=== PATIENT | male | born 1985 | race African-American/Black ===

== ENCOUNTER 2016-05-26 18:51 | Inpatient (IN) | payer MEDICARE, OTHER ==
[2016-05-26] MEDS ORDERED: IPRATROPIUM-ALBUTEROL 3 ML NEB INHALATION STA (19:32)
[2016-05-26] MEDS ORDERED: SODIUM CHLORIDE 0.9% 1,000 ML IV STA (19:32)
--- NOTE | 2016-05-26 19:35 | ED ---
General Adult HPI - General Chief complaint: Shortness of Breath Stated complaint: trach problems-Diff breathing Time Seen by Provider: 05/26/16 19:10 Source: patient, RN notes reviewed Mode of arrival: wheelchair Limitations: no limitations - History of Present Illness Initial comments: Patient is a pleasant 31-year-old male presenting to emergency Department with difficulty in breathing. Symptoms have been present for the past couple of days. Patient feels his trach may be clogged. Patient also has some congestion in the upper as well as in the lungs. Patient feels he has had subjective fevers at home. Patient has been coughing. Patient does feel short of breath. No leg pain or leg swelling. - Related Data Home Medications Medication Instructions Recorded Confirmed Ergocalciferol [Vitamin D2 50,000 unit PO TH 03/19/15 05/26/16 (DRISDOL)] Topiramate [Topamax] 25 mg PO DAILY 03/19/15 05/26/16 amLODIPine [Norvasc] 5 mg PO DAILY 03/19/15 05/26/16 Montelukast [Singulair] 10 mg PO DAILY 04/15/15 05/26/16 Albuterol Nebulized [Ventolin 2.5 mg INHALATION RT-Q4H PRN 05/26/16 05/26/16 Nebulized] Albuterol Sulfate [Proair Hfa] 2 puff INHALATION RT-QID PRN 05/26/16 05/26/16 Budesonide [Pulmicort Flexhaler] 1 puff INHALATION RT-BID 05/26/16 05/26/16 Cetirizine HCl [Zyrtec] 10 mg PO DAILY 05/26/16 05/26/16 Fluticasone/Salmeterol [Advair Hfa 2 puff INHALATION RT-BID 05/26/16 05/26/16 115-21 Mcg Inhaler] L.acidoph,Paracasei, B.lactis 1 cap PO DAILY 05/26/16 05/26/16 [Probiotic] Multivitamins, Thera [Multivitamin] 1 tab PO DAILY 05/26/16 05/26/16 Allergies Allergy/AdvReac Type Severity Reaction Status Date / Time Penicillins Allergy Rash/Hives Verified 05/26/16 19:04 Review of Systems ROS Statement: Those systems with pertinent positive or pertinent negative responses have been documented in the HPI. ROS Other: All systems not noted in ROS Statement are negative. Constitutional: Reports: fever, chills Eyes: Denies: eye pain ENT: Denies: ear pain Respiratory: Reports: cough, dyspnea Cardiovascular: Denies: chest pain Endocrine: Denies: fatigue Gastrointestinal: Denies: abdominal pain Genitourinary: Denies: dysuria Musculoskeletal: Denies: back pain Skin: Denies: rash Neurological: Denies: weakness Past Medical History Past Medical History: Asthma, GERD/Reflux, Hearing Disorder / Deafness, Hypertension, Pneumonia Additional Past Medical History / Comment(s): Patient is deaf. He has had a cochlear implant using a bone anchored hearing aid and he has undergone previous mastoidectomy and tympanoplasty. 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 Patient has a permanent tracheostomy with a #6 Shiley History of Any Multi-Drug Resistant Organisms: None Reported Past Surgical History: Ear Surgery, Tonsillectomy Additional Past Surgical History / Comment(s): Cochlear implant, PT STATED HE HAD THROAT TISSUE BIOPSIED AT [facility] BUT DOES'NT KNOW THE RESULTS. 09/19/14: Tracheostomy tube placement. Past Anesthesia/Blood Transfusion Reactions: No Reported Reaction Additional Past Anesthesia/Blood Transfusion Reaction / Comment(s): PT STATED" WHILE UNDER AA HE BUT DID COME BACK" Past Psychological History: Anxiety, No Psychological Hx Reported Additional Psychological History / Comment(s): CURRENTLY LIVING WITH HIS MOM GETS VISITNG NURSES 2-3 TIMES A WEEK. He is independent. 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 Smoking Status: Never smoker Past Alcohol Use History: None Reported, Occasional Additional Past Alcohol Use History / Comment(s): Pt states he is not a smoker. He states he does occasionally drink on weekends but never more than `4 drinks a week. Past Drug Use History: None Reported - Past Family History Son(s) Family Medical History: Asthma Father Family Medical History: Hypertension Mother Family Medical History: Hypertension General Exam Limitations: no limitations General appearance: alert, in no apparent distress Head exam: Present: atraumatic Eye exam: Present: normal appearance, PERRL ENT exam: Present: normal oropharynx Neck exam: Present: normal inspection Respiratory exam: Present: wheezes, rhonchi Cardiovascular Exam: Present: tachycardia GI/Abdominal exam: Present: soft. Absent: tenderness Extremities exam: Present: normal inspection Neurological exam: Present: alert Psychiatric exam: Present: normal affect, normal mood Skin exam: Absent: rash Course Vital Signs 05/26/16 05/26/16 05/26/16 19:01 19:48 20:18 Temperature 98.0 F Pulse Rate 142 H 140 H 140 H Respiratory 24 Rate Blood Pressure 146/75 O2 Sat by Pulse 92 L Oximetry 05/26/16 20:51 Temperature Pulse Rate 122 H Respiratory 16 Rate Blood Pressure 155/81 O2 Sat by Pulse 98 Oximetry EKG Findings - EKG Comments: EKG Findings:: Sinus tachycardia 128. NH 148. QRS 80. QT 304. QTC 443. Superior axis. Poor R-wave progression. No acute ST change. Medical Decision Making - Medical Decision Making Patient reexamined and improved however still has some shortness of breath per patient still is coughing. Patient updated on results and plan. Case was discussed in detail with practitioner Chris, to admit for Dr. Puckett, covering for Dr. Hennessy. Patient does meet sepsis criteria. IV antibiotics started. Admission orders written. Consult placed for Dr. Tariq who patient has previously seen. - Lab Data Result diagrams: 05/26/16 19:42 05/26/16 19:42 Lab Results 05/26/16 05/26/16 05/26/16 Range/Units 19:42 19:42 19:42 WBC 13.6 H (3.8-10.6) k/uL RBC 5.04 (4.30-5.90) m/uL Hgb 13.6 (13.0-17.5) gm/dL Hct 43.8 (39.0-53.0) % MCV 86.9 (80.0-100.0) fL MCH 26.9 (25.0-35.0) pg MCHC 31.0 (31.0-37.0) g/dL RDW 15.5 (11.5-15.5) % Plt Count 262 (150-450) k/uL Neutrophils % 83 % Lymphocytes % 7 % Monocytes % 6 % Eosinophils % 1 % Basophils % 0 % Neutrophils # 11.3 H (1.3-7.7) k/uL Lymphocytes # 0.9 L (1.0-4.8) k/uL Monocytes # 0.8 (0-1.0) k/uL Eosinophils # 0.1 (0-0.7) k/uL Basophils # 0.1 (0-0.2) k/uL Sodium 142 (137-145) mmol/L Potassium 3.9 (3.5-5.1) mmol/L Chloride 102 (98-107) mmol/L Carbon Dioxide 23 (22-30) mmol/L Anion Gap 17 mmol/L BUN 14 (9-20) mg/dL Creatinine 0.82 (0.66-1.25) mg/dL Est GFR (MDRD) Af Amer >60 (>60 ml/min/1.73 sqM) Est GFR (MDRD) Non-Af >60 (>60 ml/min/1.73 sqM) Glucose 97 (74-99) mg/dL Calcium 9.8 (8.4-10.2) mg/dL Total Bilirubin 0.9 (0.2-1.3) mg/dL AST 17 (17-59) U/L ALT 38 (21-72) U/L Alkaline Phosphatase 112 (38-126) U/L Total Protein 8.8 H (6.3-8.2) g/dL Albumin 4.6 (3.5-5.0) g/dL Influenza Type A RNA Not Detected (Not Detectd) Influenza Type B (PCR) Not Detected (Not Detectd) - Radiology Data Radiology results: image reviewed (Chest x-ray shows right middle lobe atelectasis versus bronco pneumonia) Critical Care Time Critical Care Time: Yes Total Critical Care Time: 33 Disposition Clinical Impression: Bronchopneumonia, Sepsis Disposition: ADMITTED IP TO THIS HOSP Referrals: Lacey Valenzuela MD [Primary Care Provider] - 1-2 days
[2016-05-26 19:58] LABS: Basophils # (A) 0.1 k/uL (0-0.2); Basophils % (A) 0 %; CH 27.6; Eosinophils # (A) 0.1 k/uL (0-0.7); Eosinophils % (A) 1 %; HCT 43.8 % (39.0-53.0); HDW 2.55; HGB 13.6 gm/dL (13.0-17.5); Luc # (Auto) 0.47; Luc % (Auto) 4; Lymphocytes # (A) 0.9 k/uL (1.0-4.8); Lymphocytes % (A) 7 %; MCH 26.9 pg (25.0-35.0); MCV 86.9 fL (80.0-100.0); Mean Platelet Volume 8.5; Monocytes # (A) 0.8 k/uL (0-1.0); Monocytes % (A) 6 %; Neutrophils # (A) 11.3 k/uL (1.3-7.7); Neutrophils % (A) 83 %; RBC 5.04 m/uL (4.30-5.90); RDW 15.5 % (11.5-15.5); WBC 13.6 k/uL (3.8-10.6)
[2016-05-26 20:21] LABS: ALT 38 U/L (21-72); AST 17 U/L (17-59); Alkaline Phosphatase 112 U/L (38-126); Anion Gap 17 mmol/L; Blood Urea Nitrogen 14 mg/dL (9-20); Calcium 9.8 mg/dL (8.4-10.2); Carbon Dioxide 23 mmol/L (22-30); Chloride 102 mmol/L (98-107); Glucose 97 mg/dL (74-99); Non-African American GFR(MDRD) >60 (>60 ml/min/1.73 sqM); Potassium 3.9 mmol/L (3.5-5.1); Sodium 142 mmol/L (137-145); Total Bilirubin 0.9 mg/dL (0.2-1.3); Total Protein 8.8 g/dL (6.3-8.2)
--- NOTE | 2016-05-26 20:36 | XR ---
EXAMINATION TYPE: XR chest 2V DATE OF EXAM: 05/26/2016 8:26 PM COMPARISON: November 26, 2015 HISTORY: Dyspnea, cough TECHNIQUE: Frontal and lateral views of the chest are obtained. FINDINGS: Tracheostomy tube tip is overlying the trachea. There is redemonstration of obscuration of the right heart border. In fact, it is completely silhouetted on the present study. This is consiste nt with airlessness throughout the right middle lobe. The volume of right middle lobe airlessness has increased since the April 2015 study. There is no focal air space opacity, pleural effusion, or pneumothorax seen. The cardiac silhouette size is within normal limits. The osseous structures are intact. IMPRESSION: RIGHT MIDDLE LOBE ATELECTASIS, CONCURRENT BRONCHOPNEUMONIA CAN ONLY BE CLINICALLY EXCLUD ED.
[2016-05-26] MEDS ORDERED: PNEUMONIA PROTOCOL UTILIZED 1 EACH MISC PO PRN (20:54)
[2016-05-26] MEDS ORDERED: LEVOFLOXACIN 750MG-D5W PMX 750 MG in DEXTROSE/WATER 1 150ML.BAG IVPB STA (20:54)
[2016-05-26] MEDS ORDERED: IPRATROPIUM-ALBUTEROL 3 ML NEB INHALATION PRN (20:54)
[2016-05-26] MEDS ORDERED: AZTREONAM 2 GM in SODIUM CHLORIDE 0.9% 100 ML IVPB STA (20:56)
[2016-05-26] MEDS ORDERED: methylPREDNISolone SOD SUCCI 125 MG/2 ML VIAL IV STA (21:08)
[2016-05-26] MEDS: SODIUM CHLORIDE 0.9% 1,000 ML IV SCH (21:11)
[2016-05-26 23:34] VITALS: BMI 42.5
[2016-05-27] MEDS ORDERED: ALBUTEROL NEBULIZED 2.5 MG/3 ML INHALATION PRN (00:43)
[2016-05-27] MEDS: HYDROcodone/APAP 5-325MG 1 EACH TAB PO PRN ×4 (01:04→22:50)
[2016-05-27] MEDS: FLUTICASONE 50MCG/SPRAY NASAL 16GM NASAL SCH ×3 (01:09→20:12)
[2016-05-27] MEDS: diphenhydrAMINE 50 MG CAP PO SCH ×2 (01:09→20:13)
[2016-05-27] MEDS: methylPREDNISolone SOD SUCCI 125 MG/2 ML VIAL IV SCH ×4 (06:18→22:49)
[2016-05-27] MEDS: SODIUM CHLORIDE 0.9% 1,000 ML IV SCH ×3 (06:23→23:08)
[2016-05-27 06:26] LABS: Glucose,Whole Blood 157 mg/dL (75-99)
[2016-05-27] MEDS: INSULIN LISPRO (humaLOG) 300 UNIT/3 ML VIAL SQ SCH ×4 (07:02→22:48)
[2016-05-27] MEDS ORDERED: NON-FORMULARY DRUG (Budesonide [Pulmicort Flexhaler] 1 PUFF) INHALATION SCH (08:00)
[2016-05-27] MEDS ORDERED: SYMBICORT 80-4.5 MCG INHALER INHALATION SCH (08:00)
[2016-05-27] MEDS: AZTREONAM 2 GM in SODIUM CHLORIDE 0.9% 100 ML IVPB SCH ×3 (08:03→22:49)
[2016-05-27] MEDS: IPRATROPIUM-ALBUTEROL 3 ML NEB INHALATION SCH ×4 (08:40→20:42)
[2016-05-27] MEDS: guaiFENesin-Coden 100-10MG/5ML 10 ML CUP PO PRN ×2 (11:44→22:50)
[2016-05-27] MEDS: guaiFENesin 600 MG TABLET.ER PO SCH ×2 (11:44→20:12)
[2016-05-27 12:33] LABS: Glucose,Whole Blood 150 mg/dL (75-99)
[2016-05-27 13:45] LABS: Hemoglobin A1C 5.9 % (4.2-6.1)
--- NOTE | 2016-05-27 14:52 | P.CNPUL ---
History of Present Illness Consult date: 05/27/16 Requesting physician: Cindi Puckett Reason for consult: abnormal CXR/CT (Right lower lobe atelectasis) Chief complaint: Shortness of breath, cough, congestion History of present illness: This is a very pleasant 31-year-old gentleman who follows with Dr. Valenzuela as his primary care physician. He has a history of chronic bronchial asthma, gastroesophageal reflux disease, deafness status post mastoidectomy and tympanoplasty status post cochlear implant, hypertension. The patient also has a history of previous angioedema requiring emergent tracheostomy tube placement here back in September 2014. He subsequently was transferred to the [facility] and he was considered of having a disease called Rosia-Parker. He has remained with tracheostomy tube since then. He has been in the hospital multiple occasions secondary to pneumonias. Between here and [facility] we have seen the patient on multiple occasions. He presented here again on 05/26/2016 with complaints of increasing shortness of breath cough and congestion. He expectorates quite a bit of hot yellow sputum from his tracheostomy tube. He was recently at the [facility] and had undergone swallow evaluation by Dr. Olguin (ENT) which all came back normal. He was noted to have some lesions in his tracheal bronchial tubes and was transferred to [facility]. There he had been undergone another bronchoscopy by Dr. Earnest Lagunas. No interventions were performed. Tracheostomy was left in place. He was to follow-up there on the of this month. He is seen today in consultation. He is awake and alert in no acute distress. He states he is a 31 breathing easier today as compared to yesterday. He continues with thick yellow sputum that he is able to expectorate from his tracheostomy tube. Reveal some chronic changes of the right lower lobe. Some atelectasis. He denies any difficulty in swallowing. He eats full regular meals and his influenza screen is negative. Mild leukocytosis with a white count of 13.6. He is afebrile. He is maintaining good O2 saturations in the mid to upper 90s on 35% trach collar. Review of Systems 14 point review of system was conducted. All negative other than as mentioned in HPI. Past Medical History Past Medical History: Asthma, GERD/Reflux, Hearing Disorder / Deafness, Hypertension, Pneumonia Additional Past Medical History / Comment(s): Patient is deaf. He has had a cochlear implant using a bone anchored hearing aid and he has undergone previous mastoidectomy and tympanoplasty. 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 Patient has a permanent tracheostomy with a #6 Shiley History of Any Multi-Drug Resistant Organisms: None Reported Past Surgical History: Ear Surgery, Tonsillectomy Additional Past Surgical History / Comment(s): Cochlear implant, PT STATED HE HAD THROAT TISSUE BIOPSIED AT [facility] BUT DOES'NT KNOW THE RESULTS. 09/19/14: Tracheostomy tube placement. Past Anesthesia/Blood Transfusion Reactions: No Reported Reaction Additional Past Anesthesia/Blood Transfusion Reaction / Comment(s): PT STATED" WHILE UNDER AA HE BUT DID COME BACK" Past Psychological History: Anxiety Additional Psychological History / Comment(s): CURRENTLY LIVING WITH HIS MOM GETS VISITNG NURSES 2-3 TIMES A WEEK. He is independent. 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 Smoking Status: Former smoker Past Alcohol Use History: Occasional Additional Past Alcohol Use History / Comment(s): Pt states he is not a smoker. He states he does occasionally drink on weekends but never more than `4 drinks a week. Past Drug Use History: None Reported - Past Family History Son(s) Family Medical History: Asthma Father Family Medical History: Hypertension Mother Family Medical History: Hypertension Medications and Allergies Home Medications Medication Instructions Recorded Confirmed Type Ergocalciferol [Vitamin D2 50,000 unit PO TH 03/19/15 05/26/16 History (DRISDOL)] Topiramate [Topamax] 25 mg PO DAILY 03/19/15 05/26/16 History amLODIPine [Norvasc] 5 mg PO DAILY 03/19/15 05/26/16 History Montelukast [Singulair] 10 mg PO DAILY 04/15/15 05/26/16 History Albuterol Nebulized [Ventolin 2.5 mg INHALATION RT-Q4H PRN 05/26/16 05/26/16 History Nebulized] Albuterol Sulfate [Proair Hfa] 2 puff INHALATION RT-QID PRN 05/26/16 05/26/16 History Budesonide [Pulmicort Flexhaler] 1 puff INHALATION RT-BID 05/26/16 05/26/16 History Cetirizine HCl [Zyrtec] 10 mg PO DAILY 05/26/16 05/26/16 History Fluticasone Nasal [place] [Flonase 1 spray NASAL BID 05/26/16 05/26/16 History Nasal [place]] Fluticasone/Salmeterol [Advair Hfa 2 puff INHALATION RT-BID 05/26/16 05/26/16 History 115-21 Mcg Inhaler] L.acidoph,Paracasei, B.lactis 1 cap PO DAILY 05/26/16 05/26/16 History [Probiotic] Multivitamins, Thera [Multivitamin] 1 tab PO DAILY 05/26/16 05/26/16 History diphenhydrAMINE [Benadryl] 50 mg PO HS 05/26/16 05/26/16 History Allergies Allergy/AdvReac Type Severity Reaction Status Date / Time Penicillins Allergy Rash/Hives Verified 05/26/16 19:04 Physical Exam Vitals: Vital Signs Temp Pulse Pulse Resp BP BP Pulse Ox 05/27/16 13:40 92 05/27/16 13:16 92 05/27/16 11:41 86 16 125/72 98 05/27/16 08:57 80 05/27/16 08:40 82 05/27/16 07:56 97 F L 58 L 16 120/72 98 05/27/16 04:00 96.9 F L 83 18 122/83 96 05/27/16 00:00 97.7 F 103 H 18 133/70 97 05/26/16 23:04 98.7 F 115 H 22 140/82 93 L 05/26/16 22:21 108 H 16 141/78 97 05/26/16 21:17 118 H 20 148/79 97 Intake and Output 05/26/16 05/27/16 05/27/16 22:59 06:59 14:59 Intake Total 1000 360 Output Total 225 Balance 775 360 Intake: IV 1000 Aztreonam 2 gm In Sodium 100 Chloride 0.9% 100 ml @ 100 mls/hr IVPB ONCE STA Rx#:[id number] Sodium Chloride 0.9% 1, 900 000 ml @ 100 mls/hr IV . Q10H NIC Rx#:[id number] Oral 360 Output: Urine 225 Other: Voiding Method Urinal Weight 112.4 kg GENERAL EXAM: Alert, comfortable in no apparent distress. HEAD: Normocephalic. EYES: Normal reaction of pupils, equal size. NOSE: Clear with pink turbinates. THROAT: Tracheostomy tube is secured in place. No erythema or exudates. NECK: No masses, no JVD. CHEST: No chest wall deformity. LUNGS: Equal air entry with faint crackles in the right posterior base. CVS: S1 and S2 normal with no audible murmurs, regular rhythm. ABDOMEN: No hepatosplenomegaly, normal bowel sounds, no guarding or rigidity. SPINE: No scoliosis or deformity SKIN: No rashes CENTRAL NERVOUS SYSTEM: No focal deficits, tone is normal in all 4 extremities. Extremities: There is trace peripheral edema. No clubbing. Pulses are intact. Results - Laboratory Findings CBC and BMP: 05/26/16 19:42 05/26/16 19:42 Abnormal lab findings: Abnormal Labs 05/27/16 05/27/16 06:16 12:31 POC Glucose (mg/dL) 157 H 150 H - Diagnostic Findings Chest x-ray: image reviewed Assessment and Plan Plan: Impression: #1 Acute exacerbation of chronic moderate persistent asthma complicated by purulent tracheobronchitis. Pneumonia is not totally excluded. #2 Acute hypoxic respiratory failure secondary to above. 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 The patient does have been documented lesions in the trachea and bronchial tubes following recent bronchoscopy by Dr. Sanchez on [facility]. Tracheostomy tube remains in place for now. #5 Deafness, status post cochlear transplant with hearing aids. Thank: The patient was seen and evaluated by Dr. Mendoza. His chest x-ray and labs were reviewed. We'll treat the patient for his asthma exacerbation as well as purulent tracheobronchitis. Will obtain a sputum sample. We'll continue with his bronchodilators, performance and Pulmicort inhalations twice a day, Mucomyst him a IV Solu-Medrol. He is on antibiotics in the form of Levaquin and as turning him. We will increase his activity as tolerated. We'll continue to follow make further recommendations based on his clinical status.
--- NOTE | 2016-05-27 16:52 | HP ---
DATE OF ADMISSION: CHIEF COMPLAINT: Shortness of breath, cough and sputum. HISTORY OF PRESENT ILLNESS: This 31-year-old gentleman with a past history of asthma, history of GERD, history of hearing disorder, history of deafness, history of cochlear implant, history of Rosai-Parker syndrome, history of upper airway obstruction, had also chronic respiratory failure. The patient also had a tracheostomy because of upper airway obstruction. The patient had tracheal reconstruction at the [facility] and the tracheostomy was supposed to be removed last month according to the patient but the patient was sick and complaining of increasing shortness of breath and cough and mucopurulent sputum and the patient came to [facility] and admitted for further evaluation and treatment. Right middle lobe bronchopneumonia suspected. There is no history of any fever, rigors. No history of headache, loss of consciousness, or seizures. 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 Medications prior to admission include: 1. Benadryl 50 mg p.o. q.h.s. 2. Flonase one spray b.i.d. 3. Norvasc 5 mg p.o. 4. Toprol 25 mg p.o. daily. 5. Multivitamin 1 p.o. daily. 6. Singulair 10 mg p.o. daily. 7. Probiotic 1 capsule daily. 8. Advair 2 puffs b.i.d. 9. Drisdol 50,000 p.o. . 10. Zyrtec 10 mg p.o. daily. 11. Pulmicort 1 mg 1 b.i.d. 12. ProAir 2 puffs q.i.d. 13. Ventolin 2.5 q.4 p.r.n. ALLERGIES: PENICILLIN. FAMILY HISTORY: History of asthma in the family. SOCIAL HISTORY: Previous history of smoking, occasional alcohol intake. REVIEW OF SYSTEMS: ENT: Mentioned earlier. CARDIOVASCULAR: No angina. RESPIRATORY: As mentioned earlier. GI: No nausea. : No dysuria. NERVOUS SYSTEM: No numbness or weakness. ALLERGY/IMMUNOLOGY: No asthma or hayfever. MUSCULOSKELETAL: As mentioned earlier. HEMATOLOGY/ONCOLOGY: No history of anemia. ENDOCRINE: No history of diabetes or hypothyroidism. CONSTITUTIONAL: As mentioned earlier. DERMATOLOGY: Negative. RHEUMATOLOGY: Negative. PSYCHIATRY: As mentioned earlier. PHYSICAL EXAMINATION: pulse is 58, blood pressure 120/77, respirations 16, temperature 97 degrees, pulse ox 98% on room air. HEENT: Conjunctivae normal. Oral mucosa moist. NECK: Tracheostomy. No jugular venous distention. No carotid bruit. No lymph node enlargement. CARDIOVASCULAR: S1 and S2. No S3, no S4. RESPIRATORY: Breath sounds diminished at the bases. Bilateral scattered rhonchi and crackles. ABDOMEN: Soft, nontender. No mass palpable. LEGS: No edema, no swelling. NERVOUS SYSTEM: Higher function as mentioned. Moves all four limbs. No focal motor deficits. LYMPHATIC: No lymphadenopathy in the neck, axillae or groin. SKIN: No ulcer, rash or bleeding. LABS: WBC 13.6, 8. ASSESSMENT: 1. Acute asthma acute exacerbation with acute purulent tracheobronchitis and bronchopneumonia on the right with SARS present on admission. 2. Increased WBC. 3. Tachycardia present on admission. 4. Increased random blood sugar. 5. Asthma. 6. History of gastroesophageal reflux disease. 7. History of hearing deficit and deafness. 8. Hypertension. 9. History of pneumonia. 10. History of cochlear implant. 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 12. History of tracheostomy with a number 6 Shiley. 13. History of anxiety. 14. Remote history of nicotine dependence. 15. FULL CODE. 16. Obesity with body mass index of 42.5. RECOMMENDATIONS AND DISCUSSION: In this 31-year-old gentleman who presented with multiple complex medical issues, we will monitor the patient closely. Continue the current medications and symptomatic treatment. Will optimize the bronchodilator treatment and empiric antibiotics. We will follow the cultures. Dr. Mendoza and Dr. Tariq will be consulted. Prognosis guarded because of multiple complex medical issues. Further recommendations to follow. Copy of dictation forwarded to Dr. Valenzuela, who is the primary physician. TONEY
--- NOTE | 2016-05-27 17:24 | XR ---
EXAMINATION TYPE: XR chest 2V DATE OF EXAM: 05/27/2016 5:13 PM COMPARISON: 05/26/2016 HISTORY: Cough and congestion TECHNIQUE: Frontal and lateral views of the chest are obtained. FINDINGS: There is no heart failure nor confluent pneumonic infiltrate. Costophrenic angles are karlee r. There is tracheostomy tube noted. Mediastinum is normal. There are no hilar masses. There is mild linear density in the right middle lobe. IMPRESSION: Mild right middle lobe atelectasis without change compared to yesterday. No heart failur e. No evidence of bronchopneumonia.
[2016-05-27 17:40] LABS: Glucose,Whole Blood 123 mg/dL (75-99)
[2016-05-27] MEDS: LORATADINE 10 MG TAB PO SCH (17:40)
[2016-05-27] MEDS ORDERED: FORMOTEROL FUMARATE 20 MCG/2 ML NEBU INHALATION SCH (20:00)
[2016-05-27] MEDS ORDERED: BUDESONIDE 1 MG/2 ML NEBU INHALATION SCH (20:00)
[2016-05-27] MEDS: LEVOFLOXACIN 750MG-D5W PMX 750 MG in DEXTROSE/WATER 1 150ML.BAG IVPB SCH (20:12)
[2016-05-27 20:36] LABS: Glucose,Whole Blood 214 mg/dL (75-99)
[2016-05-27] MEDS: BUDESONIDE 0.5 MG/2 ML NEBU INHALATION SCH (20:42)
[2016-05-27] MEDS: FORMOTEROL FUMARATE 20 MCG/2 ML NEBU INHALATION SCH (20:42)
[2016-05-28 05:50] LABS: Glucose,Whole Blood 143 mg/dL (75-99)
[2016-05-28] MEDS: INSULIN LISPRO (humaLOG) 300 UNIT/3 ML VIAL SQ SCH ×4 (06:19→21:50)
[2016-05-28] MEDS: methylPREDNISolone SOD SUCCI 125 MG/2 ML VIAL IV SCH ×4 (06:19→22:31)
[2016-05-28] MEDS: PANTOPRAZOLE 40 MG TABLET PO SCH (06:20)
[2016-05-28] MEDS: HYDROcodone/APAP 5-325MG 1 EACH TAB PO PRN ×3 (06:32→17:42)
[2016-05-28 06:46] LABS: Basophils % (A) 0 %; CH 26.7; CHCM 30.2; Eosinophils # (A) 0.1 k/uL (0-0.7); Eosinophils % (A) 1 %; HCT 38.7 % (39.0-53.0); HDW 2.62; HGB 11.6 gm/dL (13.0-17.5); Hypochromasia Moderate; Luc # (Auto) 0.17; Luc % (Auto) 1; Lymphocytes # (A) 0.7 k/uL (1.0-4.8); Lymphocytes % (A) 4 %; MCH 26.6 pg (25.0-35.0); MCHC 29.9 g/dL (31.0-37.0); MCV 88.8 fL (80.0-100.0); Mean Platelet Volume 8.2; Monocytes # (A) 0.5 k/uL (0-1.0); Monocytes % (A) 3 %; Neutrophils # (A) 13.4 k/uL (1.3-7.7); Neutrophils % (A) 91 %; RBC 4.35 m/uL (4.30-5.90); WBC 14.7 k/uL (3.8-10.6); WBC (Perox) 15.19
[2016-05-28 07:01] LABS: Anion Gap 13 mmol/L; Blood Urea Nitrogen 14 mg/dL (9-20); Calcium 9.4 mg/dL (8.4-10.2); Carbon Dioxide 22 mmol/L (22-30); Chloride 107 mmol/L (98-107); Glucose 132 mg/dL (74-99); Non-African American GFR(MDRD) >60 (>60 ml/min/1.73 sqM); Potassium 4.7 mmol/L (3.5-5.1); Sodium 142 mmol/L (137-145)
[2016-05-28] MEDS: BUDESONIDE 0.5 MG/2 ML NEBU INHALATION SCH ×2 (07:59→20:01)
[2016-05-28] MEDS: IPRATROPIUM-ALBUTEROL 3 ML NEB INHALATION SCH ×4 (07:59→20:01)
[2016-05-28] MEDS: FORMOTEROL FUMARATE 20 MCG/2 ML NEBU INHALATION SCH ×2 (07:59→20:01)
[2016-05-28] MEDS: AZTREONAM 2 GM in SODIUM CHLORIDE 0.9% 100 ML IVPB SCH ×3 (09:51→22:30)
[2016-05-28] MEDS: LACTOBACILLUS ACIDOPH & BULGAR 1 EACH PACKET PO SCH (09:59)
[2016-05-28] MEDS: guaiFENesin 600 MG TABLET.ER PO SCH ×2 (09:59→20:29)
[2016-05-28] MEDS: amLODIPine 5 MG TAB PO SCH (09:59)
[2016-05-28] MEDS: FLUTICASONE 50MCG/SPRAY NASAL 16GM NASAL SCH ×2 (09:59→20:29)
[2016-05-28] MEDS: MONTELUKAST 10 MG TAB PO SCH (10:00)
[2016-05-28] MEDS: LORATADINE 10 MG TAB PO SCH (10:00)
[2016-05-28] MEDS: TOPIRAMATE 25 MG TAB PO SCH (10:00)
[2016-05-28] MEDS: guaiFENesin-Coden 100-10MG/5ML 10 ML CUP PO PRN ×2 (10:12→20:29)
[2016-05-28] MEDS: MULTIVITAMINS, THERA 1 EACH TAB PO SCH (11:25)
[2016-05-28 11:53] LABS: Glucose,Whole Blood 150 mg/dL (75-99)
--- NOTE | 2016-05-28 13:26 | P.PN ---
Subjective This is a very pleasant 31-year-old gentleman who follows with Dr. Valenzuela as his primary care physician. He has a history of chronic bronchial asthma, gastroesophageal reflux disease, deafness status post mastoidectomy and tympanoplasty status post cochlear implant, hypertension. The patient also has a history of previous angioedema requiring emergent tracheostomy tube placement here back in September 2014. 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 He has remained with tracheostomy tube since then. He has been in the hospital multiple occasions secondary to pneumonias. Between here and [facility] we have seen the patient on multiple occasions. He presented here again on 05/26/2016 with complaints of increasing shortness of breath cough and congestion. He expectorates quite a bit of hot yellow sputum from his tracheostomy tube. He was recently at the [facility] and had undergone swallow evaluation by Dr. Olguin (ENT) which all came back normal. He was noted to have some lesions in his tracheal bronchial tubes and was transferred to [facility]. There he had been undergone another bronchoscopy by Dr. Earnest Lagunas. No interventions were performed. Tracheostomy was left in place. He was to follow-up there on the of this month. He is seen today in consultation. He is awake and alert in no acute distress. He states he is a 31 breathing easier today as compared to yesterday. He continues with thick yellow sputum that he is able to expectorate from his tracheostomy tube. Reveal some chronic changes of the right lower lobe. Some atelectasis. He denies any difficulty in swallowing. He eats full regular meals and his influenza screen is negative. Mild leukocytosis with a white count of 13.6. He is afebrile. He is maintaining good O2 saturations in the mid to upper 90s on 35% trach collar. The patient is seen again today 05/28/2016 in follow-up on the selective care unit. He is awake and alert in no acute distress. He states he is breathing easier today as compared to yesterday. He continues with a productive cough of pale yellow phlegm. Sputum culture is pending. He is maintaining good O2 saturations in the high 90s on 35% trach collar. He is afebrile. White count 14.7. He has been maintained on Levaquin and aztreonam. Objective - Vital Signs Vital signs: Vital Signs Temp 98 F 05/28/16 08:00 Pulse 84 05/28/16 12:02 Resp 20 05/28/16 08:00 BP 133/76 05/28/16 08:00 Pulse Ox 98 05/28/16 08:00 Intake & Output 05/27/16 05/28/16 05/28/16 18:59 06:59 18:59 Intake Total 1980 900 118 Output Total 1300 Balance 1979 -400 118 Weight 112.4 kg Intake: IV 900 700 Aztreonam 2 gm In Sodium 100 Chloride 0.9% 100 ml @ 100 mls/hr IVPB ONCE STA Rx#:[id number] Sodium Chloride 0.9% 1, 800 700 000 ml @ 100 mls/hr IV . Q10H NIC Rx#:[id number] Intake, IV Titration 200 Amount Aztreonam 2 gm In Sodium 100 Chloride 0.9% 100 ml @ 100 mls/hr IVPB Q8HR NIC Rx#:[id number] Levofloxacin 750Mg-D5w 100 Pmx 750 mg In Dextrose/ Water 1 150ml.bag @ 100 mls/hr IVPB Q24H NIC Rx#: [id number] Oral 1080 118 Output: Urine 1300 Other: Voiding Method Urinal Urinal # Voids 2 - Exam GENERAL EXAM: Alert, comfortable in no apparent distress. HEAD: Normocephalic. EYES: Normal reaction of pupils, equal size. NOSE: Clear with pink turbinates. THROAT: Tracheostomy tube is secured in place. No erythema or exudates. NECK: No masses, no JVD. CHEST: No chest wall deformity. LUNGS: Equal air entry with faint crackles in the right posterior base. CVS: S1 and S2 normal with no audible murmurs, regular rhythm. ABDOMEN: No hepatosplenomegaly, normal bowel sounds, no guarding or rigidity. SPINE: No scoliosis or deformity SKIN: No rashes CENTRAL NERVOUS SYSTEM: No focal deficits, tone is normal in all 4 extremities. Extremities: There is trace peripheral edema. No clubbing. Pulses are intact - Labs CBC & Chem 7: 05/28/16 05:58 05/28/16 05:58 Labs: Abnormal Lab Results - Last 24 Hours (Table) 05/27/16 05/27/16 05/28/16 Range/Units 17:38 20:35 05:48 WBC (3.8-10.6) k/uL Hgb (13.0-17.5) gm/dL Hct (39.0-53.0) % MCHC (31.0-37.0) g/dL Neutrophils # (1.3-7.7) k/uL Lymphocytes # (1.0-4.8) k/uL Glucose (74-99) mg/dL POC Glucose (mg/dL) 123 H 214 H 143 H (75-99) mg/dL 05/28/16 05/28/16 05/28/16 Range/Units 05:58 05:58 11:43 WBC 14.7 H (3.8-10.6) k/uL Hgb 11.6 L (13.0-17.5) gm/dL Hct 38.7 L (39.0-53.0) % MCHC 29.9 L (31.0-37.0) g/dL Neutrophils # 13.4 H (1.3-7.7) k/uL Lymphocytes # 0.7 L (1.0-4.8) k/uL Glucose 132 H (74-99) mg/dL POC Glucose (mg/dL) 150 H (75-99) mg/dL Microbiology - Last 24 Hours (Table) 05/26/16 21:41 Blood Culture - Preliminary Blood No Growth after 24 hours Assessment and Plan Plan: Impression: #1 Acute exacerbation of chronic moderate persistent asthma complicated by purulent tracheobronchitis. Pneumonia is not totally excluded. #2 Acute hypoxic respiratory failure secondary to above. 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 The patient does have been documented lesions in the trachea and bronchial tubes following recent bronchoscopy by Dr. Sanchez on [facility]. Tracheostomy tube remains in place for now. #5 Deafness, status post cochlear transplant with hearing aids. Thank: The patient was seen and evaluated by Dr. Mendoza. We'll continue with his bronchodilators, performance and Pulmicort inhalations twice a day, Mucomyst him a IV Solu-Medrol. He is on antibiotics in the form of Levaquin and aztreonam. We will increase his activity as tolerated. We'll continue to follow make further recommendations based on his clinical status. Hopefully, the patient will be able to be discharged prior to Monday so he could keep his appointment with Dr. Lagunas at [facility] in regards to the tracheal/bronchial lesions.
[2016-05-28 16:28] LABS: Glucose,Whole Blood 125 mg/dL (75-99)
[2016-05-28] MEDS: SODIUM CHLORIDE 0.9% 1,000 ML IV SCH (16:39)
[2016-05-28] MEDS: diphenhydrAMINE 50 MG CAP PO SCH (20:29)
[2016-05-28] MEDS: LEVOFLOXACIN 750MG-D5W PMX 750 MG in DEXTROSE/WATER 1 150ML.BAG IVPB SCH (20:29)
[2016-05-28 20:59] LABS: Glucose,Whole Blood 170 mg/dL (75-99)
--- NOTE | 2016-05-28 21:35 | PN ---
This 31-year-old gentleman with a past medical history of multiple medical problems was admitted with significant bronchopneumonia. The patient had features of SARS present on admission. The patient had cough, sputum at this time. The blood cultures are negative. Pulmonary following the patient closely. The patient is on bronchodilators also. The patient also has history of Rosai Parker syndrome and evaluated at [facility] for possible surgery on this coming Monday. PAST MEDICAL HISTORY: Reviewed. REVIEW OF SYSTEMS: CARDIOVASCULAR: No angina or palpitations. RESPIRATORY: As mentioned earlier. GASTROINTESTINAL: No nausea or vomiting. GENITOURINARY: No dysuria. CENTRAL NERVOUS SYSTEM: No numbness, weakness. Current medications are reviewed and include: 1. [place] 5 mg q.6h p.r.n. 2. Ventolin q.i.d. p.r.n. 3. DuoNeb q.i.d. and p.r.n. 4. Norvasc 5 mg p.o. daily. 6. Pulmicort 0.5 b.i.d. 7. Benadryl 50 mg. 8. Vitamin D2, 50,000 . 9. Flonase. 10. Perforomist 20 mg b.i.d. 11. Mucinex 1200 mg p.o. b.i.d. 12. Humalog scale. 13. Lactinex 1 tablet p.o. daily. 14. Levaquin 750 q.24 hours. 15. Solu-Medrol 60 IV q.6. 16. Singulair 10 mg p.o. daily. 17. Multivitamins one daily. 18. Protonix 40 mg daily. 19. Restoril 15 mg q.h.s. PHYSICAL EXAMINATION: The patient is alert and oriented times three. Pulse 89, blood pressure 136/72. Respiratory rate 18, temperature normal. Pulse ox 95% on trach collar. HEENT: Conjunctivae normal. Oral mucosa moist. NECK: No jugular venous distention. No carotid bruit. No lymph node enlargement. Tracheostomy. CARDIOVASCULAR: S1. S2 muffled. No S3, no S4. RESPIRATORY: Breath sounds diminished at the bases. Bilateral scattered rhonchi, expiratory wheezing and crackles. ABDOMEN: Soft, nontender, no mass palpable. LEGS: NO edema. No swelling. CENTRAL NERVOUS SYSTEM: Higher functions as mentioned earlier. Moves all four limbs. No focal deficits. LYMPHATICS: No lymph nodes palpable in the neck, axillae or groin. SKIN: No ulcer, rash or bleeding. LABS: WBC 14.2, hemoglobin 11.6, glucose 150. ASSESSMENT: Called. HEENT: Conjunctivae normal. Oral mucosa moist. NECK: No jugular venous distention. No carotid bruit. No exertion, no nervous system: No focal deficits. And prescription. The bases acute as the bases. A few scattered rhonchi and expiratory wheezing and crackles. ABDOMEN: Soft. No mass palpable. No swelling. Nervous system: Higher function as mentioned. Moves all 4 limbs Motrin his, axillae or groin. SKIN: No ulcer, rash or bleeding. LABS: WBC 14.7 0.6. Glucose 150. ASSESSMENT: 1. Acute asthma, acute exacerbation, with acute purulent tracheobronchitis and bronchopneumonia bilaterally, more on the right with severe acute respiratory syndrome present on admission. 2. Increased WBC. 3. Tachycardia present on admission. 4. Increased random blood sugar. 5. Asthma. 6. History of gastroesophageal reflux disease. 7. History of hearing deficits and deafness. 8. Hypertension. 9. History of pneumonia. 10. History of cochlear implant. 11. History of Rosai Parker syndrome. 12. History of tracheostomy with number 6 Shiley. 13. History of anxiety. 14. Remote history of nicotine dependence. 15. Obesity with body mass index of 42.5. 16. FULL CODE. RECOMMENDATIONS AND DISCUSSION: This 31-year-old gentleman with multiple complex medical issues, we will monitor the patient closely. Continue the current medications. Continue symptomatic treatment. I will recommend to continue broad-spectrum IV antibiotics. The patient was started Aztreonam at this time. Continue the bronchodilators, continue steroids and continue the rest of the medication. Obtain cultures. Closely follow with Dr. Mendoza. Guarded prognosis. Further recommendations to follow. [facility]
[2016-05-28] MEDS: TEMAZEPAM 15 MG CAP PO PRN (22:30)
[2016-05-29] MEDS: SODIUM CHLORIDE 0.9% 1,000 ML IV SCH ×2 (04:03→15:36)
[2016-05-29 06:23] LABS: Basophils % (A) 0 %; CH 26.6; CHCM 29.9; Eosinophils % (A) 0 %; HCT 39.8 % (39.0-53.0); HDW 2.62; HGB 11.9 gm/dL (13.0-17.5); Hypochromasia Marked; Luc % (Auto) 1; Lymphocytes # (A) 0.6 k/uL (1.0-4.8); Lymphocytes % (A) 5 %; MCH 26.7 pg (25.0-35.0); MCHC 29.9 g/dL (31.0-37.0); MCV 89.2 fL (80.0-100.0); Mean Platelet Volume 8.2; Monocytes # (A) 0.3 k/uL (0-1.0); Monocytes % (A) 2 %; Neutrophils # (A) 10.6 k/uL (1.3-7.7); Neutrophils % (A) 92 %; RBC 4.47 m/uL (4.30-5.90); RDW 15.1 % (11.5-15.5); WBC 11.5 k/uL (3.8-10.6); WBC (Perox) 11.49
[2016-05-29 06:32] LABS: Anion Gap 11 mmol/L; Blood Urea Nitrogen 14 mg/dL (9-20); Calcium 9.1 mg/dL (8.4-10.2); Carbon Dioxide 25 mmol/L (22-30); Chloride 105 mmol/L (98-107); Glucose 197 mg/dL (74-99); Non-African American GFR(MDRD) >60 (>60 ml/min/1.73 sqM); Potassium 4.7 mmol/L (3.5-5.1); Sodium 141 mmol/L (137-145)
[2016-05-29] MEDS: methylPREDNISolone SOD SUCCI 125 MG/2 ML VIAL IV SCH ×4 (06:42→23:35)
[2016-05-29] MEDS: PANTOPRAZOLE 40 MG TABLET PO SCH (06:42)
[2016-05-29] MEDS: INSULIN LISPRO (humaLOG) 300 UNIT/3 ML VIAL SQ SCH ×4 (06:45→22:15)
[2016-05-29 06:47] LABS: Glucose,Whole Blood 180 mg/dL (75-99)
[2016-05-29] MEDS: IPRATROPIUM-ALBUTEROL 3 ML NEB INHALATION SCH ×4 (07:45→20:20)
[2016-05-29] MEDS: BUDESONIDE 0.5 MG/2 ML NEBU INHALATION SCH (07:46)
[2016-05-29] MEDS: FORMOTEROL FUMARATE 20 MCG/2 ML NEBU INHALATION SCH ×2 (07:46→20:20)
[2016-05-29] MEDS: LACTOBACILLUS ACIDOPH & BULGAR 1 EACH PACKET PO SCH (08:39)
[2016-05-29] MEDS: LORATADINE 10 MG TAB PO SCH (08:39)
[2016-05-29] MEDS: MONTELUKAST 10 MG TAB PO SCH (08:39)
[2016-05-29] MEDS: guaiFENesin 600 MG TABLET.ER PO SCH ×2 (08:39→22:15)
[2016-05-29] MEDS: TOPIRAMATE 25 MG TAB PO SCH (08:40)
[2016-05-29] MEDS: amLODIPine 5 MG TAB PO SCH (08:40)
[2016-05-29] MEDS: AZTREONAM 2 GM in SODIUM CHLORIDE 0.9% 100 ML IVPB SCH ×3 (08:43→23:35)
[2016-05-29] MEDS: HYDROcodone/APAP 5-325MG 1 EACH TAB PO PRN ×3 (08:45→22:14)
[2016-05-29] MEDS: guaiFENesin-Coden 100-10MG/5ML 10 ML CUP PO PRN (08:45)
--- NOTE | 2016-05-29 11:59 | P.PN ---
Subjective Progress note dated 05/29/2016 This is a 31-year-old white male with a history of chronic bronchial asthma previous tracheostomy and hearing loss. He also suffers from gastroesophageal reflux disease and hypertension. The patient is to see one of the interventional bronchoscopy as it [facility] in the near future for possible removal of lesions within the trachea. He was recently also seen a [facility]. The patient is doing better. Still coughing up some yellow phlegm. Specimens were sent to laboratory yesterday. He is breathing easier. Feeling much better. Less short of breath. Less bronchospasm. Objective - Vital Signs Vital signs: Vital Signs Temp 97.8 F 05/29/16 04:00 Pulse 94 05/29/16 11:24 Resp 18 05/29/16 04:00 BP 135/71 05/29/16 04:00 Pulse Ox 97 05/29/16 04:00 Intake & Output 05/28/16 05/29/16 05/29/16 18:59 06:59 18:59 Intake Total 1618 1700 Output Total 1999 190 Balance -382 -200 Weight 115.4 kg Intake: IV 600 400 Sodium Chloride 0.9% 1, 600 400 000 ml @ 100 mls/hr IV . Q10H NIC Rx#:[id number] Intake, IV Titration 200 200 Amount Aztreonam 2 gm In Sodium 200 100 Chloride 0.9% 100 ml @ 100 mls/hr IVPB Q8HR NIC Rx#:[id number] Levofloxacin 750Mg-D5w 100 Pmx 750 mg In Dextrose/ Water 1 150ml.bag @ 100 mls/hr IVPB Q24H NIC Rx#: [id number] Oral 818 1100 Output: Urine 1999 1900 Other: Voiding Method Urinal Urinal # Voids 2 1 - Exam No acute distress, oriented 3. HEENT examination is grossly unremarkable. He's got a hearing aid noted. Mixed membranes are moist. Neck supple. Full range of motion. He's had a midline tracheostomy. Reveals regular rhythm rate. S1-S2 normal. No S3-S4 or murmur. Lungs reveal few scattered rhonchi. There are a few expiratory wheezes noted. No crackles. Breath sounds are equal. Abdomen soft bowel sounds are heard. Extremities are intact. - Labs CBC & Chem 7: 05/29/16 05:58 05/29/16 05:58 Labs: Abnormal Lab Results - Last 24 Hours (Table) 05/28/16 05/28/16 05/29/16 Range/Units 16:25 20:57 05:58 WBC 11.5 H (3.8-10.6) k/uL Hgb 11.9 L (13.0-17.5) gm/dL MCHC 29.9 L (31.0-37.0) g/dL Neutrophils # 10.6 H (1.3-7.7) k/uL Lymphocytes # 0.6 L (1.0-4.8) k/uL Glucose (74-99) mg/dL POC Glucose (mg/dL) 125 H 170 H (75-99) mg/dL 05/29/16 05/29/16 Range/Units 05:58 06:45 WBC (3.8-10.6) k/uL Hgb (13.0-17.5) gm/dL MCHC (31.0-37.0) g/dL Neutrophils # (1.3-7.7) k/uL Lymphocytes # (1.0-4.8) k/uL Glucose 197 H (74-99) mg/dL POC Glucose (mg/dL) 180 H (75-99) mg/dL Microbiology - Last 24 Hours (Table) 05/28/16 13:00 Gram Stain - Preliminary Sputum 05/26/16 21:41 Blood Culture - Preliminary Blood No Growth after 48 hours Assessment and Plan (1) Bronchopneumonia Status: Acute (2) Airway problem Status: Acute (3) Asthma with exacerbation Status: Acute (4) Healthcare-associated pneumonia Status: Acute (5) Hypoxia Status: Acute (6) Pneumonia Status: Acute (7) Sepsis Status: Acute (8) Stridor Status: Acute (9) Tracheostomy dependent Status: Acute Plan: Plan dated 05/29/2016 Microbiology x-rays labs medications are all reviewed. Everything seems to be appropriate. As of yesterday, we're still waiting for for sputum sample be sent to laboratory for analysis. We'll hoping to get him out of the hospital and over to [facility] before his appointment with the interventional bronchoscopy is here. We'll continue to follow. Medications are reviewed. Labs are reviewed. The patient is showing improvement. Time with Patient: Less than 30
[2016-05-29] MEDS: FLUTICASONE 50MCG/SPRAY NASAL 16GM NASAL SCH (12:14)
[2016-05-29] MEDS: MULTIVITAMINS, THERA 1 EACH TAB PO SCH (12:31)
[2016-05-29 12:34] LABS: Glucose,Whole Blood 169 mg/dL (75-99)
[2016-05-29 17:36] LABS: Glucose,Whole Blood 120 mg/dL (75-99)
[2016-05-29] MEDS: BUDESONIDE 1 MG/2 ML NEBU INHALATION SCH (20:20)
[2016-05-29 21:29] LABS: Glucose,Whole Blood 155 mg/dL (75-99)
[2016-05-29] MEDS: diphenhydrAMINE 50 MG CAP PO SCH (22:14)
[2016-05-29] MEDS: TEMAZEPAM 15 MG CAP PO PRN (22:14)
[2016-05-29] MEDS: LEVOFLOXACIN 750 MG TAB PO SCH (22:15)
[2016-05-30] MEDS: FLUTICASONE 50MCG/SPRAY NASAL 16GM NASAL SCH ×3 (04:19→20:56)
[2016-05-30 06:36] LABS: Glucose,Whole Blood 158 mg/dL (75-99)
[2016-05-30] MEDS: HYDROcodone/APAP 5-325MG 1 EACH TAB PO PRN ×3 (06:39→20:57)
[2016-05-30] MEDS: methylPREDNISolone SOD SUCCI 125 MG/2 ML VIAL IV SCH ×4 (06:40→23:44)
[2016-05-30] MEDS: INSULIN LISPRO (humaLOG) 300 UNIT/3 ML VIAL SQ SCH ×4 (06:40→22:16)
[2016-05-30] MEDS: PANTOPRAZOLE 40 MG TABLET PO SCH (06:40)
[2016-05-30 06:52] LABS: Basophils % (A) 0 %; CH 26.4; CHCM 29.3; Eosinophils % (A) 0 %; HCT 41.2 % (39.0-53.0); HDW 2.57; HGB 12.1 gm/dL (13.0-17.5); Hypochromasia Marked; Luc # (Auto) 0.23; Luc % (Auto) 2; Lymphocytes # (A) 0.8 k/uL (1.0-4.8); Lymphocytes % (A) 7 %; MCH 26.5 pg (25.0-35.0); MCHC 29.3 g/dL (31.0-37.0); MCV 90.5 fL (80.0-100.0); Mean Platelet Volume 7.9; Monocytes # (A) 0.5 k/uL (0-1.0); Monocytes % (A) 4 %; Neutrophils # (A) 9.2 k/uL (1.3-7.7); Neutrophils % (A) 86 %; RBC 4.56 m/uL (4.30-5.90); WBC 10.7 k/uL (3.8-10.6); WBC (Perox) 11.35
[2016-05-30 06:56] LABS: Anion Gap 12 mmol/L; Blood Urea Nitrogen 16 mg/dL (9-20); Calcium 9.3 mg/dL (8.4-10.2); Carbon Dioxide 24 mmol/L (22-30); Chloride 105 mmol/L (98-107); Glucose 183 mg/dL (74-99); Non-African American GFR(MDRD) >60 (>60 ml/min/1.73 sqM); Potassium 4.7 mmol/L (3.5-5.1); Sodium 141 mmol/L (137-145)
[2016-05-30] MEDS: LACTOBACILLUS ACIDOPH & BULGAR 1 EACH PACKET PO SCH (08:07)
[2016-05-30] MEDS: guaiFENesin 600 MG TABLET.ER PO SCH ×2 (08:07→20:57)
[2016-05-30] MEDS: TOPIRAMATE 25 MG TAB PO SCH (08:08)
[2016-05-30] MEDS: MONTELUKAST 10 MG TAB PO SCH (08:08)
[2016-05-30] MEDS: LORATADINE 10 MG TAB PO SCH (08:08)
[2016-05-30] MEDS: amLODIPine 5 MG TAB PO SCH (08:08)
[2016-05-30] MEDS: AZTREONAM 2 GM in SODIUM CHLORIDE 0.9% 100 ML IVPB SCH ×3 (08:09→23:44)
[2016-05-30] MEDS: BUDESONIDE 1 MG/2 ML NEBU INHALATION SCH ×2 (09:18→21:01)
[2016-05-30] MEDS: IPRATROPIUM-ALBUTEROL 3 ML NEB INHALATION SCH ×4 (09:18→21:01)
[2016-05-30] MEDS: FORMOTEROL FUMARATE 20 MCG/2 ML NEBU INHALATION SCH ×2 (09:18→21:01)
[2016-05-30] MEDS: guaiFENesin-Coden 100-10MG/5ML 10 ML CUP PO PRN (10:04)
--- NOTE | 2016-05-30 10:04 | PN ---
DATE OF SERVICE: 05/29/2016 This is a 31-year-old gentleman who was admitted with acute asthma, acute exacerbation, also had possible bilateral bronchopneumonia also. The sputum cultures are pending at this time and patient on IV antibiotics. Dr. Mendoza is following the patient closely. PAST MEDICAL HISTORY: Reviewed. REVIEW OF SYSTEMS: CARDIOVASCULAR SYSTEM: No angina, no palpitations. RESPIRATORY: As mentioned earlier. GI: As mentioned earlier. : No dysuria. NERVOUS SYSTEM: No numbness or weakness. Current medications are reviewed and include: 1. [place] 5 mg q.6 p.r.n. 2. DuoNeb q.i.d. and p.r.n. 3. Norvasc 5 mg daily. 4. Aztreonam 2 gm q.8. 5. Pulmicort 1 mg b.i.d. 6. Benadryl 50 mg q.h.s. 7. Vitamin D2 fifty thousand units . 8. Perforomist. 9. Humalog scale. 10. Lactinex. 11. Levaquin 750 p.o. q.h.s. 12. Solu-Medrol 60 IV q.6. 13. Singular. 14. Multivitamin. 15. Protonix. 16. Restoril. 17. Topamax. PHYSICAL EXAMINATION: Alert and oriented x3. Pulse is 67, blood pressure 120/72, respirations 19, temperature is normal, pulse ox at 97% on 80% trach collar. HEENT: Conjunctiva normal, oral mucosa moist. NECK: Tracheostomy. CARDIOVASCULAR: S1, S2, muffled, no S3, no S4. RESPIRATORY: Breath sounds diminished at the bases, bilateral scattered rhonchi and expiratory wheezing and crackles. Abdomen is soft, nontender. EXTREMITIES: Legs no edema, no swelling. NERVOUS SYSTEM: No focal deficits. LABS: WBC is 11.5, hemoglobin is 11.9. Accu-Cheks are noted. ASSESSMENT: 1. Acute asthma acute exacerbation, with acute purulent tracheobronchitis and bronchopneumonia bilaterally, more on the right side with systemic inflammatory response syndrome present on admission with acute hypoxic respiratory failure. 2. Increased WBC. 3. Tachycardia present on admission. 4. Increased random blood sugar. 5. Asthma. 6. History of gastroesophageal reflux disease. 7. History of hearing deficits and deafness. 8. Hypertension. 9. History of pneumonia. 10. History of cochlear implant. 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 12. History of tracheostomy with #6 Shiley. 13. History of anxiety. 14. Remote history nicotine dependence. 15. Obesity with a body mass index of 42.5. 16. FULL CODE. RECOMMENDATION: Recommend to continue with the current medication and continue with the symptomatic current treatment in this 31-year-old who presented with multiple complex medical issues. Continue with bronchodilators, antibiotics, cultures are pending at this time. Otherwise, I would also recommend to contact the [facility] Surgical Team who is apparently a candidate for surgery on Monday. Patient's sputum is still extremely purulent and patient is on broad-spectrum IV antibiotics. Cultures are pending at this time. We will continue to monitor. Once again, the prognosis guarded. Continue with his home medications. Dr. Mendoza's input appreciated. Further recommendations to follow.
[2016-05-30] MEDS: SODIUM CHLORIDE 0.9% 1,000 ML IV SCH ×2 (10:05→22:15)
--- NOTE | 2016-05-30 11:47 | XR ---
EXAMINATION TYPE: XR chest 2V DATE OF EXAM: 05/30/2016 9:10 AM COMPARISON: Prior chest x-ray May HISTORY: Pneumonia and cough TECHNIQUE: Frontal and lateral views of the chest are obtained. FINDINGS: Tracheostomy tube is overlying the tracheal air column. Improvement in basilar airspace di sease is noted, no pneumothorax, or pleural effusion evident. Cardiomediastinal silhouette, pulmonary vascularity and bhargav are stable. IMPRESSION: Improved aeration. Prominent lung volumes suggests underlying COPD.
[2016-05-30 11:58] LABS: Glucose,Whole Blood 131 mg/dL (75-99)
[2016-05-30] MEDS: MULTIVITAMINS, THERA 1 EACH TAB PO SCH (12:20)
--- NOTE | 2016-05-30 17:05 | P.PN ---
Subjective Any 9-year-old -[place] male patient, known history of chronic bronchial asthma, known history of impaired hearing with bone-anchored hearing aid, previous mastoidectomy, previous tympanoplasty, and a complicated upper airway disease related to Rosai Parker syndrome, who currently has a permanent trach in place and he is being further investigated had [facility] for possible decannulation. Minor centimeters that the patient has still some airway lesions that needs to be addressed prior to him being decannulated. He count is at a hospital and he is poor and it for secretions and a component of asthma exacerbation. Pneumonia suspected and based on that the patient was placed on a combination of Levaquin and aztreonam. Sputum Gram stain and cultures still pending for now and there has been no microbial growth. Meanwhile the patient is on a combination of bronchodilators and systemic steroids. Objective - Vital Signs Vital signs: Vital Signs Temp 97.4 F L 05/30/16 16:00 Pulse 99 05/30/16 16:00 Resp 16 05/30/16 16:00 BP 133/78 05/30/16 16:00 Pulse Ox 98 05/30/16 16:00 Intake & Output 05/29/16 05/30/16 05/30/16 18:59 06:59 18:59 Intake Total 1200 1300 220 Output Total 2900 1650 1050 Balance -1700 -350 -830 Weight 115.5 kg Intake: IV 500 Sodium Chloride 0.9% 1, 500 000 ml @ 100 mls/hr IV . Q10H NIC Rx#:[id number] Intake, IV Titration 200 1300 Amount Aztreonam 2 gm In Sodium 200 100 Chloride 0.9% 100 ml @ 100 mls/hr IVPB Q8HR NIC Rx#:[id number] Sodium Chloride 0.9% 1, 1200 000 ml @ 100 mls/hr IV . Q10H NIC Rx#:[id number] Oral 500 220 Output: Urine 2900 1650 1050 Other: Voiding Method Urinal Urinal Urinal # Voids 1 1 # Bowel Movements 1 - Exam Head exam was generally normal. There was no scleral icterus or corneal arcus. Mucous membranes were moist. Neck is supple and the patient has a Shiley tracheostomy tube in place. Is a little neck masses. Lungs sounds are diminished bilaterally and there is diffuse expiratory wheezes throughout the lung anderson.Cardiac exam revealed the PMI to be normally situated and sized. The rhythm was regular and no extrasystoles were noted during several minutes of auscultation. The first and second heart sounds were normal and physiologic splitting of the second heart sound was noted. There were no murmurs, rubs, clicks, or gallops.Abdominal exam revealed normal bowel sounds. The abdomen was soft, non-tender, and without masses, organomegaly, or appreciable enlargement of the abdominal aorta.Examination of the extremities revealed easily palpable radial, femoral and pedal pulses. There was no cyanosis, clubbing or edema. - Labs CBC & Chem 7: 05/30/16 06:24 05/30/16 06:24 Labs: Abnormal Lab Results - Last 24 Hours (Table) 05/29/16 05/29/16 05/30/16 Range/Units 17:21 20:56 06:24 WBC 10.7 H (3.8-10.6) k/uL Hgb 12.1 L (13.0-17.5) gm/dL MCHC 29.3 L (31.0-37.0) g/dL Neutrophils # 9.2 H (1.3-7.7) k/uL Lymphocytes # 0.8 L (1.0-4.8) k/uL Creatinine (0.66-1.25) mg/dL Glucose (74-99) mg/dL POC Glucose (mg/dL) 120 H 155 H (75-99) mg/dL 05/30/16 05/30/16 05/30/16 Range/Units 06:24 06:35 11:51 WBC (3.8-10.6) k/uL Hgb (13.0-17.5) gm/dL MCHC (31.0-37.0) g/dL Neutrophils # (1.3-7.7) k/uL Lymphocytes # (1.0-4.8) k/uL Creatinine 0.60 L (0.66-1.25) mg/dL Glucose 183 H (74-99) mg/dL POC Glucose (mg/dL) 158 H 131 H (75-99) mg/dL Microbiology - Last 24 Hours (Table) 05/28/16 13:00 Gram Stain - Final Sputum Sputum Culture - Final Corynebacterium striatum 05/26/16 21:41 Blood Culture - Preliminary Blood No Growth after 72 hours Assessment and Plan Plan: Assessment 1 acute asthma exacerbation 2 acute pneumonia suspected, currently on a combination of Levaquin and aztreonam. Microbial diagnoses not been established. The patient has bibasilar airspace disease typical of an underlying pneumonia. 3 Rosai Parker syndrome, and the patient has endobronchial lesions that are being treated by the interventional pulmonology program at [facility]. Currently has a tracheostomy tube in place for airway protection 4 impaired hearing status post bone-anchored hearing aid 5 mastoid ectomy 6 tympanoplasty 7 previous upper airway compromise secondary to suspected Rosai-Parker syndrome and the patient has been evaluated and treated at [facility] and [facility]. Plan Adequate pulmonate toileting. Frequent suctioning. Continue the bronchodilators. Continue same antibiotic coverage. I elected discussion with the patient and the case packer. He obviously needs to go back to [facility] to be further evaluated for bronchoscopic intervention and possible cannulation of the later stage. The patient needs to go back to [facility]. However, he has issues with transportation. I will be able to arrange for transportation for him for Monday to be taken for further evaluation. Meanwhile we'll keep him in the hospital for another 24 hours for IV antibiotic and IV steroid treatment. His chest x-ray from today is showing improvement in the bibasilar airspace disease that was noted earlier.
[2016-05-30 17:15] LABS: Glucose,Whole Blood 181 mg/dL (75-99)
[2016-05-30] MEDS: LEVOFLOXACIN 750 MG TAB PO SCH (20:57)
[2016-05-30 21:10] LABS: Glucose,Whole Blood 219 mg/dL (75-99)
[2016-05-30] MEDS: TEMAZEPAM 15 MG CAP PO PRN (22:15)
[2016-05-30] MEDS: diphenhydrAMINE 50 MG CAP PO SCH (22:15)
[2016-05-31 06:18] LABS: Glucose,Whole Blood 188 mg/dL (75-99)
[2016-05-31] MEDS: methylPREDNISolone SOD SUCCI 125 MG/2 ML VIAL IV SCH ×2 (06:25→11:33)
[2016-05-31] MEDS: PANTOPRAZOLE 40 MG TABLET PO SCH (06:25)
[2016-05-31] MEDS: INSULIN LISPRO (humaLOG) 300 UNIT/3 ML VIAL SQ SCH ×2 (06:25→11:37)
[2016-05-31 06:38] LABS: Basophils % (A) 0 %; CH 26.6; CHCM 29.9; Eosinophils % (A) 0 %; HCT 39.8 % (39.0-53.0); HGB 11.9 gm/dL (13.0-17.5); Hypochromasia Marked; Luc # (Auto) 0.24; Luc % (Auto) 2; Lymphocytes # (A) 0.8 k/uL (1.0-4.8); Lymphocytes % (A) 6 %; MCH 26.8 pg (25.0-35.0); MCV 89.2 fL (80.0-100.0); Mean Platelet Volume 7.7; Monocytes # (A) 0.6 k/uL (0-1.0); Monocytes % (A) 4 %; Neutrophils # (A) 11.1 k/uL (1.3-7.7); Neutrophils % (A) 87 %; RBC 4.46 m/uL (4.30-5.90); RDW 15.2 % (11.5-15.5); WBC 12.7 k/uL (3.8-10.6); WBC (Perox) 12.86
[2016-05-31 06:53] LABS: Anion Gap 12 mmol/L; Blood Urea Nitrogen 15 mg/dL (9-20); Calcium 9.1 mg/dL (8.4-10.2); Carbon Dioxide 25 mmol/L (22-30); Chloride 103 mmol/L (98-107); Glucose 201 mg/dL (74-99); Non-African American GFR(MDRD) >60 (>60 ml/min/1.73 sqM); Potassium 4.6 mmol/L (3.5-5.1); Sodium 140 mmol/L (137-145)
[2016-05-31 07:33] VITALS: RESP 20; TEMP 97.8
[2016-05-31] MEDS: AZTREONAM 2 GM in SODIUM CHLORIDE 0.9% 100 ML IVPB SCH (08:14)
[2016-05-31] MEDS: guaiFENesin 600 MG TABLET.ER PO SCH (08:51)
[2016-05-31] MEDS: LORATADINE 10 MG TAB PO SCH (08:51)
[2016-05-31] MEDS: LACTOBACILLUS ACIDOPH & BULGAR 1 EACH PACKET PO SCH (08:51)
[2016-05-31] MEDS: FLUTICASONE 50MCG/SPRAY NASAL 16GM NASAL SCH (08:51)
[2016-05-31] MEDS: amLODIPine 5 MG TAB PO SCH (08:51)
[2016-05-31] MEDS: MONTELUKAST 10 MG TAB PO SCH (08:52)
[2016-05-31] MEDS: TOPIRAMATE 25 MG TAB PO SCH (08:52)
[2016-05-31] MEDS: BUDESONIDE 1 MG/2 ML NEBU INHALATION SCH (09:07)
[2016-05-31] MEDS: FORMOTEROL FUMARATE 20 MCG/2 ML NEBU INHALATION SCH (09:07)
[2016-05-31] MEDS: IPRATROPIUM-ALBUTEROL 3 ML NEB INHALATION SCH ×2 (09:07→11:54)
[2016-05-31] MEDS: SODIUM CHLORIDE 0.9% 1,000 ML IV SCH ×2 (09:24→10:00)
--- NOTE | 2016-05-31 09:33 | PN ---
DATE OF SERVICE: 05/30/2016 This 31-year-old gentleman was admitted with bilateral bronchopneumonia and asthma acute exacerbation. He has improved significantly. No chest pain or palpitations. No fever. On exam, alert, oriented x3. Pulse 99, blood pressure 130/72, respirations 16, temperature normal, pulse ox 98% on 34% trach collar. HEENT: Conjunctivae normal. NECK: No JVD. CARDIOVASCULAR: S1 and S2 muffled. LUNGS: Breath sounds are diminished at the bases. Bilateral scattered rhonchi and crackles. ABDOMEN: Soft, nontender. EXTREMITIES: Legs, no edema. [employer]: No focal deficits. LABS: WBC 10.6. Accu-Cheks noted. Microbiology, sputum cultures growing bacterium. ASSESSMENT: 1. Acute asthma, acute exacerbation, with acute purulent tracheobronchitis and bronchopneumonia with corynbacterium, bilateral, right more than left, with on admission with acute hypoxic respiratory failure. 2. Increased WBC. 3. Tachycardia present on admission. 4. Increased random blood sugar. 5. Asthma. 6. GERD. 7. Hypertension. 8. History of pneumonia. 9. History of trochlear implant. 10. History of Rosai Parker syndrome. 11. History of tracheostomy with #6 Shiley. 12. History of anxiety. 13. Remote history of nicotine dependence. 14. Obesity, body mass index 42.5. 15. FULL CODE. RECOMMENDATIONS: Recommend to continue current medications, continue with symptomatic treatment, continue with broad spectrum IV antibiotics. Closely follow with pulmonary. The patient had surgery procedure with a stay at [facility]. We will get in touch with the office through the case folder. Otherwise, prognosis guarded because of multiple complex medical issues. Further recommendations to follow. [facility]
[2016-05-31] MEDS: HYDROcodone/APAP 5-325MG 1 EACH TAB PO PRN (11:34)
[2016-05-31] MEDS: MULTIVITAMINS, THERA 1 EACH TAB PO SCH (11:34)
[2016-05-31] MEDS: guaiFENesin-Coden 100-10MG/5ML 10 ML CUP PO PRN (11:36)
[2016-05-31 11:55] VITALS: BP 129/72
[2016-05-31 11:57] VITALS: PULSE 84
[2016-05-31 12:00] LABS: Glucose,Whole Blood 144 mg/dL (75-99)
--- NOTE | 2016-05-31 17:10 | P.PN ---
Subjective This is a very pleasant 31-year-old gentleman who follows with Dr. Valenzuela as his primary care physician. He has a history of chronic bronchial asthma, gastroesophageal reflux disease, deafness status post mastoidectomy and tympanoplasty status post cochlear implant, hypertension. The patient also has a history of previous angioedema requiring emergent tracheostomy tube placement here back in September 2014. 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 He has remained with tracheostomy tube since then. He has been in the hospital multiple occasions secondary to pneumonias. Between here and [facility] we have seen the patient on multiple occasions. He presented here again on 05/26/2016 with complaints of increasing shortness of breath cough and congestion. He expectorates quite a bit of hot yellow sputum from his tracheostomy tube. He was recently at the [facility] and had undergone swallow evaluation by Dr. Olguin (ENT) which all came back normal. He was noted to have some lesions in his tracheal bronchial tubes and was transferred to [facility]. There he had been undergone another bronchoscopy by Dr. Earnest Lagunas. No interventions were performed. Tracheostomy was left in place. He was to follow-up there on the of this month. He is seen today in consultation. He is awake and alert in no acute distress. He states he is a 31 breathing easier today as compared to yesterday. He continues with thick yellow sputum that he is able to expectorate from his tracheostomy tube. Reveal some chronic changes of the right lower lobe. Some atelectasis. He denies any difficulty in swallowing. He eats full regular meals and his influenza screen is negative. Mild leukocytosis with a white count of 13.6. He is afebrile. He is maintaining good O2 saturations in the mid to upper 90s on 35% trach collar. The patient is seen again today 05/31/2016. He is improved today as compared to yesterday. He continues with a loose productive cough of yellow sputum which was positive for corynebacterium striatum. He denies any worsening shortness of breath at this time. He is maintaining good O2 saturations and is on 35% trach collar. He has been afebrile. Objective - Vital Signs Vital signs: Vital Signs Temp 97.8 F 05/31/16 11:25 Pulse 84 05/31/16 12:07 Resp 20 05/31/16 11:25 BP 129/72 05/31/16 11:25 Pulse Ox 99 05/31/16 11:25 Intake & Output 05/30/16 05/31/16 05/31/16 18:59 06:59 18:59 Intake Total 460 1800 120 Output Total 7188 882 6628 Balance -590 900 -1155 Weight 115.2 kg Intake: IV 1200 Sodium Chloride 0.9% 1, 1200 000 ml @ 100 mls/hr IV . Q10H NIC Rx#:[id number] Oral 460 600 120 Output: Urine 5317 296 4032 Other: Voiding Method Toilet Toilet Toilet Urinal Urinal Urinal # Voids 1 1 # Bowel Movements 1 0 - Exam GENERAL EXAM: Alert, comfortable in no apparent distress. HEAD: Normocephalic. EYES: Normal reaction of pupils, equal size. NOSE: Clear with pink turbinates. THROAT: Tracheostomy tube is secured in place. No erythema or exudates. NECK: No masses, no JVD. CHEST: No chest wall deformity. LUNGS: Equal air entry with faint crackles in the right posterior base. CVS: S1 and S2 normal with no audible murmurs, regular rhythm. ABDOMEN: No hepatosplenomegaly, normal bowel sounds, no guarding or rigidity. SPINE: No scoliosis or deformity SKIN: No rashes CENTRAL NERVOUS SYSTEM: No focal deficits, tone is normal in all 4 extremities. Extremities: There is trace peripheral edema. No clubbing. Pulses are intact - Labs CBC & Chem 7: 05/31/16 05:42 05/31/16 05:42 Labs: Abnormal Lab Results - Last 24 Hours (Table) 05/30/16 05/30/16 05/31/16 Range/Units 16:45 21:09 05:42 WBC 12.7 H (3.8-10.6) k/uL Hgb 11.9 L (13.0-17.5) gm/dL MCHC 30.0 L (31.0-37.0) g/dL Neutrophils # 11.1 H (1.3-7.7) k/uL Lymphocytes # 0.8 L (1.0-4.8) k/uL Glucose (74-99) mg/dL POC Glucose (mg/dL) 181 H 219 H (75-99) mg/dL 05/31/16 05/31/16 05/31/16 Range/Units 05:42 06:15 11:35 WBC (3.8-10.6) k/uL Hgb (13.0-17.5) gm/dL MCHC (31.0-37.0) g/dL Neutrophils # (1.3-7.7) k/uL Lymphocytes # (1.0-4.8) k/uL Glucose 201 H (74-99) mg/dL POC Glucose (mg/dL) 188 H 144 H (75-99) mg/dL Microbiology - Last 24 Hours (Table) 05/26/16 21:41 Blood Culture - Preliminary Blood No Growth after 96 hours 05/28/16 13:00 Gram Stain - Final Sputum Sputum Culture - Final Corynebacterium striatum Assessment and Plan Plan: Impression: #1 Acute exacerbation of chronic moderate persistent asthma complicated by purulent tracheobronchitis. Pneumonia is not totally excluded. #2 Acute hypoxic respiratory failure secondary to above. 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 The patient does have been documented lesions in the trachea and bronchial tubes following recent bronchoscopy by Dr. Sanchez on fat [facility]. Tracheostomy tube remains in place for now. #5 Deafness, status post cochlear transplant with hearing aids. Thank: The patient was seen and evaluated by Dr. Barnard. The patient is cleared for discharge home today. He will complete his course of Levaquin and continue with his current pulmonary medications. We've made arrangements for his travel to [facility] tomorrow morning to undergo his planned procedure with Dr. Lagunas. According to the patient there will be some laser removal of lesions in his trachea. The patient will take his records from this admission to [facility] with him so Dr. Lagunas aware of his recent admission. He will follow up in our office at a later date and is encouraged to call sooner if any recurrence of symptoms or other questions or concerns.
--- NOTE | 2016-06-01 10:32 | DS ---
DATE OF ADMISSION: 05/26/2016 DATE OF DISCHARGE: 05/31/2016 FINAL DIAGNOSES: 1. Acute asthma, acute exacerbation, with acute purulent tracheobronchitis with bronchopneumonia with corynebacterium bilaterally, right more than the left with acute hypoxic respiratory failure present on admission. 2. Increased WBC. 3. Tachycardia, present on admission. 4. Increased random blood sugar. 5. Asthma. 6. Gastroesophageal reflux disease. 7. Hypertension. 8. History of pneumonia. 9. History of trochlear implant. 10. History of Rosai-Parker syndrome. 11. History tracheostomy with #6 Shiley. 12. History of anxiety. 13. Remote history of nicotine dependence. 14. Obesity, body mass index 42.5. 15. FULL CODE. DISCHARGE DISPOSITION: The patient will be discharged in stable condition with guarded prognosis. Total time taken 35 minutes. HISTORY OF PRESENT ILLNESS: This 31-year-old gentleman with a past medical history of multiple medical problems as mentioned earlier being followed by Dr. Valenzuela and as well as [facility] and admitted with acute asthma exacerbation as well as features of bronchopneumonia. The patient had thick greenish sputum. Patient treated with antibiotics. With antibiotics, patient improved significantly. Dr. Barnard saw the patient. On exam, vitals are stable. NECK: Tracheostomy. CARDIOVASCULAR: S1 and S2 muffled. RESPIRATORY: Bilateral scattered rhonchi and crackles. ABDOMEN: Soft. NERVOUS SYSTEM: No focal deficits. The patient apparently had an appointment at [facility] on Monday for possible surgery as well. The patient will be discharged in stable condition with guarded prognosis. Diet is cardiac. Activity limited until followup. Follow up with Dr. Valenzuela in 2 to 3 days. Follow up with [facility] and Dr. Barnard as recommended. Medications will be as follows: 1. Albuterol updrafts q.i.d. and p.r.n. 2. ProAir p.r.n. 3. Pulmicort 1 b.i.d. 4. Zyrtec 10 mg p.o. daily. 5. Vitamin D2, 50,000 p.o. . 6. Fluticasone nasal spray 1 spray daily. 7. Fluticasone Salmeterol 2 puffs b.i.d. 8. Atrovent updrafts q.i.d. 9. Lactobacillus 1 p.o. daily. 10. Levaquin 750 mg p.o. q.h.s. for 5 days. 11. Singulair 10 mg p.o. daily. 12. Multivitamin 1 p.o. daily. 13. Topamax 25 mg p.o. daily. 14. Norvasc 5 mg p.o. daily. 15. Benadryl 50 mg q.h.s. 16. Mucinex 1200 mg p.o. b.i.d. Once again, the patient will be discharged in stable condition with guarded prognosis. Total time taken 35 minutes. MTDD
[2016-06-02] MEDS ORDERED: ERGOCALCIFEROL 50,000 UNIT CAP PO SCH (09:00)
== END 2016-05-31 16:34 | disposition home or self-care (01) | DRG 871 ==
LOC: EC 18:51 → 6SEL 20:54
PROVIDERS: ADMIT Internal Medicine; ATTEND Internal Medicine
DX: A41.9 Sepsis, unspecified organism (principal); J96.21 Acute and chronic respiratory failure with hypoxia; J15.8 Pneumonia due to other specified bacteria; Z93.0 Tracheostomy status; J45.41 Moderate persistent asthma with (acute) exacerbation; K21.9 Gastro-esophageal reflux disease without esophagitis; J98.11 Atelectasis; I10 Essential (primary) hypertension; H91.90 Unspecified hearing loss, unspecified ear; J40 Bronchitis, not specified as acute or chronic; Y95 Nosocomial condition; Z79.899 Other long term (current) drug therapy; Z82.49 Family history of ischemic heart disease and other diseases of the circulatory system; Z87.01 Personal history of pneumonia (recurrent); Z87.891 Personal history of nicotine dependence; Z79.4 Long term (current) use of insulin
CPT/HCPCS: 36415; 71020; 80048; 80053; 83036; 83605; 85025; 87040; 87070; 87205; 87502; 93005; 94640; 96361; 96365; 96366; 96375; 99291

== ENCOUNTER 2016-06-24 17:02 | Emergency (ER) | payer MEDICARE, OTHER ==
[2016-06-24 17:14] VITALS: TEMP 102.1
[2016-06-24] MEDS ORDERED: SODIUM CHLORIDE 0.9% 1,000 ML IV STA ×2 (17:20)
[2016-06-24] MEDS ORDERED: SODIUM CHLORIDE 0.9% 500 ML IV STA (17:20)
[2016-06-24] MEDS ORDERED: IPRATROPIUM-ALBUTEROL 3 ML NEB INHALATION STA (17:20)
[2016-06-24] MEDS ORDERED: IBUPROFEN 800 MG TAB PO STA (17:21)
[2016-06-24] MEDS ORDERED: ACETAMINOPHEN IV (For NPO) 1,000 MG in EMPTY BAG 1 BAG IVPB STA (17:21)
[2016-06-24] MEDS ORDERED: AZITHROMYCIN 500 MG in SODIUM CHLORIDE 0.9% 250 ML IVPB STA (17:54)
[2016-06-24] MEDS ORDERED: LORazepam 2 MG/ML SYRINGE IV STA (17:55)
[2016-06-24] MEDS ORDERED: MORPHINE SULFATE 4 MG/ML SYRINGE IVP STA (17:55)
--- NOTE | 2016-06-24 18:01 | ED ---
General Adult HPI - General Chief complaint: Shortness of Breath Stated complaint: difficulty breathing Time Seen by Provider: 06/24/16 17:20 Source: patient, RN notes reviewed, old records reviewed Mode of arrival: wheelchair Limitations: no limitations - History of Present Illness Initial comments: This is a 31-year-old male the ER for evaluation via patient does today for evaluation of severe shortness of breath, severe cough congestion shortness of breath. Patient has known encounter K medical history involving bronchial malacia tracheomalacia with stenting. Frequent mucous plugging, patient also noted fever chest pain and sweating. Significant shortness of breath. Patient is tracheostomy dependent. - Related Data Home Medications Medication Instructions Recorded Confirmed Ergocalciferol [Vitamin D2 50,000 unit PO TH 03/19/15 06/24/16 (DRISDOL)] Topiramate [Topamax] 25 mg PO DAILY 03/19/15 06/24/16 amLODIPine [Norvasc] 5 mg PO DAILY 03/19/15 06/24/16 Montelukast [Singulair] 10 mg PO DAILY 04/15/15 06/24/16 Albuterol Nebulized [Ventolin 2.5 mg INHALATION RT-Q4H PRN 05/26/16 06/24/16 Nebulized] Albuterol Sulfate [Proair Hfa] 2 puff INHALATION RT-QID PRN 05/26/16 06/24/16 Budesonide [Pulmicort Flexhaler] 1 puff INHALATION RT-BID 05/26/16 06/24/16 Cetirizine HCl [Zyrtec] 10 mg PO DAILY 05/26/16 06/24/16 Fluticasone Nasal [place] [Flonase 1 spray NASAL BID 05/26/16 06/24/16 Nasal [place]] Fluticasone/Salmeterol [Advair Hfa 2 puff INHALATION RT-BID 05/26/16 06/24/16 115-21 Mcg Inhaler] L.acidoph,Paracasei, B.lactis 1 cap PO DAILY 05/26/16 06/24/16 [Probiotic] Multivitamins, Thera [Multivitamin 1 tab PO DAILY 05/26/16 06/24/16 (formulary)] diphenhydrAMINE [Benadryl] 50 mg PO HS 05/26/16 06/24/16 Previous Rx's Medication Instructions Recorded Ipratropium Nebulized [Atrovent 0.5 mg INHALATION Q6HR #120 neb 05/31/16 Nebulized] Levofloxacin [Levaquin] 750 mg PO HS #5 tab 05/31/16 guaiFENesin [Mucinex] 1,200 mg PO Q12HR #60 tablet.er 05/31/16 Allergies Allergy/AdvReac Type Severity Reaction Status Date / Time Penicillins Allergy Rash/Hives Verified 06/24/16 17:55 Review of Systems ROS Statement: Those systems with pertinent positive or pertinent negative responses have been documented in the HPI. ROS Other: All systems not noted in ROS Statement are negative. Past Medical History Past Medical History: Asthma, GERD/Reflux, Hearing Disorder / Deafness, Hypertension, Pneumonia Additional Past Medical History / Comment(s): Patient is deaf. He has had a cochlear implant using a bone anchored hearing aid and he has undergone previous mastoidectomy and tympanoplasty. 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 Patient has a permanent tracheostomy with a #6 Shiley History of Any Multi-Drug Resistant Organisms: None Reported Past Surgical History: Ear Surgery, Tonsillectomy Additional Past Surgical History / Comment(s): Cochlear implant, PT STATED HE HAD THROAT TISSUE BIOPSIED AT [facility] BUT DOES'NT KNOW THE RESULTS. 09/19/14: Tracheostomy tube placement. Past Anesthesia/Blood Transfusion Reactions: No Reported Reaction Additional Past Anesthesia/Blood Transfusion Reaction / Comment(s): PT STATED" WHILE UNDER AA HE BUT DID COME BACK" Past Psychological History: Anxiety Additional Psychological History / Comment(s): CURRENTLY LIVING WITH HIS MOM GETS VISITNG NURSES 2-3 TIMES A WEEK. He is independent. 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 Smoking Status: Former smoker Past Alcohol Use History: Occasional Additional Past Alcohol Use History / Comment(s): Pt states he is not a smoker. He states he does occasionally drink on weekends but never more than `4 drinks a week. Past Drug Use History: None Reported - Past Family History Son(s) Family Medical History: Asthma Father Family Medical History: Hypertension Mother Family Medical History: Hypertension General Exam Limitations: no limitations General appearance: alert, anxious, in distress Head exam: Present: atraumatic, normocephalic, normal inspection Eye exam: Present: normal appearance, PERRL, EOMI. Absent: scleral icterus, conjunctival injection, periorbital swelling ENT exam: Present: normal exam, mucous membranes moist Neck exam: Present: normal inspection. Absent: tenderness, meningismus, lymphadenopathy Respiratory exam: Present: respiratory distress, wheezes, accessory muscle use, decreased breath sounds, prolonged expiratory. Absent: rales, rhonchi, stridor Cardiovascular Exam: Present: normal rhythm, tachycardia, normal heart sounds. Absent: systolic murmur, diastolic murmur, rubs, gallop, clicks GI/Abdominal exam: Present: soft, normal bowel sounds. Absent: distended, tenderness, guarding, rebound, rigid Extremities exam: Present: normal inspection, full ROM, normal capillary refill. Absent: tenderness, pedal edema, joint swelling, calf tenderness Back exam: Present: normal inspection Neurological exam: Present: alert, oriented X3, CN II-XII intact Psychiatric exam: Present: normal affect, normal mood Skin exam: Present: warm, dry, intact, normal color. Absent: rash Course Vital Signs 06/24/16 06/24/16 06/24/16 17:12 17:41 18:10 Temperature 102.1 F H Pulse Rate 144 H 143 H 140 H Respiratory 28 H Rate Blood Pressure 127/64 O2 Sat by Pulse 89 L Oximetry 06/24/16 18:20 Temperature Pulse Rate 137 H Respiratory 18 Rate Blood Pressure 141/67 O2 Sat by Pulse 96 Oximetry - Reevaluation(s) Reevaluation #1: 06/24/16 18:00 Patient not doing too much better with symptomatic therapy including breathing treatments, deep suctioning mucus, and fever control Reevaluation #2: 06/24/16 18:00 Spoke with patient's interventional metal weather stripper, like patient transferred for inpatient at [facility] Medical Decision Making - Medical Decision Making 30 mailed ER for evaluation of severe asthma bronchitis bronchiole exacerbation. Patient is complicated a long history, secondary to likely mucous plugging with history of stents in his bronchioles patient will be transferred [facility] underneath his interventional metal weather stripper. Patient is still respirator distress with fever and pneumonia complicating situation. - Lab Data Result diagrams: 06/24/16 17:25 06/24/16 17:25 Lab Results 06/24/16 06/24/1606/24/17 Range/Units 17:25 17:25 17:25 WBC 11.2 H (3.8-10.6) k/uL RBC 4.67 (4.30-5.90) m/uL Hgb 12.6 L (13.0-17.5) gm/dL Hct 39.5 (39.0-53.0) % MCV 84.6 (80.0-100.0) fL MCH 27.0 (25.0-35.0) pg MCHC 31.9 (31.0-37.0) g/dL RDW 14.7 (11.5-15.5) % Plt Count 454 H (150-450) k/uL Neutrophils % 81 % Lymphocytes % 7 % Monocytes % 7 % Eosinophils % 1 % Basophils % 0 % Neutrophils # 9.1 H (1.3-7.7) k/uL Lymphocytes # 0.8 L (1.0-4.8) k/uL Monocytes # 0.8 (0-1.0) k/uL Eosinophils # 0.1 (0-0.7) k/uL Basophils # 0.0 (0-0.2) k/uL Hypochromasia Slight Sodium 139 (137-145) mmol/L Potassium 5.3 H (3.5-5.1) mmol/L Chloride 100 (98-107) mmol/L Carbon Dioxide 20 L (22-30) mmol/L Anion Gap 19 mmol/L BUN 9 (9-20) mg/dL Creatinine 0.73 (0.66-1.25) mg/dL Est GFR (MDRD) Af Amer >60 (>60 ml/min/1.73 sqM) Est GFR (MDRD) Non-Af >60 (>60 ml/min/1.73 sqM) Glucose 81 (74-99) mg/dL Calcium 9.8 (8.4-10.2) mg/dL Magnesium 1.7 (1.6-2.3) mg/dL Total Bilirubin 1.3 (0.2-1.3) mg/dL AST 37 (17-59) U/L ALT 34 (21-72) U/L Alkaline Phosphatase 111 (38-126) U/L Total Protein 8.8 H (6.3-8.2) g/dL Albumin 4.4 (3.5-5.0) g/dL Influenza Type A RNA Not Detected (Not Detectd) Influenza Type B (PCR) Not Detected (Not Detectd) - Radiology Data Radiology results: report reviewed (Chest x-ray does show positive pneumonia), image reviewed Critical Care Time Critical Care Time: Yes Total Critical Care Time: 31 Disposition Clinical Impression: Tracheostomy dependent, Bronchopneumonia, Airway problem, Asthma with exacerbation, Mucus plugging of bronchi Disposition: OTHER INSTITUTION NOT DEFINED Condition: Serious Referrals: Lacey Valenzuela MD [Primary Care Provider] - 1-2 days - Out of Hospital Transfer - Req. Specs Out of Hospital Transfer - Requested Specifics: Other Emergency Center ([facility])
[2016-06-24 18:08] LABS: Basophils % (A) 0 %; CH 26.2; CHCM 31.1; Eosinophils # (A) 0.1 k/uL (0-0.7); Eosinophils % (A) 1 %; HCT 39.5 % (39.0-53.0); HGB 12.6 gm/dL (13.0-17.5); Hypochromasia Slight; Luc # (Auto) 0.44; Luc % (Auto) 4; Lymphocytes # (A) 0.8 k/uL (1.0-4.8); Lymphocytes % (A) 7 %; MCHC 31.9 g/dL (31.0-37.0); MCV 84.6 fL (80.0-100.0); Mean Platelet Volume 8.3; Monocytes # (A) 0.8 k/uL (0-1.0); Monocytes % (A) 7 %; Neutrophils # (A) 9.1 k/uL (1.3-7.7); Neutrophils % (A) 81 %; RBC 4.67 m/uL (4.30-5.90); RDW 14.7 % (11.5-15.5); WBC 11.2 k/uL (3.8-10.6); WBC (Perox) 11.98
[2016-06-24 18:10] LABS: ALT 34 U/L (21-72); AST 37 U/L (17-59); Alkaline Phosphatase 111 U/L (38-126); Anion Gap 19 mmol/L; Blood Urea Nitrogen 9 mg/dL (9-20); Calcium 9.8 mg/dL (8.4-10.2); Carbon Dioxide 20 mmol/L (22-30); Chloride 100 mmol/L (98-107); Glucose 81 mg/dL (74-99); Magnesium 1.7 mg/dL (1.6-2.3); Non-African American GFR(MDRD) >60 (>60 ml/min/1.73 sqM); Sodium 139 mmol/L (137-145); Total Bilirubin 1.3 mg/dL (0.2-1.3); Total Protein 8.8 g/dL (6.3-8.2)
[2016-06-24 18:11] LABS: Potassium 5.3 mmol/L (3.5-5.1)
[2016-06-24 18:17] LABS: Creatine Kinase 304 U/L (55-170)
--- NOTE | 2016-06-24 18:21 | XR ---
EXAMINATION TYPE: XR chest 1V portable DATE OF EXAM: 06/24/2016 6:04 PM COMPARISON: NONE HISTORY: Difficulty breathing TECHNIQUE: Single frontal view of the chest is obtained. FINDINGS: There is some pneumonic consolidation in the right lower lobe and probably also right midd le lobe. There is no heart failure. Tracheostomy tube appears in good position. There are chest leads . There is no definite pleural effusion. IMPRESSION: Compared to last exam there is new right lower lobe and right middle lobe consolidation consistent with pneumonia. No heart failure.
[2016-06-24 18:24] VITALS: BP 141/67; PULSE 137; RESP 18
[2016-06-24 18:31] LABS: Creatine Kinase MB 0.7 ng/mL (0.0-2.4); Troponin I <0.012 ng/mL (0.000-0.034)
== END 2016-06-24 19:36 | disposition other institution (70) ==
LOC: EC 17:02
DX: T17.590A Other foreign object in bronchus causing asphyxiation, initial encounter (principal); J18.0 Bronchopneumonia, unspecified organism; J45.901 Unspecified asthma with (acute) exacerbation; X58.XXXA Exposure to other specified factors, initial encounter; Z93.0 Tracheostomy status; Z87.891 Personal history of nicotine dependence; Z79.51 Long term (current) use of inhaled steroids; Z79.899 Other long term (current) drug therapy; Z88.0 Allergy status to penicillin; I10 Essential (primary) hypertension; H91.93 Unspecified hearing loss, bilateral; Z96.21 Cochlear implant status; F41.9 Anxiety disorder, unspecified
CPT/HCPCS: 99291 ×2; 96365 ×2; 96367 ×2; 96375 ×3; 36415; 94640; 93005; 80053; 82550; 82553; 83735; 84484; 85025; 87040; 87070; 87205; 87077; 87186; 87502; 71010; J2060; J2270; J0456; J0131

== ENCOUNTER 2016-10-29 02:44 | Emergency (ER) | payer MEDICARE, OTHER ==
[2016-10-29 02:59] VITALS: TEMP 98.4
[2016-10-29] MEDS ORDERED: KETOROLAC 60 MG/2 ML VIAL IM STA (03:00)
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
--- NOTE | 2016-10-29 03:51 | CT ---
EXAM: CT Orbits Without Intravenous Contrast CLINICAL HISTORY: Pain TECHNIQUE: Axial computed tomography images of the orbits without intravenous contrast. CTDI is 32.10 mGy and DLP is 493.70 mGy-cm. This CT exam was performed using one or more of the following dose reduction techniques: automated exposure control, adjustment of the mA and/or kV according to patient size, and/or use of iterative reconstruction technique. COMPARISON: No relevant prior studies available. FINDINGS: Orbits: The globes and orbits are intact. Sinuses: Near complete opacification of the paranasal sinuses which may represent sinusitis. There is reactive hyperostosis within the left maxillary antrum suggesting chronicity. Bones/joints: No facial bone fracture identified. Soft tissues: Unremarkable. Other findings: Presumed bilateral antrostomies. IMPRESSION: Near complete opacification of the paranasal sinuses which may represent sinusitis. There is reactive hyperostosis within the left maxillary antrum suggesting chronicity. Presumed bilateral antrostomies.
[2016-10-29 04:19] VITALS: BP 113/58; PULSE 111; RESP 16
== END 2016-10-29 04:18 | disposition home or self-care (01) ==
LOC: EC 02:44
DX: R51 Headache (principal); I10 Essential (primary) hypertension; J45.909 Unspecified asthma, uncomplicated; H91.90 Unspecified hearing loss, unspecified ear; Z86.14 Personal history of Methicillin resistant Staphylococcus aureus infection; Z87.891 Personal history of nicotine dependence; Z93.0 Tracheostomy status; Z79.51 Long term (current) use of inhaled steroids; Z79.899 Other long term (current) drug therapy; Z88.0 Allergy status to penicillin; Y04.0XXA Assault by unarmed brawl or fight, initial encounter
CPT/HCPCS: 70480; 99284; 96372; J1885

== ENCOUNTER 2018-03-27 17:28 | Inpatient (IN) | payer MEDICARE, OTHER ==
[2018-03-27] MEDS ORDERED: LEVOFLOXACIN 750MG-D5W PMX 750 MG in DEXTROSE/WATER 1 150ML.BAG IVPB STA (17:53)
[2018-03-27] MEDS ORDERED: methylPREDNISolone SOD SUCCI 125 MG/2 ML VIAL IV STA (17:53)
[2018-03-27] MEDS ORDERED: SODIUM CHLORIDE 0.9% 500 ML 500 ML IV STA (17:53)
[2018-03-27] MEDS ORDERED: ALBUTEROL NEBULIZED 2.5 MG/3 ML INHALATION STA (17:53)
[2018-03-27] MEDS ORDERED: IPRATROPIUM-ALBUTEROL 3 ML NEB INHALATION STA (17:55)
--- NOTE | 2018-03-27 17:58 | ED ---
General Adult HPI - General Chief complaint: Shortness of Breath Stated complaint: Diff Breathing Time Seen by Provider: 03/27/18 17:50 Source: patient, RN notes reviewed, old records reviewed Mode of arrival: ambulatory Limitations: physical limitation - History of Present Illness Initial comments: 33-year-old male history of asthma, tracheostomy, and deafness presenting with severe respiratory distress. Patient states symptoms have progressed over the past 3 days. History is limited secondary to both patient's physical limitations and his respiratory distress. He reports some central chest pain. He also reports fever and chills. His cough is productive of white yellow sputum, which is copious. His suction machine is so of thick sputum. Denies lower extremity pain or swelling. - Related Data Home Medications Medication Instructions Recorded Confirmed amLODIPine [Norvasc] 5 mg PO DAILY 03/19/15 03/27/18 Montelukast [Singulair] 10 mg PO DAILY 04/15/15 03/27/18 Albuterol Nebulized [Ventolin 2.5 mg INHALATION RT-Q4H PRN 05/26/16 03/27/18 Nebulized] Albuterol Sulfate [Proair Hfa] 2 puff INHALATION RT-QID PRN 05/26/16 03/27/18 Fluticasone Nasal [place] [Flonase 1 spray NASAL BID 05/26/16 03/27/18 Nasal [place]] Fluticasone/Salmeterol [Advair Hfa 2 puff INHALATION RT-BID 05/26/16 03/27/18 115-21 Mcg Inhaler] diphenhydrAMINE [Benadryl] 50 mg PO HS 05/26/16 03/27/18 Cyanocobalamin (Vitamin B-12) 1,000 mcg PO DAILY 02/07/18 03/27/18 [Vitamin B-12] Loratadine [Claritin] 10 mg PO DAILY 02/07/18 03/27/18 Budesonide/Formoterol Fumarate 2 puff INHALATION RT-BID 03/27/18 03/27/18 [Symbicort 80-4.5 Mcg Inhaler] Previous Rx's Medication Instructions Recorded guaiFENesin [Mucinex] 1,200 mg PO Q12HR #60 tablet.er 05/31/16 Allergies Allergy/AdvReac Type Severity Reaction Status Date / Time mold Allergy Unknown Verified 03/27/18 19:24 Penicillins Allergy Rash/Hives Verified 03/27/18 19:24 weed pollen Allergy Unknown Verified 03/27/18 19:24 Review of Systems ROS Statement: Those systems with pertinent positive or pertinent negative responses have been documented in the HPI. ROS Other: All systems not noted in ROS Statement are negative. Past Medical History Past Medical History: Asthma, GERD/Reflux, Hearing Disorder / Deafness, Hypertension, Pneumonia, Sleep Apnea/CPAP/BIPAP Additional Past Medical History / Comment(s): Patient is deaf. He has had a cochlear implant using a bone anchored hearing aid and he has undergone previous mastoidectomy and tympanoplasty. 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 Patient has a permanent tracheostomy with a #6 Shiley, uses back brace for back pain History of Any Multi-Drug Resistant Organisms: MRSA Date of last positivie culture/infection: 06/24/16 MDRO Source:: SPUTUM Past Surgical History: Ear Surgery, Tonsillectomy Additional Past Surgical History / Comment(s): Cochlear implant, PT STATED HE HAD THROAT TISSUE BIOPSIED AT [facility] BUT DOES'NT KNOW THE RESULTS. 09/19/14: Tracheostomy tube placement, sinus surgery Past Anesthesia/Blood Transfusion Reactions: Previous Problems w/ Anesthesia Additional Past Anesthesia/Blood Transfusion Reaction / Comment(s): PT STATED" WHILE UNDER AA HE BUT DID COME BACK" Past Psychological History: Anxiety Smoking Status: Former smoker - Past Family History Son(s) Family Medical History: Asthma Father Family Medical History: Hypertension Mother Family Medical History: Hypertension General Exam Limitations: no limitations General appearance: alert, in distress Head exam: Present: atraumatic, normocephalic Eye exam: Present: normal appearance, PERRL Neck exam: Present: other (Tracheostomy) Respiratory exam: Present: respiratory distress, wheezes, rhonchi, accessory muscle use, decreased breath sounds, prolonged expiratory Cardiovascular Exam: Present: normal rhythm, tachycardia GI/Abdominal exam: Present: soft. Absent: distended, tenderness, guarding Extremities exam: Present: normal inspection, normal capillary refill. Absent: pedal edema, calf tenderness Neurological exam: Present: alert, oriented X3, CN II-XII intact. Absent: motor sensory deficit Skin exam: Present: warm, dry, intact. Absent: cyanosis, diaphoretic Course Vital Signs 03/27/18 03/27/18 03/27/18 17:30 18:13 18:33 Temperature Pulse Rate 146 H 125 H 128 H Respiratory 26 H 20 20 Rate Blood Pressure 141/88 O2 Sat by Pulse 76 L Oximetry 03/27/18 03/27/18 18:59 19:09 Temperature 100.3 F H Pulse Rate 124 H Respiratory 24 Rate Blood Pressure 128/90 O2 Sat by Pulse 95 Oximetry EKG Findings - EKG Comments: EKG Findings:: EKG: Sinus tach rate. [place] deviation, pulmonary disease pattern , right ventricular hypertrophy, rate of 129, WA interval 136, QRS duration 76, QTC 468, no ST segment changes. Medical Decision Making - Medical Decision Making 33-year-old male with history of asthma and tracheostomy presents with severe respiratory distress. Patient has had copious amounts of purulent sputum. He has fever, tachycardia, hypoxia. Initial oxygenation 76% at triage. Chest x- ray taken consistent with left upper lobe pneumonia. Patient has leukocytosis 12.7, hemoglobin 12.7, she has normal CMP, troponin and BNP are negative. Patient is started on antibiotics to cover healthcare associated pneumonia. Case is discussed with Dr. Mendoza who was familiar with the patient. He'll be continued on antibiotics as well as treatment for asthma exacerbation. Admitted to this hospital, monitored bed. - Lab Data Result diagrams: 03/27/18 18:14 03/27/18 18:14 Lab Results 03/27/18 03/27/18 03/27/18 Range/Units 18:14 18:14 18:14 WBC 12.7 H (3.8-10.6) k/uL RBC 4.79 (4.30-5.90) m/uL Hgb 12.7 L (13.0-17.5) gm/dL Hct 41.1 (39.0-53.0) % MCV 85.9 (80.0-100.0) fL MCH 26.6 (25.0-35.0) pg MCHC 30.9 L (31.0-37.0) g/dL RDW 17.3 H (11.5-15.5) % Plt Count 439 (150-450) k/uL Neutrophils % 84 % Lymphocytes % 7 % Monocytes % 5 % Eosinophils % 1 % Basophils % 0 % Neutrophils # 10.6 H (1.3-7.7) k/uL Lymphocytes # 0.9 L (1.0-4.8) k/uL Monocytes # 0.6 (0-1.0) k/uL Eosinophils # 0.1 (0-0.7) k/uL Basophils # 0.0 (0-0.2) k/uL Hypochromasia Slight Anisocytosis Slight PT (9.0-12.0) sec INR (<1.2) APTT (22.0-30.0) sec Sodium 139 (137-145) mmol/L Potassium 4.2 (3.5-5.1) mmol/L Chloride 104 (98-107) mmol/L Carbon Dioxide 20 L (22-30) mmol/L Anion Gap 15 mmol/L BUN 10 (9-20) mg/dL Creatinine 0.60 L (0.66-1.25) mg/dL Est GFR (CKD-EPI)AfAm >90 (>60 ml/min/1.73 sqM) Est GFR (CKD-EPI)NonAf >90 (>60 ml/min/1.73 sqM) Glucose 104 H (74-99) mg/dL Plasma Lactic Acid Jimmy (0.7-2.0) mmol/L Calcium 9.5 (8.4-10.2) mg/dL Magnesium 1.8 (1.6-2.3) mg/dL Total Bilirubin 0.5 (0.2-1.3) mg/dL AST 23 (17-59) U/L ALT 38 (21-72) U/L Alkaline Phosphatase 116 (38-126) U/L Total Creatine Kinase 165 (55-170) U/L CK-MB (CK-2) 0.9 (0.0-2.4) ng/mL CK-MB (CK-2) Rel Index 0.5 Troponin I <0.012 (0.000-0.034) ng/mL NT-Pro-B Natriuret Pep pg/mL Total Protein 8.6 H (6.3-8.2) g/dL Albumin 4.2 (3.5-5.0) g/dL 03/27/18 03/27/18 03/27/18 Range/Units 18:14 18:14 18:14 WBC (3.8-10.6) k/uL RBC (4.30-5.90) m/uL Hgb (13.0-17.5) gm/dL Hct (39.0-53.0) % MCV (80.0-100.0) fL MCH (25.0-35.0) pg MCHC (31.0-37.0) g/dL RDW (11.5-15.5) % Plt Count (150-450) k/uL Neutrophils % % Lymphocytes % % Monocytes % % Eosinophils % % Basophils % % Neutrophils # (1.3-7.7) k/uL Lymphocytes # (1.0-4.8) k/uL Monocytes # (0-1.0) k/uL Eosinophils # (0-0.7) k/uL Basophils # (0-0.2) k/uL Hypochromasia Anisocytosis PT 10.2 (9.0-12.0) sec INR 0.9 (<1.2) APTT 28.4 (22.0-30.0) sec Sodium (137-145) mmol/L Potassium (3.5-5.1) mmol/L Chloride (98-107) mmol/L Carbon Dioxide (22-30) mmol/L Anion Gap mmol/L BUN (9-20) mg/dL Creatinine (0.66-1.25) mg/dL Est GFR (CKD-EPI)AfAm (>60 ml/min/1.73 sqM) Est GFR (CKD-EPI)NonAf (>60 ml/min/1.73 sqM) Glucose (74-99) mg/dL Plasma Lactic Acid Jimmy 1.9 (0.7-2.0) mmol/L Calcium (8.4-10.2) mg/dL Magnesium (1.6-2.3) mg/dL Total Bilirubin (0.2-1.3) mg/dL AST (17-59) U/L ALT (21-72) U/L Alkaline Phosphatase (38-126) U/L Total Creatine Kinase (55-170) U/L CK-MB (CK-2) (0.0-2.4) ng/mL CK-MB (CK-2) Rel Index Troponin I (0.000-0.034) ng/mL NT-Pro-B Natriuret Pep 64 pg/mL Total Protein (6.3-8.2) g/dL Albumin (3.5-5.0) g/dL Critical Care Time Critical Care Time: Yes Total Critical Care Time: 35 Disposition Clinical Impression: Healthcare-associated pneumonia, Hypoxia, Asthma with exacerbation Disposition: ADMITTED IP TO THIS HOSP Condition: Serious Is patient prescribed a controlled substance at d/c from ED?: No Referrals: Lacey Valenzuela MD [Primary Care Provider] - 1-2 days Time of Disposition: 19:38
[2018-03-27] MEDS ORDERED: VANCOMYCIN IV PER PHARMACY 1 EACH MISC MISCELLANE PRN (18:10)
[2018-03-27 18:28] LABS: Anisocytosis Slight; Basophils % (A) 0 %; Eosinophils # (A) 0.1 k/uL (0-0.7); Eosinophils % (A) 1 %; HCT 41.1 % (39.0-53.0); HGB 12.7 gm/dL (13.0-17.5); Hypochromasia Slight; Lymphocytes # (A) 0.9 k/uL (1.0-4.8); Lymphocytes % (A) 7 %; MCH 26.6 pg (25.0-35.0); MCHC 30.9 g/dL (31.0-37.0); MCV 85.9 fL (80.0-100.0); Mean Platelet Volume 7.3; Monocytes # (A) 0.6 k/uL (0-1.0); Monocytes % (A) 5 %; Neutrophils # (A) 10.6 k/uL (1.3-7.7); Neutrophils % (A) 84 %; Platelet Count 439 k/uL (150-450); RBC 4.79 m/uL (4.30-5.90); RDW 17.3 % (11.5-15.5); WBC 12.7 k/uL (3.8-10.6)
[2018-03-27 18:35] LABS: INR 0.9 (<1.2); Partial Thromboplastin Time 28.4 sec (22.0-30.0); Prothrombin Time 10.2 sec (9.0-12.0)
[2018-03-27 18:39] LABS: Creatine Kinase 165 U/L (55-170)
[2018-03-27 18:42] LABS: ALT 38 U/L (21-72); AST 23 U/L (17-59); Albumin 4.2 g/dL (3.5-5.0); Alkaline Phosphatase 116 U/L (38-126); Anion Gap 15 mmol/L; Blood Urea Nitrogen 10 mg/dL (9-20); Calcium 9.5 mg/dL (8.4-10.2); Carbon Dioxide 20 mmol/L (22-30); Chloride 104 mmol/L (98-107); Glucose 104 mg/dL (74-99); Magnesium 1.8 mg/dL (1.6-2.3); Potassium 4.2 mmol/L (3.5-5.1); Sodium 139 mmol/L (137-145); Total Bilirubin 0.5 mg/dL (0.2-1.3); Total Protein 8.6 g/dL (6.3-8.2)
[2018-03-27 18:52] LABS: Creatine Kinase MB 0.9 ng/mL (0.0-2.4); Troponin I <0.012 ng/mL (0.000-0.034)
[2018-03-27] MEDS ORDERED: VANCOMYCIN 2,000 MG in SODIUM CHLORIDE 0.9% 500 ML 500 ML IVPB ONE (19:00)
[2018-03-27] MEDS ORDERED: SODIUM CHLORIDE 0.9% 500 ML 500 ML IV ONE (19:03)
--- NOTE | 2018-03-27 19:03 | XR ---
EXAMINATION: XR chest 1V portable DATE AND TIME: 03/27/2018 6:03 PM CLINICAL INDICATION: PHH; braden TECHNIQUE: AP upright portable COMPARISON: Radiographs 01/04/2018 FINDINGS: Tracheostomy tube tip superimposed over the mid trachea. EKG leads noted. Right chest tube is evident. Pleural spaces are negative. The left lung shows a rounded 9 cm diameter region of consolidative opacity throughout the left upper lobe with lucency centrally, which could represent cavitation. Follow-up radiography or contrast CT recommended to further characterize. The right heart border is silhouetted, with evident atelectasis throughout the right middle lobe. Thi s right middle lobe atelectasis was seen on the prior radiographs. Underlying right middle lobe proce ss not excluded. Remainder of the right lung appears clear. The cardiac silhouette is not enlarged. The remainder of the mediastinal silhouette is unremarkable. The skeletal structures and soft tissues are negative for acute findings. IMPRESSION: New left upper lobe process, with the appearance suggesting pneumonia. Follow-up imaging to resolutio n is recommended.
[2018-03-27] MEDS ORDERED: KETOROLAC 30 MG/ML 1 ML VIAL IVP STA (19:11)
[2018-03-27] MEDS ORDERED: Acetaminophen-Codeine 300-30mg TAB PO STA (19:11)
[2018-03-27] MEDS ORDERED: SODIUM CHLORIDE 0.9% 1,000 ML IV SCH (19:15)
[2018-03-27] MEDS ORDERED: IPRATROPIUM-ALBUTEROL 3 ML NEB INHALATION PRN (19:38)
[2018-03-27] MEDS ORDERED: ALBUTEROL NEBULIZED 2.5 MG/3 ML INHALATION PRN (19:40)
[2018-03-27] MEDS ORDERED: MORPHINE SULFATE 4 MG/ML SYRINGE IVP STA (20:36)
[2018-03-27] MEDS: IPRATROPIUM-ALBUTEROL 3 ML NEB INHALATION SCH (21:03)
[2018-03-27] MEDS: HYDROcodone/APAP 5-325MG 1 EACH TAB PO PRN (23:33)
[2018-03-27] MEDS: HEPARIN SODIUM,PORCINE 5,000 UNIT/ML 1 ML VIAL SQ SCH (23:36)
--- NOTE | 2018-03-27 23:53 | HP ---
HISTORY AND PHYSICAL CHIEF COMPLAINTS: Shortness of breath, cough and sputum. HISTORY OF PRESENT ILLNESS: This 33-year-old gentleman with a past medical history of multiple medical problems, including asthma, history of GERD, history of pneumonia, sleep apnea, history of cochlear implant, deafness, history of Rosai-Parker syndrome, also had upper airway obstruction. Patient underwent permanent tracheostomy with a #6 Shiley. The patient is complaining of shortness of breath, cough and sputum. Patient has been taking Z-Miki for the last 5 days. Because of lack of improvement, the patient came to [facility] and was admitted for further evaluation and treatment. Some sputum was noted. WBC was elevated. A chest x-ray which was reviewed personally by me showed no evidence of left upper lobe pneumonia. The patient is admitted for evaluation and treatment. There is no history of any fever, rigor or chills. No history of headache, seizures. Patient is able to give a history by closing the tracheostomy tube. PAST MEDICAL HISTORY: 1. History of asthma. 2. GERD. 3. History of hypertension. 4. Pneumonia. 5. Sleep apnea. 6. Rosai-Parker syndrome. PAST SURGICAL HISTORY: 1. Ear surgery. 2. Tonsillectomy. 3. Cochlear implant. HOME MEDICATIONS: 1. Benadryl 50 mg at bedtime. 2. ProAir HFA 1-2 puffs q.i.d. p.r.n. 3. Ventolin 2.5 q.4 p.r.n. 4. Mucinex 1200 mg b.i.d. 5. Norvasc 5 mg p.o. daily. 6. Singulair 10 mg p.o. daily. 7. Claritin 10 mg p.o. daily. 8. Advair 2 puffs b.i.d. 9. Flonase 1 spray b.i.d. 10.Vitamin B12 1000 mcg p.o. daily. 11.Symbicort 80/4.5 two puffs b.i.d. ALLERGIES: 1. MOLD. 2. PENICILLIN. 3. WEED POLLEN. FAMILY HISTORY: History of asthma in the family. SOCIAL HISTORY: Previous history of smoking. Occasional alcohol intake. REVIEW OF SYSTEMS: ENT: As mentioned earlier. CARDIOVASCULAR SYSTEM: No angina, palpitations. RESPIRATORY SYSTEM: As mentioned earlier. GI: No nausea, vomiting. : No dysuria or retention. NERVOUS SYSTEM: No numbness. Generalized weakness. ALLERGY/IMMUNOLOGY: No asthma, hayfever. MUSCULOSKELETAL: As mentioned earlier. HEMATOLOGY/ONCOLOGY: No history of anemia. ENDOCRINE: No history of diabetes, hypothyroidism. CONSTITUTIONAL: As mentioned earlier. DERMATOLOGY: Negative. RHEUMATOLOGY: Negative. PSYCHIATRY: As mentioned earlier. PHYSICAL EXAMINATION: Patient alert and oriented x3. Pulse 109, blood pressure 138/94, respiration 18, temperature 98 degrees, T-max 100.3, pulse ox 98% on 15 L trach collar. HEENT: Conjunctivae normal. Oral mucosa moist. NECK: Tracheostomy present. CARDIOVASCULAR SYSTEM: S1, S2 muffled. RESPIRATORY SYSTEM: Breath sounds diminished at the bases. Bilateral scattered rhonchi and crackles. Expiratory wheezing also present. ABDOMEN: Soft, non-tender, obese. No mass palpable. LEGS: No edema. No swelling. NERVOUS SYSTEM: Higher functions as mentioned earlier. Moves all 4 limbs. No focal motor or sensory deficit. LYMPHATICS: No lymph node palpable in neck, axillae or groin. SKIN: No ulcer, rash, bleeding. LABS: WBC 12.7, hemoglobin 12.7, platelets 439. Sodium is 139, potassium 4.2. CO2 is 20. Creatinine 0.6 and glucose 104. ASSESSMENT: 1. Acute bronchial asthma, acute exacerbation, with acute left lower pneumonia, possibly gram-negative, with failure of outpatient treatment with acute hypoxic respiratory failure. 2. Chronic hypoxic respiratory failure. 3. Status post permanent tracheostomy. 4. History of Rosai-Parker syndrome. 5. Increased white count. 6. History of gastroesophageal reflux disease. 7. History of hard of hearing, deafness. 8. Hypertension. 9. History of pneumonia. 10.History of sleep apnea. 11.History of mastoidectomy and tympanoplasty. 12.History of methicillin-resistant Staphylococcus aeruginosa. 13.History of anxiety. 14.History of nicotine dependence. RECOMMENDATIONS AND DISCUSSION: In this 33-year-old gentleman who presented with multiple complex medical issues, at this time I recommend to continue the current medications, continue symptomatic treatment. Otherwise at this time I would recommend intensive bronchodilator treatment. I would also recommend IV steroids. Recommend monitoring blood sugars closely. Obtain cultures and patient was started on Levaquin and vancomycin. I would recommend consulting Dr. Mendoza. Ensure oxygenation. See orders for details. I would also recommend checking influenza swab. Prognosis is guarded because of the multiple complex medical issues. Further recommendations to follow. A copy of this dictation is being forwarded to Dr. Valenzuela, was is the primary physician. MMODL / IJN: [id number] /
[2018-03-28] MEDS: methylPREDNISolone SOD SUCCI 125 MG/2 ML VIAL IV SCH ×4 (00:22→16:20)
[2018-03-28] MEDS: MELATONIN 3 MG TABLET PO PRN (00:31)
[2018-03-28] MEDS: VANCOMYCIN 2,000 MG in SODIUM CHLORIDE 0.9% 500 ML 500 ML IVPB SCH ×3 (01:39→16:20)
[2018-03-28 04:29] LABS: Hemoglobin A1C 6.3 % (4.0-6.0)
[2018-03-28] MEDS: MORPHINE SULFATE 4 MG/ML SYRINGE IVP PRN ×5 (05:01→20:28)
[2018-03-28 05:49] LABS: Glucose,Whole Blood 223 mg/dL (75-99)
[2018-03-28] MEDS: INSULIN ASPART 100 UNIT/ML 1 ML 10 ML VIAL SQ SCH ×4 (06:31→21:49)
[2018-03-28] MEDS: PANTOPRAZOLE 40 MG TABLET PO SCH (06:32)
[2018-03-28 06:37] LABS: Anisocytosis Slight; Basophils % (A) 0 %; Eosinophils # (A) 0.1 k/uL (0-0.7); Eosinophils % (A) 2 %; HCT 37.5 % (39.0-53.0); HGB 11.8 gm/dL (13.0-17.5); Hypochromasia Slight; Lymphocytes # (A) 0.6 k/uL (1.0-4.8); Lymphocytes % (A) 7 %; MCH 27.3 pg (25.0-35.0); MCHC 31.5 g/dL (31.0-37.0); MCV 86.5 fL (80.0-100.0); Mean Platelet Volume 8.4; Monocytes # (A) 0.1 k/uL (0-1.0); Monocytes % (A) 2 %; Neutrophils # (A) 7.5 k/uL (1.3-7.7); Neutrophils % (A) 89 %; Platelet Count 350 k/uL (150-450); RBC 4.33 m/uL (4.30-5.90); RDW 17.1 % (11.5-15.5); WBC 8.4 k/uL (3.8-10.6)
[2018-03-28 06:57] LABS: Amorphous Sediment,Urine Occasional /hpf; Appearance,Urine Cloudy (Clear); Bilirubin,Urine Negative (Negative); Blood,Urine Negative (Negative); Color,Urine Yellow; Glucose,Urine (UA) 2+ (Negative); Leukocyte Esterase,Urine Negative (Negative); Mucus,Urine Many /hpf; Nitrite,Urine Negative (Negative); Protein,Urine 2+ (Negative); Specific Gravity,Urine 1.025 (1.001-1.035); Urobilinogen,Urine <2.0 mg/dL (<2.0); WBC,Urine 2 /hpf (0-5)
[2018-03-28 07:04] LABS: Ketones,Urine 2+ (Negative)
[2018-03-28 07:06] LABS: Anion Gap 9 mmol/L; Blood Urea Nitrogen 17 mg/dL (9-20); Calcium 9.2 mg/dL (8.4-10.2); Carbon Dioxide 24 mmol/L (22-30); Chloride 105 mmol/L (98-107); Glucose 216 mg/dL (74-99); Potassium 5.3 mmol/L (3.5-5.1); Sodium 138 mmol/L (137-145)
[2018-03-28] MEDS: FORMOTEROL FUMARATE 20 MCG/2 ML NEBU INHALATION SCH ×2 (07:36→21:11)
[2018-03-28] MEDS: IPRATROPIUM-ALBUTEROL 3 ML NEB INHALATION SCH ×4 (07:36→21:11)
[2018-03-28] MEDS: BUDESONIDE 1 MG/2 ML NEBU INHALATION SCH ×2 (07:36→21:11)
[2018-03-28] MEDS: MULTIVITAMINS, THERA 1 EACH TAB PO SCH (08:32)
[2018-03-28] MEDS: CYANOCOBALAMIN 500 MCG TAB PO SCH (08:32)
[2018-03-28] MEDS: LORATADINE 10 MG TAB PO SCH (08:32)
[2018-03-28] MEDS: MONTELUKAST 10 MG TAB PO SCH (08:32)
[2018-03-28] MEDS: guaiFENesin 600 MG TABLET.ER PO SCH ×2 (08:32→20:29)
[2018-03-28] MEDS: HEPARIN SODIUM,PORCINE 5,000 UNIT/ML 1 ML VIAL SQ SCH ×2 (08:33→20:28)
[2018-03-28] MEDS: amLODIPine 5 MG TAB PO SCH (08:33)
[2018-03-28] MEDS: FLUTICASONE 50MCG/SPRAY NASAL 16GM NASAL SCH ×2 (08:33→20:29)
[2018-03-28] MEDS: HYDROcodone/APAP 5-325MG 1 EACH TAB PO PRN ×2 (11:25→22:51)
[2018-03-28 11:26] LABS: Glucose,Whole Blood 189 mg/dL (75-99)
--- NOTE | 2018-03-28 11:30 | P.CNPUL ---
History of Present Illness Consult date: 03/28/18 Requesting physician: Adalberto Sauceda Reason for consult: dyspnea, cough, chest pain, pneumonia, abnormal CXR/CT Chief complaint: Dyspnea, left chest pain, fever, chills History of present illness: This is 33-year-old -[place] male with past medical history of mild intermittent bronchial asthma, chronic tracheostomy, past episodes of pneumonia , cochlear implant for deafness, history of Rosai-Parker syndrome, presented to the emergency department on 03/27/2018 for evaluation of 3 day history of left-sided chest wall discomfort, increasing shortness of breath, fever, chills , cough, with phlegm production. Patient did take a Z-Miki for his symptoms for last 5 days, he follows with Dr. Valenzuela. He also follows with Dr. Szymanski in the pulmonary office for his history of asthma, tracheobronchomalacia, and recurrent pneumonia involving the right middle lobe. He had also seen clinical lab specialist from [facility] and previously had endotracheal stents put in with subsequent removal related to inflammation. Also follows with the [facility] clinical lab specialist for his chronic lung issues. Dr. Carrillo from the ENT service sees the patient for periodic trach change. Previous attempt was made to decannulate the patient but patient developed tracheal collapse, hence he was not ready for removal. Chest x-ray was completed, and showed new left upper lobe consolidative opacity throughout the left upper lobe with central lucency which could represent cavitation. The right middle lobe atelectasis was present and was seen on prior radiographs. However underlying right middle lobe process could not be totally excluded. Lab work showed WBC of 12.7, hemoglobin of 12.7, sodium was 139, potassium is 4.2, chloride is 104, CO2 is 20, BUN was 10, creatinine was 0.60, LFTs were within normal limits, proBNP was 64, troponin was negative 1, plasma lactic acid was 1.9. Urinalysis showed 2+ protein, 2+ glucose and 2+ ketones, but negative for infection, influenza was not detected. Patient was febrile on presentation with a temp of 100.3F, afebrile this morning, feels warm, and sweaty to touch. He has a #6 Shiley tracheostomy tube. Room air pulse ox is 96 %. Lung sounds are quite noisy, scattered rhonchi, coarse throughout the lung anderson. He was started on empiric antibiotics, Levaquin and vancomycin. Nebulized bronchodilators, IV steroids, is admitted for further management. Review of Systems All systems: negative Constitutional: Denies chills, Denies fever Eyes: denies blurred vision, denies pain Ears, nose, mouth and throat: Denies headache, Denies sore throat Cardiovascular: Reports dyspnea on exertion, Reports shortness of breath, Denies chest pain Respiratory: Reports congestion, Reports cough with sputum, Reports dyspnea, Reports respiratory infections, Denies cough Gastrointestinal: Denies abdominal pain, Denies diarrhea, Denies nausea, Denies vomiting Musculoskeletal: Denies myalgias Integumentary: Denies pruritus, Denies rash Neurological: Denies numbness, Denies weakness Psychiatric: Denies anxiety, Denies depression Endocrine: Denies fatigue, Denies weight change Past Medical History Past Medical History: Asthma, GERD/Reflux, Hearing Disorder / Deafness, Hypertension, Pneumonia, Sleep Apnea/CPAP/BIPAP Additional Past Medical History / Comment(s): Patient is deaf. He has had a cochlear implant using a bone anchored hearing aid and he has undergone previous mastoidectomy and tympanoplasty. 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 Patient has a permanent tracheostomy with a #6 Shiley, uses back brace for back pain History of Any Multi-Drug Resistant Organisms: MRSA Date of last positivie culture/infection: 06/24/16 MDRO Source:: SPUTUM Past Surgical History: Ear Surgery, Tonsillectomy Additional Past Surgical History / Comment(s): Cochlear implant, PT STATED HE HAD THROAT TISSUE BIOPSIED AT [facility] BUT DOES'NT KNOW THE RESULTS. 09/19/14: Tracheostomy tube placement, sinus surgery Past Anesthesia/Blood Transfusion Reactions: Previous Problems w/ Anesthesia Additional Past Anesthesia/Blood Transfusion Reaction / Comment(s): PT STATED" WHILE UNDER AA HE BUT DID COME BACK" Past Psychological History: Anxiety Additional Psychological History / Comment(s): He is independent. 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 Smoking Status: Former smoker Past Alcohol Use History: Occasional Additional Past Alcohol Use History / Comment(s): smoker for since age 17 3-4 cig/d quit 12/26, He states he does occasionally drink on weekends but never more than `4 drinks a week. Past Drug Use History: None Reported - Past Family History Son(s) Family Medical History: Asthma Father Family Medical History: Hypertension Mother Family Medical History: Hypertension Medications and Allergies Home Medications Medication Instructions Recorded Confirmed Type amLODIPine [Norvasc] 5 mg PO DAILY 03/19/15 03/27/18 History Montelukast [Singulair] 10 mg PO DAILY 04/15/15 03/27/18 History Albuterol Nebulized [Ventolin 2.5 mg INHALATION RT-Q4H PRN 05/26/16 03/27/18 History Nebulized] Albuterol Sulfate [Proair Hfa] 2 puff INHALATION RT-QID PRN 05/26/16 03/27/18 History Fluticasone Nasal Rankin [Flonase 1 spray NASAL BID 05/26/16 03/27/18 History Nasal Rankin] Fluticasone/Salmeterol [Advair Hfa 2 puff INHALATION RT-BID 05/26/16 03/27/18 History 115-21 Mcg Inhaler] diphenhydrAMINE [Benadryl] 50 mg PO HS 05/26/16 03/27/18 History guaiFENesin [Mucinex] 1,200 mg PO Q12HR #60 tablet.er 05/31/16 03/27/18 Rx Cyanocobalamin (Vitamin B-12) 1,000 mcg PO DAILY 02/07/18 03/27/18 History [Vitamin B-12] Loratadine [Claritin] 10 mg PO DAILY 02/07/18 03/27/18 History Budesonide/Formoterol Fumarate 2 puff INHALATION RT-BID 03/27/18 03/27/18 History [Symbicort 80-4.5 Mcg Inhaler] Allergies Allergy/AdvReac Type Severity Reaction Status Date / Time mold Allergy Unknown Verified 03/27/18 19:24 Penicillins Allergy Rash/Hives Verified 03/27/18 19:24 weed pollen Allergy Unknown Verified 03/27/18 19:24 Physical Exam Vitals: Vital Signs Temp Pulse Pulse Resp BP BP Pulse Ox 03/28/18 08:06 92 03/28/18 08:00 98 F 93 18 145/80 93 L 03/28/18 07:55 88 03/28/18 07:36 88 03/28/18 04:00 97.6 F 77 18 131/72 100 03/28/18 00:00 97.7 F 107 H 18 141/79 93 L 03/27/18 23:00 96 23 137/91 03/27/18 22:00 100 23 148/101 97 03/27/18 21:26 101 H 03/27/18 21:18 120 H 18 03/27/18 21:06 118 H 18 03/27/18 21:00 105 H 24 138/94 96 03/27/18 20:13 97.7 F 107 H 18 141/79 93 L 03/27/18 20:07 98.9 F 109 H 18 138/94 98 03/27/18 20:00 111 H 18 128/90 96 03/27/18 19:09 100.3 F H 03/27/18 18:59 124 H 24 128/90 95 03/27/18 18:33 128 H 20 03/27/18 18:13 125 H 20 03/27/18 18:00 126 H 19 131/88 03/27/18 17:42 81 L 03/27/18 17:30 146 H 26 H 141/88 76 L Intake and Output 03/27/18 03/28/18 03/28/18 22:59 06:59 14:59 Intake Total 600 240 Output Total 400 Balance 200 240 Intake: Intake, IV Titration 600 Amount Sodium Chloride 0.9% 1, 600 000 ml @ 75 mls/hr IV . [id number] [facility], 1928–1983 Rx#:[id number] Oral 240 Output: Urine 400 Other: Voiding Method Urinal Weight 106.8 kg 106.8 kg GENERAL EXAM: Alert, pleasant, 33-year-old -[place]oc[place] male, comfortable in no apparent distress. HEAD: Normocephalic/atraumatic. EYES: Normal reaction of pupils, equal size. Conjunctiva pink, sclera white. NOSE: Clear with pink turbinates. THROAT: No erythema or exudates. NECK: No masses, no JVD, no thyroid enlargement, no adenopathy. Chronic tracheostomy is in place, #6 Shiley CHEST: No chest wall deformity. Symmetrical expansion. LUNGS: Equal air entry with coarse rhonchi scattered throughout the lung anderson CVS: Regular rate and rhythm, normal S1 and S2, no gallops, no murmurs, no rubs ABDOMEN: Soft, nontender. No hepatosplenomegaly, normal bowel sounds, no guarding or rigidity. EXTREMITIES: No clubbing, no edema, no cyanosis, 2+ pulses and upper and lower extremities. MUSCULOSKELETAL: Muscle strength and tone normal. SPINE: No scoliosis or deformity SKIN: No rashes CENTRAL NERVOUS SYSTEM: Alert and oriented -3. No focal deficits, tone is normal in all 4 extremities. PSYCHIATRIC: Alert and oriented -3. Appropriate affect. Intact judgment and insight. Results - Laboratory Findings CBC and BMP: 03/28/18 06:23 03/28/18 06:23 PT/INR, D-dimer PT 10.2 sec (9.0-12.0) 03/27/18 18:14 INR 0.9 (<1.2) 03/27/18 18:14 Abnormal lab findings: Abnormal Labs 03/27/18 03/27/18 03/27/18 18:14 18:14 18:14 WBC 12.7 H Hgb 12.7 L Hct MCHC 30.9 L RDW 17.3 H Neutrophils # 10.6 H Lymphocytes # 0.9 L Potassium Carbon Dioxide 20 L Creatinine 0.60 L Glucose 104 H POC Glucose (mg/dL) Hemoglobin A1c 6.3 H Total Protein 8.6 H Urine Protein Urine Glucose (UA) Urine Ketones Amorphous Sediment Urine Mucus 03/28/18 03/28/18 03/28/18 05:47 06:23 06:23 WBC Hgb 11.8 L Hct 37.5 L MCHC RDW 17.1 H Neutrophils # Lymphocytes # 0.6 L Potassium 5.3 H Carbon Dioxide Creatinine 0.65 L Glucose 216 H POC Glucose (mg/dL) 223 H Hemoglobin A1c Total Protein Urine Protein Urine Glucose (UA) Urine Ketones Amorphous Sediment Urine Mucus 03/28/18 06:37 WBC Hgb Hct MCHC RDW Neutrophils # Lymphocytes # Potassium Carbon Dioxide Creatinine Glucose POC Glucose (mg/dL) Hemoglobin A1c Total Protein Urine Protein 2+ H Urine Glucose (UA) 2+ H Urine Ketones 2+ H Amorphous Sediment Occasional H Urine Mucus Many H - Diagnostic Findings Chest x-ray: report reviewed, image reviewed Additional studies: EKG reviewed Assessment and Plan Plan: Assessment: #1. Acute left upper lobe pneumonia, could not exclude pneumonia in the right middle lobe. Patient has history of recurrent pneumonia involving the right middle lobe, chest x-ray consolidated process involving the left upper lobe, chronic atelectasis in the right middle lobe, however acute process moving the right middle lobe could not be totally excluded. Patient has history of MRSA pneumonia in the past, this could be MRSA related pneumonia, until ruled out #2. Recent tracheostomy change in February [address] Carrillo, with a reasonable partially obstructed tracheostomy tube, currently has a #6 fenestrated Shiley #3. History of mild intermittent bronchial asthma #4. Tracheobronchomalacia, had previous placement of endotracheal stents with subsequent removal #5. Recurrent pneumonia involving the right middle lobe #6. History of Rosia Parker syndrome #7. History of upper airway obstruction, that is post tracheostomy tube placement for airway protection. Patient has documented lesions in the trachea and bronchial tubes, underwent bronchoscopy by Dr. Lagunas at the [facility] #8. Deafness, status post cochlear implant #9. GERD #10. Hypertension #11. Prior history of smoking Plan: We will continue current antibiotic coverage, obtain sputum for culture, influenza was not detected, he remains congested, but feeling slightly better compared to yesterday, still sweaty, but no fever spikes through the night. Continue nebulized bronchodilators, and IV steroids, his chest x-ray was reviewed with Dr. Mendoza, and there is pneumonia involving the left upper lobe, and could not exclude pneumonia in the right middle lobe. We'll continue to closely follow, I performed a history & physical examination of the patient and discussed their management with my nurse practitioner, Trudy Jansen. I reviewed the nurse practitioner's note and agree with the documented findings and plan of care. Lung sounds are positive for diffuse rhonchi. The findings and the impression was discussed with the patient. I attest to the documentation by the nurse practitioner. Time with Patient: Greater than 30
--- NOTE | 2018-03-28 12:34 | CT ---
EXAMINATION TYPE: CT soft tissue neck wo con DATE OF EXAM: 03/28/2018 HISTORY: Throat tenderness COMPARISON: 09/22/2014 CT DLP: 417.2 mGycm. Automated Exposure Control for Dose Reduction was Utilized. TECHNIQUE: CT scan of the neck is performed without contrast, axial images are obtained, coronal and sagittal reformatted images are reviewed. FINDINGS: Airway: Midline tracheostomy is seen. Airway appears partially collapsed distally, possibly related t o degree of inspiration versus tracheomalacia near the eric. Abnormal peribronchial cuffing is seen of the right and left mainstem bronchus in the central mediastinum such as on series 204 image 8. Me diastinal adenopathy is noted in the precarinal space measuring 1.5 cm in short axis with other promi nent lymph nodes throughout. Prominent supraclavicular lymph nodes are also seen, left greater than r ight such as on image 47 measuring approximately 7 mm in short axis nonenlarged anterior and posterio r cervical chain lymph nodes are noted. Again there is tonsillar hypertrophy narrowing the oropharynx as seen on the prior. Supraglottic airw ay remains diminutive. Valleculae and piriform sinuses appear nearly filled, possibly related to secr etions. True and false focal cords are grossly unremarkable given the limitation of lack of intraveno us contrast Parotid/submandibular glands: Possible bilateral parotid and gland lesions versus intraparotid lymph nodes. These appear similar to the prior of 09/22/2014 therefore likely benign.. Carotid/Vascular Structures: Poorly evaluated without contrast. Osseous Structures: There is straightening of the usual cervical lordosis that may be on the basis of muscular sprain, spasm or patient positioning. There is complete opacification of the right maxillar y sinus and left maxillary sinus with osseous expansion and mucoperiosteal thickening on the left ind icating acute on chronic component. Within the ethmoid sinuses there is either cortical dehiscence of the lamina papyracea or extremely thinned cortex with bowing towards the left medial rectus impressi ng upon the left medial rectus. Near-complete opacification of the sphenoid and frontal sinuses are s een. Right cochlea implant is identified with postsurgical changes of the bilateral mastoid air cells . IMPRESSION: 1. Multifocal left upper lobe pneumonia, partially visualized. 2. 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 Mucocele should also be considered as there is cortical expansion particularly of the left lamina papyracea with mass effect upon the left medial re ctus muscle and the appearance of cortical dehiscence. 3. Chronic tonsillar hypertrophy with subsequent oropharyngeal airway narrowing and additional suprag lottic airway narrowing as seen on the prior exam of 2014. 4. Mediastinal adenopathy and central airway peribronchial thickening may be reactive given the patie nt's left upper lobe multifocal pneumonia. Tracheomalacia is also suspected.
[2018-03-28 16:25] LABS: Glucose,Whole Blood 193 mg/dL (75-99)
[2018-03-28] MEDS ORDERED: LEVOFLOXACIN 750MG-D5W PMX 750 MG in DEXTROSE/WATER 1 150ML.BAG IVPB SCH (18:00)
--- NOTE | 2018-03-28 18:57 | PN ---
PROGRESS NOTE DATE OF SERVICE: 03/28/2018 This 33-year-old gentleman admitted with acute acute exacerbation, also was suspected to have left lower lobe pneumonia. The patient also is complaining of pain and discomfort around the tracheostomy site. Dr. Mendoza is following the patient closely. The patient is on broad-spectrum IV antibiotics. Past medical history reviewed. REVIEW OF SYSTEMS: ENT: As mentioned earlier. CARDIOVASCULAR SYSTEM: No angina, palpitations. RESPIRATORY SYSTEM: As mentioned earlier. GI: No nausea, vomiting. : No dysuria or retention. NERVOUS SYSTEM: No numbness, weakness. CURRENT MEDICATIONS: Reviewed. They include: 1. Benadryl 50 mg at bedtime. 2. ProAir 2 puffs q.i.d. p.r.n. 3. Ventolin 2.5 q.4 p.r.n. 4. Mucinex 1200 mg b.i.d. 5. Norvasc 5 mg daily. 6. Singulair 10 mg daily. 7. Claritin 10 mg daily. 8. Advair 2 puffs b.i.d. 9. Flonase 1 spray b.i.d. 10.Vitamin B12 1000 mcg daily. 11.Symbicort 2 puffs b.i.d. PHYSICAL EXAMINATION: Patient is alert, oriented x3. Pulse 61, blood pressure 130/80, respiration 18, temperature 97.7, pulse ox 93% on room air. HEENT: Conjunctivae normal. NECK: No jugular venous distention. CARDIOVASCULAR SYSTEM: S1, S2 muffled. RESPIRATORY SYSTEM: Breath sounds diminished at the bases. Bilateral scattered rhonchi and crackles. Expiratory wheezing. ABDOMEN: Soft, non-tender. LEGS: No edema. No swelling. NERVOUS SYSTEM: No focal deficit. LABS: WBC 8.4, hemoglobin 11.8, sodium 130, potassium 5.3. ASSESSMENT: 1. Acute bronchial asthma, acute exacerbation, with acute left upper lobe pneumonia, possibly gram-negative, with failure of outpatient treatment with chronic hypoxic respiratory failure. 2. Neck pain. 3. Chronic hypoxic respiratory failure. 4. Status post permanent tracheostomy. 5. History of Rosai-Parker syndrome. 6. Increased white count. 7. History of gastroesophageal reflux disease. 8. Hard of hearing, deafness. 9. Hypertension. 10.History of pneumonia. 11.History of sleep apnea. 12.History of mastoidectomy, tympanoplasty. 13.History of methicillin-resistant Staphylococcus aeruginosa. 14.History of anxiety. 15.History of nicotine dependence. RECOMMENDATIONS AND DISCUSSION: I recommend to continue current medication, continue with the monitoring, symptomatic treatment. Otherwise at this time continue with the antibiotics. Closely follow with Dr. Mendoza. ENT evaluation. Pansinusitis noted on the CT scan with chronic tonsillar hypertrophy and mediastinal lymphadenopathy and airway thickening. Overall prognosis guarded. See orders for details. Further recommendations to follow. MMODL / IJN: [id number] / MTDD
[2018-03-28] MEDS: diphenhydrAMINE 25 MG CAP PO SCH (20:29)
[2018-03-28 21:07] LABS: Glucose,Whole Blood 186 mg/dL (75-99)
[2018-03-29] MEDS: methylPREDNISolone SOD SUCCI 125 MG/2 ML VIAL IV SCH ×2 (00:12→06:43)
[2018-03-29] MEDS: MORPHINE SULFATE 4 MG/ML SYRINGE IVP PRN ×4 (00:16→23:11)
[2018-03-29] MEDS: MELATONIN 3 MG TABLET PO PRN ×2 (00:16→23:11)
[2018-03-29] MEDS ORDERED: VANCOMYCIN TROUGH DUE 1 EACH MISC MISCELLANE ONE (01:00)
[2018-03-29] MEDS: VANCOMYCIN 2,000 MG in SODIUM CHLORIDE 0.9% 500 ML 500 ML IVPB SCH ×3 (01:57→17:52)
[2018-03-29 06:02] LABS: Glucose,Whole Blood 267 mg/dL (75-99)
[2018-03-29] MEDS: HYDROcodone/APAP 5-325MG 1 EACH TAB PO PRN ×2 (06:16→20:01)
[2018-03-29] MEDS: PANTOPRAZOLE 40 MG TABLET PO SCH (06:43)
[2018-03-29] MEDS: INSULIN ASPART 100 UNIT/ML 1 ML 10 ML VIAL SQ SCH ×4 (06:44→21:20)
[2018-03-29 07:02] LABS: Anisocytosis Slight; Basophils % (A) 0 %; Eosinophils # (A) 0.1 k/uL (0-0.7); Eosinophils % (A) 1 %; HCT 36.4 % (39.0-53.0); HGB 11.1 gm/dL (13.0-17.5); Hypochromasia Moderate; Lymphocytes # (A) 0.6 k/uL (1.0-4.8); Lymphocytes % (A) 4 %; MCH 26.7 pg (25.0-35.0); MCHC 30.4 g/dL (31.0-37.0); MCV 87.7 fL (80.0-100.0); Mean Platelet Volume 9.2; Monocytes # (A) 0.5 k/uL (0-1.0); Monocytes % (A) 3 %; Neutrophils # (A) 15.7 k/uL (1.3-7.7); Neutrophils % (A) 92 %; Platelet Count 433 k/uL (150-450); RBC 4.15 m/uL (4.30-5.90); RDW 17.2 % (11.5-15.5); WBC 17.1 k/uL (3.8-10.6)
[2018-03-29 07:26] LABS: Anion Gap 10 mmol/L; Blood Urea Nitrogen 15 mg/dL (9-20); Calcium 9.5 mg/dL (8.4-10.2); Carbon Dioxide 25 mmol/L (22-30); Chloride 105 mmol/L (98-107); Glucose 248 mg/dL (74-99); Potassium 5.2 mmol/L (3.5-5.1); Sodium 140 mmol/L (137-145)
[2018-03-29] MEDS: HEPARIN SODIUM,PORCINE 5,000 UNIT/ML 1 ML VIAL SQ SCH ×2 (08:21→20:02)
[2018-03-29] MEDS: LORATADINE 10 MG TAB PO SCH (08:21)
[2018-03-29] MEDS: CYANOCOBALAMIN 500 MCG TAB PO SCH (08:22)
[2018-03-29] MEDS: guaiFENesin 600 MG TABLET.ER PO SCH ×2 (08:22→20:01)
[2018-03-29] MEDS: FLUTICASONE 50MCG/SPRAY NASAL 16GM NASAL SCH ×2 (08:23→20:02)
[2018-03-29] MEDS: MONTELUKAST 10 MG TAB PO SCH (08:29)
[2018-03-29] MEDS: IPRATROPIUM-ALBUTEROL 3 ML NEB INHALATION SCH ×4 (09:36→20:08)
[2018-03-29] MEDS: FORMOTEROL FUMARATE 20 MCG/2 ML NEBU INHALATION SCH ×2 (09:36→20:08)
[2018-03-29] MEDS: BUDESONIDE 1 MG/2 ML NEBU INHALATION SCH ×2 (09:36→20:08)
--- NOTE | 2018-03-29 10:03 | P.PN ---
Subjective 36-year-old gentleman with history of tracheostomy and history of Langerhans' cell histiocytosis came in and was admitted for pneumonia bilateral patient is high risk for MRSA because of which patient is on vancomycin patient's sputum is a lotion color because of which my suspicion is low for a Pseudomonas patient is presently on levofloxacin and vancomycin both of which will be continued patient is on high-dose of steroids has minimal wheezing on exam patient is presently on 6 L of oxygen. His shortness of breath improved significantly Constitutional: Denied any fatigue denied any fever. Cardio vascular: denied any chest pain, palpitations Gastrointestinal denied any nausea vomiting Pulmonary: As mentioned in HPI Neurologic denied any new focal deficits All inpatient medications were reviewed and appropriate changes in these medications as dictated in the interval history and assessment and plan. Objective - Vital Signs Vital signs: Vital Signs Temp 97.8 F 03/29/18 08:00 Pulse 84 03/29/18 09:51 Resp 20 03/29/18 08:00 BP 136/77 03/29/18 08:00 Pulse Ox 99 03/29/18 08:00 Intake & Output 03/28/18 03/29/18 03/29/18 18:59 06:59 18:59 Intake Total 360 240 Output Total 300 400 200 Balance 60 -400 40 Weight 106 kg Intake: Oral 360 240 Output: Urine 300 400 200 Other: Voiding Method Urinal Urinal # Voids 1 - Exam PHYSICAL EXAMINATION: GENERAL: The patient is alert and oriented x3, not in any acute distress. Well developed, well nourished. HEENT: Pupils are round and equally reacting to light. EOMI. No scleral icterus. No conjunctival pallor. Normocephalic, atraumatic. No pharyngeal erythema. No thyromegaly. CARDIOVASCULAR: S1 and S2 present. No murmurs, rubs, or gallops. PULMONARY: No expiratory wheezing tracheostomy in place's having some clear to yellowish discharge from the ABDOMEN: Soft, nontender, nondistended, normoactive bowel sounds. No palpable organomegaly. MUSCULOSKELETAL: No joint swelling or deformity. EXTREMITIES: No cyanosis, clubbing, or pedal edema. NEUROLOGICAL: Gross neurological examination did not reveal any focal deficits. SKIN: No rashes. - Labs CBC & Chem 7: 03/29/18 05:53 03/29/18 05:53 Labs: Abnormal Lab Results - Last 24 Hours (Table) 12/19/18 12/19/18 12/19/18 Range/Units 11:17 16:11 21:05 WBC (3.8-10.6) k/uL RBC (4.30-5.90) m/uL Hgb (13.0-17.5) gm/dL Hct (39.0-53.0) % MCHC (31.0-37.0) g/dL RDW (11.5-15.5) % Neutrophils # (1.3-7.7) k/uL Lymphocytes # (1.0-4.8) k/uL Potassium (3.5-5.1) mmol/L Glucose (74-99) mg/dL POC Glucose (mg/dL) 189 H 193 H 186 H (75-99) mg/dL 03/29/18 03/29/18 03/29/18 Range/Units 05:53 05:53 06:01 WBC 17.1 H (3.8-10.6) k/uL RBC 4.15 L (4.30-5.90) m/uL Hgb 11.1 L (13.0-17.5) gm/dL Hct 36.4 L (39.0-53.0) % MCHC 30.4 L (31.0-37.0) g/dL RDW 17.2 H (11.5-15.5) % Neutrophils # 15.7 H (1.3-7.7) k/uL Lymphocytes # 0.6 L (1.0-4.8) k/uL Potassium 5.2 H (3.5-5.1) mmol/L Glucose 248 H (74-99) mg/dL POC Glucose (mg/dL) 267 H (75-99) mg/dL Microbiology - Last 24 Hours (Table) 03/27/18 18:14 Blood Culture - Preliminary Blood No Growth after 24 hours 03/28/18 06:37 Urine Culture - Preliminary Urine,Voided Assessment and Plan Plan: -Left upper lobe and possible right middle lobe pneumonia patient is being treated for healthcare associated pneumonia. Patient is on vancomycin and levofloxacin, sputum cultures are so far negative and pending Recent tracheostomy since February 2018 -Mild intermittent bronchial asthma with minimal exacerbation -Tracheal bronchomalacia -History of Langerhans' cell histiocytosis -Gastroesophageal reflux disease -Hypertension -Elevated blood sugars will obtain hemoglobin A1c secondary to systemic steroids will treat with sliding scale insulin For above-mentioned chronic medical problems patient will be resumed and continued on appropriate medications
[2018-03-29 11:09] LABS: Glucose,Whole Blood 128 mg/dL (75-99)
--- NOTE | 2018-03-29 12:07 | XR ---
EXAMINATION TYPE: XR chest 2V DATE OF EXAM: 03/29/2018 COMPARISON: 03/27/2018 TECHNIQUE: PA and lateral views submitted. HISTORY: Follow-up pneumonia FINDINGS: There is interval improvement in the left upper lobe area of infiltrate. Persistent left lower lobe a nd right lower lobe subsegmental atelectasis or infiltrate. There is prominence of the upper mediasti num. Ectasia of the aorta noted. No pneumothorax. Tracheostomy tube seen. Heart size stable. IMPRESSION: 1. Near complete resolution of left upper lobe pneumonia. 2. Stable bilateral lower lobe infiltrate and tiny effusions. 3. Upper mediastinum is somewhat prominent. May be positional. Recommend follow-up x-ray.
[2018-03-29] MEDS: MULTIVITAMINS, THERA 1 EACH TAB PO SCH (12:17)
[2018-03-29] MEDS: amLODIPine 5 MG TAB PO SCH (12:17)
--- NOTE | 2018-03-29 12:57 | P.PN ---
Subjective Progress Note Date: 03/29/18 Principal diagnosis: Acute left upper lobe pneumonia, possibly pneumonia in the right middle lobe, possibly MRSA related This is 33-year-old -[place] male with past medical history of mild intermittent bronchial asthma, chronic tracheostomy, past episodes of pneumonia , cochlear implant for deafness, history of Rosai-Parker syndrome, presented to the emergency department on 03/27/2018 for evaluation of 3 day history of left-sided chest wall discomfort, increasing shortness of breath, fever, chills , cough, with phlegm production. Patient did take a Z-Miki for his symptoms for last 5 days, he follows with Dr. Valenzuela. He also follows with Dr. Szymanski in the pulmonary office for his history of asthma, tracheobronchomalacia, and recurrent pneumonia involving the right middle lobe. He had also seen electronic commerce specialist from [facility] and previously had endotracheal stents put in with subsequent removal related to inflammation. Also follows with the [facility] electronic commerce specialist for his chronic lung issues. Dr. Carrillo from the ENT service sees the patient for periodic trach change. Previous attempt was made to decannulate the patient but patient developed tracheal collapse, hence he was not ready for removal. Chest x-ray was completed, and showed new left upper lobe consolidative opacity throughout the left upper lobe with central lucency which could represent cavitation. The right middle lobe atelectasis was present and was seen on prior radiographs. However underlying right middle lobe process could not be totally excluded. Lab work showed WBC of 12.7, hemoglobin of 12.7, sodium was 139, potassium is 4.2, chloride is 104, CO2 is 20, BUN was 10, creatinine was 0.60, LFTs were within normal limits, proBNP was 64, troponin was negative 1, plasma lactic acid was 1.9. Urinalysis showed 2+ protein, 2+ glucose and 2+ ketones, but negative for infection, influenza was not detected. Patient was febrile on presentation with a temp of 100.3F, afebrile this morning, feels warm, and sweaty to touch. He has a #6 Shiley tracheostomy tube. Room air pulse ox is 96 %. Lung sounds are quite noisy, scattered rhonchi, coarse throughout the lung anderson. He was started on empiric antibiotics, Levaquin and vancomycin. Nebulized bronchodilators, IV steroids, is admitted for further management. On 03/29/2018 patient seen in follow-up selective care unit, still sounds quite congested, has a loose cough, currently on 28% trach collar, his pulse ox is 96% , afebrile. Today's labs revealed a white blood cell count, 17.1, hemoglobin is 11.1, sodium is 140, potassium is 5.2, depressed electrolytes were within normal limits, vancomycin 16.7, blood and urine cultures pending, sputum cultures pending. Patient is on a combination of Levaquin and vancomycin. Objective - Vital Signs Vital signs: Vital Signs Temp 97.8 F 03/29/18 11:53 Pulse 64 03/29/18 11:53 Resp 16 03/29/18 11:53 BP 136/76 03/29/18 11:53 Pulse Ox 96 03/29/18 11:53 Intake & Output 03/28/18 03/29/18 03/29/18 18:59 06:59 18:59 Intake Total 360 240 Output Total 300 400 200 Balance 60 -400 40 Weight 106 kg Intake: Oral 360 240 Output: Urine 300 400 200 Other: Voiding Method Urinal Urinal Urinal # Voids 1 - Exam GENERAL EXAM: Alert, pleasant, 33-year-old -[place] male, comfortable in no apparent distress. HEAD: Normocephalic/atraumatic. EYES: Normal reaction of pupils, equal size. Conjunctiva pink, sclera white. NOSE: Clear with pink turbinates. THROAT: No erythema or exudates. NECK: No masses, no JVD, no thyroid enlargement, no adenopathy. Chronic tracheostomy is in place, #6 Shiley CHEST: No chest wall deformity. Symmetrical expansion. LUNGS: Equal air entry with coarse rhonchi scattered throughout the lung anderson CVS: Regular rate and rhythm, normal S1 and S2, no gallops, no murmurs, no rubs ABDOMEN: Soft, nontender. No hepatosplenomegaly, normal bowel sounds, no guarding or rigidity. EXTREMITIES: No clubbing, no edema, no cyanosis, 2+ pulses and upper and lower extremities. MUSCULOSKELETAL: Muscle strength and tone normal. SPINE: No scoliosis or deformity SKIN: No rashes CENTRAL NERVOUS SYSTEM: Alert and oriented -3. No focal deficits, tone is normal in all 4 extremities. PSYCHIATRIC: Alert and oriented -3. Appropriate affect. Intact judgment and insight. - Labs CBC & Chem 7: 03/29/18 05:53 03/29/18 05:53 Labs: Abnormal Lab Results - Last 24 Hours (Table) 03/28/18 03/28/18 03/29/18 Range/Units 16:11 21:05 05:53 WBC 17.1 H (3.8-10.6) k/uL RBC 4.15 L (4.30-5.90) m/uL Hgb 11.1 L (13.0-17.5) gm/dL Hct 36.4 L (39.0-53.0) % MCHC 30.4 L (31.0-37.0) g/dL RDW 17.2 H (11.5-15.5) % Neutrophils # 15.7 H (1.3-7.7) k/uL Lymphocytes # 0.6 L (1.0-4.8) k/uL Potassium (3.5-5.1) mmol/L Glucose (74-99) mg/dL POC Glucose (mg/dL) 193 H 186 H (75-99) mg/dL 03/29/18 03/29/18 03/29/18 Range/Units 05:53 06:01 11:07 WBC (3.8-10.6) k/uL RBC (4.30-5.90) m/uL Hgb (13.0-17.5) gm/dL Hct (39.0-53.0) % MCHC (31.0-37.0) g/dL RDW (11.5-15.5) % Neutrophils # (1.3-7.7) k/uL Lymphocytes # (1.0-4.8) k/uL Potassium 5.2 H (3.5-5.1) mmol/L Glucose 248 H (74-99) mg/dL POC Glucose (mg/dL) 267 H 128 H (75-99) mg/dL Microbiology - Last 24 Hours (Table) 03/29/18 00:50 Sputum Culture - Preliminary Sputum 03/27/18 18:14 Blood Culture - Preliminary Blood No Growth after 24 hours 03/28/18 06:37 Urine Culture - Preliminary Urine,Voided Assessment and Plan Plan: Assessment: #1. Acute left upper lobe pneumonia, could not exclude pneumonia in the right middle lobe. Patient has history of recurrent pneumonia involving the right middle lobe, chest x-ray consolidated process involving the left upper lobe, chronic atelectasis in the right middle lobe, however acute process moving the right middle lobe could not be totally excluded. Patient has history of MRSA pneumonia in the past, this could be MRSA related pneumonia, until ruled out #2. Recent tracheostomy change in February [address] Carrillo, with a reasonable partially obstructed tracheostomy tube, currently has a #6 fenestrated Shiley #3. History of mild intermittent bronchial asthma #4. Tracheobronchomalacia, had previous placement of endotracheal stents with subsequent removal #5. Recurrent pneumonia involving the right middle lobe #6. History of Rosia Parker syndrome #7. History of upper airway obstruction, that is post tracheostomy tube placement for airway protection. Patient has documented lesions in the trachea and bronchial tubes, underwent bronchoscopy by Dr. Lagunas at the [facility] #8. Deafness, status post cochlear implant #9. GERD #10. Hypertension #11. Prior history of smoking Plan: Continue current antibiotic coverage, will await the results of the final cultures, patient is afebrile, still remains congested, will continue with IV steroids, at 40 mg every 12 hours, continue with nebulized bronchodilators. We will obtain a repeat chest x-ray today. I performed a history & physical examination of the patient and discussed their management with my nurse practitioner, Trudy Jansen. I reviewed the nurse practitioner's note and agree with the documented findings and plan of care. Lung sounds are positive for diffuse rhonchi. The findings and the impression was discussed with the patient. I attest to the documentation by the nurse practitioner. Time with Patient: Less than 30
[2018-03-29] MEDS ORDERED: methylPREDNISolone SOD SUCCI 40 MG/ML 1 ML VIAL IV SCH (16:00)
[2018-03-29 16:17] LABS: Glucose,Whole Blood 200 mg/dL (75-99)
[2018-03-29] MEDS ORDERED: LEVOFLOXACIN 750 MG TAB PO SCH (18:00)
[2018-03-29] MEDS: methylPREDNISolone SOD SUCCI 40 MG/ML 1 ML VIAL IV SCH (20:02)
[2018-03-29 20:35] LABS: Glucose,Whole Blood 124 mg/dL (75-99)
[2018-03-29] MEDS: diphenhydrAMINE 25 MG CAP PO SCH (23:11)
[2018-03-30] MEDS: VANCOMYCIN 2,000 MG in SODIUM CHLORIDE 0.9% 500 ML 500 ML IVPB SCH ×3 (02:14→17:41)
[2018-03-30 05:40] LABS: Glucose,Whole Blood 220 mg/dL (75-99)
[2018-03-30] MEDS: HYDROcodone/APAP 5-325MG 1 EACH TAB PO PRN ×4 (06:04→23:17)
[2018-03-30] MEDS: INSULIN ASPART 100 UNIT/ML 1 ML 10 ML VIAL SQ SCH ×4 (06:04→20:26)
[2018-03-30] MEDS: PANTOPRAZOLE 40 MG TABLET PO SCH (06:04)
[2018-03-30 06:20] LABS: Anisocytosis Slight; Basophils % (A) 0 %; Eosinophils # (A) 0.2 k/uL (0-0.7); Eosinophils % (A) 2 %; HCT 35.5 % (39.0-53.0); HGB 10.8 gm/dL (13.0-17.5); Hypochromasia Moderate; Lymphocytes # (A) 0.7 k/uL (1.0-4.8); Lymphocytes % (A) 5 %; MCH 26.5 pg (25.0-35.0); MCHC 30.4 g/dL (31.0-37.0); MCV 87.3 fL (80.0-100.0); Mean Platelet Volume 8.5; Monocytes # (A) 0.4 k/uL (0-1.0); Monocytes % (A) 3 %; Neutrophils # (A) 12.4 k/uL (1.3-7.7); Neutrophils % (A) 90 %; Platelet Count 436 k/uL (150-450); RBC 4.07 m/uL (4.30-5.90); RDW 17.5 % (11.5-15.5); WBC 13.9 k/uL (3.8-10.6)
[2018-03-30 06:42] LABS: Anion Gap 9 mmol/L; Blood Urea Nitrogen 17 mg/dL (9-20); Carbon Dioxide 26 mmol/L (22-30); Chloride 103 mmol/L (98-107); Glucose 225 mg/dL (74-99); Potassium 4.8 mmol/L (3.5-5.1); Sodium 138 mmol/L (137-145)
[2018-03-30 07:24] LABS: Mycoplasma IgM Antibody 0.49 INDEX (<=0.90)
[2018-03-30] MEDS: IPRATROPIUM-ALBUTEROL 3 ML NEB INHALATION SCH ×4 (08:07→20:28)
[2018-03-30] MEDS: BUDESONIDE 1 MG/2 ML NEBU INHALATION SCH ×2 (08:07→20:28)
[2018-03-30] MEDS: FORMOTEROL FUMARATE 20 MCG/2 ML NEBU INHALATION SCH ×2 (08:07→20:28)
[2018-03-30] MEDS: LORATADINE 10 MG TAB PO SCH (08:39)
[2018-03-30] MEDS: HEPARIN SODIUM,PORCINE 5,000 UNIT/ML 1 ML VIAL SQ SCH ×2 (08:39→20:16)
[2018-03-30] MEDS: guaiFENesin 600 MG TABLET.ER PO SCH ×2 (08:39→23:17)
[2018-03-30] MEDS: FLUTICASONE 50MCG/SPRAY NASAL 16GM NASAL SCH ×2 (08:39→23:17)
[2018-03-30] MEDS: MONTELUKAST 10 MG TAB PO SCH (08:39)
[2018-03-30] MEDS: methylPREDNISolone SOD SUCCI 40 MG/ML 1 ML VIAL IV SCH ×2 (08:39→20:17)
[2018-03-30] MEDS: CYANOCOBALAMIN 500 MCG TAB PO SCH (08:39)
[2018-03-30] MEDS: amLODIPine 5 MG TAB PO SCH (08:39)
[2018-03-30] MEDS: MORPHINE SULFATE 4 MG/ML SYRINGE IVP PRN ×3 (08:57→20:17)
--- NOTE | 2018-03-30 09:49 | P.PN ---
Subjective 36-year-old gentleman with history of tracheostomy and history of Langerhans' cell histiocytosis came in and was admitted for pneumonia bilateral patient is high risk for MRSA because of which patient is on vancomycin patient's sputum is a lotion color because of which my suspicion is low for a Pseudomonas patient is presently on levofloxacin and vancomycin both of which will be continued patient is on high-dose of steroids has minimal wheezing on exam patient is presently on 6 L of oxygen. His shortness of breath improved significantly 03/30/2018 Patient is complaining of some pleuritic pain on the left side when he coughs beyond that no other significant overnight events. Constitutional: Denied any fatigue denied any fever. Cardio vascular: denied any chest pain, palpitations Gastrointestinal denied any nausea vomiting Pulmonary: As mentioned in HPI Neurologic denied any new focal deficits All inpatient medications were reviewed and appropriate changes in these medications as dictated in the interval history and assessment and plan. Objective - Vital Signs Vital signs: Vital Signs Temp 97.9 F 03/30/18 08:00 Pulse 72 03/30/18 08:39 Resp 16 03/30/18 08:00 BP 144/87 03/30/18 08:00 Pulse Ox 97 03/30/18 08:00 Intake & Output 03/29/18 03/30/18 03/30/18 18:59 06:59 18:59 Intake Total 1184 877 240 Output Total 801 1350 Balance 383 -473 240 Weight 111.7 kg Intake: IV 500 Vancomycin 2,000 mg In 500 Sodium Chloride 0.9% 500 ml 500 ml @ 167 mls/hr IVPB Q8H [facility] Rx#: [id number] Oral 684 877 240 Output: Urine 800 1350 Stool 1 Other: Voiding Method Urinal Urinal # Voids 1 - Exam PHYSICAL EXAMINATION: GENERAL: The patient is alert and oriented x3, not in any acute distress. Well developed, well nourished. HEENT: Pupils are round and equally reacting to light. EOMI. No scleral icterus. No conjunctival pallor. Normocephalic, atraumatic. No pharyngeal erythema. No thyromegaly. CARDIOVASCULAR: S1 and S2 present. No murmurs, rubs, or gallops. PULMONARY: No expiratory wheezing tracheostomy in place's having some clear to yellowish discharge from the ABDOMEN: Soft, nontender, nondistended, normoactive bowel sounds. No palpable organomegaly. MUSCULOSKELETAL: No joint swelling or deformity. EXTREMITIES: No cyanosis, clubbing, or pedal edema. NEUROLOGICAL: Gross neurological examination did not reveal any focal deficits. SKIN: No rashes. - Labs CBC & Chem 7: 03/30/18 05:35 03/30/18 05:35 Labs: Abnormal Lab Results - Last 24 Hours (Table) 03/27/18 03/29/18 03/29/18 Range/Units 18:41 11:07 16:16 WBC (3.8-10.6) k/uL RBC (4.30-5.90) m/uL Hgb (13.0-17.5) gm/dL Hct (39.0-53.0) % MCHC (31.0-37.0) g/dL RDW (11.5-15.5) % Neutrophils # (1.3-7.7) k/uL Lymphocytes # (1.0-4.8) k/uL Glucose (74-99) mg/dL POC Glucose (mg/dL) 128 H 200 H (75-99) mg/dL Mycoplasma pneumon IgG 2.76 H (<=0.90) INDEX 03/29/18 03/30/18 03/30/18 Range/Units 20:33 05:35 05:35 WBC 13.9 H (3.8-10.6) k/uL RBC 4.07 L (4.30-5.90) m/uL Hgb 10.8 L (13.0-17.5) gm/dL Hct 35.5 L (39.0-53.0) % MCHC 30.4 L (31.0-37.0) g/dL RDW 17.5 H (11.5-15.5) % Neutrophils # 12.4 H (1.3-7.7) k/uL Lymphocytes # 0.7 L (1.0-4.8) k/uL Glucose 225 H (74-99) mg/dL POC Glucose (mg/dL) 124 H (75-99) mg/dL Mycoplasma pneumon IgG (<=0.90) INDEX 03/30/18 Range/Units 05:38 WBC (3.8-10.6) k/uL RBC (4.30-5.90) m/uL Hgb (13.0-17.5) gm/dL Hct (39.0-53.0) % MCHC (31.0-37.0) g/dL RDW (11.5-15.5) % Neutrophils # (1.3-7.7) k/uL Lymphocytes # (1.0-4.8) k/uL Glucose (74-99) mg/dL POC Glucose (mg/dL) 220 H (75-99) mg/dL Mycoplasma pneumon IgG (<=0.90) INDEX Microbiology - Last 24 Hours (Table) 03/29/18 00:50 Gram Stain - Preliminary Sputum Sputum Culture - Preliminary 03/27/18 18:14 Blood Culture - Preliminary Blood No Growth after 48 hours 03/28/18 06:37 Urine Culture - Final Urine,Voided Assessment and Plan Plan: -Left upper lobe and possible right middle lobe pneumonia patient is being treated for healthcare associated pneumonia. Patient is on vancomycin and levofloxacin, sputum cultures are so far negative and pending Recent tracheostomy since February 2018 -Mild intermittent bronchial asthma with minimal exacerbation -Tracheal bronchomalacia -History of Langerhans' cell histiocytosis -Gastroesophageal reflux disease -Hypertension -Elevated blood sugars, hemoglobin A1c 6.3, prediabetic not diabetic and elevated blood sugars secondary to systemic steroids will treat with sliding scale insulin For above-mentioned chronic medical problems patient will be resumed and continued on appropriate medications
[2018-03-30] MEDS: MULTIVITAMINS, THERA 1 EACH TAB PO SCH (11:25)
[2018-03-30 11:57] LABS: Glucose,Whole Blood 149 mg/dL (75-99)
--- NOTE | 2018-03-30 14:59 | P.PN ---
Subjective Progress Note Date: 03/30/18 Principal diagnosis: Acute left upper lobe pneumonia, possibly pneumonia in the right middle lobe, possibly MRSA related This is 33-year-old -[place] male with past medical history of mild intermittent bronchial asthma, chronic tracheostomy, past episodes of pneumonia , cochlear implant for deafness, history of Rosai-Parker syndrome, presented to the emergency department on 03/27/2018 for evaluation of 3 day history of left-sided chest wall discomfort, increasing shortness of breath, fever, chills , cough, with phlegm production. Patient did take a Z-Miki for his symptoms for last 5 days, he follows with Dr. Valenzuela. He also follows with Dr. Szymanski in the pulmonary office for his history of asthma, tracheobronchomalacia, and recurrent pneumonia involving the right middle lobe. He had also seen email campaign specialist from [facility] and previously had endotracheal stents put in with subsequent removal related to inflammation. Also follows with the [facility] email campaign specialist for his chronic lung issues. Dr. Carrillo from the ENT service sees the patient for periodic trach change. Previous attempt was made to decannulate the patient but patient developed tracheal collapse, hence he was not ready for removal. Chest x-ray was completed, and showed new left upper lobe consolidative opacity throughout the left upper lobe with central lucency which could represent cavitation. The right middle lobe atelectasis was present and was seen on prior radiographs. However underlying right middle lobe process could not be totally excluded. Lab work showed WBC of 12.7, hemoglobin of 12.7, sodium was 139, potassium is 4.2, chloride is 104, CO2 is 20, BUN was 10, creatinine was 0.60, LFTs were within normal limits, proBNP was 64, troponin was negative 1, plasma lactic acid was 1.9. Urinalysis showed 2+ protein, 2+ glucose and 2+ ketones, but negative for infection, influenza was not detected. Patient was febrile on presentation with a temp of 100.3F, afebrile this morning, feels warm, and sweaty to touch. He has a #6 Shiley tracheostomy tube. Room air pulse ox is 96 %. Lung sounds are quite noisy, scattered rhonchi, coarse throughout the lung anderson. He was started on empiric antibiotics, Levaquin and vancomycin. Nebulized bronchodilators, IV steroids, is admitted for further management. On 03/29/2018 patient seen in follow-up selective care unit, still sounds quite congested, has a loose cough, currently on 28% trach collar, his pulse ox is 96% , afebrile. Today's labs revealed a white blood cell count, 17.1, hemoglobin is 11.1, sodium is 140, potassium is 5.2, depressed electrolytes were within normal limits, vancomycin 16.7, blood and urine cultures pending, sputum cultures pending. Patient is on a combination of Levaquin and vancomycin. On 03/30/2018 patient seen in follow-up on selective care unit, no new chest x- ray today, yesterday's chest x-ray showed near complete resolution of the left upper lobe pneumonia, stable bilateral lower lobe infiltrates and tiny infusions , patient is afebrile, lung sounds are much less congestive bronchospastic on today's exam, pulse ox is 97% on 28% trach collar, patient's sputum culture is positive for presumptive staph aureus, patient is on combination of Levaquin and vancomycin, nebulized bronchodilators and IV steroids, he is improving. Objective - Vital Signs Vital signs: Vital Signs Temp 97.9 F 03/30/18 11:16 Pulse 84 03/30/18 11:37 Resp 16 03/30/18 11:16 BP 153/95 03/30/18 11:16 Pulse Ox 97 03/30/18 11:16 Intake & Output 03/29/18 03/30/18 03/30/18 18:59 06:59 18:59 Intake Total 1184 877 240 Output Total 801 1350 1201 Balance 227 -497 -083 Weight 111.7 kg Intake: IV 500 Vancomycin 2,000 mg In 500 Sodium Chloride 0.9% 500 ml 500 ml @ 167 mls/hr IVPB Q8H [facility] Rx#: [id number] Oral 684 877 240 Output: Urine 800 1350 1200 Stool 1 1 Other: Voiding Method Urinal Urinal Urinal # Voids 1 - Exam GENERAL EXAM: Alert, pleasant, 33-year-old -[place] male, comfortable in no apparent distress. HEAD: Normocephalic/atraumatic. EYES: Normal reaction of pupils, equal size. Conjunctiva pink, sclera white. NOSE: Clear with pink turbinates. THROAT: No erythema or exudates. NECK: No masses, no JVD, no thyroid enlargement, no adenopathy. Chronic tracheostomy is in place, #6 Shiley CHEST: No chest wall deformity. Symmetrical expansion. LUNGS: Equal air entry with coarse rhonchi scattered throughout the lung anderson , scattered wheezes CVS: Regular rate and rhythm, normal S1 and S2, no gallops, no murmurs, no rubs ABDOMEN: Soft, nontender. No hepatosplenomegaly, normal bowel sounds, no guarding or rigidity. EXTREMITIES: No clubbing, no edema, no cyanosis, 2+ pulses and upper and lower extremities. MUSCULOSKELETAL: Muscle strength and tone normal. SPINE: No scoliosis or deformity SKIN: No rashes CENTRAL NERVOUS SYSTEM: Alert and oriented -3. No focal deficits, tone is normal in all 4 extremities. PSYCHIATRIC: Alert and oriented -3. Appropriate affect. Intact judgment and insight. - Labs CBC & Chem 7: 03/30/18 05:35 03/30/18 05:35 Labs: Abnormal Lab Results - Last 24 Hours (Table) 03/27/18 03/29/18 03/29/18 Range/Units 18:41 16:16 20:33 WBC (3.8-10.6) k/uL RBC (4.30-5.90) m/uL Hgb (13.0-17.5) gm/dL Hct (39.0-53.0) % MCHC (31.0-37.0) g/dL RDW (11.5-15.5) % Neutrophils # (1.3-7.7) k/uL Lymphocytes # (1.0-4.8) k/uL Glucose (74-99) mg/dL POC Glucose (mg/dL) 200 H 124 H (75-99) mg/dL Mycoplasma pneumon IgG 2.76 H (<=0.90) INDEX 03/30/18 03/30/18 03/30/18 Range/Units 05:35 05:35 05:38 WBC 13.9 H (3.8-10.6) k/uL RBC 4.07 L (4.30-5.90) m/uL Hgb 10.8 L (13.0-17.5) gm/dL Hct 35.5 L (39.0-53.0) % MCHC 30.4 L (31.0-37.0) g/dL RDW 17.5 H (11.5-15.5) % Neutrophils # 12.4 H (1.3-7.7) k/uL Lymphocytes # 0.7 L (1.0-4.8) k/uL Glucose 225 H (74-99) mg/dL POC Glucose (mg/dL) 220 H (75-99) mg/dL Mycoplasma pneumon IgG (<=0.90) INDEX 03/30/18 Range/Units 11:56 WBC (3.8-10.6) k/uL RBC (4.30-5.90) m/uL Hgb (13.0-17.5) gm/dL Hct (39.0-53.0) % MCHC (31.0-37.0) g/dL RDW (11.5-15.5) % Neutrophils # (1.3-7.7) k/uL Lymphocytes # (1.0-4.8) k/uL Glucose (74-99) mg/dL POC Glucose (mg/dL) 149 H (75-99) mg/dL Mycoplasma pneumon IgG (<=0.90) INDEX Microbiology - Last 24 Hours (Table) 03/29/18 00:50 Gram Stain - Preliminary Sputum Sputum Culture - Preliminary Presumptive Staph aureus 03/27/18 18:14 Blood Culture - Preliminary Blood No Growth after 48 hours 03/28/18 06:37 Urine Culture - Final Urine,Voided Assessment and Plan Plan: Assessment: #1. Acute left upper lobe pneumonia, could not exclude pneumonia in the right middle lobe. Patient has history of recurrent pneumonia involving the right middle lobe, chest x-ray consolidated process involving the left upper lobe, chronic atelectasis in the right middle lobe, however acute process moving the right middle lobe could not be totally excluded. Patient has history of MRSA pneumonia in the past, this could be MRSA related pneumonia, until ruled out #2. Recent tracheostomy change in February [address] Carrillo, with a reasonable partially obstructed tracheostomy tube, currently has a #6 fenestrated Shiley #3. History of mild intermittent bronchial asthma #4. Tracheobronchomalacia, had previous placement of endotracheal stents with subsequent removal #5. Recurrent pneumonia involving the right middle lobe #6. History of Rosia Parker syndrome #7. History of upper airway obstruction, that is post tracheostomy tube placement for airway protection. Patient has documented lesions in the trachea and bronchial tubes, underwent bronchoscopy by Dr. Lagunas at the [facility] #8. Deafness, status post cochlear implant #9. GERD #10. Hypertension #11. Prior history of smoking Plan: Estrace chest x-ray was reviewed by Dr. Mendoza, and it showed near complete resolution of the left upper lobe pneumonia, stable bilateral lower lobe infiltrates, and tired pleural effusions, sputum cultures are positive for presumptive staph, patient's Levaquin can be discontinued, continue with the vancomycin infusion, consult was put in for PICC line insertion by interventional radiology. Patient will need vancomycin infusions after discharge. We'll continue with current dose IV steroids, nebulized bronchodilators, clinically patient is improving, continue to follow. I performed a history & physical examination of the patient and discussed their management with my nurse practitioner, rTudy Jansen. I reviewed the nurse practitioner's note and agree with the documented findings and plan of care. Lung sounds are positive for diffuse rhonchi. The findings and the impression was discussed with the patient. I attest to the documentation by the nurse practitioner. Time with Patient: Less than 30
--- NOTE | 2018-03-30 15:50 | IR ---
PICC LINE PLACEMENT: HISTORY: Infection requiring long-term antibiotic therapy PROCEDURE: Ultrasound and fluoroscopic guidance of PICC line placement. COMPLICATIONS: None ANESTHESIA: 1. 1% Lidocaine locally. FINDINGS/TECHNIQUE: The procedure was explained to the patient. The risks, complications, benefits and alternatives were discussed and any questions were answered. Informed consent was obtained. The patient was placed supine on the fluoroscopic table and prepped and draped in the usual sterile fash ion. Utilizing a 21 gauge needle and sonographic and fluoroscopic guidance, access in the left basi lic vein was achieved and there is placement of a 0.018 guidewire. The vein is patent. A 4-F sheath was placed over the guidewire. The guidewire and dilator were removed and a 4-F. PICC line was plac ed through the sheath with the tip at the level of the SVC. The sheath was removed, the catheter was flushed and sutured into position. The patient was stable throughout the procedure and remained sta ble upon discharge from the Department of Radiology. The vein puncture was patent under ultrasound. A brumfield scale image was obtained to document patency of the vein punctured. All elements of the maximal barrier technique were utilized. FLUOROSCOPY TIME: 1.1 minutes and one image submitted IMPRESSION: Successful PICC line placement under ultrasound and fluoroscopic guidance.
[2018-03-30 16:03] LABS: Glucose,Whole Blood 150 mg/dL (75-99)
[2018-03-30 20:04] LABS: Glucose,Whole Blood 242 mg/dL (75-99)
[2018-03-30] MEDS ORDERED: DILTIAZEM DRIP BOLUS FROM BAG 1 MG SOLN IV ONE (22:11)
[2018-03-30] MEDS: DILTIAZEM 50 MG in SODIUM CHLORIDE 0.9% 40 ML IV SCH (22:29)
[2018-03-30] MEDS: diphenhydrAMINE 25 MG CAP PO SCH (23:17)
[2018-03-31] MEDS: VANCOMYCIN 2,000 MG in SODIUM CHLORIDE 0.9% 500 ML 500 ML IVPB SCH ×3 (01:13→17:56)
[2018-03-31] MEDS: MORPHINE SULFATE 4 MG/ML SYRINGE IVP PRN ×5 (01:58→23:17)
[2018-03-31] MEDS: DILTIAZEM 50 MG in SODIUM CHLORIDE 0.9% 40 ML IV SCH ×3 (06:12→17:51)
[2018-03-31 06:25] LABS: Glucose,Whole Blood 198 mg/dL (75-99)
[2018-03-31 06:49] LABS: Anisocytosis Slight; Basophils % (A) 0 %; Eosinophils # (A) 0.1 k/uL (0-0.7); Eosinophils % (A) 1 %; HCT 37.5 % (39.0-53.0); HGB 11.2 gm/dL (13.0-17.5); Hypochromasia Moderate; Lymphocytes # (A) 0.9 k/uL (1.0-4.8); Lymphocytes % (A) 8 %; MCH 26.1 pg (25.0-35.0); MCHC 29.8 g/dL (31.0-37.0); MCV 87.5 fL (80.0-100.0); Mean Platelet Volume 8.5; Monocytes # (A) 0.5 k/uL (0-1.0); Monocytes % (A) 4 %; Neutrophils % (A) 85 %; Platelet Count 480 k/uL (150-450); RBC 4.29 m/uL (4.30-5.90); RDW 17.3 % (11.5-15.5); WBC 11.7 k/uL (3.8-10.6)
[2018-03-31 07:01] LABS: Anion Gap 8 mmol/L; Blood Urea Nitrogen 19 mg/dL (9-20); Calcium 8.8 mg/dL (8.4-10.2); Carbon Dioxide 29 mmol/L (22-30); Chloride 100 mmol/L (98-107); Glucose 189 mg/dL (74-99); Sodium 137 mmol/L (137-145)
[2018-03-31] MEDS: guaiFENesin 600 MG TABLET.ER PO SCH ×2 (08:43→20:43)
[2018-03-31] MEDS: MONTELUKAST 10 MG TAB PO SCH (08:44)
[2018-03-31] MEDS: amLODIPine 5 MG TAB PO SCH (08:44)
[2018-03-31] MEDS: PANTOPRAZOLE 40 MG TABLET PO SCH (08:44)
[2018-03-31] MEDS: INSULIN ASPART 100 UNIT/ML 1 ML 10 ML VIAL SQ SCH ×4 (08:44→23:17)
[2018-03-31] MEDS: methylPREDNISolone SOD SUCCI 40 MG/ML 1 ML VIAL IV SCH ×2 (08:44→20:42)
[2018-03-31] MEDS: LORATADINE 10 MG TAB PO SCH (08:44)
[2018-03-31] MEDS: MULTIVITAMINS, THERA 1 EACH TAB PO SCH (08:44)
[2018-03-31] MEDS: CYANOCOBALAMIN 500 MCG TAB PO SCH (08:44)
[2018-03-31] MEDS: HEPARIN SODIUM,PORCINE 5,000 UNIT/ML 1 ML VIAL SQ SCH ×2 (08:45→20:43)
[2018-03-31] MEDS: IPRATROPIUM-ALBUTEROL 3 ML NEB INHALATION SCH ×4 (09:07→20:59)
[2018-03-31] MEDS: FORMOTEROL FUMARATE 20 MCG/2 ML NEBU INHALATION SCH ×2 (09:07→21:06)
[2018-03-31] MEDS: BUDESONIDE 1 MG/2 ML NEBU INHALATION SCH ×2 (09:08→20:59)
[2018-03-31] MEDS: FLUTICASONE 50MCG/SPRAY NASAL 16GM NASAL SCH ×2 (09:33→23:17)
[2018-03-31] MEDS: HYDROcodone/APAP 5-325MG 1 EACH TAB PO PRN ×2 (10:44→15:32)
--- NOTE | 2018-03-31 10:56 | P.PN ---
Subjective 36-year-old gentleman with history of tracheostomy and history of Langerhans' cell histiocytosis came in and was admitted for pneumonia bilateral patient is high risk for MRSA because of which patient is on vancomycin patient's sputum is a lotion color because of which my suspicion is low for a Pseudomonas patient is presently on levofloxacin and vancomycin both of which will be continued patient is on high-dose of steroids has minimal wheezing on exam patient is presently on 6 L of oxygen. His shortness of breath improved significantly 03/30/2018 Patient is complaining of some pleuritic pain on the left side when he coughs beyond that no other significant overnight events. 03/31/2018 Patient last night went into atrial fibrillation with rapid ventricular rate spontaneously converted to sinus rhythm and 2 hours and was given IV Cardizem presently off Cardizem not on any anti-correlation at this time echocardiac exam is being obtained cardiology was consulted Constitutional: Denied any fatigue denied any fever. Cardio vascular: denied any chest pain, palpitations Gastrointestinal denied any nausea vomiting Pulmonary: As mentioned in HPI Neurologic denied any new focal deficits All inpatient medications were reviewed and appropriate changes in these medications as dictated in the interval history and assessment and plan. Objective - Vital Signs Vital signs: Vital Signs Temp 97.8 F 03/31/18 08:00 Pulse 87 03/31/18 09:33 Resp 18 03/31/18 08:00 BP 141/93 03/31/18 08:00 Pulse Ox 93 L 03/31/18 08:00 Intake & Output 03/30/18 03/31/18 03/31/18 18:59 06:59 18:59 Intake Total 240 1235.5 Output Total 1201 2302 Balance -961 -1066.5 Weight 110.7 kg Intake: IV 500 Vancomycin 2,000 mg In 500 Sodium Chloride 0.9% 500 ml 500 ml @ 167 mls/hr IVPB Q8H [facility] Rx#: [id number] Intake, IV Titration 33.5 Amount Diltiazem 50 mg In Sodium 33.5 Chloride 0.9% 40 ml @ 7. 5 MG/HR 7.5 mls/hr IV . Q6H40M [facility] Rx#:[id number] Oral 240 702 Output: Urine 1200 2300 Stool 1 2 Other: Voiding Method Urinal Urinal Urinal # Voids 5 - Exam PHYSICAL EXAMINATION: GENERAL: The patient is alert and oriented x3, not in any acute distress. Well developed, well nourished. HEENT: Pupils are round and equally reacting to light. EOMI. No scleral icterus. No conjunctival pallor. Normocephalic, atraumatic. No pharyngeal erythema. No thyromegaly. CARDIOVASCULAR: S1 and S2 present. No murmurs, rubs, or gallops. PULMONARY: No expiratory wheezing tracheostomy in place's having some clear to yellowish discharge from the ABDOMEN: Soft, nontender, nondistended, normoactive bowel sounds. No palpable organomegaly. MUSCULOSKELETAL: No joint swelling or deformity. EXTREMITIES: No cyanosis, clubbing, or pedal edema. NEUROLOGICAL: Gross neurological examination did not reveal any focal deficits. SKIN: No rashes. - Labs CBC & Chem 7: 03/31/18 05:50 03/31/18 05:50 Labs: Abnormal Lab Results - Last 24 Hours (Table) 03/30/18 03/30/18 03/30/18 Range/Units 11:56 16:02 20:02 WBC (3.8-10.6) k/uL RBC (4.30-5.90) m/uL Hgb (13.0-17.5) gm/dL Hct (39.0-53.0) % MCHC (31.0-37.0) g/dL RDW (11.5-15.5) % Plt Count (150-450) k/uL Neutrophils # (1.3-7.7) k/uL Lymphocytes # (1.0-4.8) k/uL Creatinine (0.66-1.25) mg/dL Glucose (74-99) mg/dL POC Glucose (mg/dL) 149 H 150 H 242 H (75-99) mg/dL 03/31/18 03/31/18 03/31/18 Range/Units 05:50 05:50 06:24 WBC 11.7 H (3.8-10.6) k/uL RBC 4.29 L (4.30-5.90) m/uL Hgb 11.2 L (13.0-17.5) gm/dL Hct 37.5 L (39.0-53.0) % MCHC 29.8 L (31.0-37.0) g/dL RDW 17.3 H (11.5-15.5) % Plt Count 480 H (150-450) k/uL Neutrophils # 10.0 H (1.3-7.7) k/uL Lymphocytes # 0.9 L (1.0-4.8) k/uL Creatinine 0.58 L (0.66-1.25) mg/dL Glucose 189 H (74-99) mg/dL POC Glucose (mg/dL) 198 H (75-99) mg/dL Microbiology - Last 24 Hours (Table) 03/29/18 00:50 Gram Stain - Preliminary Sputum Sputum Culture - Preliminary Presumptive Staph aureus Pseudomonas spec 03/27/18 18:14 Blood Culture - Preliminary Blood No Growth after 72 hours Assessment and Plan Plan: -Left upper lobe and possible right middle lobe pneumonia patient is being treated for healthcare associated pneumonia. Patient is on vancomycin and levofloxacin, sputum cultures are showing staph aureus and Pseudomonas. Continue with present antibiotics. -New-onset atrial fibrillation presently sinus rhythm rate controlled, echocardiogram will be obtained. Recent tracheostomy since February 2018 -Mild intermittent bronchial asthma with minimal exacerbation -Tracheal bronchomalacia -History of Langerhans' cell histiocytosis -Gastroesophageal reflux disease -Hypertension -Elevated blood sugars, hemoglobin A1c 6.3, prediabetic not diabetic and elevated blood sugars secondary to systemic steroids will treat with sliding scale insulin For above-mentioned chronic medical problems patient will be resumed and continued on appropriate medications
[2018-03-31 11:53] LABS: Glucose,Whole Blood 151 mg/dL (75-99)
--- NOTE | 2018-03-31 15:07 | P.PN ---
Subjective Progress Note Date: 03/31/18 Principal diagnosis: Acute left upper lobe pneumonia, possible pneumonia the right middle lobe. MRSA related. This is 33-year-old -[place] male with past medical history of mild intermittent bronchial asthma, chronic tracheostomy, past episodes of pneumonia , cochlear implant for deafness, history of Rosai-Parker syndrome, presented to the emergency department on 03/27/2018 for evaluation of 3 day history of left-sided chest wall discomfort, increasing shortness of breath, fever, chills , cough, with phlegm production. Patient did take a Z-Miki for his symptoms for last 5 days, he follows with Dr. Valenzuela. He also follows with Dr. Szymanski in the pulmonary office for his history of asthma, tracheobronchomalacia, and recurrent pneumonia involving the right middle lobe. He had also seen court specialist from [facility] and previously had endotracheal stents put in with subsequent removal related to inflammation. Also follows with the [facility] court specialist for his chronic lung issues. Dr. Carrillo from the ENT service sees the patient for periodic trach change. Previous attempt was made to decannulate the patient but patient developed tracheal collapse, hence he was not ready for removal. Chest x-ray was completed, and showed new left upper lobe consolidative opacity throughout the left upper lobe with central lucency which could represent cavitation. The right middle lobe atelectasis was present and was seen on prior radiographs. However underlying right middle lobe process could not be totally excluded. Lab work showed WBC of 12.7, hemoglobin of 12.7, sodium was 139, potassium is 4.2, chloride is 104, CO2 is 20, BUN was 10, creatinine was 0.60, LFTs were within normal limits, proBNP was 64, troponin was negative 1, plasma lactic acid was 1.9. Urinalysis showed 2+ protein, 2+ glucose and 2+ ketones, but negative for infection, influenza was not detected. Patient was febrile on presentation with a temp of 100.3F, afebrile this morning, feels warm, and sweaty to touch. He has a #6 Shiley tracheostomy tube. Room air pulse ox is 96 %. Lung sounds are quite noisy, scattered rhonchi, coarse throughout the lung anderson. He was started on empiric antibiotics, Levaquin and vancomycin. Nebulized bronchodilators, IV steroids, is admitted for further management. On 03/29/2018 patient seen in follow-up selective care unit, still sounds quite congested, has a loose cough, currently on 28% trach collar, his pulse ox is 96% , afebrile. Today's labs revealed a white blood cell count, 17.1, hemoglobin is 11.1, sodium is 140, potassium is 5.2, depressed electrolytes were within normal limits, vancomycin 16.7, blood and urine cultures pending, sputum cultures pending. Patient is on a combination of Levaquin and vancomycin. On 03/30/2018 patient seen in follow-up on selective care unit, no new chest x- ray today, yesterday's chest x-ray showed near complete resolution of the left upper lobe pneumonia, stable bilateral lower lobe infiltrates and tiny infusions , patient is afebrile, lung sounds are much less congestive bronchospastic on today's exam, pulse ox is 97% on 28% trach collar, patient's sputum culture is positive for presumptive staph aureus, patient is on combination of Levaquin and vancomycin, nebulized bronchodilators and IV steroids, he is improving. Patient seen again today 03/31/2018 in follow-up on the selective care unit. He remains stable from the pulmonary standpoint. He is maintaining good O2 saturations in the upper 90s on 28% trach collar. His sputum was positive for presumptive staph aureus and Pseudomonas species. ID is on the case. He is currently on vancomycin. A PICC line has been placed. Objective - Vital Signs Vital signs: Vital Signs Temp 97.0 F L 03/31/18 12:00 Pulse 88 03/31/18 12:40 Resp 20 03/31/18 12:00 BP 125/74 03/31/18 12:00 Pulse Ox 94 L 03/31/18 12:00 Intake & Output 03/30/18 03/31/18 03/31/18 18:59 06:59 18:59 Intake Total 240 1235.5 500 Output Total 1201 2302 Balance -961 -1066.5 500 Weight 110.7 kg Intake: IV 500 500 Vancomycin 2,000 mg In 500 500 Sodium Chloride 0.9% 500 ml 500 ml @ 167 mls/hr IVPB Q8H [facility] Rx#: [id number] Intake, IV Titration 33.5 Amount Diltiazem 50 mg In Sodium 33.5 Chloride 0.9% 40 ml @ 7. 5 MG/HR 7.5 mls/hr IV . Q6H40M [facility] Rx#:[id number] Oral 240 702 Output: Urine 1200 2300 Stool 1 2 Other: Voiding Method Urinal Urinal Urinal # Voids 5 - Exam - Exam GENERAL EXAM: Alert, pleasant, 33-year-old male, comfortable in no apparent distress. HEAD: Normocephalic/atraumatic. EYES: Normal reaction of pupils, equal size. Conjunctiva pink, sclera white. NOSE: Clear with pink turbinates. THROAT: No erythema or exudates. NECK: No masses, no JVD, no thyroid enlargement, no adenopathy. Chronic tracheostomy is in place, #6 Shiley CHEST: No chest wall deformity. Symmetrical expansion. LUNGS: Equal air entry with coarse rhonchi scattered throughout the lung anderson , scattered wheezes CVS: Regular rate and rhythm, normal S1 and S2, no gallops, no murmurs, no rubs ABDOMEN: Soft, nontender. No hepatosplenomegaly, normal bowel sounds, no guarding or rigidity. EXTREMITIES: No clubbing, no edema, no cyanosis, 2+ pulses and upper and lower extremities. MUSCULOSKELETAL: Muscle strength and tone normal. SPINE: No scoliosis or deformity SKIN: No rashes CENTRAL NERVOUS SYSTEM: Alert and oriented -3. No focal deficits, tone is normal in all 4 extremities. PSYCHIATRIC: Alert and oriented -3. Appropriate affect. Intact judgment and insight. - Labs CBC & Chem 7: 03/31/18 05:50 03/31/18 05:50 Labs: Abnormal Lab Results - Last 24 Hours (Table) 03/30/18 03/30/18 03/31/18 Range/Units 16:02 20:02 05:50 WBC 11.7 H (3.8-10.6) k/uL RBC 4.29 L (4.30-5.90) m/uL Hgb 11.2 L (13.0-17.5) gm/dL Hct 37.5 L (39.0-53.0) % MCHC 29.8 L (31.0-37.0) g/dL RDW 17.3 H (11.5-15.5) % Plt Count 480 H (150-450) k/uL Neutrophils # 10.0 H (1.3-7.7) k/uL Lymphocytes # 0.9 L (1.0-4.8) k/uL Creatinine (0.66-1.25) mg/dL Glucose (74-99) mg/dL POC Glucose (mg/dL) 150 H 242 H (75-99) mg/dL 03/31/18 03/31/18 03/31/18 Range/Units 05:50 06:24 11:37 WBC (3.8-10.6) k/uL RBC (4.30-5.90) m/uL Hgb (13.0-17.5) gm/dL Hct (39.0-53.0) % MCHC (31.0-37.0) g/dL RDW (11.5-15.5) % Plt Count (150-450) k/uL Neutrophils # (1.3-7.7) k/uL Lymphocytes # (1.0-4.8) k/uL Creatinine 0.58 L (0.66-1.25) mg/dL Glucose 189 H (74-99) mg/dL POC Glucose (mg/dL) 198 H 151 H (75-99) mg/dL Microbiology - Last 24 Hours (Table) 03/29/18 00:50 Gram Stain - Preliminary Sputum Sputum Culture - Preliminary Presumptive Staph aureus Pseudomonas spec 03/27/18 18:14 Blood Culture - Preliminary Blood No Growth after 72 hours Assessment and Plan Assessment: Assessment: #1. Acute left upper lobe pneumonia, could not exclude pneumonia in the right middle lobe. Patient has history of recurrent pneumonia involving the right middle lobe, chest x-ray consolidated process involving the left upper lobe, chronic atelectasis in the right middle lobe, however acute process moving the right middle lobe could not be totally excluded. Patient has history of MRSA pneumonia in the past, this could be MRSA related pneumonia, until ruled out #2. Recent tracheostomy change in February [address] Carrillo, with a reasonable partially obstructed tracheostomy tube, currently has a #6 fenestrated Shiley #3. History of mild intermittent bronchial asthma #4. Tracheobronchomalacia, had previous placement of endotracheal stents with subsequent removal #5. Recurrent pneumonia involving the right middle lobe #6. History of Rosia Parker syndrome #7. History of upper airway obstruction, that is post tracheostomy tube placement for airway protection. Patient has documented lesions in the trachea and bronchial tubes, underwent bronchoscopy by Dr. Lagunas at the [facility] #8. Deafness, status post cochlear implant #9. GERD #10. Hypertension #11. Prior history of smoking Plan: The patient was seen and evaluated by Dr. Mendoza. He is stable from the pulmonary standpoint. ID is on the case regarding antibiotics. We'll see the patient on as-needed basis. I, the cosigning physician, performed a history & physical examination of the patient. Lungs sounds with bilateral scattered rhonchi. Maintaining good O2 saturations in the 90s on 18% trach collar. I discussed the assessment and plan of care with my nurse practitioner, Melissa Ward. I attest to the above note as dictated by her.
--- NOTE | 2018-03-31 16:49 | ECHOF ---
Referral Reason:A.fib new onset MEASUREMENTS -------- HEIGHT: 162.6 cm WEIGHT: 110.7 kg BP: IVSd: 1.3 cm (0.6 - 1.1) LVIDd: 4.7 cm (3.9 - 5.3) LVPWd: 1.3 cm (0.6 - 1.1) IVSs: 1.5 cm LVIDs: 3.2 cm LVPWs: 1.7 cm Ao Diam: 3.5 cm (2.0 - 3.7) AV Cusp: 1.5 cm (1.5 - 2.6) LA Diam: 4.2 cm (2.7 - 3.8) MV EXCURSION: 15.618 mm (> 18.000) MV EF SLOPE: 108 mm/s (70 - 150) EPSS: 0.3 cm MV E Wilmer: 0.71 m/s MV DecT: 163 ms MV A Wilmer: 0.65 m/s MV E/A Ratio: 1.10 RAP: 5.00 mmHg RVSP: 13.19 mmHg FINDINGS -------- Sinus rhythm. This was a technically adequate study. The left ventricular size is normal. There is mild concentric left ventricular hypertrophy. Overa ll left ventricular systolic function is normal with, an EF between 55 - 60 %. The right ventricle is normal in size. The left atrial size is normal. The right atrial size is normal. The aortic valve is trileaflet, and appears structurally normal. No aortic stenosis or regurgitation. Mild mitral annular calcification present. No mitral regurgitation. Mild tricuspid regurgitation present. There is no evidence of pulmonary hypertension. The right v entricular systolic pressure, as measured by Doppler, is 13.19mmHg. There is no pulmonic regurgitation present. The aortic root size is normal. There is no pericardial effusion. CONCLUSIONS -------- 1. The left ventricular size is normal. 2. There is mild concentric left ventricular hypertrophy. 3. Overall left ventricular systolic function is normal with, an EF between 55 - 60 %. 4. The right ventricle is normal in size. 5. The left atrial size is normal. 6. The right atrial size is normal. 7. The aortic valve is trileaflet, and appears structurally normal. No aortic stenosis or regurgitati on. 8. Mild mitral annular calcification present. 9. No mitral regurgitation. 10. Mild tricuspid regurgitation present. 11. There is no evidence of pulmonary hypertension. 12. The right ventricular systolic pressure, as measured by Doppler, is 13.19mmHg. 13. There is no pulmonic regurgitation present. 14. The aortic root size is normal. 15. There is no pericardial effusion. SALT WASHER: Kathleen Lira RDCS
--- NOTE | 2018-03-31 17:47 | P.CRDCN ---
History of Present Illness Consult date: 03/31/18 History of present illness: This is a 33-year-old gentleman with history of asthma, chronic tracheostomy the past episode of multiple pneumonias who was admitted to the hospital with left-sided chest pain and evidence of pneumonia. He was being treated with antibiotics. Apparently last night, while patient is suctioning himself. He developed a bout of atrial fibrillation with fast ventricular response. This lasted about a couple of hours and finally patient converted back to sinus rhythm. He was started on IV Cardizem drip which was subsequently discontinued. No history of previous atrial fibrillation. Rest of an ischemic heart disease. Rest of the information developed pain from previous consultants notes. His echo showed good LV function. I'm going to start him on by mouth metoprolol 25 mg twice a day. We'll continue to monitor him. Patient also may be started on baby aspirin. Further recommendations depend upon clinical course Review of Systems As per the chart Past Medical History Past Medical History: Asthma, GERD/Reflux, Hearing Disorder / Deafness, Hypertension, Pneumonia, Sleep Apnea/CPAP/BIPAP Additional Past Medical History / Comment(s): Patient is deaf. He has had a cochlear implant using a bone anchored hearing aid and he has undergone previous mastoidectomy and tympanoplasty. 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 Patient has a permanent tracheostomy with a #6 Shiley, uses back brace for back pain History of Any Multi-Drug Resistant Organisms: MRSA Date of last positivie culture/infection: 06/24/16 MDRO Source:: SPUTUM Past Surgical History: Ear Surgery, Tonsillectomy Additional Past Surgical History / Comment(s): Cochlear implant, PT STATED HE HAD THROAT TISSUE BIOPSIED AT [facility] BUT DOES'NT KNOW THE RESULTS. 09/19/14: Tracheostomy tube placement, sinus surgery Past Anesthesia/Blood Transfusion Reactions: Previous Problems w/ Anesthesia Additional Past Anesthesia/Blood Transfusion Reaction / Comment(s): PT STATED" WHILE UNDER AA HE BUT DID COME BACK" Past Psychological History: Anxiety Additional Psychological History / Comment(s): He is independent. 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 Smoking Status: Former smoker Past Alcohol Use History: Occasional Additional Past Alcohol Use History / Comment(s): smoker for since age 17 3-4 cig/d quit 12/26, He states he does occasionally drink on weekends but never more than `4 drinks a week. Past Drug Use History: None Reported - Past Family History Son(s) Family Medical History: Asthma Father Family Medical History: Hypertension Mother Family Medical History: Hypertension Medications and Allergies Home Medications Medication Instructions Recorded Confirmed Type amLODIPine [Norvasc] 5 mg PO DAILY 03/19/15 03/27/18 History Montelukast [Singulair] 10 mg PO DAILY 04/15/15 03/27/18 History Albuterol Nebulized [Ventolin 2.5 mg INHALATION RT-Q4H PRN 05/26/16 03/27/18 History Nebulized] Albuterol Sulfate [Proair Hfa] 2 puff INHALATION RT-QID PRN 05/26/16 03/27/18 History Fluticasone Nasal [place] [Flonase 1 spray NASAL BID 05/26/16 03/27/18 History Nasal [place]] Fluticasone/Salmeterol [Advair Hfa 2 puff INHALATION RT-BID 05/26/16 03/27/18 History 115-21 Mcg Inhaler] diphenhydrAMINE [Benadryl] 50 mg PO HS 05/26/16 03/27/18 History guaiFENesin [Mucinex] 1,200 mg PO Q12HR #60 tablet.er 05/31/16 03/27/18 Rx Cyanocobalamin (Vitamin B-12) 1,000 mcg PO DAILY 02/07/18 03/27/18 History [Vitamin B-12] Loratadine [Claritin] 10 mg PO DAILY 02/07/18 03/27/18 History Budesonide/Formoterol Fumarate 2 puff INHALATION RT-BID 03/27/18 03/27/18 History [Symbicort 80-4.5 Mcg Inhaler] Allergies Allergy/AdvReac Type Severity Reaction Status Date / Time mold Allergy Unknown Verified 03/27/18 19:24 Penicillins Allergy Rash/Hives Verified 03/27/18 19:24 weed pollen Allergy Unknown Verified 03/27/18 19:24 Physical Exam Vitals: Vital Signs Temp Pulse Pulse Resp BP BP Pulse Ox 03/31/18 17:41 88 03/31/18 17:30 88 03/31/18 16:41 95 03/31/18 16:00 97.8 F 81 20 140/88 95 03/31/18 12:40 88 03/31/18 12:30 89 03/31/18 12:00 97.0 F L 75 20 125/74 94 L 03/31/18 09:33 87 03/31/18 09:20 89 03/31/18 09:07 86 03/31/18 08:00 97.8 F 71 18 141/93 93 L 03/31/18 04:10 97.8 F 77 20 109/68 99 03/31/18 03:47 101 H 20 03/31/18 00:05 97.2 F L 133 H 20 131/93 100 03/30/18 20:50 84 03/30/18 20:40 84 03/30/18 20:28 84 20 03/30/18 20:10 97.0 F L 92 19 128/73 98 Intake and Output 03/31/18 03/31/18 03/31/18 06:59 14:59 22:59 Intake Total 1013.5 500 Output Total 601 Balance 412.5 500 Intake: IV 500 500 Vancomycin 2,000 mg In 500 500 Sodium Chloride 0.9% 500 ml 500 ml @ 167 mls/hr IVPB Q8H [facility] Rx#: [id number] Intake, IV Titration 33.5 Amount Diltiazem 50 mg In Sodium 33.5 Chloride 0.9% 40 ml @ 7. 5 MG/HR 7.5 mls/hr IV . Q6H40M [facility] Rx#:[id number] Oral 480 Output: Urine 600 Stool 1 Other: Voiding Method Urinal Urinal # Voids 5 Weight 110.7 kg GENERAL EXAM: Patient is alert and oriented and doesn't appear to be in any acute distress. Patient has a tracheostomy HEENT: Normocephalic. Normal reaction of pupils, equal size, normal range of extraocular motion. No erythema or exudates in the throat. NECK: No masses, no nuchal rigidity. CHEST: No chest wall deformity. LUNGS: Expiratory rhonchi and mild wheezing HEART: S1 and S2 normal SKIN: No rashes CENTRAL NERVOUS SYSTEM: No focal deficits. EXTREMITIES: No cyanosis, clubbing or edema. Results 03/31/18 05:50 03/31/18 05:50 CBC 03/31/18 Range/Units 05:50 WBC 11.7 H (3.8-10.6) k/uL RBC 4.29 L (4.30-5.90) m/uL Hgb 11.2 L (13.0-17.5) gm/dL Hct 37.5 L (39.0-53.0) % Plt Count 480 H (150-450) k/uL Comprehensive Metabolic Panel 03/31/18 Range/Units 05:50 Sodium 137 (137-145) mmol/L Potassium 5.0 (3.5-5.1) mmol/L Chloride 100 (98-107) mmol/L Carbon Dioxide 29 (22-30) mmol/L BUN 19 (9-20) mg/dL Creatinine 0.58 L (0.66-1.25) mg/dL Glucose 189 H (74-99) mg/dL Calcium 8.8 (8.4-10.2) mg/dL Current Medications Generic Name Dose Route Start Last Admin Trade Name Freq PRN Reason Stop Dose Admin Hydrocodone Bitart/Acetaminophen 1 each 03/27/18 21:45 03/31/18 15:32 [place] 5-325 PO 1 each Q6HR PRN Administration Pain Albuterol/Ipratropium 3 ml 03/27/18 19:38 03/27/18 21:05 Duoneb 0.5 Mg-3 Mg/3 Ml Soln INHALATION 3 ml RT-Q4H PRN Administration Shortness Of Breath Or Wheezing Albuterol/Ipratropium 3 ml 03/27/18 20:00 03/31/18 17:30 Duoneb 0.5 Mg-3 Mg/3 Ml Soln INHALATION 3 ml RT-QID NIC Administration Alprazolam 0.25 mg 03/27/18 21:45 Xanax PO TID PRN Anxiety Budesonide 1 mg 03/28/18 08:00 03/31/18 09:08 Pulmicort INHALATION 1 mg RT-BID NIC Administration Cyanocobalamin 1,000 mcg 03/28/18 09:00 03/31/18 08:44 Vitamin B-12 PO 1,000 mcg DAILY NIC Administration Diphenhydramine HCl 50 mg 03/28/18 21:00 03/30/18 23:17 Benadryl PO 50 mg HS NIC Administration Fluticasone Propionate 1 spray 03/28/18 09:00 03/31/18 09:33 Flonase Nasal [place] NASAL Not Given BID NIC Formoterol Fumarate 20 mcg 03/28/18 08:00 03/31/18 09:07 Perforomist INHALATION 20 mcg RT-BID NIC Administration Guaifenesin 1,200 mg 03/28/18 09:00 03/31/18 08:43 Mucinex PO 1,200 mg Q12HR NIC Administration Heparin Sodium (Porcine) 5,000 unit 03/27/18 21:45 03/31/18 08:45 Heparin SQ 5,000 unit Q12HR NIC Administration Vancomycin HCl 2,000 mg/ 500 mls @ 167 mls/hr 03/28/18 02:00 03/31/18 10:38 Sodium Chloride IVPB 167 mls/hr Q8H NIC Administration Diltiazem HCl 50 mg/ Sodium 50 mls @ 7.5 mls/hr 03/30/18 22:15 03/31/18 12:32 Chloride IV Not Given .Q6H40M NIC 7.5 MG/HR Insulin Aspart 0 unit 03/28/18 07:30 03/31/18 12:31 Novolog SQ 2 unit ACHS NIC Administration Protocol Loratadine 10 mg 03/28/18 09:00 03/31/18 08:44 Claritin PO 10 mg DAILY NIC Administration Melatonin 3 mg 03/27/18 21:45 03/29/18 23:11 Melatonin PO 3 mg HS PRN Administration Insomnia Methylprednisolone Sodium Succinate 40 mg 03/29/18 21:00 03/31/18 08:44 Solu-Medrol IV 40 mg Q12HR NIC Administration Miscellaneous Information 0 each 04/01/18 09:00 Vancomycin Trough Due MISCELLANE 04/01/18 09:01 DIRECTED ONE Montelukast Sodium 10 mg 03/28/18 09:00 03/31/18 08:44 Singulair PO 10 mg DAILY NIC Administration Morphine Sulfate 4 mg 03/27/18 21:24 03/31/18 12:46 Morphine Sulfate (Inj) IVP 4 mg Q4HR PRN Administration Pain Multivitamins 1 each 03/28/18 12:00 03/31/18 08:44 Theragran PO 1 each DAILY@1200 NIC Administration Pantoprazole Sodium 40 mg 03/28/18 07:30 03/31/18 08:44 Protonix PO 40 mg [id number] NIC Administration Intake and Output 03/31/18 03/31/18 03/31/18 06:59 14:59 22:59 Intake Total 1013.5 500 Output Total 601 Balance 412.5 500 Intake: IV 500 500 Vancomycin 2,000 mg In 500 500 Sodium Chloride 0.9% 500 ml 500 ml @ 167 mls/hr IVPB Q8H [facility] Rx#: [id number] Intake, IV Titration 33.5 Amount Diltiazem 50 mg In Sodium 33.5 Chloride 0.9% 40 ml @ 7. 5 MG/HR 7.5 mls/hr IV . Q6H40M [facility] Rx#:[id number] Oral 480 Output: Urine 600 Stool 1 Other: Voiding Method Urinal Urinal # Voids 5 Weight 110.7 kg 03/31/18 05:50 03/31/18 05:50 EKG Interpretations (text) Sinus rhythm Assessment and Plan (1) Paroxysmal atrial fibrillation Current Visit: Yes Status: Acute Code(s): I48.0 - PAROXYSMAL ATRIAL FIBRILLATION SNOMED Code(s): 602895430 (2) Asthma with exacerbation Current Visit: Yes Status: Acute Code(s): J45.901 - UNSPECIFIED ASTHMA WITH (ACUTE) EXACERBATION SNOMED Code(s): 967351145 (3) Healthcare-associated pneumonia Current Visit: Yes Status: Acute Code(s): J18.9 - PNEUMONIA, UNSPECIFIED ORGANISM SNOMED Code(s): 870155675 (4) Hypoxia Current Visit: Yes Status: Acute Code(s): R09.02 - HYPOXEMIA SNOMED Code(s ): 003243940 Plan: I'll start him on small dose of metoprolol and aspirin. Continue to monitor him. His echo showed normal LV function
[2018-03-31 17:48] LABS: Glucose,Whole Blood 209 mg/dL (75-99)
[2018-03-31] MEDS: METOPROLOL TARTRATE 25 MG TAB PO SCH (20:43)
[2018-03-31 20:52] LABS: Glucose,Whole Blood 166 mg/dL (75-99)
[2018-03-31] MEDS: diphenhydrAMINE 25 MG CAP PO SCH (23:17)
[2018-04-01] MEDS: VANCOMYCIN 2,000 MG in SODIUM CHLORIDE 0.9% 500 ML 500 ML IVPB SCH ×2 (02:25→10:00)
[2018-04-01] MEDS: DILTIAZEM 50 MG in SODIUM CHLORIDE 0.9% 40 ML IV SCH ×2 (04:20→06:18)
[2018-04-01 06:12] LABS: Glucose,Whole Blood 200 mg/dL (75-99)
[2018-04-01] MEDS: PANTOPRAZOLE 40 MG TABLET PO SCH (06:33)
[2018-04-01] MEDS: INSULIN ASPART 100 UNIT/ML 1 ML 10 ML VIAL SQ SCH ×4 (06:33→21:43)
[2018-04-01] MEDS: FLUTICASONE 50MCG/SPRAY NASAL 16GM NASAL SCH ×2 (06:33→23:12)
[2018-04-01] MEDS: MORPHINE SULFATE 4 MG/ML SYRINGE IVP PRN ×3 (06:37→21:23)
[2018-04-01] MEDS: BUDESONIDE 1 MG/2 ML NEBU INHALATION SCH ×2 (08:48→20:14)
[2018-04-01] MEDS: FORMOTEROL FUMARATE 20 MCG/2 ML NEBU INHALATION SCH ×2 (08:48→20:14)
[2018-04-01] MEDS: IPRATROPIUM-ALBUTEROL 3 ML NEB INHALATION SCH ×4 (08:48→20:14)
[2018-04-01 08:57] LABS: Anisocytosis Slight; Basophils % (A) 0 %; Eosinophils # (A) 0.2 k/uL (0-0.7); Eosinophils % (A) 1 %; HCT 38.8 % (39.0-53.0); HGB 11.9 gm/dL (13.0-17.5); Hypochromasia Slight; Lymphocytes # (A) 1.2 k/uL (1.0-4.8); Lymphocytes % (A) 8 %; MCH 26.7 pg (25.0-35.0); MCHC 30.8 g/dL (31.0-37.0); MCV 86.7 fL (80.0-100.0); Mean Platelet Volume 8.2; Monocytes # (A) 0.6 k/uL (0-1.0); Monocytes % (A) 4 %; Neutrophils # (A) 11.9 k/uL (1.3-7.7); Neutrophils % (A) 84 %; Platelet Count 424 k/uL (150-450); RBC 4.48 m/uL (4.30-5.90); RDW 17.2 % (11.5-15.5); WBC 14.1 k/uL (3.8-10.6)
[2018-04-01] MEDS: HEPARIN SODIUM,PORCINE 5,000 UNIT/ML 1 ML VIAL SQ SCH ×2 (08:58→21:10)
[2018-04-01] MEDS: HYDROcodone/APAP 5-325MG 1 EACH TAB PO PRN ×2 (08:58→16:50)
[2018-04-01] MEDS: guaiFENesin 600 MG TABLET.ER PO SCH ×2 (08:58→21:09)
[2018-04-01] MEDS: methylPREDNISolone SOD SUCCI 40 MG/ML 1 ML VIAL IV SCH ×2 (08:58→21:10)
[2018-04-01] MEDS: METOPROLOL TARTRATE 25 MG TAB PO SCH ×2 (08:59→21:09)
[2018-04-01] MEDS: MULTIVITAMINS, THERA 1 EACH TAB PO SCH (08:59)
[2018-04-01] MEDS: CYANOCOBALAMIN 500 MCG TAB PO SCH (08:59)
[2018-04-01] MEDS: MONTELUKAST 10 MG TAB PO SCH (08:59)
[2018-04-01] MEDS: LORATADINE 10 MG TAB PO SCH (08:59)
[2018-04-01] MEDS ORDERED: VANCOMYCIN TROUGH DUE 1 EACH MISC MISCELLANE ONE (09:00)
[2018-04-01 09:07] LABS: Anion Gap 9 mmol/L; Blood Urea Nitrogen 18 mg/dL (9-20); Calcium 8.9 mg/dL (8.4-10.2); Carbon Dioxide 28 mmol/L (22-30); Chloride 102 mmol/L (98-107); Glucose 170 mg/dL (74-99); Potassium 4.6 mmol/L (3.5-5.1); Sodium 139 mmol/L (137-145)
[2018-04-01 12:14] LABS: Glucose,Whole Blood 128 mg/dL (75-99)
--- NOTE | 2018-04-01 12:37 | P.PN ---
Subjective 36-year-old gentleman with history of tracheostomy and history of Langerhans' cell histiocytosis came in and was admitted for pneumonia bilateral patient is high risk for MRSA because of which patient is on vancomycin patient's sputum is a lotion color because of which my suspicion is low for a Pseudomonas patient is presently on levofloxacin and vancomycin both of which will be continued patient is on high-dose of steroids has minimal wheezing on exam patient is presently on 6 L of oxygen. His shortness of breath improved significantly 03/30/2018 Patient is complaining of some pleuritic pain on the left side when he coughs beyond that no other significant overnight events. 03/31/2018 Patient last night went into atrial fibrillation with rapid ventricular rate spontaneously converted to sinus rhythm and 2 hours and was given IV Cardizem presently off Cardizem not on any anti-correlation at this time echocardiac exam is being obtained cardiology was consulted 04/01/2018 Patient's oxygen was discontinued patient is clinically doing well and sputum cultures are positive for MRSA which is sensitive to Bactrim and Pseudomonas sensitive to Cipro patient was assisted to pseudomonal dosing of Cipro levofloxacin was discontinued will get the infectious disease opinion regarding discharge antibiotics patient probably can be discharged tomorrow on oral steroids. Patient was evaluated by cardiology in the recommending aspirin and metoprolol for atrial fibrillation Constitutional: Denied any fatigue denied any fever. Cardio vascular: denied any chest pain, palpitations Gastrointestinal denied any nausea vomiting Pulmonary: As mentioned in HPI Neurologic denied any new focal deficits All inpatient medications were reviewed and appropriate changes in these medications as dictated in the interval history and assessment and plan. Objective - Vital Signs Vital signs: Vital Signs Temp 98.0 F 04/01/18 07:58 Pulse 78 04/01/18 12:12 Resp 18 04/01/18 07:58 BP 139/89 04/01/18 07:58 Pulse Ox 98 04/01/18 08:53 Intake & Output 03/31/18 04/01/18 04/01/18 18:59 06:59 18:59 Intake Total 500 1220 240 Output Total 1277 Balance 500 -57 240 Weight 110.6 kg Intake: IV 500 500 Vancomycin 2,000 mg In 500 500 Sodium Chloride 0.9% 500 ml 500 ml @ 167 mls/hr IVPB Q8H [facility] Rx#: [id number] Oral 720 240 Output: Urine 1275 Stool 2 Other: Voiding Method Urinal Urinal - Exam PHYSICAL EXAMINATION: GENERAL: The patient is alert and oriented x3, not in any acute distress. Well developed, well nourished. HEENT: Pupils are round and equally reacting to light. EOMI. No scleral icterus. No conjunctival pallor. Normocephalic, atraumatic. No pharyngeal erythema. No thyromegaly. CARDIOVASCULAR: S1 and S2 present. No murmurs, rubs, or gallops. PULMONARY: No expiratory wheezing tracheostomy in place's having some clear to yellowish discharge from the ABDOMEN: Soft, nontender, nondistended, normoactive bowel sounds. No palpable organomegaly. MUSCULOSKELETAL: No joint swelling or deformity. EXTREMITIES: No cyanosis, clubbing, or pedal edema. NEUROLOGICAL: Gross neurological examination did not reveal any focal deficits. SKIN: No rashes. - Labs CBC & Chem 7: 04/01/18 08:28 04/01/18 08:28 Labs: Abnormal Lab Results - Last 24 Hours (Table) 03/31/18 03/31/18 04/01/18 Range/Units 17:29 20:49 06:10 WBC (3.8-10.6) k/uL Hgb (13.0-17.5) gm/dL Hct (39.0-53.0) % MCHC (31.0-37.0) g/dL RDW (11.5-15.5) % Neutrophils # (1.3-7.7) k/uL Glucose (74-99) mg/dL POC Glucose (mg/dL) 209 H 166 H 200 H (75-99) mg/dL 04/01/18 04/01/18 04/01/18 Range/Units 08:28 08:28 12:05 WBC 14.1 H (3.8-10.6) k/uL Hgb 11.9 L (13.0-17.5) gm/dL Hct 38.8 L (39.0-53.0) % MCHC 30.8 L (31.0-37.0) g/dL RDW 17.2 H (11.5-15.5) % Neutrophils # 11.9 H (1.3-7.7) k/uL Glucose 170 H (74-99) mg/dL POC Glucose (mg/dL) 128 H (75-99) mg/dL Microbiology - Last 24 Hours (Table) 03/29/18 00:50 Gram Stain - Final Sputum Sputum Culture - Final Methicillin resist S. aureus Pseudomonas aeruginosa 03/27/18 18:14 Blood Culture - Preliminary Blood No Growth after 96 hours Assessment and Plan Plan: -Left upper lobe and possible right middle lobe pneumonia patient is being treated for healthcare associated pneumonia. Patient is on vancomycin and ciprofloxacin, sputum cultures are showing staph aureus which is methicillin- resistant and Pseudomonas. Continue with present antibiotics. -New-onset atrial fibrillation presently sinus rhythm rate controlled, echocardiogram did not show any significant abnormality, patient will be started on aspirin and beta doris appreciate cardiology recommendations Recent tracheostomy since February 2018 -Mild intermittent bronchial asthma with minimal exacerbation -Tracheal bronchomalacia -History of Langerhans' cell histiocytosis -Gastroesophageal reflux disease -Hypertension -Elevated blood sugars, hemoglobin A1c 6.3, prediabetic not diabetic and elevated blood sugars secondary to systemic steroids will treat with sliding scale insulin For above-mentioned chronic medical problems patient will be resumed and continued on appropriate medications
[2018-04-01] MEDS: CIPROFLOXACIN HCL 250 MG TAB PO SCH ×2 (13:34→21:09)
[2018-04-01 16:53] LABS: Glucose,Whole Blood 163 mg/dL (75-99)
[2018-04-01 21:42] LABS: Glucose,Whole Blood 116 mg/dL (75-99)
[2018-04-01] MEDS: diphenhydrAMINE 25 MG CAP PO SCH (23:11)
[2018-04-02] MEDS: ALPRAZolam 0.25 MG TAB PO PRN ×2 (02:14→23:08)
[2018-04-02] MEDS: INSULIN ASPART 100 UNIT/ML 1 ML 10 ML VIAL SQ SCH ×4 (06:14→23:11)
--- NOTE | 2018-04-02 06:28 | CONS ---
CONSULTATION DATE OF SERVICE: 04/01/2018. REASON FOR CONSULTATION: Pneumonia and antibiotic recommendation. HISTORY OF PRESENT ILLNESS: The patient is a 33 -year-old male with a past medical history significant for bronchial asthma, history of pneumonia, chronic tracheostomy and history of syndrome presenting to the ER at [facility] on 03/24/2018 with chief complaints of left-sided chest pain and increasing shortness of breath. The patient did have increased shortness of breath with minimal exertion. He did have a cough which is [id number] in intensity and has been coughing up some yellow sputum. No hemoptysis. The pain mostly left-sided chest more of a dull aching intensity of 5 to 6/10, no radiation and worse with taking a deep breath or coughing. The patient has been treated in the outpatient setting with oral without any improvement. The patient subsequently presented to the ER where the patient has been evaluated by the ER physician. The patient did have a chest x-ray which did show evidence of a left upper lobe consolidation suggestive of pneumonia. The patient did have a fever of 100.3 on admission and his white count was 12.7 elevated at 14.1 today. The patient did have sputum cultures obtained which were finalized with MRSA and Pseudomonas. The patient has been treated with vancomycin. The patient already got a PICC line on the . We were asked to see the patient today for further recommendation regarding outpatient IV antibiotic therapy. REVIEW OF SYSTEMS: Culture positive for weakness along with the fever. Eyes no complaint. ENT no complaint. Respiratory as per HPI. Cardiovascular no complaint. Genitourinary no complaint. Gastrointestinal: No complaint. Musculoskeletal no complaint. Integumentary: No complaint. Psychological no complaint. Endocrine no complaint. Neurological no complaint. PAST MEDICAL HISTORY: Bronchial asthma, pneumonia, chronic tracheostomy, hypertension, deafness. PAST SURGICAL HISTORY: Cochlear implant, tonsillectomy and tracheostomy. SOCIAL HISTORY: Remote history of smoking. No drinking or drug use. FAMILY HISTORY: Father history of asthma. Father history of hypertension. ALLERGIES: MOLD AND PENICILLIN. MEDICATIONS: The patient is on vancomycin, Protonix, Lopressor, Solu-Medrol, loratadine and Mucinex, Benadryl, ciprofloxacin 750 q.12 hours, Xanax, DuoNeb and [place]. PHYSICAL EXAMINATION: Blood pressure is 137/87 with a pulse of 76, temperature of 98. He is 96% on room air. General description is a middle aged male up in the bed in no distress. No tachypnea or accessory muscles of respiration use. HEENT: Shows no pallor or scleral icterus. Oral mucosa is dry. No pharyngeal erythema or thrush. Neck lymphadenopathy. Lungs unlabored breathing, decreased breath sounds at the bases. No wheeze or crackles. Heart S1, S2 regular rate and rhythm. ABDOMEN: Soft. No tenderness. No guarding. No rigidity. EXTREMITIES: No edema of the feet. Skin examination: No rash or mass palpable. Neurological: Patient is awake, alert, oriented times three. Mood and affect normal. LABS: Hemoglobin 11.9, white count 14.1, BUN of 18, creatinine 0.67. Vancomycin trough has been high at 26.4. Sputum with MRSA. DIAGNOSTIC IMPRESSION AND PLAN: Patient with left upper lobe pneumonia in this patient who did have a history of chronic trach with evidence of tracheobronchomalacia. A previous episode of pneumonia, admitted to the hospital with fever, elevated white count with new left upper lobe pneumonia, likely the source of his pneumonia and infection. The patient already got a PICC line on the and we were consulted today for further recommendation regarding outpatient antibiotic therapy. PLAN: 1. Vancomycin pharmacy to dose, however, dose needs to be cut back to keep the trough around 15. 2. . 3. We will try to arrange for the outpatient IV antibiotics for at least 2 weeks. Once antibiotic arranged and should be able to go home from Infectious Disease standpoint as the patient already has a PICC line. 4. Continue supportive care. MMODL / IJN: [id number] /
[2018-04-02] MEDS: PANTOPRAZOLE 40 MG TABLET PO SCH (06:58)
[2018-04-02 07:23] LABS: Anisocytosis Slight; Basophils % (A) 0 %; Eosinophils # (A) 0.1 k/uL (0-0.7); Eosinophils % (A) 1 %; HCT 39.9 % (39.0-53.0); Hypochromasia Moderate; Lymphocytes # (A) 0.9 k/uL (1.0-4.8); Lymphocytes % (A) 6 %; MCH 26.3 pg (25.0-35.0); MCHC 30.1 g/dL (31.0-37.0); MCV 87.2 fL (80.0-100.0); Mean Platelet Volume 8.7; Monocytes # (A) 0.5 k/uL (0-1.0); Monocytes % (A) 3 %; Neutrophils # (A) 12.5 k/uL (1.3-7.7); Neutrophils % (A) 87 %; Platelet Count 428 k/uL (150-450); RBC 4.58 m/uL (4.30-5.90); RDW 17.1 % (11.5-15.5); WBC 14.5 k/uL (3.8-10.6)
[2018-04-02 07:36] LABS: Anion Gap 8 mmol/L; Blood Urea Nitrogen 22 mg/dL (9-20); Calcium 9.3 mg/dL (8.4-10.2); Carbon Dioxide 28 mmol/L (22-30); Chloride 102 mmol/L (98-107); Glucose 190 mg/dL (74-99); Potassium 5.3 mmol/L (3.5-5.1); Sodium 138 mmol/L (137-145)
[2018-04-02] MEDS: MONTELUKAST 10 MG TAB PO SCH (09:21)
[2018-04-02] MEDS: LORATADINE 10 MG TAB PO SCH (09:21)
[2018-04-02] MEDS: guaiFENesin 600 MG TABLET.ER PO SCH ×2 (09:21→20:23)
[2018-04-02] MEDS: CIPROFLOXACIN HCL 250 MG TAB PO SCH ×2 (09:21→20:23)
[2018-04-02] MEDS: CYANOCOBALAMIN 500 MCG TAB PO SCH (09:21)
[2018-04-02] MEDS: METOPROLOL TARTRATE 25 MG TAB PO SCH ×2 (09:21→20:23)
[2018-04-02] MEDS: methylPREDNISolone SOD SUCCI 40 MG/ML 1 ML VIAL IV SCH ×2 (09:22→20:23)
[2018-04-02] MEDS: MULTIVITAMINS, THERA 1 EACH TAB PO SCH (09:22)
[2018-04-02] MEDS: HEPARIN SODIUM,PORCINE 5,000 UNIT/ML 1 ML VIAL SQ SCH ×2 (09:22→20:23)
[2018-04-02] MEDS: MORPHINE SULFATE 4 MG/ML SYRINGE IVP PRN ×3 (09:22→20:24)
[2018-04-02] MEDS: VANCOMYCIN 2,000 MG in SODIUM CHLORIDE 0.9% 500 ML 500 ML IVPB SCH ×2 (09:23→20:23)
[2018-04-02] MEDS: IPRATROPIUM-ALBUTEROL 3 ML NEB INHALATION SCH ×4 (10:33→19:35)
[2018-04-02] MEDS: FORMOTEROL FUMARATE 20 MCG/2 ML NEBU INHALATION SCH ×2 (10:33→19:35)
[2018-04-02] MEDS: BUDESONIDE 1 MG/2 ML NEBU INHALATION SCH ×2 (10:34→19:35)
--- NOTE | 2018-04-02 11:31 | P.PN ---
Subjective 36-year-old gentleman with history of tracheostomy and history of Langerhans' cell histiocytosis came in and was admitted for pneumonia bilateral patient is high risk for MRSA because of which patient is on vancomycin patient's sputum is a lotion color because of which my suspicion is low for a Pseudomonas patient is presently on levofloxacin and vancomycin both of which will be continued patient is on high-dose of steroids has minimal wheezing on exam patient is presently on 6 L of oxygen. His shortness of breath improved significantly 03/30/2018 Patient is complaining of some pleuritic pain on the left side when he coughs beyond that no other significant overnight events. 03/31/2018 Patient last night went into atrial fibrillation with rapid ventricular rate spontaneously converted to sinus rhythm and 2 hours and was given IV Cardizem presently off Cardizem not on any anti-correlation at this time echocardiac exam is being obtained cardiology was consulted 04/01/2018 Patient's oxygen was discontinued patient is clinically doing well and sputum cultures are positive for MRSA which is sensitive to Bactrim and Pseudomonas sensitive to Cipro patient was assisted to pseudomonal dosing of Cipro levofloxacin was discontinued will get the infectious disease opinion regarding discharge antibiotics patient probably can be discharged tomorrow on oral steroids. Patient was evaluated by cardiology in the recommending aspirin and metoprolol for atrial fibrillation 04/02/2018 Patient is doing well but unfortunately patient will require authorization for IV vancomycin from insurance company which is not available today because of which patient may end up staying until Monday. She will also go home on ciprofloxacin for Pseudomonas. Discussed with infectious disease Constitutional: Denied any fatigue denied any fever. Cardio vascular: denied any chest pain, palpitations Gastrointestinal denied any nausea vomiting Pulmonary: As mentioned in HPI Neurologic denied any new focal deficits All inpatient medications were reviewed and appropriate changes in these medications as dictated in the interval history and assessment and plan. Objective - Vital Signs Vital signs: Vital Signs Temp 97.7 F 04/02/18 09:32 Pulse 74 04/02/18 10:54 Resp 18 04/02/18 09:32 BP 141/80 04/02/18 09:32 Pulse Ox 99 04/02/18 09:32 Intake & Output 04/01/18 04/02/18 04/02/18 18:59 06:59 18:59 Intake Total 1220 222 Output Total 975 1553 1 Balance 245 -1553 221 Weight 110.6 kg Intake: Intake, IV Titration 500 Amount Vancomycin 2,000 mg In 500 Sodium Chloride 0.9% 500 ml 500 ml @ 167 mls/hr IVPB Q12HR [facility] Rx#: [id number] Oral 720 222 Output: Urine 975 1550 Stool 3 1 Other: Voiding Method Urinal Urinal Urinal # Voids 2 - Exam PHYSICAL EXAMINATION: GENERAL: The patient is alert and oriented x3, not in any acute distress. Well developed, well nourished. HEENT: Pupils are round and equally reacting to light. EOMI. No scleral icterus. No conjunctival pallor. Normocephalic, atraumatic. No pharyngeal erythema. No thyromegaly. CARDIOVASCULAR: S1 and S2 present. No murmurs, rubs, or gallops. PULMONARY: No expiratory wheezing tracheostomy in place's having some clear to yellowish discharge from the ABDOMEN: Soft, nontender, nondistended, normoactive bowel sounds. No palpable organomegaly. MUSCULOSKELETAL: No joint swelling or deformity. EXTREMITIES: No cyanosis, clubbing, or pedal edema. NEUROLOGICAL: Gross neurological examination did not reveal any focal deficits. SKIN: No rashes. - Labs CBC & Chem 7: 04/02/18 06:15 04/02/18 06:15 Labs: Abnormal Lab Results - Last 24 Hours (Table) 04/01/18 04/01/18 04/01/18 Range/Units 12:05 16:48 21:40 WBC (3.8-10.6) k/uL Hgb (13.0-17.5) gm/dL MCHC (31.0-37.0) g/dL RDW (11.5-15.5) % Neutrophils # (1.3-7.7) k/uL Lymphocytes # (1.0-4.8) k/uL Potassium (3.5-5.1) mmol/L BUN (9-20) mg/dL Glucose (74-99) mg/dL POC Glucose (mg/dL) 128 H 163 H 116 H (75-99) mg/dL 04/02/18 04/02/18 Range/Units 06:15 06:15 WBC 14.5 H (3.8-10.6) k/uL Hgb 12.0 L (13.0-17.5) gm/dL MCHC 30.1 L (31.0-37.0) g/dL RDW 17.1 H (11.5-15.5) % Neutrophils # 12.5 H (1.3-7.7) k/uL Lymphocytes # 0.9 L (1.0-4.8) k/uL Potassium 5.3 H (3.5-5.1) mmol/L BUN 22 H (9-20) mg/dL Glucose 190 H (74-99) mg/dL POC Glucose (mg/dL) (75-99) mg/dL Microbiology - Last 24 Hours (Table) 03/27/18 18:14 Blood Culture - Preliminary Blood No Growth after 120 hours 03/29/18 00:50 Gram Stain - Final Sputum Sputum Culture - Final Methicillin resist S. aureus Pseudomonas aeruginosa Assessment and Plan Plan: -Left upper lobe and possible right middle lobe pneumonia patient is being treated for healthcare associated pneumonia. Patient is on vancomycin and ciprofloxacin, sputum cultures are showing staph aureus which is methicillin- resistant and Pseudomonas. Continue with present antibiotics. -New-onset atrial fibrillation presently sinus rhythm rate controlled, echocardiogram did not show any significant abnormality, patient will be started on aspirin and beta doris appreciate cardiology recommendations Recent tracheostomy since February 2018 -Mild intermittent bronchial asthma with minimal exacerbation -Tracheal bronchomalacia -History of Langerhans' cell histiocytosis -Gastroesophageal reflux disease -Hypertension -Elevated blood sugars, hemoglobin A1c 6.3, prediabetic not diabetic and elevated blood sugars secondary to systemic steroids will treat with sliding scale insulin For above-mentioned chronic medical problems patient will be resumed and continued on appropriate medications
[2018-04-02 11:45] LABS: Glucose,Whole Blood 192 mg/dL (75-99)
[2018-04-02] MEDS: FLUTICASONE 50MCG/SPRAY NASAL 16GM NASAL SCH ×2 (13:09→20:26)
[2018-04-02 16:37] LABS: Glucose,Whole Blood 186 mg/dL (75-99)
--- NOTE | 2018-04-02 17:44 | PN ---
PROGRESS NOTE DATE OF SERVICE: 04/02/2018 REASON FOR FOLLOWUP: Pseudomonas pneumonia. INTERVAL HISTORY: The patient is afebrile. He seemed to be breathing comfortably. Left-sided chest pain has slightly decreased intensity. The patient denies any nausea, vomiting, abdominal pain, no diarrhea. PHYSICAL EXAMINATION: Blood pressure 141/80 with a pulse of 80, temperature 97.7 he is 99% on room air. GENERAL DESCRIPTION: A middle-aged male lying in bed in no distress. RESPIRATORY SYSTEM: Unlabored breathing. Decreased breath sounds. No wheeze. HEART: S1, S2. Regular rate and rhythm no tenderness. Extremities: No edema of the feet. LABS: Hemoglobin is 12, white count 14.5, BUN of 22, creatinine 0.68. DIAGNOSTIC IMPRESSION AND PLAN: Patient with left upper lobe pneumonia. Sputum is positive for MRSA and Pseudomonas aeruginosa. For MRSA the patient needs vancomycin, pharmacy to dose, target of 15. Current dosage will be could back to keep the trough around 15. Oral Cipro. Once antibiotic arranged he is cleared to go home from ID standpoint. Prescriptions were written for him. Questions and concerns were answered. MMODL / IJN: [id number] /
[2018-04-02 20:57] LABS: Glucose,Whole Blood 164 mg/dL (75-99)
[2018-04-02] MEDS: diphenhydrAMINE 25 MG CAP PO SCH (23:08)
[2018-04-03] MEDS: MORPHINE SULFATE 4 MG/ML SYRINGE IVP PRN ×5 (00:49→20:19)
[2018-04-03 05:47] LABS: Glucose,Whole Blood 212 mg/dL (75-99)
[2018-04-03] MEDS: PANTOPRAZOLE 40 MG TABLET PO SCH (06:51)
[2018-04-03] MEDS: INSULIN ASPART 100 UNIT/ML 1 ML 10 ML VIAL SQ SCH ×4 (06:53→20:27)
[2018-04-03 08:12] VITALS: RESP 18
[2018-04-03] MEDS: FORMOTEROL FUMARATE 20 MCG/2 ML NEBU INHALATION SCH ×2 (08:13→21:44)
[2018-04-03] MEDS: IPRATROPIUM-ALBUTEROL 3 ML NEB INHALATION SCH ×4 (08:13→21:45)
[2018-04-03] MEDS: BUDESONIDE 1 MG/2 ML NEBU INHALATION SCH ×2 (08:13→21:45)
[2018-04-03] MEDS: CYANOCOBALAMIN 500 MCG TAB PO SCH (08:33)
[2018-04-03] MEDS: METOPROLOL TARTRATE 25 MG TAB PO SCH ×2 (08:33→20:17)
[2018-04-03] MEDS: LORATADINE 10 MG TAB PO SCH (08:33)
[2018-04-03] MEDS: MONTELUKAST 10 MG TAB PO SCH (08:33)
[2018-04-03] MEDS: MULTIVITAMINS, THERA 1 EACH TAB PO SCH (08:34)
[2018-04-03] MEDS: CIPROFLOXACIN HCL 250 MG TAB PO SCH ×2 (08:34→20:16)
[2018-04-03] MEDS: HEPARIN SODIUM,PORCINE 5,000 UNIT/ML 1 ML VIAL SQ SCH ×2 (08:34→20:19)
[2018-04-03] MEDS: methylPREDNISolone SOD SUCCI 40 MG/ML 1 ML VIAL IV SCH ×2 (08:34→20:18)
[2018-04-03] MEDS: FLUTICASONE 50MCG/SPRAY NASAL 16GM NASAL SCH ×2 (08:34→20:27)
[2018-04-03] MEDS: guaiFENesin 600 MG TABLET.ER PO SCH ×2 (08:34→20:17)
[2018-04-03] MEDS: HYDROcodone/APAP 5-325MG 1 EACH TAB PO PRN ×2 (08:36→22:13)
[2018-04-03] MEDS: VANCOMYCIN 2,000 MG in SODIUM CHLORIDE 0.9% 500 ML 500 ML IVPB SCH ×2 (08:38→20:16)
[2018-04-03 09:48] VITALS: BMI 42.2
--- NOTE | 2018-04-03 11:10 | P.PN ---
Subjective 36-year-old gentleman with history of tracheostomy and history of Langerhans' cell histiocytosis came in and was admitted for pneumonia bilateral patient is high risk for MRSA because of which patient is on vancomycin patient's sputum is a lotion color because of which my suspicion is low for a Pseudomonas patient is presently on levofloxacin and vancomycin both of which will be continued patient is on high-dose of steroids has minimal wheezing on exam patient is presently on 6 L of oxygen. His shortness of breath improved significantly 03/30/2018 Patient is complaining of some pleuritic pain on the left side when he coughs beyond that no other significant overnight events. 03/31/2018 Patient last night went into atrial fibrillation with rapid ventricular rate spontaneously converted to sinus rhythm and 2 hours and was given IV Cardizem presently off Cardizem not on any anti-correlation at this time echocardiac exam is being obtained cardiology was consulted 04/01/2018 Patient's oxygen was discontinued patient is clinically doing well and sputum cultures are positive for MRSA which is sensitive to Bactrim and Pseudomonas sensitive to Cipro patient was assisted to pseudomonal dosing of Cipro levofloxacin was discontinued will get the infectious disease opinion regarding discharge antibiotics patient probably can be discharged tomorrow on oral steroids. Patient was evaluated by cardiology in the recommending aspirin and metoprolol for atrial fibrillation 04/02/2018 Patient is doing well but unfortunately patient will require authorization for IV vancomycin from insurance company which is not available today because of which patient may end up staying until Monday. She will also go home on ciprofloxacin for Pseudomonas. Discussed with infectious disease 04/03/2018 No overnight events patient is complaining of some pain when he coughs which has been there Constitutional: Denied any fatigue denied any fever. Cardio vascular: denied any chest pain, palpitations Gastrointestinal denied any nausea vomiting Pulmonary: As mentioned in HPI Neurologic denied any new focal deficits All inpatient medications were reviewed and appropriate changes in these medications as dictated in the interval history and assessment and plan. Objective - Vital Signs Vital signs: Vital Signs Temp 98.2 F 04/03/18 08:00 Pulse 76 04/03/18 08:20 Resp 18 04/03/18 08:00 BP 123/74 04/03/18 08:00 Pulse Ox 94 L 04/03/18 08:00 Intake & Output 12/24/18 12/25/18 12/25/18 18:59 06:59 18:59 Intake Total 888 480 Output Total 1203 2201 Balance -315 -2201 480 Weight 111.6 kg 111.6 kg Intake: Oral 888 480 Output: Urine 1200 2200 Stool 3 1 Other: Voiding Method Urinal Urinal # Voids 5 - Exam PHYSICAL EXAMINATION: GENERAL: The patient is alert and oriented x3, not in any acute distress. Well developed, well nourished. HEENT: Pupils are round and equally reacting to light. EOMI. No scleral icterus. No conjunctival pallor. Normocephalic, atraumatic. No pharyngeal erythema. No thyromegaly. CARDIOVASCULAR: S1 and S2 present. No murmurs, rubs, or gallops. PULMONARY: No expiratory wheezing tracheostomy in place's having some clear to yellowish discharge from the ABDOMEN: Soft, nontender, nondistended, normoactive bowel sounds. No palpable organomegaly. MUSCULOSKELETAL: No joint swelling or deformity. EXTREMITIES: No cyanosis, clubbing, or pedal edema. NEUROLOGICAL: Gross neurological examination did not reveal any focal deficits. SKIN: No rashes. - Labs CBC & Chem 7: 04/02/18 06:15 04/02/18 06:15 Labs: Abnormal Lab Results - Last 24 Hours (Table) 04/02/18 04/02/18 04/02/18 Range/Units 11:43 16:34 20:56 POC Glucose (mg/dL) 192 H 186 H 164 H (75-99) mg/dL 04/03/18 Range/Units 05:45 POC Glucose (mg/dL) 212 H (75-99) mg/dL Microbiology - Last 24 Hours (Table) 03/27/18 18:14 Blood Culture - Final Blood No Growth after 144 hours 03/29/18 00:50 Gram Stain - Final Sputum Sputum Culture - Final Methicillin resist S. aureus Pseudomonas aeruginosa Assessment and Plan Plan: -Left upper lobe and possible right middle lobe pneumonia patient is being treated for healthcare associated pneumonia. Patient is on vancomycin and ciprofloxacin, sputum cultures are showing staph aureus which is methicillin- resistant and Pseudomonas. Continue with present antibiotics. -New-onset atrial fibrillation presently sinus rhythm rate controlled, echocardiogram did not show any significant abnormality, patient will be started on aspirin and beta doris appreciate cardiology recommendations Recent tracheostomy since February 2018 -Mild intermittent bronchial asthma with minimal exacerbation -Tracheal bronchomalacia -History of Langerhans' cell histiocytosis -Gastroesophageal reflux disease -Hypertension -Elevated blood sugars, hemoglobin A1c 6.3, prediabetic not diabetic and elevated blood sugars secondary to systemic steroids will treat with sliding scale insulin For above-mentioned chronic medical problems patient will be resumed and continued on appropriate medications
[2018-04-03 11:50] LABS: Glucose,Whole Blood 158 mg/dL (75-99)
[2018-04-03 16:47] LABS: Glucose,Whole Blood 119 mg/dL (75-99)
[2018-04-03 20:08] LABS: Glucose,Whole Blood 150 mg/dL (75-99)
[2018-04-03] MEDS: diphenhydrAMINE 25 MG CAP PO SCH (20:18)
[2018-04-04] MEDS: MORPHINE SULFATE 4 MG/ML SYRINGE IVP PRN ×3 (00:17→08:44)
[2018-04-04] MEDS: ALPRAZolam 0.25 MG TAB PO PRN (01:43)
[2018-04-04 05:42] LABS: Glucose,Whole Blood 176 mg/dL (75-99)
[2018-04-04] MEDS: PANTOPRAZOLE 40 MG TABLET PO SCH (06:35)
[2018-04-04] MEDS: INSULIN ASPART 100 UNIT/ML 1 ML 10 ML VIAL SQ SCH ×2 (06:35→12:48)
--- NOTE | 2018-04-04 07:21 | PN ---
PROGRESS NOTE DATE OF SERVICE: 04/03/2018 REASON FOR FOLLOWUP: MRSA and Pseudomonas pneumonia. INTERVAL HISTORY: The patient is currently afebrile. His breathing has improved. Cough has decreased in intensity, now. Left sided chest pain slightly decreased in intensity. No nausea or vomiting. No abdominal pain. No diarrhea. Currently awaiting for the outpatient IV antibiotic arrangement before discharge. PHYSICAL EXAMINATION: On examination, blood pressure 142/86, pulse of 74, temperature 97. He is 94% on room air. General description is a middle aged male up in the room in no distress. RESPIRATORY SYSTEM: Unlabored breathing with decreased breath sounds at the bases, no wheeze. HEART: S1, S2. Regular rate and rhythm. ABDOMEN: Soft, no tenderness. LABS: Hemoglobin 12, white count 14.5. BUN of 22, creatinine 0.68. DIAGNOSTIC IMPRESSION AND PLAN: Patient with methicillin-resistant Staphylococcus aureus and Pseudomonas left sided pneumonia currently covered with vancomycin and Cipro. Plan for either oral Zyvox or IV vancomycin regimen for another 10 days along with the oral Cipro. Once antibiotic arranged he should be able to go home from ID standpoint. Continue with supportive care. MMODL / IJN: [id number] /
[2018-04-04] MEDS: IPRATROPIUM-ALBUTEROL 3 ML NEB INHALATION SCH ×2 (07:57→12:00)
[2018-04-04] MEDS: BUDESONIDE 1 MG/2 ML NEBU INHALATION SCH (07:57)
[2018-04-04] MEDS: FORMOTEROL FUMARATE 20 MCG/2 ML NEBU INHALATION SCH (07:57)
[2018-04-04] MEDS ORDERED: VANCOMYCIN TROUGH DUE 1 EACH MISC MISCELLANE ONE (08:00)
[2018-04-04] MEDS: METOPROLOL TARTRATE 25 MG TAB PO SCH (08:28)
[2018-04-04] MEDS: MONTELUKAST 10 MG TAB PO SCH (08:28)
[2018-04-04] MEDS: guaiFENesin 600 MG TABLET.ER PO SCH (08:28)
[2018-04-04] MEDS: LORATADINE 10 MG TAB PO SCH (08:28)
[2018-04-04] MEDS: FLUTICASONE 50MCG/SPRAY NASAL 16GM NASAL SCH (08:28)
[2018-04-04] MEDS: CYANOCOBALAMIN 500 MCG TAB PO SCH (08:28)
[2018-04-04] MEDS: CIPROFLOXACIN HCL 250 MG TAB PO SCH (08:28)
[2018-04-04] MEDS: methylPREDNISolone SOD SUCCI 40 MG/ML 1 ML VIAL IV SCH (08:29)
[2018-04-04] MEDS: VANCOMYCIN 2,000 MG in SODIUM CHLORIDE 0.9% 500 ML 500 ML IVPB SCH (08:29)
[2018-04-04] MEDS: HEPARIN SODIUM,PORCINE 5,000 UNIT/ML 1 ML VIAL SQ SCH (08:29)
[2018-04-04 08:31] LABS: Anisocytosis Slight; HCT 39.5 % (39.0-53.0); HGB 11.9 gm/dL (13.0-17.5); Hypochromasia Moderate; MCH 26.3 pg (25.0-35.0); MCHC 30.3 g/dL (31.0-37.0); Mean Platelet Volume 7.4; Platelet Count 389 k/uL (150-450); RBC 4.54 m/uL (4.30-5.90); RDW 17.7 % (11.5-15.5); WBC 15.5 k/uL (3.8-10.6)
[2018-04-04 08:51] LABS: Anion Gap 9 mmol/L; Blood Urea Nitrogen 20 mg/dL (9-20); Calcium 9.4 mg/dL (8.4-10.2); Carbon Dioxide 29 mmol/L (22-30); Chloride 100 mmol/L (98-107); Glucose 141 mg/dL (74-99); Potassium 4.7 mmol/L (3.5-5.1); Sodium 138 mmol/L (137-145)
[2018-04-04] MEDS: HYDROcodone/APAP 5-325MG 1 EACH TAB PO PRN (10:29)
--- NOTE | 2018-04-04 12:24 | P.DS ---
Providers Date of admission: 03/27/18 19:38 Attending physician: Adalberto Sauceda Consults: 03/27/18 19:38 Consult Physician Routine Consulting Provider: Earnest Mendoza Consult Reason/Comments: Asthma, PNA Do you want consulting provider notified?: Already Contacted 03/28/18 11:37 Consult Physician Routine Consulting Provider: Ron Carrillo Consult Reason/Comments: Throat tenderness Do you want consulting provider notified?: Yes 03/30/18 21:32 Consult Physician Routine Consulting Provider: Ania Syed Consult Reason/Comments: new onset afib Do you want consulting provider notified?: Already Contacted 03/31/18 13:55 Consult Physician Routine Consulting Provider: Barry Means Consult Reason/Comments: MRSA IV antibiotic rec Do you want consulting provider notified?: Yes Consult Physician Routine Consulting Provider: Baryr Means Consult Reason/Comments: need for IV antibiotics Do you want consulting provider notified?: Yes 04/01/18 11:30 Consult Physician Routine Consulting Provider: Prateek Rosa Consult Reason/Comments: MRSA in sputum, abx rec Do you want consulting provider notified?: Yes Primary care physician: Nicolas Rahman [facility] Course: 36-year-old gentleman with history of tracheostomy and history of Langerhans' cell histiocytosis came in and was admitted for pneumonia bilateral patient is high risk for MRSA because of which patient is on vancomycin patient's sputum is a lotion color because of which my suspicion is low for a Pseudomonas patient is presently on levofloxacin and vancomycin both of which will be continued patient is on high-dose of steroids has minimal wheezing on exam patient is presently on 6 L of oxygen. His shortness of breath improved significantly 03/30/2018 Patient is complaining of some pleuritic pain on the left side when he coughs beyond that no other significant overnight events. 03/31/2018 Patient last night went into atrial fibrillation with rapid ventricular rate spontaneously converted to sinus rhythm and 2 hours and was given IV Cardizem presently off Cardizem not on any anti-correlation at this time echocardiac exam is being obtained cardiology was consulted 04/01/2018 Patient's oxygen was discontinued patient is clinically doing well and sputum cultures are positive for MRSA which is sensitive to Bactrim and Pseudomonas sensitive to Cipro patient was assisted to pseudomonal dosing of Cipro levofloxacin was discontinued will get the infectious disease opinion regarding discharge antibiotics patient probably can be discharged tomorrow on oral steroids. Patient was evaluated by cardiology in the recommending aspirin and metoprolol for atrial fibrillation 04/02/2018 Patient is doing well but unfortunately patient will require authorization for IV vancomycin from insurance company which is not available today because of which patient may end up staying until Monday. She will also go home on ciprofloxacin for Pseudomonas. Discussed with infectious disease 04/03/2018 No overnight events patient is complaining of some pain when he coughs which has been there 04/04/2018 Patient will be discharged today is requiring vancomycin 3 times a day patient will continue with ciprofloxacin. PHYSICAL EXAMINATION: GENERAL: The patient is alert and oriented x3, not in any acute distress. Well developed, well nourished. HEENT: Pupils are round and equally reacting to light. EOMI. No scleral icterus. No conjunctival pallor. Normocephalic, atraumatic. No pharyngeal erythema. No thyromegaly. CARDIOVASCULAR: S1 and S2 present. No murmurs, rubs, or gallops. PULMONARY: No expiratory wheezing tracheostomy in place's having some clear to yellowish discharge from the ABDOMEN: Soft, nontender, nondistended, normoactive bowel sounds. No palpable organomegaly. MUSCULOSKELETAL: No joint swelling or deformity. EXTREMITIES: No cyanosis, clubbing, or pedal edema. NEUROLOGICAL: Gross neurological examination did not reveal any focal deficits. SKIN: No rashes. Assessment and Plan Plan: -Left upper lobe and possible right middle lobe pneumonia was treated for healthcare associated pneumonia. Patient is on vancomycin and ciprofloxacin, sputum cultures are showing staph aureus which is methicillin-resistant and Pseudomonas. -New-onset atrial fibrillation presently sinus rhythm rate controlled, echocardiogram did not show any significant abnormality, patient will be started on aspirin and beta doris Recent tracheostomy since February 2018 -Mild intermittent bronchial asthma with minimal exacerbation -Tracheal bronchomalacia -History of Langerhans' cell histiocytosis -Gastroesophageal reflux disease -Hypertension -Elevated blood sugars, hemoglobin A1c 6.3, prediabetic not diabetic and elevated blood sugars secondary to systemic steroids Patient Condition at Discharge: Serious Plan - Discharge Summary Discharge Rx Participant: No New Discharge Prescriptions: New Vancomycin 1,250 mg IVPB Q12HR #28 bag Ciprofloxacin HCl [Cipro] 750 mg PO BID #28 tablet HYDROcodone/APAP 5-325MG [[place] 5-325] 1 each PO Q4HR PRN #18 tab PRN Reason: Pain Metoprolol Tartrate [Lopressor] 25 mg PO BID #60 tab Ranitidine HCl [Zantac] 150 mg PO BID #30 tab predniSONE 10 mg PO DAILY #30 tab Continue Montelukast [Singulair] 10 mg PO DAILY Albuterol Sulfate [Proair Hfa] 2 puff INHALATION RT-QID PRN PRN Reason: Shortness Of Breath Albuterol Nebulized [Ventolin Nebulized] 2.5 mg INHALATION RT-Q4H PRN PRN Reason: Shortness Of Breath Fluticasone Nasal [place] [Flonase Nasal [place]] 1 spray NASAL BID diphenhydrAMINE [Benadryl] 50 mg PO HS guaiFENesin [Mucinex] 1,200 mg PO Q12HR #60 tablet.er Loratadine [Claritin] 10 mg PO DAILY Cyanocobalamin (Vitamin B-12) [Vitamin B-12] 1,000 mcg PO DAILY Budesonide/Formoterol Fumarate [Symbicort 80-4.5 Mcg Inhaler] 2 puff INHALATION RT-BID Discontinued amLODIPine [Norvasc] 5 mg PO DAILY Fluticasone/Salmeterol [Advair Hfa 115-21 Mcg Inhaler] 2 puff INHALATION RT- BID Discharge Medication List Montelukast [Singulair] 10 mg PO DAILY 04/15/15 [History] Albuterol Nebulized [Ventolin Nebulized] 2.5 mg INHALATION RT-Q4H PRN 05/26/16 [ History] Albuterol Sulfate [Proair Hfa] 2 puff INHALATION RT-QID PRN 05/26/16 [History] Fluticasone Nasal [place] [Flonase Nasal [place]] 1 spray NASAL BID 05/26/16 [ History] diphenhydrAMINE [Benadryl] 50 mg PO HS 05/26/16 [History] guaiFENesin [Mucinex] 1,200 mg PO Q12HR #60 tablet.er 05/31/16 [Rx] Cyanocobalamin (Vitamin B-12) [Vitamin B-12] 1,000 mcg PO DAILY 02/07/18 [ History] Loratadine [Claritin] 10 mg PO DAILY 02/07/18 [History] Budesonide/Formoterol Fumarate [Symbicort 80-4.5 Mcg Inhaler] 2 puff INHALATION RT-BID 03/27/18 [History] Ciprofloxacin HCl [Cipro] 750 mg PO BID #28 tablet 04/02/18 [Rx] Vancomycin 1,250 mg IVPB Q12HR #28 bag 04/02/18 [Rx] HYDROcodone/APAP 5-325MG [[place] 5-325] 1 each PO Q4HR PRN #18 tab 04/04/18 [Rx] Metoprolol Tartrate [Lopressor] 25 mg PO BID #60 tab 04/04/18 [Rx] Ranitidine HCl [Zantac] 150 mg PO BID #30 tab 04/04/18 [Rx] predniSONE 10 mg PO DAILY #30 tab 04/04/18 [Rx] Follow up Appointment(s)/Referral(s): Lacey Valenzuela MD [Primary Care Provider] - 1-2 days [facility] [NON-STAFF] - Earnest Mendoza DO [Doctor of Osteopathic Medicine] - 2 Weeks [facility], [NON-STAFF] - [facility], [REFERRING] - Prateek Rosa MD [STAFF PHYSICIAN] - 3 Days () Patient Instructions/Handouts: MRSA (Methicillin-Resistant Staphylococcus Aureus) (DC), Pneumonia (DC), Chronic Lung Disease and Infection Prevention (DC)
[2018-04-04 12:30] LABS: Glucose,Whole Blood 248 mg/dL (75-99)
[2018-04-04] MEDS: MULTIVITAMINS, THERA 1 EACH TAB PO SCH (12:48)
[2018-04-04 13:01] VITALS: BP 118/76; PULSE 86; TEMP 97.6
--- NOTE | 2018-04-04 14:49 | PN ---
PROGRESS NOTE DATE OF SERVICE: 04/04/2018 REASON FOR FOLLOW UP: Nosocomial pneumonia. INTERVAL HISTORY: The patient is currently afebrile. He is breathing more comfortably. Left-sided chest pain has improved. Patient denies having any nausea, vomiting. No abdominal pain and no diarrhea. PHYSICAL EXAMINATION: Blood pressure 118/76, pulse of 86, temperature 97.6, he is 98% on room air. General description is a middle-aged male up in the room in no distress respiratory system unlabored breathing with decreased breath sounds in the bases no wheeze. Heart S1, S2. Regular rate. ABDOMEN: Soft. LABS: BUN of 20, creatinine 0.7, hemoglobin 11 0.1, white count 15.5. DIAGNOSTIC IMPRESSION AND PLAN: Patient with methicillin-resistant Staphylococcus aureus and Pseudomonas aeruginosa pneumonia, left-sided. Patient did get the PICC line. Waiting for the IV antibiotic treatment for discharge. Continue supportive care. MMODL / IJN: [id number] /
[2018-04-04] MEDS ORDERED: VANCOMYCIN 1,750 MG in SODIUM CHLORIDE 0.9% 500 ML 500 ML IVPB SCH (16:00)
== END 2018-04-04 14:36 | disposition home health service (06) | DRG 177 ==
LOC: EC 17:28 → 3SCARD 19:38
PROVIDERS: ADMIT Hospitalist; ATTEND Hospitalist
PROC: 02HV33Z Insertion of Infusion Device into Superior Vena Cava, Percutaneous Approach (ICD-10-PCS; principal; 2018-03-30 15:04)
DX: J15.212 Pneumonia due to Methicillin resistant Staphylococcus aureus (principal); J96.21 Acute and chronic respiratory failure with hypoxia; J45.21 Mild intermittent asthma with (acute) exacerbation; G47.30 Sleep apnea, unspecified; H91.90 Unspecified hearing loss, unspecified ear; I10 Essential (primary) hypertension; I25.9 Chronic ischemic heart disease, unspecified; I48.0 Paroxysmal atrial fibrillation; J39.8 Other specified diseases of upper respiratory tract; K21.9 Gastro-esophageal reflux disease without esophagitis; R73.03 Prediabetes; Y95 Nosocomial condition; Z79.51 Long term (current) use of inhaled steroids; Z79.899 Other long term (current) drug therapy; Z82.49 Family history of ischemic heart disease and other diseases of the circulatory system; Z82.5 Family history of asthma and other chronic lower respiratory diseases; Z86.14 Personal history of Methicillin resistant Staphylococcus aureus infection; Z87.01 Personal history of pneumonia (recurrent); Z87.891 Personal history of nicotine dependence; Z93.0 Tracheostomy status; Z88.0 Allergy status to penicillin; Z91.048 Other nonmedicinal substance allergy status; Z96.21 Cochlear implant status
CPT/HCPCS: 36415; 36569; 70490; 71045; 71046; 76937; 77001; 80048; 80053; 80202; 81001; 82550; 82553; 83036; 83605; 83735; 83880; 84484; 85025; 85027; 85610; 85730; 86738; 87040; 87070; 87077; 87086; 87186; 87205; 87449; 87502; 93005; 93306; 94640; 94760; 96361; 96365; 96366; 96367; 96375; 99291

== ENCOUNTER 2018-04-11 13:19 | Observation (INO) | payer MEDICARE, OTHER ==
--- NOTE | 2018-04-11 15:08 | ED ---
General Adult HPI <Earnest Roach - Last Filed: 04/11/18 17:24> - General Source: patient, RN notes reviewed Mode of arrival: ambulatory Limitations: no limitations <Ursula Gonzales - Last Filed: 04/11/18 17:37> - General Chief complaint: Recheck/Abnormal Lab/Rx Stated complaint: Picc line not working, needs to take medicine - History of Present Illness Initial comments: Patient is a 33-year-old male who presents the emergency department with complaints of left arm PICC not functioning properly for 2 days and pain at the PICC site for 3 or 4 days. He reports the PICC dressing was last changed April 05, 2018. Denies redness or swelling of this area. He also reports having been discharged from the hospital recently due to pneumonia. He reports receiving vancomycin through the PICC. He states that he is taking an oral antibiotic for his pneumonia, but does not know the name. Patient denies any recent fever, chills, shortness of breath, chest pain, back pain, abdominal pain , nausea or vomiting, numbness or tingling, headaches or visual changes, or any other complaints. (Ursula Gonzales) - Related Data Home Medications Medication Instructions Recorded Confirmed Montelukast [Singulair] 10 mg PO DAILY 04/15/15 03/27/18 Albuterol Nebulized [Ventolin 2.5 mg INHALATION RT-Q4H PRN 05/26/16 03/27/18 Nebulized] Albuterol Sulfate [Proair Hfa] 2 puff INHALATION RT-QID PRN 05/26/16 03/27/18 Fluticasone Nasal [place] [Flonase 1 spray NASAL BID 05/26/16 03/27/18 Nasal [place]] diphenhydrAMINE [Benadryl] 50 mg PO HS 05/26/16 03/27/18 Cyanocobalamin (Vitamin B-12) 1,000 mcg PO DAILY 02/07/18 03/27/18 [Vitamin B-12] Loratadine [Claritin] 10 mg PO DAILY 02/07/18 03/27/18 Budesonide/Formoterol Fumarate 2 puff INHALATION RT-BID 03/27/18 03/27/18 [Symbicort 80-4.5 Mcg Inhaler] Previous Rx's Medication Instructions Recorded guaiFENesin [Mucinex] 1,200 mg PO Q12HR #60 tablet.er 05/31/16 Ciprofloxacin HCl [Cipro] 750 mg PO BID #28 tablet 04/02/18 Vancomycin 1,250 mg IVPB Q12HR #28 bag 04/02/18 HYDROcodone/APAP 5-325MG [[place] 1 each PO Q4HR PRN #18 tab 04/04/18 5-325] Metoprolol Tartrate [Lopressor] 25 mg PO BID #60 tab 04/04/18 Ranitidine HCl [Zantac] 150 mg PO BID #30 tab 04/04/18 predniSONE 10 mg PO DAILY #30 tab 04/04/18 Allergies Allergy/AdvReac Type Severity Reaction Status Date / Time mold Allergy Unknown Verified 03/27/18 19:24 Penicillins Allergy Rash/Hives Verified 03/27/18 19:24 weed pollen Allergy Unknown Verified 03/27/18 19:24 Review of Systems ROS Other: All systems not noted in ROS Statement are negative. <Earnest Roach - Last Filed: 04/11/18 17:24> ROS Other: All systems not noted in ROS Statement are negative. <Ursula Gonzales - Last Filed: 04/11/18 17:37> ROS Statement: Those systems with pertinent positive or pertinent negative responses have been documented in the HPI. Past Medical History Past Medical History: Asthma, GERD/Reflux, Hearing Disorder / Deafness, Hypertension, Pneumonia, Sleep Apnea/CPAP/BIPAP Additional Past Medical History / Comment(s): Patient is deaf. He has had a cochlear implant using a bone anchored hearing aid and he has undergone previous mastoidectomy and tympanoplasty. 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 Patient has a permanent tracheostomy with a #6 Shiley, uses back brace for back pain History of Any Multi-Drug Resistant Organisms: MRSA Date of last positivie culture/infection: 03/29/18 MDRO Source:: SPUTUM Past Surgical History: Ear Surgery, Tonsillectomy Additional Past Surgical History / Comment(s): Cochlear implant, PT STATED HE HAD THROAT TISSUE BIOPSIED AT [facility] BUT DOES'NT KNOW THE RESULTS. 09/19/14: Tracheostomy tube placement, sinus surgery Past Anesthesia/Blood Transfusion Reactions: Previous Problems w/ Anesthesia Additional Past Anesthesia/Blood Transfusion Reaction / Comment(s): PT STATED" WHILE UNDER AA HE BUT DID COME BACK" Past Psychological History: Anxiety Smoking Status: Former smoker Past Alcohol Use History: Occasional Past Drug Use History: None Reported - Past Family History Son(s) Family Medical History: Asthma Father Family Medical History: Hypertension Mother Family Medical History: Hypertension <Ursula Gonzales - Last Filed: 04/11/18 17:37> General Exam Limitations: no limitations General appearance: alert, in no apparent distress Head exam: Present: atraumatic, normocephalic Eye exam: Present: normal appearance Neck exam: Present: other (Tracheostomy present.) Respiratory exam: Present: other (Coarse lung sounds bilaterally.) Cardiovascular Exam: Present: regular rate, normal rhythm Neurological exam: Present: alert, oriented X3, normal gait Psychiatric exam: Present: normal affect, normal mood Skin exam: Present: other (Left arm with PICC placed. No visible redness or swelling over the area.) <Ursula Gonzales - Last Filed: 04/11/18 17:37> Course <Earnest Roach - Last Filed: 04/11/18 17:24> <Ursula Gonzales - Last Filed: 04/11/18 17:37> Vital Signs 04/11/18 04/11/18 13:54 15:41 Temperature 98 F Pulse Rate 87 Respiratory 18 Rate Blood Pressure 148/92 148/84 O2 Sat by Pulse 97 Oximetry - Reevaluation(s) Reevaluation #1: 04/11/18 17:24 PA supervision: I proceeded [id number] evaluation the patient and did discuss the findings with him the patient is on her buttocks at home but does not have a functioning pump his PICC line was not working for 2 days he has no deliveries medication to himself at this point. He will be readmitted for continuation of IV antibiotics I did discuss the case with Dr. Aguirre (Earnest Roach) Medical Decision Making <Earnest Roach - Last Filed: 04/11/18 17:24> <Ursula Gonzales Last Filed: 04/11/18 17:37> - Medical Decision Making CXR abnormalities do not require further treatment at this time. Ordered Cathflo for occluded PICC; however, the nurse reported that she was able to flush the the PICC without the Cathflo. Case discussed in detail with attending physician Dr. Roach. (Ursula Gonzales) Disposition <Earnest Roach - Last Filed: 04/11/18 17:24> Is patient prescribed a controlled substance at d/c from ED?: No <Ursula Gonzales - Last Filed: 04/11/18 17:37> Clinical Impression: Unable to self-administer medication Disposition: ADMITTED IP TO THIS HOSP Referrals: Lacey Valenzuela MD [Primary Care Provider] - 1-2 days
--- NOTE | 2018-04-11 15:26 | XR ---
EXAMINATION TYPE: XR chest 2V DATE OF EXAM: 04/11/2018 COMPARISON: 03/29/2018 TECHNIQUE: PA and lateral views submitted. HISTORY: Pain FINDINGS: Bilateral lower lobe atelectasis or infiltrate. There is no interstitial edema or pneumothorax. Trach eostomy tube stable in position. The heart size is mildly prominent but stable. Ectasia of the aorta. Biapical pleural thickening. Residual density or infiltrate in the left upper lobe is stable. IMPRESSION: 1. Bilateral subsegmental atelectasis or infiltrate stable. 2. Left-sided PICC line appears in good position with the tip overlying the SVC.
[2018-04-11] MEDS ORDERED: ALTEPLASE 2 MG VIAL (CATHFLO) IV STA (15:42)
[2018-04-11] MEDS ORDERED: NALOXONE 0.4 MG/ML 1 ML VIAL IV PRN (17:37)
[2018-04-11] MEDS ORDERED: VANCOMYCIN IV PER PHARMACY 1 EACH MISC MISCELLANE PRN (17:44)
[2018-04-11] MEDS ORDERED: VANCOMYCIN 2,000 MG in SODIUM CHLORIDE 0.9% 500 ML 500 ML IVPB STA (17:47)
[2018-04-11 20:16] LABS: Anion Gap 10 mmol/L; Blood Urea Nitrogen 17 mg/dL (9-20); Calcium 9.6 mg/dL (8.4-10.2); Carbon Dioxide 27 mmol/L (22-30); Chloride 103 mmol/L (98-107); Glucose 118 mg/dL (74-99); Potassium 4.3 mmol/L (3.5-5.1); Sodium 140 mmol/L (137-145)
[2018-04-11] MEDS ORDERED: VANCOMYCIN 2,000 MG in SODIUM CHLORIDE 0.9% 500 ML 500 ML IVPB ONE (21:00)
[2018-04-11] MEDS ORDERED: HYDROcodone/APAP 5-325MG 1 EACH TAB PO PRN (22:00)
[2018-04-11] MEDS ORDERED: IPRATROPIUM-ALBUTEROL 3 ML NEB INHALATION PRN (22:10)
[2018-04-11] MEDS ORDERED: ALPRAZolam 0.25 MG TAB PO PRN (22:10)
[2018-04-11] MEDS ORDERED: METOCLOPRAMIDE 5 MG/ML 2 ML VIAL IVP PRN (22:10)
[2018-04-11] MEDS ORDERED: MONTELUKAST 10 MG TAB PO SCH (22:15)
--- NOTE | 2018-04-11 23:00 | HP ---
dos: 04/11/18 HISTORY AND PHYSICAL CHIEF COMPLAINT: PICC line not working. HISTORY OF PRESENT ILLNESS: This 33-year-old gentleman with a past medical history of multiple medical problems, including bronchial asthma, history of GERD, hypertension, history of pneumonia , CPAP, history of gross a Parker syndrome, history of Rosai-Parker syndrome, history of MRSA, recently had respiratory failure and tracheostomy placed. The patient was recently admitted with pneumonia which was multifocal and caused by MRSA and Pseudomonas aeruginosa. The patient had a PICC line placed and vancomycin was initiated; however, the PICC line was not working today, according to him, and the patient came to [facility] for evaluation and treatment. Patient is taking oral antibiotic. There is no history of any fever, rigor or chills. No history of headache, loss of consciousness, seizures at this time. PAST MEDICAL HISTORY: 1. History of asthma. 2. GERD. 3. History of hearing difficulty/deafness. 4. History of hypertension. 5. Pneumonia. 6. History of sleep apnea. HOME MEDICATIONS: 1. Vancomycin 1500 mg IV q.8. 2. Prednisone taper. 3. Mucinex 1200 mg p.o. b.i.d. 4. Benadryl 50 mg at bedtime. 5. Zantac 150 mg b.i.d. 6. Singulair 10 mg p.o. daily. 7. Lopressor 25 mg p.o. b.i.d. 8. Claritin 10 mg p.o. daily. 9. [place] 5 mg q.4 p.r.n. 10.Flonase 1 spray b.i.d. 11.Vitamin B12 1000 mcg p.o. daily. 12.Cipro 750 p.o. b.i.d. 13.Symbicort 80/4.5 two puffs b.i.d. 14.ProAir HFA 2 puffs q.i.d. p.r.n. 15.Ventolin 2.5 q.4 p.r.n. ALLERGIES: 1. MOLD. 2. PENICILLIN. 3. WEED POLLEN. FAMILY HISTORY: History of asthma in the family. SOCIAL HISTORY: Previous history of smoking. Occasional alcohol intake. REVIEW OF SYSTEMS: ENT: As mentioned earlier. CARDIOVASCULAR SYSTEM: No angina, palpitations. RESPIRATORY SYSTEM: As mentioned earlier. GI: No nausea, vomiting. : No dysuria or retention. NERVOUS SYSTEM: No numbness, weakness. ALLERGY/IMMUNOLOGY: As mentioned earlier. MUSCULOSKELETAL: As mentioned earlier. HEMATOLOGY/ONCOLOGY: No history of anemia. ENDOCRINE: No history of diabetes, hypothyroidism. CONSTITUTIONAL: As mentioned earlier. DERMATOLOGY: Negative. RHEUMATOLOGY: Negative. PSYCHIATRY: As mentioned earlier. PHYSICAL EXAMINATION: Patient alert and oriented x3. Pulse is 86, blood pressure 155/81, respiration 18, temperature 99.3, pulse ox 96% on room air. HEENT: Conjunctivae normal. Oral mucosa moist. NECK: No jugular venous distention. Tracheostomy present. CARDIOVASCULAR SYSTEM: S1, S2 muffled. No S3. No S4. RESPIRATORY SYSTEM: Breath sounds diminished at the bases. Scattered rhonchi and crackles. Expiratory wheezing also present. ABDOMEN: Soft, obese, non-tender. No mass palpable. LEGS: No edema. No swelling. NERVOUS SYSTEM: Higher functions as mentioned earlier. Moves all 4 limbs. No focal motor or sensory deficit. LYMPHATICS: No lymph node palpable in neck, axillae or groin. SKIN: No ulcer, rash, bleeding. LABS: CBC not available. Sodium 140, potassium 4.3. Vancomycin less than 5. ASSESSMENT: 1. Malfunction in PICC line. 2. History of recent pneumonia with pseudomonas as well as methicillin-resistant Staphylococcus aeruginosa. 3. Bronchial asthma with acute exacerbation with left upper lobe and right middle lobe pneumonia recently. 4. New-onset atrial fibrillation recently. 5. History of chronic hypoxic respiratory failure. 6. History of permanent tracheostomy. 7. Rosai-Parker syndrome. 8. History of gastroesophageal reflux disease. 9. Hard of hearing/deafness. 10.Hypertension. 11.History of pneumonia. 12.History of sleep apnea. 13.History of mastoidectomy, tympanoplasty. 14.History of methicillin-resistant Staphylococcus aeruginosa. 15.Anxiety. 16.History of nicotine dependence. RECOMMENDATIONS AND DISCUSSION: In this 33-year-old gentleman who presented with multiple complex medical issues , we will monitor the patient closely, continue the current management. I would recommend intensive bronchodilator treatment. I would also recommend interventional radiology. Alteplase was given. Otherwise, we will consult Dr. Tariq and Dr. Rosa, also. Prognosis is guarded because of multiple complex medical issues. Further recommendations to follow. Prognosis guarded. MMODL / IJN: [id number] / MTDD
[2018-04-11] MEDS ORDERED: diphenhydrAMINE 25 MG CAP PO STA (23:02)
[2018-04-11] MEDS: METOPROLOL TARTRATE 25 MG TAB PO SCH (23:18)
[2018-04-11] MEDS: guaiFENesin 600 MG TABLET.ER PO SCH (23:18)
[2018-04-11] MEDS: CIPROFLOXACIN HCL 250 MG TAB PO SCH (23:19)
[2018-04-11] MEDS: FAMOTIDINE 20 MG TAB PO SCH (23:20)
[2018-04-12 07:29] LABS: Glucose,Whole Blood 131 mg/dL (75-99)
[2018-04-12] MEDS ORDERED: PANTOPRAZOLE 40 MG TABLET PO SCH (07:30)
[2018-04-12 07:43] VITALS: BP 117/72; RESP 20; TEMP 98
[2018-04-12] MEDS: IPRATROPIUM-ALBUTEROL 3 ML NEB INHALATION SCH ×2 (07:55→11:18)
[2018-04-12] MEDS ORDERED: FORMOTEROL FUMARATE 20 MCG/2 ML NEBU INHALATION SCH (08:00)
[2018-04-12] MEDS ORDERED: BUDESONIDE 1 MG/2 ML NEBU INHALATION SCH (08:00)
[2018-04-12] MEDS ORDERED: VANCOMYCIN 1,500 MG in SODIUM CHLORIDE 0.9% 250 ML IVPB SCH (08:00)
[2018-04-12] MEDS: CIPROFLOXACIN HCL 250 MG TAB PO SCH (08:03)
[2018-04-12] MEDS: FAMOTIDINE 20 MG TAB PO SCH (08:04)
[2018-04-12] MEDS: METOPROLOL TARTRATE 25 MG TAB PO SCH (08:04)
[2018-04-12] MEDS: guaiFENesin 600 MG TABLET.ER PO SCH (08:04)
[2018-04-12] MEDS ORDERED: CYANOCOBALAMIN 500 MCG TAB PO SCH (09:00)
[2018-04-12] MEDS ORDERED: CIPROFLOXACIN HCL 250 MG TAB PO SCH (09:00)
[2018-04-12] MEDS ORDERED: FAMOTIDINE 20 MG TAB PO SCH (09:00)
[2018-04-12] MEDS ORDERED: predniSONE 10 MG TAB PO SCH (09:00)
[2018-04-12] MEDS ORDERED: FLUTICASONE 50MCG/SPRAY NASAL 16GM EA NOSTRIL SCH (09:00)
[2018-04-12] MEDS ORDERED: LORATADINE 10 MG TAB PO SCH (09:00)
[2018-04-12] MEDS ORDERED: MONTELUKAST 10 MG TAB PO SCH (09:00)
[2018-04-12] MEDS ORDERED: guaiFENesin 600 MG TABLET.ER PO SCH (09:00)
[2018-04-12] MEDS ORDERED: HYDROGEN PEROXIDE BOTTLE TOPICAL ONE (11:00)
[2018-04-12 11:30] VITALS: PULSE 74
--- NOTE | 2018-04-12 11:33 | IR ---
PICC LINE PLACEMENT: HISTORY: Infection requiring long-term antibiotic therapy PROCEDURE: fluoroscopic guidance of PICC line exchange. COMPLICATIONS: None ANESTHESIA: 1. 1% Lidocaine locally. FINDINGS/TECHNIQUE: The procedure was explained to the patient. The risks, complications, benefits and alternatives were discussed and any questions were answered. Informed consent was obtained. The patient was placed supine on the fluoroscopic table and prepped and draped in the usual sterile fash ion. The pre-existing PICC line within the left basilic vein was cut and an removed over a 0.018 guid ewire. A 4-F sheath was placed over the guidewire. The guidewire and dilator were removed and a 4- F. PICC line was placed through the sheath with the tip at the level of the SVC. The sheath was bee maxwell, the catheter was flushed and sutured into position. The patient was stable throughout the proce dure and remained stable upon discharge from the Department of Radiology. All elements of the maximal barrier and sterile technique were utilized. FLUOROSCOPY TIME: 0.5 minutes and one image submitted IMPRESSION: Successful PICC line placement under fluoroscopic guidance.
--- NOTE | 2018-04-12 15:31 | P.CNPUL ---
History of Present Illness Consult date: 04/12/18 Requesting physician: Chip E Sheet Reason for consult: other Chief complaint: Occlusion of the PICC line History of present illness: This is a 33-year-old -[place] male with past medical history of mild intermittent bronchial asthma, chronic tracheostomy, previous episodes of pneumonia, hearing impairment, status post cochlear implant, Langerhans' cell histiocytosis, who was recently hospitalized or acute left upper lobe and right middle lobe pneumonia, cultures were positive for methicillin-resistant staph aureus and pseudomonas aeruginosa. Was treated with IV antibiotics, and was discharged home on 04/04/2018 and vancomycin infusions 3 times daily and ciprofloxacin. Patient left upper arm PICC line put in, and reportedly over last couple of days he was not able to do his vancomycin infusion related to port occlusion. Patient came in to the emergency department for evaluation of his PICC line, and Cathflo infusion was attempted, was unsuccessful. Chest x- ray showed bilateral subsegmental atelectasis at bilateral lower lobes, residual density or infiltrate in the left upper lobe. Lab work showed a sodium of 140, potassium is 4.3, chloride is 103, BUN and 17 creatinine 0.67, random vancomycin level was less than 5. Vital signs have been stable, patient has been afebrile, his pulse ox is 99% FiO2 of 28%. Patient intermittently deep suctions himself through the tracheostomy, and has been getting large amount of whitish colored phlegm. Lung sounds are coarse, a few wheezes. Patient is going for a new PICC line insertion today. Review of Systems All systems: negative Constitutional: Denies chills, Denies fever Eyes: denies blurred vision, denies pain Ears, nose, mouth and throat: Denies headache, Denies sore throat Cardiovascular: Denies chest pain, Denies shortness of breath Respiratory: Reports excessive sputum, Reports home oxygen, Reports respiratory infections, Reports sleep apnea, Reports wheezing, Denies cough Gastrointestinal: Denies abdominal pain, Denies diarrhea, Denies nausea, Denies vomiting Musculoskeletal: Denies myalgias Integumentary: Denies pruritus, Denies rash Neurological: Denies numbness, Denies weakness Psychiatric: Denies anxiety, Denies depression Endocrine: Denies fatigue, Denies weight change Past Medical History Past Medical History: Asthma, GERD/Reflux, Hearing Disorder / Deafness, Hypertension, Pneumonia, Sleep Apnea/CPAP/BIPAP Additional Past Medical History / Comment(s): Patient is deaf. He has had a cochlear implant using a bone anchored hearing aid and he has undergone previous mastoidectomy and tympanoplasty. 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 Patient has a permanent tracheostomy with a #6 Shiley, uses back brace for back pain History of Any Multi-Drug Resistant Organisms: MRSA Date of last positivie culture/infection: 03/29/18 MDRO Source:: SPUTUM Past Surgical History: Ear Surgery, Tonsillectomy Additional Past Surgical History / Comment(s): Cochlear implant, PT STATED HE HAD THROAT TISSUE BIOPSIED AT [facility] BUT DOES'NT KNOW THE RESULTS. 09/19/14: Tracheostomy tube placement, sinus surgery Past Anesthesia/Blood Transfusion Reactions: Previous Problems w/ Anesthesia Additional Past Anesthesia/Blood Transfusion Reaction / Comment(s): PT STATED" WHILE UNDER AA HE BUT DID COME BACK" Past Psychological History: Anxiety Additional Psychological History / Comment(s): He is independent. 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 Smoking Status: Former smoker Past Alcohol Use History: Occasional Additional Past Alcohol Use History / Comment(s): smoker for since age 17 3-4 cig/d quit 12/26, He states he does occasionally drink on weekends but never more than `4 drinks a week. Past Drug Use History: None Reported - Past Family History Son(s) Family Medical History: Asthma Father Family Medical History: Hypertension Mother Family Medical History: Hypertension Medications and Allergies Home Medications Medication Instructions Recorded Confirmed Type Montelukast [Singulair] 10 mg PO DAILY 04/15/15 04/11/18 History Albuterol Nebulized [Ventolin 2.5 mg INHALATION RT-Q4H PRN 05/26/16 04/11/18 History Nebulized] Albuterol Sulfate [Proair Hfa] 2 puff INHALATION RT-QID PRN 05/26/16 04/11/18 History Fluticasone Nasal [place] [Flonase 1 spray EA NOSTRIL BID 05/26/16 04/11/18 History Nasal [place]] diphenhydrAMINE [Benadryl] 50 mg PO HS 05/26/16 04/11/18 History guaiFENesin [Mucinex] 1,200 mg PO Q12HR #60 tablet.er 05/31/16 04/11/18 Rx Cyanocobalamin (Vitamin B-12) 1,000 mcg PO DAILY 02/07/18 04/11/18 History [Vitamin B-12] Loratadine [Claritin] 10 mg PO DAILY 02/07/18 04/11/18 History Budesonide/Formoterol Fumarate 2 puff INHALATION RT-BID 03/27/18 04/11/18 History [Symbicort 80-4.5 Mcg Inhaler] Ciprofloxacin HCl [Cipro] 750 mg PO BID #28 tablet 04/02/18 04/11/18 Rx Metoprolol Tartrate [Lopressor] 25 mg PO BID #60 tab 04/04/18 04/11/18 Rx Ranitidine HCl [Zantac] 150 mg PO BID #30 tab 04/04/18 04/11/18 Rx HYDROcodone/APAP 5-325MG [[place] 1 tab PO Q4HR PRN 04/11/18 04/11/18 History 5-325] Vancomycin 1,500 mg IVPB Q8H 04/11/18 04/11/18 History predniSONE See Taper PO DAILY 04/11/18 04/11/18 History Allergies Allergy/AdvReac Type Severity Reaction Status Date / Time mold Allergy Unknown Verified 04/11/18 17:33 Penicillins Allergy Rash/Hives Verified 04/11/18 17:33 weed pollen Allergy Unknown Verified 04/11/18 17:33 Physical Exam Vitals: Vital Signs Temp Pulse Pulse Pulse Resp BP BP 04/12/18 11:29 74 04/12/18 11:18 76 04/12/18 08:18 74 04/12/18 08:10 76 04/12/18 08:09 76 04/12/18 08:00 20 04/12/18 07:55 72 04/12/18 07:00 98.0 F 78 20 04/11/18 23:43 76 18 04/11/18 23:28 75 18 04/11/18 21:00 97.8 F 87 18 155/76 04/11/18 20:50 99.3 F 86 18 155/81 04/11/18 15:41 148/84 BP Pulse Ox 04/12/18 11:29 04/12/18 11:18 04/12/18 08:18 04/12/18 08:10 04/12/18 08:09 04/12/18 08:00 04/12/18 07:55 04/12/18 07:00 117/72 99 04/11/18 23:43 04/11/18 23:28 04/11/18 21:00 98 04/11/18 20:50 96 04/11/18 15:41 Intake and Output 04/12/18 04/12/18 04/12/18 06:59 14:59 22:59 Intake Total 500 Balance 500 Intake: Oral 500 Other: # Voids 1 Weight 107.5 kg GENERAL EXAM: Alert, pleasant, 33-year-old -[place] male, comfortable in no apparent distress. HEAD: Normocephalic/atraumatic. EYES: Normal reaction of pupils, equal size. Conjunctiva pink, sclera white. NOSE: Clear with pink turbinates. THROAT: No erythema or exudates. NECK: No masses, no JVD, no thyroid enlargement, no adenopathy. Chronic tracheostomy is in place, #6 Shiley CHEST: No chest wall deformity. Symmetrical expansion. LUNGS: Equal air entry with coarse rhonchi scattered throughout the lung anderson CVS: Regular rate and rhythm, normal S1 and S2, no gallops, no murmurs, no rubs ABDOMEN: Soft, nontender. No hepatosplenomegaly, normal bowel sounds, no guarding or rigidity. EXTREMITIES: No clubbing, no edema, no cyanosis, 2+ pulses and upper and lower extremities. MUSCULOSKELETAL: Muscle strength and tone normal. SPINE: No scoliosis or deformity SKIN: No rashes CENTRAL NERVOUS SYSTEM: Alert and oriented -3. No focal deficits, tone is normal in all 4 extremities. PSYCHIATRIC: Alert and oriented -3. Appropriate affect. Intact judgment and insight. Results - Laboratory Findings CBC and BMP: 04/11/18 19:36 Abnormal lab findings: Abnormal Labs 04/11/18 04/12/18 19:36 07:05 Glucose 118 H POC Glucose (mg/dL) 131 H - Diagnostic Findings Chest x-ray: report reviewed, image reviewed Assessment and Plan Plan: Assessment: #1. Occlusion of the peripherally inserted central catheter line, patient was unable to infuse his vancomycin #2. Recent left upper lobe and right middle lobe MRSA and pseudomonas aeruginosa pneumonia, discharged home on ciprofloxacin and vancomycin infusions #3. Recent tracheostomy change in February [address] Carrillo, for partially obstructed tracheostomy tube, currently has a #6 fenestrated Shiley #3. History of mild intermittent bronchial asthma #4. Tracheobronchomalacia, had previous placement of endotracheal stents with subsequent removal #5. Recurrent pneumonia involving the right middle lobe #6. History of Rosia Parker syndrome #7. History of upper airway obstruction, that is post tracheostomy tube placement for airway protection. Patient has documented lesions in the trachea and bronchial tubes, underwent bronchoscopy by Dr. Lagunas at the [facility] #8. Deafness, status post cochlear implant #9. GERD #10. Hypertension #11. Prior history of smoking Plan: Patient is clinically stable, no worsening dyspnea, no fever or chills, vital signs are stable. He self suctions via his tracheostomy as needed. Clinically he is at his baseline. Chest x-ray improving residual left upper lobe infiltrate, other acute pulmonary findings. After the PICC line change patient is stable for discharge home to continue his vancomycin infusions as previously prescribed. I performed a history & physical examination of the patient and discussed their management with my nurse practitioner, Trudy Jansen. I reviewed the nurse practitioner's note and agree with the documented findings and plan of care. Lung sounds are positive for coarse breath sounds. The findings and the impression was discussed with the patient. I attest to the documentation by the nurse practitioner. Time with Patient: Greater than 30
--- NOTE | 2018-04-12 16:30 | CONS ---
CONSULTATION DATE OF SERVICE: 04/12/2018 REASON FOR CONSULTATION: MRSA and pseudomonas pneumonia and nonfunctioning PICC. HISTORY OF PRESENT ILLNESS: The patient is a 33-year-old -[place] male who was recently admitted to hospital with pneumonia and sepsis. The patient's sputum did grow MRSA and Pseudomonas aeruginosa. The patient got a PICC line and was advised a 2-week course of IV vancomycin, Pharmacy to dose, and switched to oral Cipro. The patient presented to the [facility] ER yesterday afternoon with the chief complaint of his PICC line not functioning for 2 days, and the patient was not able to get his antibiotics for 2 days. The patient was complaining of some pain at the PICC site as well; more dull aching, 2 to 3 out of 10, and no radiation. The patient denies any high-grade fever, rigors or chills. The patient continues to have a cough, though overall breathing has improved, and his left lower chest pain has been decreased in intensity. Cough is mild to moderate in intensity and not with significant purulent sputum. The patient was evaluated by the ER physician on admission. The patient has been afebrile. Highest temperature has been 99.3. The patient did not have any CBC. His creatinine was 0.67 and vancomycin trough random was less than 5. This morning the patient did get another PICC line and the x-ray done yesterday showed some bibasilar infiltrate. REVIEW OF SYSTEMS: Positive points have been mentioned in HPI and other systems have been negative. PAST MEDICAL HISTORY: 1. Bronchial asthma. 2. Pneumonia, on a trach. 3. Hypertension. 4. Deafness. PAST SURGICAL HISTORY: 1. Cochlear implant. 2. Tonsillectomy. 3. Tracheostomy. 4. PICC line placement. SOCIAL HISTORY: Remote history of smoking. No drinking or drug use. FAMILY HISTORY: Father with history of asthma and hypertension. ALLERGIES: MOLD and PENICILLIN. CURRENT MEDICATIONS: 1. Ciprofloxacin 250 twice a day. 2. Pulmicort. 3. Xanax. 4. DuoNeb. 5. [place]. 6. Benadryl. 7. Reglan. 8. Vancomycin, Pharmacy to dose. Currently getting 1500 mg q.8 hours. PHYSICAL EXAMINATION: Blood pressure is 117/72 with a pulse of 70, temperature 98. He is 99% on trach collar. General description is a middle-aged male up in the room in no distress. HEENT EXAMINATION: No pallor or scleral icterus. Oral mucosa membrane is dry. NECK: Trachea is central. No thyromegaly. LUNGS: Unlabored breathing with decreased breath sounds at the base. No wheeze or crackle. HEART: S1, S2. Regular rate and rhythm. ABDOMEN: Soft. No tenderness. EXTREMITIES: No edema of the feet. LABS: BUN of 17, creatinine 0.67. Chest x-ray shows bibasilar infiltrate, but no worsening. DIAGNOSTIC IMPRESSION AND PLAN: Patient admitted to hospital with a non-functioning PICC line, through which the patient was receiving IV vancomycin for his recent methicillin-resistant Staphylococcus aeruginosa and pseudomonas pneumonia. The patient did get a PICC line, currently with no signs of any failure of vancomycin or any worsening pneumonia or sepsis. PLAN: 1. Patient to continue vancomycin, Pharmacy to dose, to finish his initial regimen that was prescribed on his last admission. 2. Patient also to continue oral Cipro 750 mg twice a day for his underlying pseudomonas pneumonia. 3. Patient will be monitored closely in the outpatient setting. All his questions and concerns were answered. MMODL / IJN: [id number] /
[2018-04-12] MEDS ORDERED: diphenhydrAMINE 25 MG CAP PO SCH (21:00)
[2018-04-13] MEDS ORDERED: VANCOMYCIN TROUGH DUE 1 EACH MISC MISCELLANE ONE (07:00)
--- NOTE | 2018-04-13 07:47 | DS ---
DISCHARGE SUMMARY DATE OF SERVICE: 04/12/2018 FINAL DIAGNOSES: 1. Malfunction PICC line, status replacement. 2. History of recent pneumonia with Pseudomonas as well as methicillin-resistant Staphylococcus aureus. 3. History of bronchial asthma, acute exacerbation. 4. Left upper lobe, right middle lobe pneumonia recently. 5. New onset atrial ablation recent. 6. History of chronic hypoxic respiratory failure. 7. History of permanent tracheostomy. 8. Rosai-Parker syndrome. 9. History of gastroesophageal reflux disease. 10.History of hearing differences and deafness. 11.Hypertension. 12.History of pneumonia. 13.History of sleep apnea. 14.History of mastoidectomy and tympanoplasty. 15.History of methicillin-resistant Staphylococcus aureus. 16.History of anxiety. 17.History of nicotine dependence. DISCHARGE DISPOSITION: The patient will be discharged in a stable condition with guarded prognosis. HISTORY OF PRESENT ILLNESS: This 33-year-old gentleman with a past medical history of multiple medical problems being followed by Dr. Valenzuela in the outpatient setting was admitted with nonfunctioning, malfunctioning PICC line which has not being opened by tPA. Because of the occlusion and a PICC line was replaced and the patient improved significantly. On exam, vital signs are stable. CARDIOVASCULAR: S1, S2. ABDOMEN: Soft. RESPIRATION: A few scattered rhonchi, no crackles. ABDOMEN: Soft. Patient is seen by Dr. Rosa and Dr. Tariq during the outpatient setting. DISCHARGE DIET: Diet is cardiac. FOLLOWUP: Follow up with Dr. Valenzuela in 2-3 days and follow up with Infectious Disease and Pulmonary as recommended. MEDICATIONS ARE: 1. Albuterol q.4 p.r.n. 2. ProAir p.r.n. 3. Symbicort 80/4.5 two puffs b.i.d. 4. Vitamin B12 one thousand mcg p.o. daily.. 5. Benadryl 50 mg q.h.s. 6. Flonase 1 spray b.i.d. 7. Hydrocodone 5 mg q.4 p.r.n. 8. Claritin 10 mg daily. 9. Singulair 10 mg p.o. daily. 10.Prednisone 10 mg p.o. daily. 11.Vancomycin 59 mg p.o. q.8 hours as before. 12.Cipro 750 p.o. b.i.d. as before. 13.Mucinex 1200 mg p.o. b.i.d. 14.Lopressor 25 mg p.o. b.i.d. 15.Zantac 150 mg p.o. b.i.d. Once again the patient will be discharged in a stable condition with guarded prognosis. MMODL / IJN: [id number] /
== END 2018-04-12 13:14 | disposition home health service (06) ==
LOC: EC 13:19 → 4MS4W 17:23
PROVIDERS: ADMIT Internal Medicine; ATTEND Internal Medicine
DX: T82.594A Other mechanical complication of infusion catheter, initial encounter (principal); J15.212 Pneumonia due to Methicillin resistant Staphylococcus aureus; J15.1 Pneumonia due to Pseudomonas; B96.5 Pseudomonas (aeruginosa) (mallei) (pseudomallei) as the cause of diseases classified elsewhere; B95.62 Methicillin resistant Staphylococcus aureus infection as the cause of diseases classified elsewhere; I10 Essential (primary) hypertension; K21.9 Gastro-esophageal reflux disease without esophagitis; G47.30 Sleep apnea, unspecified; J45.21 Mild intermittent asthma with (acute) exacerbation; J96.11 Chronic respiratory failure with hypoxia; J98.11 Atelectasis; C96.6 Unifocal Langerhans-cell histiocytosis; I48.91 Unspecified atrial fibrillation; F41.9 Anxiety disorder, unspecified; E66.9 Obesity, unspecified; H91.90 Unspecified hearing loss, unspecified ear; Z93.0 Tracheostomy status; Z79.2 Long term (current) use of antibiotics; Z99.81 Dependence on supplemental oxygen; Z22.322 Carrier or suspected carrier of Methicillin resistant Staphylococcus aureus; Z79.899 Other long term (current) drug therapy; Z87.891 Personal history of nicotine dependence; Z88.0 Allergy status to penicillin; Z91.048 Other nonmedicinal substance allergy status; Z68.41 Body mass index [BMI] 40.0-44.9, adult; Z98.890 Other specified postprocedural states; Z79.51 Long term (current) use of inhaled steroids; Z99.89 Dependence on other enabling machines and devices; Z96.21 Cochlear implant status
CPT/HCPCS: 96365; 96366; 99285; 94640 ×3; 36584; 80048; 80202; 71046; G0378 ×2; C1751; C1769; J3370; J7512

== ENCOUNTER → 2018-04-17 | Outpatient (CLI) | payer MEDICARE, OTHER ==
--- NOTE | 2018-04-17 16:17 | XR ---
EXAMINATION TYPE: XR chest 2V DATE OF EXAM: 04/17/2018 COMPARISON: Prior chest x-ray 04/11/2017 HISTORY: Bacterial pneumonia TECHNIQUE: Frontal and lateral views of the chest are obtained. FINDINGS: Tracheostomy tube is stable and overlying appropriate position. Subsegmental atelectatic ch anges or scarring at the lung bases is stable. There is no pleural effusion or pneumothorax seen. Th e cardiac silhouette size is within normal limits. The osseous structures are intact. IMPRESSION: Similar findings, there is likely subsegmental basilar atelectasis or scarring. Correlat e to exclude pneumonia.
== END | disposition home or self-care (01) ==
LOC: RADXRMAIN 15:25
PROVIDERS: ATTEND Internal Medicine Infectious Disease
DX: J15.9 Unspecified bacterial pneumonia (principal)
CPT/HCPCS: 71046

== ENCOUNTER 2018-05-23 14:29 | Inpatient (IN) | payer MEDICARE, OTHER ==
[2018-05-23] MEDS ORDERED: IPRATROPIUM-ALBUTEROL 3 ML NEB INHALATION STA (15:01)
--- NOTE | 2018-05-23 15:04 | ED ---
General Adult HPI - General Chief complaint: Shortness of Breath Stated complaint: OLEG Time Seen by Provider: 05/23/18 14:45 Source: patient, RN notes reviewed Mode of arrival: wheelchair Limitations: physical limitation (Heart of hearing, patient is able to hear most using lipreading and speaking loudly.) - History of Present Illness Initial comments: Patient is a pleasant 33-year-old male presenting to the emergency Department with difficulty breathing. Patient has been coughing up thick clear to yellow sputum. Symptoms have progressed with the past week. Patient was in the hospital a month ago with pneumonia and feels symptoms are similar. Patient has discomfort with cough. Patient has had some sweats and questions if he could've had a fever. Patient states he's had some episodes of vomiting as well. Patient does have tracheostomy - Related Data Home Medications Medication Instructions Recorded Confirmed Montelukast [Singulair] 10 mg PO DAILY 04/15/15 04/11/18 Albuterol Nebulized [Ventolin 2.5 mg INHALATION RT-Q4H PRN 05/26/16 04/11/18 Nebulized] Albuterol Sulfate [Proair Hfa] 2 puff INHALATION RT-QID PRN 05/26/16 04/11/18 Fluticasone Nasal [place] [Flonase 1 spray EA NOSTRIL BID 05/26/16 04/11/18 Nasal [place]] diphenhydrAMINE [Benadryl] 50 mg PO HS 05/26/16 04/11/18 Cyanocobalamin (Vitamin B-12) 1,000 mcg PO DAILY 02/07/18 04/11/18 [Vitamin B-12] Loratadine [Claritin] 10 mg PO DAILY 02/07/18 04/11/18 Budesonide/Formoterol Fumarate 2 puff INHALATION RT-BID 03/27/18 04/11/18 [Symbicort 80-4.5 Mcg Inhaler] HYDROcodone/APAP 5-325MG [[place] 1 tab PO Q4HR PRN 04/11/18 04/11/18 5-325] Vancomycin 1,500 mg IVPB Q8H 04/11/18 04/11/18 predniSONE See Taper PO DAILY 04/11/18 04/11/18 Previous Rx's Medication Instructions Recorded guaiFENesin [Mucinex] 1,200 mg PO Q12HR #60 tablet.er 02/21/17 Ciprofloxacin HCl [Cipro] 750 mg PO BID #28 tablet 04/02/18 Metoprolol Tartrate [Lopressor] 25 mg PO BID #60 tab 04/04/18 Ranitidine HCl [Zantac] 150 mg PO BID #30 tab 04/04/18 Allergies Allergy/AdvReac Type Severity Reaction Status Date / Time mold Allergy Unknown Verified 05/23/18 14:34 Penicillins Allergy Rash/Hives Verified 05/23/18 14:34 weed pollen Allergy Unknown Verified 05/23/18 14:34 Review of Systems ROS Statement: Those systems with pertinent positive or pertinent negative responses have been documented in the HPI. ROS Other: All systems not noted in ROS Statement are negative. Constitutional: Reports: as per HPI Eyes: Denies: eye pain ENT: Denies: ear pain Respiratory: Reports: as per HPI, cough, dyspnea Cardiovascular: Denies: chest pain Endocrine: Denies: fatigue Gastrointestinal: Denies: abdominal pain Genitourinary: Denies: dysuria Musculoskeletal: Denies: back pain Skin: Denies: rash Neurological: Denies: weakness Past Medical History Past Medical History: Asthma, GERD/Reflux, Hearing Disorder / Deafness, Hypertension, Pneumonia, Sleep Apnea/CPAP/BIPAP Additional Past Medical History / Comment(s): Patient is deaf. He has had a cochlear implant using a bone anchored hearing aid and he has undergone previous mastoidectomy and tympanoplasty. 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 Patient has a permanent tracheostomy with a #6 Shiley, uses back brace for back pain History of Any Multi-Drug Resistant Organisms: MRSA Date of last positivie culture/infection: 03/29/18 MDRO Source:: SPUTUM Past Surgical History: Ear Surgery, Tonsillectomy Additional Past Surgical History / Comment(s): Cochlear implant, PT STATED HE HAD THROAT TISSUE BIOPSIED AT OF BUT DOES'NT KNOW THE RESULTS. 09/19/14: Tracheostomy tube placement, sinus surgery Past Anesthesia/Blood Transfusion Reactions: Previous Problems w/ Anesthesia Additional Past Anesthesia/Blood Transfusion Reaction / Comment(s): PT STATED" WHILE UNDER AA HE BUT DID COME BACK" Past Psychological History: Anxiety Smoking Status: Former smoker Past Alcohol Use History: Occasional Past Drug Use History: None Reported - Past Family History Son(s) Family Medical History: Asthma Father Family Medical History: Hypertension Mother Family Medical History: Hypertension General Exam Limitations: no limitations General appearance: alert, in no apparent distress Head exam: Present: atraumatic Eye exam: Present: normal appearance, PERRL ENT exam: Present: normal oropharynx Neck exam: Present: other (Tracheostomy present) Respiratory exam: Present: wheezes Cardiovascular Exam: Present: regular rate, normal rhythm GI/Abdominal exam: Present: soft. Absent: tenderness Extremities exam: Present: normal inspection. Absent: pedal edema, calf tenderness Neurological exam: Present: alert Psychiatric exam: Present: normal affect, normal mood Skin exam: Present: normal color Course Vital Signs 05/23/18 05/23/18 05/23/18 14:32 15:42 15:43 Temperature 98.0 F Pulse Rate 102 H 101 H Respiratory 20 20 20 Rate Blood Pressure 162/97 144/104 O2 Sat by Pulse 92 L 93 L Oximetry - Reevaluation(s) Reevaluation #1: 05/23/18 15:55 Patient does not meet sepsis criteria at this time. EKG Findings - EKG Comments: EKG Findings:: Sinus tachycardia 102. OK 138. QRS 80. QT 356. QTc 463. Superior axis. Inferior Q waves. No acute ST change. Medical Decision Making - Medical Decision Making Patient reevaluated and updated. Case was discussed in detail with Dr. Sequeira , covering for hospital call, who will admit. - Lab Data Result diagrams: 05/23/18 15:10 Lab Results 05/23/18 05/23/18 05/23/18 Range/Units 15:10 15:10 15:10 WBC 7.8 (3.8-10.6) k/uL RBC 5.29 (4.30-5.90) m/uL Hgb 14.6 (13.0-17.5) gm/dL Hct 46.8 (39.0-53.0) % MCV 88.5 (80.0-100.0) fL MCH 27.7 (25.0-35.0) pg MCHC 31.3 (31.0-37.0) g/dL RDW 17.7 H (11.5-15.5) % Plt Count 328 (150-450) k/uL Neutrophils % 80 % Lymphocytes % 11 % Monocytes % 5 % Eosinophils % 2 % Basophils % 0 % Neutrophils # 6.2 (1.3-7.7) k/uL Lymphocytes # 0.9 L (1.0-4.8) k/uL Monocytes # 0.4 (0-1.0) k/uL Eosinophils # 0.2 (0-0.7) k/uL Basophils # 0.0 (0-0.2) k/uL Hypochromasia Slight Anisocytosis Slight PT 10.7 (9.0-12.0) sec INR 1.0 (<1.2) APTT 28.1 (22.0-30.0) sec Plasma Lactic Acid Jimmy (0.7-2.0) mmol/L Total Creatine Kinase 297 H (55-170) U/L CK-MB (CK-2) 1.2 (0.0-2.4) ng/mL CK-MB (CK-2) Rel Index 0.4 Troponin I <0.012 (0.000-0.034) ng/mL 05/23/18 Range/Units 15:10 WBC (3.8-10.6) k/uL RBC (4.30-5.90) m/uL Hgb (13.0-17.5) gm/dL Hct (39.0-53.0) % MCV (80.0-100.0) fL MCH (25.0-35.0) pg MCHC (31.0-37.0) g/dL RDW (11.5-15.5) % Plt Count (150-450) k/uL Neutrophils % % Lymphocytes % % Monocytes % % Eosinophils % % Basophils % % Neutrophils # (1.3-7.7) k/uL Lymphocytes # (1.0-4.8) k/uL Monocytes # (0-1.0) k/uL Eosinophils # (0-0.7) k/uL Basophils # (0-0.2) k/uL Hypochromasia Anisocytosis PT (9.0-12.0) sec INR (<1.2) APTT (22.0-30.0) sec Plasma Lactic Acid Jimmy 2.3 H* (0.7-2.0) mmol/L Total Creatine Kinase (55-170) U/L CK-MB (CK-2) (0.0-2.4) ng/mL CK-MB (CK-2) Rel Index Troponin I (0.000-0.034) ng/mL - Radiology Data Radiology results: image reviewed (Chest x-ray concerning for right lower lobe infiltrate) Disposition Clinical Impression: Pneumonia Disposition: ADMITTED IP TO THIS HOSP Is patient prescribed a controlled substance at d/c from ED?: No Referrals: None,Stated [Primary Care Provider] - 1-2 days Decision Time: 16:01
[2018-05-23 15:21] LABS: WBC 7.8 k/uL (3.8-10.6)
[2018-05-23 15:22] LABS: Anisocytosis Slight; Basophils % (A) 0 %; Eosinophils # (A) 0.2 k/uL (0-0.7); Eosinophils % (A) 2 %; HCT 46.8 % (39.0-53.0); HGB 14.6 gm/dL (13.0-17.5); Hypochromasia Slight; Lymphocytes # (A) 0.9 k/uL (1.0-4.8); Lymphocytes % (A) 11 %; MCH 27.7 pg (25.0-35.0); MCHC 31.3 g/dL (31.0-37.0); MCV 88.5 fL (80.0-100.0); Mean Platelet Volume 9.4; Monocytes # (A) 0.4 k/uL (0-1.0); Monocytes % (A) 5 %; Neutrophils # (A) 6.2 k/uL (1.3-7.7); Neutrophils % (A) 80 %; Platelet Count 328 k/uL (150-450); RBC 5.29 m/uL (4.30-5.90); RDW 17.7 % (11.5-15.5)
[2018-05-23 15:37] LABS: Creatine Kinase 297 U/L (55-170)
--- NOTE | 2018-05-23 15:48 | XR ---
EXAMINATION TYPE: XR chest 2V DATE OF EXAM: 05/23/2018 COMPARISON: Prior chest x-ray 04/17/2017 HISTORY: Difficulty breathing, shortness of breath and vomiting TECHNIQUE: Frontal and lateral views of the chest are obtained. FINDINGS: Tracheostomy tube is overlying appropriate. Right middle lobe atelectatic changes are noted and chronic, there are prominent epicardial fat pads. Patchy airspace disease suspected in the right lower lobe. There is no pleural effusion or pneumothorax seen. The cardiac silhouette size is withi n normal limits. The osseous structures are intact. IMPRESSION: Correlate for right lower lobe pneumonia, possible aspiration.
[2018-05-23 15:50] LABS: Creatine Kinase MB 1.2 ng/mL (0.0-2.4); Troponin I <0.012 ng/mL (0.000-0.034)
[2018-05-23 15:55] LABS: Partial Thromboplastin Time 28.1 sec (22.0-30.0); Prothrombin Time 10.7 sec (9.0-12.0)
[2018-05-23] MEDS ORDERED: PNEUMONIA PROTOCOL UTILIZED 1 EACH MISC PO PRN (16:01)
[2018-05-23] MEDS ORDERED: AZITHROMYCIN 500 MG in SODIUM CHLORIDE 0.9% 250 ML IVPB STA (16:03)
[2018-05-23 16:09] LABS: Anion Gap 11 mmol/L; Blood Urea Nitrogen 10 mg/dL (9-20); Carbon Dioxide 28 mmol/L (22-30); Chloride 102 mmol/L (98-107); Glucose 117 mg/dL (74-99); Sodium 141 mmol/L (137-145)
[2018-05-23] MEDS: IPRATROPIUM-ALBUTEROL 3 ML NEB INHALATION SCH (16:09)
[2018-05-23 16:10] LABS: Calcium 9.7 mg/dL (8.4-10.2)
[2018-05-23 16:13] LABS: ALT 29 U/L (21-72); AST 61 U/L (17-59); Albumin 4.4 g/dL (3.5-5.0); Alkaline Phosphatase 117 U/L (38-126); Potassium 5.7 mmol/L (3.5-5.1); Total Bilirubin 1.1 mg/dL (0.2-1.3)
[2018-05-23] MEDS: SODIUM CHLORIDE 0.9% 1,000 ML IV SCH (16:41)
[2018-05-23] MEDS ORDERED: VANCOMYCIN IV PER PHARMACY 1 EACH MISC MISCELLANE PRN (18:16)
[2018-05-23] MEDS ORDERED: PIPERACILLIN-TAZOBACTAM 3.375 GM in SODIUM CHLORIDE 0.9% 100 ML IVPB SCH (18:30)
[2018-05-23] MEDS ORDERED: DEXTROSE 50%-WATER 50 ML SYRINGE IVP STA (18:37)
--- NOTE | 2018-05-23 18:38 | P.HPIM ---
History of Present Illness H&P Date: 05/23/18 Chief Complaint: Difficulty in breathing and coughing 33-year-old male with history of chronic tracheostomy, asthma, hearing problems Patient is a alf resident presented today with one-week history of progressive difficulty in breathing along with worsening coughing productive of whitish sputum no hemoptysis associated with fevers and chills. Patient has been hospitalized a month ago for pneumonia where he had pseudomonas and MRSA. Patient now in the ED is having new right lower lung infiltrates. This was concerning for pneumonia admitted for further care. Patient is having frequent coughing spells and has chronic tracheostomy history was limited due to that. Review of systems was challenging and limited at this time EKG showed no acute ST changes. Sinus tachycardia. Lactic acid was elevated. Potassium was 5.7. No leukocytosis no fevers in the ER. Patient had got the tracheostomy 2 years ago. Flu test in the ED was negative Review of Systems Limited review of systems due to patient having frequent coughing spells and chronic tracheostomy Past Medical History Past Medical History: Asthma, GERD/Reflux, Hearing Disorder / Deafness, Hypertension, Pneumonia, Sleep Apnea/CPAP/BIPAP Additional Past Medical History / Comment(s): Patient is deaf. He has had a cochlear implant using a bone anchored hearing aid and he has undergone previous mastoidectomy and tympanoplasty. 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 Patient has a permanent tracheostomy with a #6 Shiley, uses back brace for back pain History of Any Multi-Drug Resistant Organisms: MRSA Date of last positivie culture/infection: 03/29/18 MDRO Source:: SPUTUM Past Surgical History: Ear Surgery, Tonsillectomy Additional Past Surgical History / Comment(s): Cochlear implant, PT STATED HE HAD THROAT TISSUE BIOPSIED AT [facility] pt stated it was normal . 09/19/14: Tracheostomy tube placement, sinus surgery Past Anesthesia/Blood Transfusion Reactions: Previous Problems w/ Anesthesia Additional Past Anesthesia/Blood Transfusion Reaction / Comment(s): PT STATED" WHILE UNDER AA HE BUT DID COME BACK" Smoking Status: Former smoker - Past Family History Son(s) Family Medical History: Asthma Father Family Medical History: Hypertension Mother Family Medical History: Hypertension Medications and Allergies Home Medications Medication Instructions Recorded Confirmed Type Metoprolol Tartrate [Lopressor] 25 mg PO BID #60 tab 04/04/18 05/23/18 Rx Allergies Allergy/AdvReac Type Severity Reaction Status Date / Time mold Allergy Unknown Verified 05/23/18 14:34 Penicillins Allergy Rash/Hives Verified 05/23/18 14:34 weed pollen Allergy Unknown Verified 05/23/18 14:34 Physical Exam Vitals: Vital Signs Temp Pulse Resp BP Pulse Ox 05/23/18 17:25 101 H 20 123/93 97 05/23/18 16:21 100 05/23/18 16:12 100 20 148/97 98 05/23/18 16:09 100 05/23/18 15:43 20 05/23/18 15:42 101 H 20 144/104 93 L 05/23/18 14:32 98.0 F 102 H 20 162/97 92 L Intake and Output 05/23/18 05/23/18 05/23/18 06:59 14:59 22:59 Other: Weight 106.594 kg Constitutional: Patient is having frequent coughing attacks, patient is unable to talk full sentences due to coughinge spells, patient has chronic tracheostomy Anicteric sclerae, moist conjunctiva, no lid-lag Pupils equal round reactive to light ENMT: NC/AT Oropharynx clear, no erythema, or exudates Neck: Supple, FROM, no masses, or JVD No carotid bruits No thyromegaly Lungs: Decreased breath sounds over right lung base with coarse breath sounds throughout otherwise good air entry Clear to percussion Patient is frequently having coughing spells using his muscles of respiration Cardiovascular: Heart regular in rate and rhythm, No murmurs, gallops, or rubs No peripheral edema Abdominal: Soft Nontender, no guarding, rebound or rigidity Abdomen moving with respiration Normoactive bowel sounds No hepatomegaly, No splenomegaly No palpable mass No abdominal wall hernia noted Skin: Normal temperature, tone, texture, turgor No induration No subcutaneous nodules No rash, lesions No ulcers Extremities: No digital cyanosis No clubbing Pedal pulses intact and symmetrical Radial pulses intact and symmetrical No calf tenderness Psychiatric: Alert and oriented to person, place and time Appropriate affect fair judgment Neuro Muscles Strength 5/5 in all 4 extremities Sensation to light touch grossly present throughout Cranial nerves II-XII grossly intact except for 8 cranial nerve patient has hearing deficiency No focal sensory deficits Lymphatics: no palpable cervical or supraclavicular , or inguinal lymph nodes Results CBC & Chem 7: 05/23/18 15:10 05/23/18 15:32 Labs: Abnormal Lab Results - Last 24 Hours (Table) 05/23/18 05/23/18 05/23/18 Range/Units 15:10 15:10 15:10 RDW 17.7 H (11.5-15.5) % Lymphocytes # 0.9 L (1.0-4.8) k/uL Potassium (3.5-5.1) mmol/L Glucose (74-99) mg/dL Plasma Lactic Acid Jimmy 2.3 H* (0.7-2.0) mmol/L AST (17-59) U/L Total Creatine Kinase 297 H (55-170) U/L Total Protein (6.3-8.2) g/dL 05/23/18 Range/Units 15:32 RDW (11.5-15.5) % Lymphocytes # (1.0-4.8) k/uL Potassium 5.7 H (3.5-5.1) mmol/L Glucose 117 H (74-99) mg/dL Plasma Lactic Acid Jimmy (0.7-2.0) mmol/L AST 61 H (17-59) U/L Total Creatine Kinase (55-170) U/L Total Protein 9.0 H (6.3-8.2) g/dL Assessment and Plan Assessment: 33-year-old male with history of hypertension and asthma and LUIS admitted as an inpatient with anticipated length of stay more than 48 hours due to acute healthcare associated pneumonia patient recently discharged from the hospital month ago where he was treated for pneumonia. Now presenting with difficulty in breathing and worsening cough over the past week along with new infiltrates on chest x-ray. Patient is trached dependent Plan: Healthcare associated pneumonia Possible aspiration due to recent vomiting Patient has chronic trachostomy Start patient on Vanco and cefepime due to history of MRSA, he was recently hospitalized a month ago and treated for pneumonia secondary to pseudomonas and MRSA Chest x-ray showed new infiltrate right lower lung Follow-up cultures Flu test was negative Symptomatic control IV fluid hydration Patient is alf resident Hyperkalemia EKG showed no acute ST changes Sinus tachycardia 10 units IV insulin, with 1 amp of D50 Follow-up potassium level Lactic acidosis secondary to above IV fluid hydration Follow-up lactic acid History of hypertension Metoprolol twice a day Chronic conditions LUIS, anxiety, history of MRSA, deafness, History of rosai Parker syndrome DVT prophylaxis heparin subcu 3 times a day Preformed a thorough record review from recent hospitalization for pneumonia secondary to MRSA and Pseudomonas Surrogate decision-maker: Patient could not name CODE STATUS: Full code Discussed with: Patient, ER, RN Anticipated discharge: 48-[address]: [facility] A total of 60 minutes was spent on the care of this complex patient more than 50 % of the time was spent in counseling and care coordination.
[2018-05-23] MEDS ORDERED: INSULIN REGULAR 100 UNIT/ML VIAL IV ONE (18:45)
[2018-05-23] MEDS: IPRATROPIUM-ALBUTEROL 3 ML NEB INHALATION PRN (19:51)
[2018-05-23] MEDS: CEFEPIME 2 GM in SODIUM CHLORIDE 0.9% 100 ML IVPB SCH (20:24)
[2018-05-23] MEDS: MONTELUKAST 10 MG TAB PO SCH (20:25)
[2018-05-23] MEDS: METOPROLOL TARTRATE 25 MG TAB PO SCH (20:25)
[2018-05-23 20:27] LABS: Glucose,Whole Blood 101 mg/dL (75-99)
[2018-05-23] MEDS ORDERED: ACETAMINOPHEN TAB 325 MG TAB PO STA (21:41)
[2018-05-23] MEDS: VANCOMYCIN 1,750 MG in SODIUM CHLORIDE 0.9% 500 ML 500 ML IVPB SCH (21:42)
[2018-05-23] MEDS: HEPARIN SODIUM,PORCINE 5,000 UNIT/ML 1 ML VIAL SQ SCH (23:37)
[2018-05-23 23:39] LABS: Glucose,Whole Blood 90 mg/dL (75-99)
[2018-05-23] MEDS ORDERED: diphenhydrAMINE 25 MG CAP PO STA (23:47)
[2018-05-23 23:54] LABS: Anion Gap 10 mmol/L; Blood Urea Nitrogen 12 mg/dL (9-20); Calcium 9.2 mg/dL (8.4-10.2); Carbon Dioxide 27 mmol/L (22-30); Chloride 102 mmol/L (98-107); Glucose 98 mg/dL (74-99); Potassium 4.2 mmol/L (3.5-5.1); Sodium 139 mmol/L (137-145)
[2018-05-24] MEDS: CEFEPIME 2 GM in SODIUM CHLORIDE 0.9% 100 ML IVPB SCH ×3 (00:47→16:26)
[2018-05-24] MEDS: VANCOMYCIN 1,750 MG in SODIUM CHLORIDE 0.9% 500 ML 500 ML IVPB SCH ×3 (04:18→20:30)
[2018-05-24] MEDS: SODIUM CHLORIDE 0.9% 1,000 ML IV SCH ×3 (04:38→23:35)
[2018-05-24] MEDS: METOPROLOL TARTRATE 25 MG TAB PO SCH ×2 (07:51→20:28)
[2018-05-24] MEDS: HEPARIN SODIUM,PORCINE 5,000 UNIT/ML 1 ML VIAL SQ SCH ×2 (07:51→16:26)
--- NOTE | 2018-05-24 09:00 | XR ---
EXAMINATION TYPE: XR chest 2V DATE OF EXAM: 05/24/2018 COMPARISON: Prior chest x-ray 05/23/2018 HISTORY: Pneumonia TECHNIQUE: Frontal and lateral views of the chest are obtained. FINDINGS: Tracheostomy tube remains in place. Cardiac mediastinal silhouette is stable. Patchy incre ased density present at the right lung base. Chronic right middle lobe increased density is noted, pr ominent epicardial fat pads are present. No pneumothorax. Prominent lung volume suggestive of underly ing COPD. Patchy basilar density on the left may represent atelectasis. IMPRESSION: Correlate for right lower lobe pneumonia.
[2018-05-24] MEDS: IPRATROPIUM-ALBUTEROL 3 ML NEB INHALATION SCH ×4 (09:01→20:39)
--- NOTE | 2018-05-24 12:57 | P.CNPUL ---
History of Present Illness Consult date: 05/24/18 Requesting physician: Grace Molina Reason for consult: pneumonia Chief complaint: Productive cough and shortness of breath History of present illness: This is a 33-year-old -[place] male with history of Rosai Parker syndrome, mild intermittent asthma, chronic tracheostomy, cochlear implant, recurrent episodes of pneumonia secondary to pseudomonas or MRSA or both, severe tracheomalacia, previous endobronchial stent placement which was unsuccessful, multiple attempts in the past 2D cannulated the patient failed because the patient developed tracheal collapse. Patient was admitted this time mostly with a few days' history of cough which is productive with greenish phlegm, shortness of breath, wheezing, and some fever and chills. Chest x-ray questioned the right lower lobe pneumonia, however the findings seem to be in the right middle lobe and right lower lobe rather chronic. But considering his symptoms, it was felt that the patient may have pneumonia again, admitted, started on antibiotics as per infectious disease including vancomycin and cefepime. This consult was initiated. Presently the patient continues to cough , his cough is productive, greenish phlegm, again he has intermittent fever and chills, and shortness of breath. Denies any chest pain, denies any headache no blurred vision no dizziness, patient is deaf, and he has cochlear implants. Patient denies any nausea vomiting abdominal pain, no issues related to his tracheostomy. Denies any dysuria frequency or urgency. Labs on admission were noted to be basically normal including normal CBC, negative influenza screen, and a relatively normal electrolytes. Review of Systems Constitutional: Describes fevers and chills Eyes: denies blurred vision, denies pain Ears, nose, mouth and throat: Denies headache, Denies sore throat Cardiovascular: Reports dyspnea on exertion, Reports shortness of breath, Denies chest pain Respiratory: As noted in HPI. Gastrointestinal: Denies abdominal pain, Denies diarrhea, Denies nausea, Denies vomiting Musculoskeletal: Denies myalgias Integumentary: Denies pruritus, Denies rash Neurological: Denies numbness, Denies weakness Psychiatric: Denies anxiety, Denies depression Endocrine: Denies fatigue, Denies weight change Past Medical History Past Medical History: Asthma, GERD/Reflux, Hearing Disorder / Deafness, Hypertension, Pneumonia, Sleep Apnea/CPAP/BIPAP Additional Past Medical History / Comment(s): Patient is deaf. He has had a cochlear implant using a bone anchored hearing aid and he has undergone previous mastoidectomy and tympanoplasty. 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 Patient has a permanent tracheostomy with a #6 Shiley, uses back brace for back pain History of Any Multi-Drug Resistant Organisms: MRSA Date of last positivie culture/infection: 03/29/18 MDRO Source:: SPUTUM Past Surgical History: Ear Surgery, Tonsillectomy Additional Past Surgical History / Comment(s): Cochlear implant, PT STATED HE HAD THROAT TISSUE BIOPSIED AT [facility] pt stated it was normal . 09/19/14: Tracheostomy tube placement, sinus surgery Past Anesthesia/Blood Transfusion Reactions: Previous Problems w/ Anesthesia Additional Past Anesthesia/Blood Transfusion Reaction / Comment(s): PT STATED" WHILE UNDER AA HE BUT DID COME BACK" Smoking Status: Former smoker - Past Family History Son(s) Family Medical History: Asthma Father Family Medical History: Hypertension Mother Family Medical History: Hypertension Medications and Allergies Home Medications Medication Instructions Recorded Confirmed Type Metoprolol Tartrate [Lopressor] 25 mg PO BID #60 tab 04/04/18 05/23/18 Rx Allergies Allergy/AdvReac Type Severity Reaction Status Date / Time mold Allergy Unknown Verified 05/23/18 14:34 Penicillins Allergy Rash/Hives Verified 05/23/18 14:34 weed pollen Allergy Unknown Verified 05/23/18 14:34 Physical Exam Vitals: Vital Signs Temp Pulse Pulse Pulse Resp BP BP 05/24/18 12:19 98 F 101 H 20 129/81 05/24/18 09:15 100 05/24/18 09:02 100 05/24/18 05:27 97.7 F 84 18 123/77 05/23/18 21:34 97.7 F 110 H 18 130/85 05/23/18 20:29 98.0 F 110 H 18 139/86 05/23/18 20:01 98 05/23/18 19:52 98 05/23/18 18:23 97 F L 100 20 136/97 05/23/18 17:25 101 H 20 123/93 05/23/18 16:21 100 05/23/18 16:12 100 20 148/97 05/23/18 16:09 100 05/23/18 15:43 20 05/23/18 15:42 101 H 20 144/104 05/23/18 14:32 98.0 F 102 H 20 162/97 Pulse Ox 05/24/18 12:19 98 05/24/18 09:15 05/24/18 09:02 05/24/18 05:27 99 05/23/18 21:34 92 L 05/23/18 20:29 94 L 05/23/18 20:01 05/23/18 19:52 05/23/18 18:23 98 05/23/18 17:25 97 05/23/18 16:21 05/23/18 16:12 98 05/23/18 16:09 05/23/18 15:43 05/23/18 15:42 93 L 05/23/18 14:32 92 L Intake and Output 05/23/18 05/24/18 05/24/18 22:59 06:59 14:59 Intake Total 400 Balance 400 Intake: Intake, IV Titration 400 Amount Cefepime 2 gm In Sodium 100 Chloride 0.9% 100 ml @ 200 mls/hr IVPB Q8HR NIC Rx#:[id number] Sodium Chloride 0.9% 1, 300 000 ml @ 100 mls/hr IV . Q10H NIC Rx#:[id number] Other: Voiding Method Urinal # Voids 1 GENERAL EXAM: Alert, pleasant, 33-year-old -[place]ian male, comfortable in no apparent distress. HEAD: Normocephalic/atraumatic. EYES: Normal reaction of pupils, equal size. Conjunctiva pink, sclera white. NOSE: Clear with pink turbinates. THROAT: No erythema or exudates. NECK: No masses, no JVD, no thyroid enlargement, no adenopathy. Chronic tracheostomy is in place, #6 Shiley CHEST: No chest wall deformity. Symmetrical expansion. LUNGS: Equal air entry with coarse rhonchi scattered throughout the lung anderson , mostly at the right lower lobe area posteriorly CVS: Regular rate and rhythm, normal S1 and S2, no gallops, no murmurs, no rubs ABDOMEN: Soft, nontender. No hepatosplenomegaly, normal bowel sounds, no guarding or rigidity. EXTREMITIES: No clubbing, no edema, no cyanosis, 2+ pulses and upper and lower extremities. MUSCULOSKELETAL: Muscle strength and tone normal. SPINE: No scoliosis or deformity SKIN: No rashes CENTRAL NERVOUS SYSTEM: Alert and oriented -3. No focal deficits, tone is normal in all 4 extremities. PSYCHIATRIC: Alert and oriented -3. Appropriate affect. Intact judgment and insight. Results - Laboratory Findings CBC and BMP: 05/23/18 15:10 05/23/18 23:18 PT/INR, D-dimer PT 10.7 sec (9.0-12.0) 05/23/18 15:10 INR 1.0 (<1.2) 05/23/18 15:10 Abnormal lab findings: Abnormal Labs 05/23/18 05/23/18 05/23/18 15:10 15:10 15:10 RDW 17.7 H Lymphocytes # 0.9 L Potassium Glucose POC Glucose (mg/dL) Plasma Lactic Acid Jimmy 2.3 H* AST Total Creatine Kinase 297 H Total Protein 05/23/18 05/23/18 15:32 20:07 RDW Lymphocytes # Potassium 5.7 H Glucose 117 H POC Glucose (mg/dL) 101 H Plasma Lactic Acid Jimmy AST 61 H Total Creatine Kinase Total Protein 9.0 H - Diagnostic Findings Chest x-ray: image reviewed (Possible right lower lobe infiltrate., Although the findings seem to be chronic involving the right middle lobe and right lower lobe) Assessment and Plan Assessment: Impression: 1 acute and recurrent right lower lobe pneumonia most likely secondary to pseudomonas aeruginosa or MRSA or possibly both. 2 severe tracheal malacia and chronic tracheostomy. 3 mild intermittent asthma with mild exacerbation. 4 history of Rosai Parker disease., Patient gets his follow-up at the [facility]. 5 severe deafness, previous cochlear implant. 6 benign essential hypertension 7 GERD without esophagitis. Recommendation: Discussed and reviewed the findings of the patient on his chest x-ray, no documented fever since admission on the chart, patient is already on antibiotics as per infectious disease and that includes cefepime and vancomycin. It would basically covered both Pseudomonas and MRSA. This is given empirically, sputum cultures are pending, and antibiotics will be changed accordingly. Patient is already on bronchodilators including DuoNeb, he is also on Singulair, once we have a final culture from the sputum, then his antibiotic could possibly be changed accordingly, and decide whether the patient could be discharged home on oral antibiotics. We'll continue to follow. Time with Patient: Greater than 30
[2018-05-24] MEDS ORDERED: AZITHROMYCIN 500 MG in SODIUM CHLORIDE 0.9% 250 ML IVPB SCH (16:00)
--- NOTE | 2018-05-24 17:32 | PN ---
PROGRESS NOTE DATE OF SERVICE: 05/24/2018. HISTORY OF PRESENT ILLNESS: This 33-year-old gentleman with a past medical history of multiple medical problems, including Rosai-Parker syndrome, history of GERD, history of sleep apnea, history of deafness, history of tracheostomy, being followed by Dr. Valenzuela in the outpatient setting was admitted with pneumonia. The patient had previous pneumonia with Pseudomonas and as well as MRSA in the sputum. Patient treated with PICC line. Currently the patient is admitted with shortness of breath, cough and possibly aspiration pneumonia. Dr. Tariq, infectious disease is following the patient. The patient is on broad-spectrum IV antibiotics at this time. The patient had severe tracheomalacia also. There is no history of fever, rigors or chills. No history of headache, loss of consciousness or seizures. PAST MEDICAL HISTORY: Reviewed. REVIEW OF SYSTEMS: Cardio system: As mentioned earlier. RESPIRATORY: As mentioned earlier. GI no nausea. : No dysuria. NERVOUS SYSTEM: No numbness or weakness. CURRENT MEDICATIONS: Reviewed and include: 1. DuoNeb q.i.d. and p.r.n. 2. Cefepime 2 g IV q.8h. 3. Heparin 5000 subcu q8. 4. Lopressor 25 mg b.i.d. 5. Vancomycin protocol. 6. Singular. 7. Vancomycin IV. PHYSICAL EXAM: Patient is alert, oriented x3. Pulse is 101. Blood pressure 128/42, respirations 20, temperature 98 degrees, pulse ox 98% on room air. HEENT conjunctivae normal. Oral mucosa moist. Neck is no jugular venous distention. No carotid bruit. No lymph node enlargement. Cardiovascular system: S1, S2 muffled. Respirations: Bilateral scattered rhonchi and crackles. Breath sounds diminished in the bases. NECK: Tracheostomy. ABDOMEN: Soft. CENTRAL NERVOUS SYSTEM: No focal deficits. LABS: Sodium 139, potassium 4.2. ASSESSMENT: 1. Acute recurrent right lower lobe pneumonia possibly aspiration pneumonia. 2. History of previous Pseudomonas in the MRSA. 3. Severe tracheomalacia and as well as permanent tracheostomy. 4. Rosai-Parker syndrome. 5. History of PICC line treatment. 6. History of bronchial asthma. 7. History of atrial fibrillation. 8. History of chronic hypoxic respiratory failure. 9. History of gastroesophageal reflux disease. 10.History of hearing difficulties and deafness. 11.History of hypertension. 12.History of pneumonia. 13.History of sleep apnea. 14.History mastoidectomy and tympanoplasty. 15.History of anxiety. 16.History of nicotine dependence. RECOMMENDATIONS AND DISCUSSION: In this 33-year-old gentleman who presented with multiple complex medical issues, we will monitor the patient closely, continue the current management, continue symptomatic treatment. I would recommend continue the bronchodilators. DVT prophylaxis. Incentive spirometry. Continue with vancomycin and cefepime. Otherwise obtain cultures. Guarded prognosis because of multiple complex medical issues. Dr. Tariq's input appreciated. Further recommendations to follow. See orders for details. Repeat labs also. MMODL / IJN: [id number] /
[2018-05-24] MEDS ORDERED: MELATONIN 5 MG TABLET PO PRN (19:34)
[2018-05-24] MEDS: ACETAMINOPHEN TAB 325 MG TAB PO PRN (20:27)
[2018-05-24] MEDS: MONTELUKAST 10 MG TAB PO SCH (20:28)
[2018-05-25] MEDS: HEPARIN SODIUM,PORCINE 5,000 UNIT/ML 1 ML VIAL SQ SCH ×3 (00:34→15:38)
[2018-05-25] MEDS: CEFEPIME 2 GM in SODIUM CHLORIDE 0.9% 100 ML IVPB SCH ×3 (00:42→21:05)
[2018-05-25] MEDS ORDERED: VANCOMYCIN TROUGH DUE 1 EACH MISC MISCELLANE ONE (04:00)
[2018-05-25 04:25] LABS: Anion Gap 9 mmol/L; Blood Urea Nitrogen 16 mg/dL (9-20); Calcium 8.8 mg/dL (8.4-10.2); Carbon Dioxide 24 mmol/L (22-30); Chloride 105 mmol/L (98-107); Glucose 89 mg/dL (74-99); Potassium 4.4 mmol/L (3.5-5.1); Sodium 138 mmol/L (137-145)
[2018-05-25 04:40] LABS: Anisocytosis Slight; Hypochromasia Moderate; MCV 89.5 fL (80.0-100.0); Mean Platelet Volume 8.1
[2018-05-25 04:41] LABS: Basophils % (A) 1 %; Eosinophils # (A) 0.1 k/uL (0-0.7); Eosinophils % (A) 3 %; HCT 39.1 % (39.0-53.0); HGB 12.2 gm/dL (13.0-17.5); Lymphocytes # (A) 0.9 k/uL (1.0-4.8); Lymphocytes % (A) 21 %; MCH 27.9 pg (25.0-35.0); MCHC 31.2 g/dL (31.0-37.0); Monocytes # (A) 0.4 k/uL (0-1.0); Monocytes % (A) 9 %; Neutrophils # (A) 2.7 k/uL (1.3-7.7); Neutrophils % (A) 65 %; Platelet Count 237 k/uL (150-450); RBC 4.37 m/uL (4.30-5.90); WBC 4.2 k/uL (3.8-10.6)
[2018-05-25] MEDS: VANCOMYCIN 1,750 MG in SODIUM CHLORIDE 0.9% 500 ML 500 ML IVPB SCH (05:37)
[2018-05-25] MEDS: IPRATROPIUM-ALBUTEROL 3 ML NEB INHALATION SCH ×4 (07:41→19:52)
[2018-05-25] MEDS: SODIUM CHLORIDE 0.9% 1,000 ML IV SCH ×2 (09:11→17:18)
[2018-05-25] MEDS: PANTOPRAZOLE 40 MG TABLET PO SCH (09:11)
--- NOTE | 2018-05-25 09:54 | CONS ---
CONSULTATION DATE OF SERVICE: 05/24/2018 REASON FOR CONSULTATION: Pneumonia. HISTORY OF PRESENT ILLNESS: The patient is a 33-year-old male with a past medical history significant for Rosai-Parker syndrome. This patient did have mild intermittent asthma, chronic tracheostomy and history of recurrent pneumonia. Patient was recently admitted at this facility in March of 2018 with the patient did have a sputum positive for both MRSA and Pseudomonas aeruginosa that was successfully treated with IV vancomycin and oral Cipro which was subsequently discontinued. The patient was in the outpatient setting with overall improvement. The patient now presenting to the ER at [facility] with increasing shortness of breath. He also has a cough producing some green sputum and increasing shortness of breath and wheezing along with fever and chills. His symptoms has been going on for the last 2-3 days before he presented to the hospital. Patient denies having any nausea, vomiting, or any choking on the food. The patient on arrival to the hospital was evaluated by the ER physician and the patient did have a chest x-ray that did mention correlate for right lower lobe pneumonia. Patient did not have any high-grade fever, though his temperature has been 98 degrees Fahrenheit and his white count was not elevated. The patient did have blood in the sputum cultures obtained. Patient has been started on cefepime 2 g q.8 in addition to vancomycin. Infectious Disease was consulted for further recommendation regarding antibiotic therapy. REVIEW OF SYSTEMS: Positive points have been mentioned in HPI. Rest of the system has been negative. PAST MEDICAL HISTORY: History of recurrent pneumonia, bronchial asthma, hypertension, deafness. PAST SURGICAL HISTORY: Cochlear implant, tonsillectomy, tracheostomy, PICC line placement, sacral wound. SOCIAL HISTORY: Remote history of smoking. No drinking or drug use. FAMILY HISTORY: Father history of asthma and hypertension. ALLERGIES: PENICILLIN. MEDICATION: Currently include the patient is on cefepime 2 g q.8 hours. The patient is on heparin, , Lopressor, vancomycin pharmacy to dose, Protonix, DuoNeb, Tylenol. PHYSICAL EXAMINATION: Blood pressure is 124/81 with a pulse of 89, temperature 97.7, he is 98% on room air. General description is a middle-aged male, up in the bed in no distress. No tachypnea or accessory muscle for respiration use. HEENT: Shows no pallor or scleral icterus. Oral mucosa is dry. No pharyngeal erythema or thrush. NECK: Trachea central, no thyromegaly. LUNGS: Unlabored breathing with occasional expiratory wheeze. HEART: S1, S2. Regular rate and rhythm. ABDOMEN: Soft, no tenderness, no rigidity. EXTREMITIES: No edema of the feet. SKIN EXAMINATION: No rash or mass palpable. NEUROLOGIC: The patient is awake, alert, oriented x3, mood and affect normal. LABS: Hemoglobin is 14.6, white count of 7.8 with a BUN of 12, creatinine 0.72, red count has been normal, normal, influenza serology was negative. DIAGNOSTIC IMPRESSION AND PLAN: Patient admitted to the hospital with increased shortness of breath. He also have a cough, bringing up some yellowish sputum with evidence of right lower lobe pneumonia on the x-ray and this patient who did have a history of pneumonia secondary to MRSA and Pseudomonas. Will need to cover for further organism while waiting for his cultures to finalize. PLAN: 1. Cefepime dose to be adjusted down to 2 g q.12 as the patient is not neutropenic and continue with vancomycin. 2. Sputum culture and blood cultures have been obtained, those will be followed. 3. Will follow up on clinical condition and culture to further adjust medication if needed. Thank you for this consultation. Will follow this patient along with you. MMODL / IJN: [id number] /
[2018-05-25] MEDS: METOPROLOL TARTRATE 25 MG TAB PO SCH ×2 (09:57→21:05)
[2018-05-25] MEDS: methylPREDNISolone SOD SUCCI 40 MG/ML 1 ML VIAL IV SCH ×2 (12:48→15:37)
[2018-05-25] MEDS: VANCOMYCIN 1,500 MG in SODIUM CHLORIDE 0.9% 250 ML IVPB SCH ×2 (13:41→22:31)
--- NOTE | 2018-05-25 17:07 | P.PN ---
Subjective Progress Note Date: 05/25/18 Principal diagnosis: acute right lower lobe pneumonia secondary to pseudomonas aeruginosa and MRSA. This is a 33-year-old -[place] male with history of Rosai Parker syndrome, mild intermittent asthma, chronic tracheostomy, cochlear implant, recurrent episodes of pneumonia secondary to pseudomonas or MRSA or both, severe tracheomalacia, previous endobronchial stent placement which was unsuccessful, multiple attempts in the past 2D cannulated the patient failed because the patient developed tracheal collapse. Patient was admitted this time mostly with a few days' history of cough which is productive with greenish phlegm, shortness of breath, wheezing, and some fever and chills. Chest x-ray questioned the right lower lobe pneumonia, however the findings seem to be in the right middle lobe and right lower lobe rather chronic. But considering his symptoms, it was felt that the patient may have pneumonia again, admitted, started on antibiotics as per infectious disease including vancomycin and cefepime. This consult was initiated. Presently the patient continues to cough , his cough is productive, greenish phlegm, again he has intermittent fever and chills, and shortness of breath. Denies any chest pain, denies any headache no blurred vision no dizziness, patient is deaf, and he has cochlear implants. Patient denies any nausea vomiting abdominal pain, no issues related to his tracheostomy. Denies any dysuria frequency or urgency. Labs on admission were noted to be basically normal including normal CBC, negative influenza screen, and a relatively normal electrolytes. Patient was reevaluated today on 05/25/2018, having more symptoms of cough wheezing shortness of breath, his sputum came back positive for Pseudomonas and MRSA. Patient is covered with cefepime and vancomycin. I added Solu-Medrol today, patient clearly has more wheezing today compared to yesterday. Remains on bronchodilators, and he has been producing phlegm, mostly greenish in color. No fever no chills no hemoptysis no chest pain. Labs including CBC and basic metabolic profile renal profile were noted normal Objective - Vital Signs Vital signs: Vital Signs Temp 97.3 F L 05/25/18 12:21 Pulse 86 05/25/18 16:39 Resp 20 05/25/18 12:21 BP 130/84 05/25/18 12:21 Pulse Ox 96 05/25/18 16:28 Intake & Output 05/24/18 05/25/18 05/25/18 18:59 06:59 18:59 Intake Total 1100 1250 900 Output Total 700 Balance 1100 550 900 Intake: Intake, IV Titration 1100 1250 900 Amount Cefepime 2 gm In Sodium 100 Chloride 0.9% 100 ml @ 200 mls/hr IVPB Q12HR NIC Rx#:[id number] Cefepime 2 gm In Sodium 100 Chloride 0.9% 100 ml @ 200 mls/hr IVPB Q8HR NIC Rx#:[id number] Sodium Chloride 0.9% 1, 500 750 550 000 ml @ 100 mls/hr IV . Q10H NIC Rx#:[id number] Vancomycin 1,500 mg In 250 Sodium Chloride 0.9% 250 ml @ 125 mls/hr IVPB Q8H NIC Rx#:[id number] Vancomycin 1,750 mg In 500 500 Sodium Chloride 0.9% 500 ml 500 ml @ 167 mls/hr IVPB Q8H NIC Rx#: [id number] Output: Urine 700 Other: Voiding Method Urinal Urinal # Voids 1 - Exam Physical Exam: Revealed a 33-year-old -[place] male in no distress. Head: Atraumatic normocephalic. HEENT:[Neck is supple.] [No neck masses.] [No thyromegaly.] [No JVD.]chronic tracheostomy #6 Shiley is notedPERRLA, EOMI, no icterus Chest: [crackles or rhonchi and wheezes noted bilaterally more so on forced expiratory maneuver.] Cardiac Exam: [Normal S1 and S2, no S3 gallop, no murmur.] Abdomen: [Soft, nontender, no megaly, no rebound, no guarding, normal bowel sounds.] Extremities: [No clubbing, no edema, no cyanosis.] Neurological Exam: [No focal neurologic deficit.alert oriented 3, hard of hearing. Psychiatric: Normal mood, affect and mental status examination. In: No rashes.] - Labs CBC & Chem 7: 05/25/18 03:46 05/25/18 03:46 Labs: Abnormal Lab Results - Last 24 Hours (Table) 05/25/18 05/25/18 Range/Units 03:46 03:46 Hgb 12.2 L (13.0-17.5) gm/dL RDW 17.0 H (11.5-15.5) % Lymphocytes # 0.9 L (1.0-4.8) k/uL Creatinine 0.65 L (0.66-1.25) mg/dL Microbiology - Last 24 Hours (Table) 05/23/18 16:30 Gram Stain - Preliminary Sputum Sputum Culture - Preliminary Gram Neg Bacilli Presumptive Staph aureus Streptococcus pneumoniae 05/23/18 15:10 Blood Culture - Preliminary Blood No Growth after 24 hours Assessment and Plan Assessment: Impression: 1 acute and recurrent right lower lobe pneumonia most likely secondary to pseudomonas aeruginosa an MRSA. 2 severe tracheal malacia and chronic tracheostomy. 3 mild intermittent asthma with acute exacerbation, hence Solu-Medrol was added. 4 history of Rosai Parker disease., Patient gets his follow[facility] at the [facility]. 5 severe deafness, previous cochlear implant. 6 benign essential hypertension 7 GERD without esophagitis. Recommendation: continue bronchodilators, antibiotics including cefepime and vancomycin, steroids were added/Solu-Medrol.patient is experiencing more pulmonary issues today, he is not ready for any discharge planning, we'll continue to follow closely. Updated on his positive sputum for MRSA and pseudomonas aeruginosa.we'll continue to follow-up Time with Patient: Less than 30
--- NOTE | 2018-05-25 18:12 | PN ---
PROGRESS NOTE DATE OF SERVICE: 05/25/2018 This 33-year-old gentleman who was admitted with acute recurrent right lower lobe pneumonia also had previously pseudomonas and MRSA grown from the culture. Currently the patient is still having presumptive Staph aureus and Strep pneumoniae. The patient is on broad-spectrum IV antibiotics. The patient is also seen by Infectious Disease as well as Pulmonary. Past medical history reviewed. REVIEW OF SYSTEMS: CARDIOVASCULAR SYSTEM: No angina, palpitations. RESPIRATORY SYSTEM: As mentioned earlier. GI: No nausea, vomiting. : No dysuria or retention. NERVOUS SYSTEM: No numbness, weakness. CURRENT MEDICATIONS: Reviewed. They include: 1. Tylenol 650 q.6 p.r.n. 2. DuoNeb q.i.d. and p.r.n. 3. Cefepime 2 grams IV b.i.d. 4. Heparin 5000 units subcutaneously t.i.d. 5. Melatonin 5 mg at bedtime. 6. Solu-Medrol 40 IV q.8. 7. Lopressor 25 mg b.i.d. 8. Singulair 10 mg at bedtime. 9. Protonix 40 mg daily. 10.Vancomycin 1.5 q.8. PHYSICAL EXAMINATION: Patient is alert, oriented x3. Pulse is 80, blood pressure 130/84, respiration 20, temperature 97.3, pulse ox 96% on trach collar. HEENT: Conjunctivae normal. NECK: Tracheostomy. CARDIOVASCULAR SYSTEM: S1, S2 muffled. RESPIRATORY SYSTEM: Breath sounds diminished at the bases. Bilateral scattered rhonchi and crackles. ABDOMEN: Soft, non-tender. LEGS: No edema. No swelling. NERVOUS SYSTEM: No focal deficit. LABS: WBC 4.2, hemoglobin 12.2. ASSESSMENT: 1. Acute recurrent right lower lobe pneumonia with possible aspiration pneumonia. 2. History of previous pseudomonas and methicillin-resistant Staphylococcus aeruginosa, currently gram-negative bacilli, presumptive Staphylococcus aureus and Streptococcus pneumoniae from the sputum. 3. Severe tracheomalacia as well as permanent tracheostomy. 4. History of Rosai-Parker syndrome. 5. History of PICC line placement. 6. History of bronchial asthma. 7. History of atrial fibrillation. 8. History of chronic hypoxic respiratory failure. 9. Gastroesophageal reflux disease. 10.History hearing difficulties and deafness. 11.History of hypertension. 12.History of pneumonia. 13.Sleep apnea. 14.History of mastoidectomy and tympanoplasty. 15.History of anxiety. 16.History of nicotine dependence. RECOMMENDATIONS AND DISCUSSION: In this 33-year-old gentleman who presented with multiple complex medical issues, we will monitor the patient closely, continue the current medications, continue with symptomatic treatment. I would recommend continuation of the bronchodilators, broad- spectrum antibiotics, DVT prophylaxis. Continue steroids and Mucinex. Closely follow with Dr. Tariq. Prognosis guarded. Further recommendations to follow. MMODL / IJN: [id number] /
[2018-05-25] MEDS: MONTELUKAST 10 MG TAB PO SCH (21:05)
[2018-05-25] MEDS: guaiFENesin 600 MG TABLET.ER PO SCH (23:00)
[2018-05-25] MEDS: diphenhydrAMINE 25 MG CAP PO SCH (23:00)
[2018-05-26] MEDS: methylPREDNISolone SOD SUCCI 40 MG/ML 1 ML VIAL IV SCH ×4 (00:15→23:20)
[2018-05-26] MEDS: SODIUM CHLORIDE 0.9% 1,000 ML IV SCH ×2 (00:15→21:49)
[2018-05-26] MEDS: HEPARIN SODIUM,PORCINE 5,000 UNIT/ML 1 ML VIAL SQ SCH ×4 (00:16→23:33)
[2018-05-26] MEDS: VANCOMYCIN 1,500 MG in SODIUM CHLORIDE 0.9% 250 ML IVPB SCH ×3 (06:15→22:40)
[2018-05-26 07:40] LABS: Anisocytosis Slight; Basophils % (A) 0 %; Eosinophils # (A) 0.1 k/uL (0-0.7); Eosinophils % (A) 2 %; HCT 38.6 % (39.0-53.0); Hypochromasia Moderate; Lymphocytes # (A) 0.5 k/uL (1.0-4.8); Lymphocytes % (A) 7 %; MCH 27.7 pg (25.0-35.0); MCHC 31.1 g/dL (31.0-37.0); MCV 89.1 fL (80.0-100.0); Monocytes # (A) 0.2 k/uL (0-1.0); Monocytes % (A) 3 %; Neutrophils # (A) 6.2 k/uL (1.3-7.7); Neutrophils % (A) 88 %; Platelet Count 262 k/uL (150-450); RBC 4.34 m/uL (4.30-5.90); RDW 16.8 % (11.5-15.5); WBC 7.1 k/uL (3.8-10.6)
[2018-05-26 08:00] LABS: Anion Gap 6 mmol/L; Blood Urea Nitrogen 10 mg/dL (9-20); Calcium 9.5 mg/dL (8.4-10.2); Carbon Dioxide 26 mmol/L (22-30); Chloride 107 mmol/L (98-107); Glucose 157 mg/dL (74-99); Potassium 4.9 mmol/L (3.5-5.1); Sodium 139 mmol/L (137-145)
--- NOTE | 2018-05-26 08:09 | PN ---
PROGRESS NOTE DATE OF SERVICE: 05/25/2018. REASON FOR FOLLOWUP: Pneumonia. INTERVAL HISTORY: The patient is afebrile. His breathing has improved. The patient denies having any chest pain. He continues to have some cough. No nausea, vomiting. No abdominal pain. No diarrhea. PHYSICAL EXAMINATION: Blood pressure 155/95 with a pulse of 88, temperature 98.9. He is 95% on trach collar. General description is a middle-aged male lying in bed in no distress. Respiratory system: Unlabored breathing. Coarse breath sounds at the base bilaterally. Heart S1, S2. Regular rate and rhythm. Abdomen soft, no tenderness. LABS: Hemoglobin is 12.8, white count 4.2, BUN of 16, creatinine 0.65. Vanco trough slightly elevated. Sputum is showing a Streptococcus pneumoniae, Staph aureus with gram- negative bacilli. DIAGNOSTIC IMPRESSION AND PLAN: Patient admitted to the hospital with right lower lobe pneumonia in this patient who did have history of recurrent pneumonia with sputum culture now showing multiple pathogen. The patient is currently covered with cefepime and vancomycin to continue while waiting for the sensitivities to finalize as the patient did have shown clinical improvement. Continue supportive care. MMODL / IJN: [id number] /
[2018-05-26] MEDS: CEFEPIME 2 GM in SODIUM CHLORIDE 0.9% 100 ML IVPB SCH ×2 (08:50→21:48)
[2018-05-26] MEDS: PANTOPRAZOLE 40 MG TABLET PO SCH (08:50)
[2018-05-26] MEDS: guaiFENesin 600 MG TABLET.ER PO SCH ×2 (08:51→21:48)
[2018-05-26] MEDS: METOPROLOL TARTRATE 25 MG TAB PO SCH ×2 (08:51→21:48)
[2018-05-26] MEDS: ACETAMINOPHEN TAB 325 MG TAB PO PRN (09:04)
[2018-05-26] MEDS: IPRATROPIUM-ALBUTEROL 3 ML NEB INHALATION SCH ×4 (09:28→21:11)
--- NOTE | 2018-05-26 14:00 | P.PN ---
Subjective Progress Note Date: 05/26/18 Principal diagnosis: acute right lower lobe pneumonia secondary to pseudomonas aeruginosa and MRSA. This is a 33-year-old -[place] male with history of Rosai Parker syndrome, mild intermittent asthma, chronic tracheostomy, cochlear implant, recurrent episodes of pneumonia secondary to pseudomonas or MRSA or both, severe tracheomalacia, previous endobronchial stent placement which was unsuccessful, multiple attempts in the past 2D cannulated the patient failed because the patient developed tracheal collapse. Patient was admitted this time mostly with a few days' history of cough which is productive with greenish phlegm, shortness of breath, wheezing, and some fever and chills. Chest x-ray questioned the right lower lobe pneumonia, however the findings seem to be in the right middle lobe and right lower lobe rather chronic. But considering his symptoms, it was felt that the patient may have pneumonia again, admitted, started on antibiotics as per infectious disease including vancomycin and cefepime. This consult was initiated. Presently the patient continues to cough , his cough is productive, greenish phlegm, again he has intermittent fever and chills, and shortness of breath. Denies any chest pain, denies any headache no blurred vision no dizziness, patient is deaf, and he has cochlear implants. Patient denies any nausea vomiting abdominal pain, no issues related to his tracheostomy. Denies any dysuria frequency or urgency. Labs on admission were noted to be basically normal including normal CBC, negative influenza screen, and a relatively normal electrolytes. Patient was reevaluated today on 05/25/2018, having more symptoms of cough wheezing shortness of breath, his sputum came back positive for Pseudomonas and MRSA. Patient is covered with cefepime and vancomycin. I added Solu-Medrol today, patient clearly has more wheezing today compared to yesterday. Remains on bronchodilators, and he has been producing phlegm, mostly greenish in color. No fever no chills no hemoptysis no chest pain. Labs including CBC and basic metabolic profile renal profile were noted normal Reevaluated today on 05/26/2018, patient continues to have intermittent episodes of cough wheezing shortness of breath.however no fever no chills, remains on trach collar, 28%, his O2 saturation is in the 98% range. Vital signs are relatively stable.CBC today was noted to be relatively normal, no leukocytosis. Basic metabolic profile is normal. Objective - Vital Signs Vital signs: Vital Signs Temp 97.9 F 05/26/18 04:39 Pulse 90 05/26/18 09:43 Resp 18 05/26/18 04:39 BP 140/79 05/26/18 04:39 Pulse Ox 98 05/26/18 04:39 Intake & Output 05/25/18 05/26/18 05/26/18 18:59 06:59 18:59 Intake Total 900 1300 Output Total 380 900 400 Balance 520 400 -400 Intake: Intake, IV Titration 900 850 Amount Cefepime 2 gm In Sodium 100 100 Chloride 0.9% 100 ml @ 200 mls/hr IVPB Q12HR NIC Rx#:[id number] Sodium Chloride 0.9% 1, 550 500 000 ml @ 100 mls/hr IV . Q10H NIC Rx#:[id number] Vancomycin 1,500 mg In 250 250 Sodium Chloride 0.9% 250 ml @ 125 mls/hr IVPB Q8H NIC Rx#:[id number] Oral 450 Output: Urine 380 900 400 Other: Voiding Method Urinal Urinal # Voids 1 2 - Exam Physical Exam: Revealed a 33-year-old -[place] male in no distress.hard of hearing. Head: Atraumatic normocephalic. HEENT:[Neck is supple.] [No neck masses.] [No thyromegaly.] [No JVD.]chronic tracheostomy #6 Shiley is notedPERRLA, EOMI, no icterus Chest: [diffuse rhonchi and wheezes noted bilaterally..] Cardiac Exam: [Normal S1 and S2, no S3 gallop, no murmur.] Abdomen: [Soft, nontender, no megaly, no rebound, no guarding, normal bowel sounds.] Extremities: [No clubbing, no edema, no cyanosis.] Neurological Exam: [No focal neurologic deficit.alert oriented 3, hard of hearing. Psychiatric: Normal mood, affect and mental status examination. In: No rashes.] - Labs CBC & Chem 7: 05/26/18 07:17 05/26/18 07:17 Labs: Abnormal Lab Results - Last 24 Hours (Table) 05/26/18 05/26/18 Range/Units 07:17 07:17 Hgb 12.0 L (13.0-17.5) gm/dL Hct 38.6 L (39.0-53.0) % RDW 16.8 H (11.5-15.5) % Lymphocytes # 0.5 L (1.0-4.8) k/uL Creatinine 0.62 L (0.66-1.25) mg/dL Glucose 157 H (74-99) mg/dL Microbiology - Last 24 Hours (Table) 05/23/18 16:30 Gram Stain - Final Sputum Sputum Culture - Final Pseudomonas aeruginosa Pseudomonas aeruginosa#2 Methicillin resist S. aureus Streptococcus pneumoniae 05/23/18 15:10 Blood Culture - Preliminary Blood No Growth after 48 hours Assessment and Plan Assessment: Impression: 1 acute and recurrent right lower lobe pneumonia most likely secondary to pseudomonas aeruginosa an MRSA. 2 severe tracheo- malacia and chronic tracheostomy. 3 mild intermittent asthma with acute exacerbation, hence Solu-Medrol was added. 4 history of Rosai Parker disease., Patient gets his follow[facility]up at the [facility]. 5 severe deafness, previous cochlear implant. 6 benign essential hypertension 7 GERD without esophagitis. Recommendation: continue bronchodilators, antibiotics including cefepime and vancomycin, Solu-Medrol.not ready for any discharge planning at this point, we' ll continue to follow. Time with Patient: Less than 30
--- NOTE | 2018-05-26 19:34 | PN ---
PROGRESS NOTE DATE OF SERVICE: 05/26/2018 This 33-year-old gentleman who was admitted with acute recurrent right lower lobe pneumonia has been closely monitored. Patient had multiple organisms grown from the culture. No chest pain. No palpitations. The patient is on IV antibiotics. EXAM: Alert and oriented x3. The pulse is 92, blood pressure 144/83, respiration 16, temperature 98.2, pulse ox 97 percent on 6-L nasal HEENT: Conjunctivae normal. CARDIOVASCULAR: S1, S2 muffled. RESPIRATORY: Breath sounds diminished in the bases. Bilateral scattered rhonchi. No crackles. ABDOMEN: Soft. NERVOUS SYSTEM: No focal deficits. LABS: The cultures are growing Pseudomonas aeruginosa 1 of 2, MRSA and strep pneumoniae. ASSESSMENT: 1. Acute recurrent right lower lobe pneumonia with possible aspiration pneumonia. 2. Pseudomonas aeruginosa 1 in 2, MRSA and strep pneumoniae from the cultures. 3. History of previous Pseudomonas and MRSA pneumonia. 4. Severe tracheomalacia as well as permanent tracheostomy. 5. History of syndrome. 6. History of PICC line placement. 7. History of bronchial asthma. 8. History of atrial fibrillation. 9. History of chronic hypoxic respiratory failure. 10.History of gastroesophageal reflux disease. 11.History of deafness and difficulty hearing. 12.Hypertension. 13.History of pneumonia. 14.History of sleep apnea. 15.History of mastoidectomy. 17.History of anxiety. 18.History of nicotine dependence. RECOMMENDATIONS AND DISCUSSION: I recommend to continue current management, continue monitoring and symptomatic treatment. Otherwise at this time I recommend continue with the current medication. Continue with the antibiotics. Closely follow with multiple consultants. Guarded prognosis. Further recommendations to follow. MMODL / IJN: [id number] / [facility]PITALAbby
[2018-05-26] MEDS ORDERED: VANCOMYCIN TROUGH DUE 1 EACH MISC MISCELLANE ONE (21:00)
[2018-05-26] MEDS: MONTELUKAST 10 MG TAB PO SCH (21:48)
[2018-05-26] MEDS: HYDROcodone/APAP 5-325MG 1 EACH TAB PO PRN (21:48)
[2018-05-26] MEDS ORDERED: VANCOMYCIN 1,750 MG in SODIUM CHLORIDE 0.9% 250 ML IVPB SCH (23:00)
[2018-05-26] MEDS: IPRATROPIUM-ALBUTEROL 3 ML NEB INHALATION PRN (23:19)
[2018-05-26] MEDS: diphenhydrAMINE 25 MG CAP PO SCH (23:20)
[2018-05-26] MEDS: VANCOMYCIN 1,750 MG in SODIUM CHLORIDE 0.9% 500 ML IVPB SCH (23:20)
[2018-05-27] MEDS: SODIUM CHLORIDE 0.9% 1,000 ML IV SCH ×3 (04:24→21:21)
[2018-05-27] MEDS: IPRATROPIUM-ALBUTEROL 3 ML NEB INHALATION SCH ×4 (05:19→21:04)
[2018-05-27] MEDS: VANCOMYCIN 1,750 MG in SODIUM CHLORIDE 0.9% 500 ML IVPB SCH ×3 (07:08→23:27)
[2018-05-27] MEDS: PANTOPRAZOLE 40 MG TABLET PO SCH (07:08)
[2018-05-27] MEDS: HEPARIN SODIUM,PORCINE 5,000 UNIT/ML 1 ML VIAL SQ SCH ×2 (07:08→15:03)
[2018-05-27 07:52] LABS: Anisocytosis Slight; Basophils % (A) 0 %; Eosinophils # (A) 0.1 k/uL (0-0.7); Eosinophils % (A) 1 %; HCT 37.7 % (39.0-53.0); HGB 11.6 gm/dL (13.0-17.5); Hypochromasia Moderate; Lymphocytes # (A) 0.6 k/uL (1.0-4.8); Lymphocytes % (A) 6 %; MCH 27.7 pg (25.0-35.0); MCHC 30.8 g/dL (31.0-37.0); MCV 90.1 fL (80.0-100.0); Mean Platelet Volume 7.9; Monocytes # (A) 0.4 k/uL (0-1.0); Monocytes % (A) 4 %; Neutrophils # (A) 9.3 k/uL (1.3-7.7); Neutrophils % (A) 89 %; Platelet Count 269 k/uL (150-450); RBC 4.18 m/uL (4.30-5.90); WBC 10.5 k/uL (3.8-10.6)
[2018-05-27 08:13] LABS: Anion Gap 6 mmol/L; Blood Urea Nitrogen 13 mg/dL (9-20); Calcium 9.4 mg/dL (8.4-10.2); Carbon Dioxide 26 mmol/L (22-30); Chloride 108 mmol/L (98-107); Glucose 163 mg/dL (74-99); Sodium 140 mmol/L (137-145)
[2018-05-27] MEDS: METOPROLOL TARTRATE 25 MG TAB PO SCH ×2 (09:36→21:20)
[2018-05-27] MEDS: HYDROcodone/APAP 5-325MG 1 EACH TAB PO PRN ×2 (09:36→21:20)
[2018-05-27] MEDS: guaiFENesin 600 MG TABLET.ER PO SCH ×2 (09:36→21:20)
[2018-05-27] MEDS: methylPREDNISolone SOD SUCCI 40 MG/ML 1 ML VIAL IV SCH ×2 (09:37→15:03)
--- NOTE | 2018-05-27 10:26 | PN ---
PROGRESS NOTE DATE OF SERVICE: 05/27/2018. REASON FOR FOLLOWUP: Pneumonia. INTERVAL HISTORY: The patient is currently afebrile. He has been breathing comfortably. Denies having any chest pain. Did have some cough. No nausea, vomiting. No abdominal pain, no diarrhea. PHYSICAL EXAMINATION: Blood pressure is 144/85 with a pulse of 90, temperature 98, he is 96% on trach collar. GENERAL DESCRIPTION: A middle-aged male up in the bed in no distress. RESPIRATORY SYSTEM: Unlabored breathing. Coarse breath sounds at the bases. HEART: S1, S2. Regular rate and rhythm. ABDOMEN: Soft, no tenderness. LABS: Hemoglobin is 11.1, hematocrit 35, BUN of 13, creatinine 0.68. Sputum has been finalized with multiple bacteria including Pseudomonas, MRSA and strep pneumo. DIAGNOSTIC IMPRESSION AND PLAN: Patient with left lower lobe pneumonia in this patient who does have a trach with specimen growing multiple pathogen, possible component of colonization needs to be ruled out as well. We will repeat a chest x-ray. The patient is showing overall improvement. Hopefully finish therapy with combination of oral Cipro and Zyvox. Withhold adding PICC line. Continue supportive care. MMODL / IJN: [id number] /
[2018-05-27] MEDS: CEFEPIME 2 GM in SODIUM CHLORIDE 0.9% 100 ML IVPB SCH ×3 (11:52→21:52)
--- NOTE | 2018-05-27 13:15 | P.PN ---
Subjective Progress Note Date: 05/27/18 Principal diagnosis: acute right lower lobe pneumonia secondary to pseudomonas aeruginosa and MRSA. This is a 33-year-old -[place] male with history of Rosai Parker syndrome, mild intermittent asthma, chronic tracheostomy, cochlear implant, recurrent episodes of pneumonia secondary to pseudomonas or MRSA or both, severe tracheomalacia, previous endobronchial stent placement which was unsuccessful, multiple attempts in the past 2D cannulated the patient failed because the patient developed tracheal collapse. Patient was admitted this time mostly with a few days' history of cough which is productive with greenish phlegm, shortness of breath, wheezing, and some fever and chills. Chest x-ray questioned the right lower lobe pneumonia, however the findings seem to be in the right middle lobe and right lower lobe rather chronic. But considering his symptoms, it was felt that the patient may have pneumonia again, admitted, started on antibiotics as per infectious disease including vancomycin and cefepime. This consult was initiated. Presently the patient continues to cough , his cough is productive, greenish phlegm, again he has intermittent fever and chills, and shortness of breath. Denies any chest pain, denies any headache no blurred vision no dizziness, patient is deaf, and he has cochlear implants. Patient denies any nausea vomiting abdominal pain, no issues related to his tracheostomy. Denies any dysuria frequency or urgency. Labs on admission were noted to be basically normal including normal CBC, negative influenza screen, and a relatively normal electrolytes. Patient was reevaluated today on 05/25/2018, having more symptoms of cough wheezing shortness of breath, his sputum came back positive for Pseudomonas and MRSA. Patient is covered with cefepime and vancomycin. I added Solu-Medrol today, patient clearly has more wheezing today compared to yesterday. Remains on bronchodilators, and he has been producing phlegm, mostly greenish in color. No fever no chills no hemoptysis no chest pain. Labs including CBC and basic metabolic profile renal profile were noted normal Reevaluated today on 05/26/2018, patient continues to have intermittent episodes of cough wheezing shortness of breath.however no fever no chills, remains on trach collar, 28%, his O2 saturation is in the 98% range. Vital signs are relatively stable.CBC today was noted to be relatively normal, no leukocytosis. Basic metabolic profile is normal. Patient was reevaluated today on 05/27/2018, feeling better but intermittent episodes of cough and wheezing are present, but overall definite improvement compared to the last few days.patient remains on antibiotics for what seems to be a mixed polymicrobial infection including Pseudomonas, MRSA, streptococcus pneumonia. Vancomycin is clearly covering the MRSA and covering for Streptococcus pneumonia, and the cefepime is clearly covering the pseudomonas infection.these were noted in the sputum, blood cultures are negative.labs today were reviewed including CBC which was normal, and basic metabolic profile was also normal. Objective - Vital Signs Vital signs: Vital Signs Temp 98.6 F 05/27/18 09:30 Pulse 85 05/27/18 10:53 Resp 18 05/27/18 09:30 BP 143/90 05/27/18 09:30 Pulse Ox 99 05/27/18 09:30 Intake & Output 05/26/18 05/27/18 05/27/18 18:59 06:59 18:59 Intake Total 950 1500 Output Total 400 1000 Balance 550 500 Intake: Intake, IV Titration 350 1000 Amount Cefepime 2 gm In Sodium 100 100 Chloride 0.9% 100 ml @ 200 mls/hr IVPB Q12HR NIC Rx#:[id number] Sodium Chloride 0.9% 1, 400 000 ml @ 100 mls/hr IV . Q10H NIC Rx#:[id number] Vancomycin 1,500 mg In 250 Sodium Chloride 0.9% 250 ml @ 125 mls/hr IVPB Q8H NIC Rx#:[id number] Vancomycin 1,750 mg In 500 Sodium Chloride 0.9% 500 ml @ 125 mls/hr IVPB Q8H NIC Rx#:[id number] Oral 600 500 Output: Urine 400 1000 Other: Voiding Method Urinal Urinal Urinal # Voids 2 2 - Exam Physical Exam: Revealed a 33-year-old -[place] male in no distress.on trach collar, O2 saturation is 99% Head: Atraumatic normocephalic. HEENT:[Neck is supple.] [No neck masses.] [No thyromegaly.] [No JVD.]chronic tracheostomy is intact. Chest: [diminished breath sounds at the bases, minimal crackles at the right base, minimal wheezing on forced expiratory maneuver noted..] Cardiac Exam: [Normal S1 and S2, no S3 gallop, no murmur.] Abdomen: [Soft, nontender, no megaly, no rebound, no guarding, normal bowel sounds.] Extremities: [No clubbing, no edema, no cyanosis.] Neurological Exam: [No focal neurologic deficit.alert oriented 3, hard of hearing. Psychiatric: Normal mood, affect and mental status examination. In: No rashes.] - Labs CBC & Chem 7: 05/27/18 07:27 05/27/18 07:27 Labs: Abnormal Lab Results - Last 24 Hours (Table) 05/27/18 05/27/18 Range/Units 07:27 07:27 RBC 4.18 L (4.30-5.90) m/uL Hgb 11.6 L (13.0-17.5) gm/dL Hct 37.7 L (39.0-53.0) % MCHC 30.8 L (31.0-37.0) g/dL RDW 17.0 H (11.5-15.5) % Neutrophils # 9.3 H (1.3-7.7) k/uL Lymphocytes # 0.6 L (1.0-4.8) k/uL Chloride 108 H (98-107) mmol/L Glucose 163 H (74-99) mg/dL Microbiology - Last 24 Hours (Table) 05/23/18 15:10 Blood Culture - Preliminary Blood No Growth after 72 hours 05/23/18 16:30 Gram Stain - Final Sputum Sputum Culture - Final Pseudomonas aeruginosa Pseudomonas aeruginosa#2 Methicillin resist S. aureus Streptococcus pneumoniae Assessment and Plan Assessment: Impression: 1 acute and recurrent right lower lobe pneumonia most likely secondary to pseudomonas aeruginosa a, MRSA.and Streptococcus pneumonia./polymicrobial pneumonia 2 severe tracheo- malacia and chronic tracheostomy. 3 mild intermittent asthma with acute exacerbation, hence Solu-Medrol was added. 4 history of Rosai Parker disease., Patient gets his follow-up at the [facility]. 5 severe deafness, previous cochlear implant. 6 benign essential hypertension 7 GERD without esophagitis. Recommendation: reviewed the cultures and the sensitivities, patient seems to be on proper antibiotics at present, he is on proper bronchodilators, he is also on steroids, clearly there is some improvement noted over the last 2 days, I plan to continue the same treatment plan, patient was advised to get out of bed and ambulate, continue GI and DVT prophylaxis, continue bronchodilators, repeat chest x-ray in a.m., not quite ready for discharge planning considering the polymicrobial nature of his infection and the sensitivities which were noted. Unless the patient will need to be given outpatient IV antibiotics if felt appropriate by infectious disease on the case. We'll continue to follow. Time with Patient: Less than 30
--- NOTE | 2018-05-27 17:23 | PN ---
PROGRESS NOTE DATE OF SERVICE: 05/27/2018 This 33-year-old gentleman who was admitted with acute recurrent right lower pneumonia also had possible aspiration pneumonia. The patient has been closely monitored. No chest pain. No palpitations. Multiple consultants are following the patient closely. No fever, no cough. EXAM: Alert and oriented x3. Pulse 79, blood pressure 147/81, respiration 16, temperature 97.7, pulse ox 98 percent trach collar. HEENT: Conjunctivae normal. Neck is tracheostomy. CARDIOVASCULAR: S1, S2. RESPIRATORY: Breath sounds diminished in the bases. Bilateral scattered rhonchi. ABDOMEN: Soft, nontender. LEGS: No edema. NERVOUS SYSTEM: No focal deficits. LAB STUDIES: WBC 10, hemoglobin 11.6. ASSESSMENT: 1. Acute recurrent right lower lobe pneumonia with possible aspiration pneumonia. 2. Pseudomonas aeruginosa 1 in 2 and MRSA and Strep pneumonia from the cultures. 3. History of previous Pseudomonas and MRSA pneumonia. 4. Severe tracheomalacia, status post permanent tracheostomy. 5. History of Rosai-Parker syndrome. 6. History of PICC line placement. 7. History of bronchial asthma. 8. History of atrial fibrillation. 9. History of chronic hypoxic respiratory failure. 10.History of gastroesophageal reflux disease. 11.History of deafness, difficulty hearing. 12.Hypertension. 13.History of pneumonia. 14.History of sleep apnea. 15.Mastoidectomy. 16.History of anxiety. 17.History of nicotine dependence. RECOMMENDATIONS AND DISCUSSION: I recommend to continue current management, monitoring and symptomatic treatment. Otherwise at this time I recommend continue the antibiotics. Closely monitor. Bronchodilators. Closely follow with Pulmonary. Guarded prognosis. Further recommendations to follow. MMODL / IJN: [id number] /
[2018-05-27] MEDS: MONTELUKAST 10 MG TAB PO SCH (21:20)
--- NOTE | 2018-05-27 22:47 | PN ---
PROGRESS NOTE DATE OF SERVICE: 05/27/2018. REASON FOR FOLLOWUP: Pneumonia. INTERVAL HISTORY: The patient is currently afebrile. He is breathing slightly comfortably. Some pain to the left lower chest area, but no worsening. He did have some cough and bringing up sputum. No hemoptysis. No nausea, vomiting and no diarrhea. PHYSICAL EXAMINATION: Blood pressure is 147/81 with a pulse of 79, temperature is 99.7, he is 99% on trach collar. GENERAL DESCRIPTION: A middle-aged male lying in bed in no distress. HEENT: Pallor. LUNGS: Unlabored breathing. Clear to auscultation anteriorly. HEART: S1, S2. Regular rate and rhythm. ABDOMEN: Soft, no tenderness. EXTREMITIES: No edema of the feet. LABS: Hemoglobin 11.6, white count 10.5, BUN of 13, creatinine 0.68. Sputum showing multiple pathogens. DIAGNOSTIC IMPRESSION AND PLAN: Patient with left lower lobe pneumonia. Patient currently on cefepime and vancomycin to cover for both pathogen. Will continued for now and repeat chest x-ray tomorrow. Plan for likely oral antibiotic on discharge. Continue supportive care. MMODL / IJN: [id number] /
[2018-05-27] MEDS: diphenhydrAMINE 25 MG CAP PO SCH (23:27)
[2018-05-28] MEDS: HEPARIN SODIUM,PORCINE 5,000 UNIT/ML 1 ML VIAL SQ SCH ×4 (00:09→23:08)
[2018-05-28] MEDS: methylPREDNISolone SOD SUCCI 40 MG/ML 1 ML VIAL IV SCH ×4 (00:09→23:08)
[2018-05-28] MEDS ORDERED: VANCOMYCIN TROUGH DUE 1 EACH MISC MISCELLANE ONE (06:00)
[2018-05-28] MEDS: IPRATROPIUM-ALBUTEROL 3 ML NEB INHALATION SCH ×4 (07:58→19:49)
[2018-05-28] MEDS: PANTOPRAZOLE 40 MG TABLET PO SCH (08:12)
[2018-05-28] MEDS: guaiFENesin 600 MG TABLET.ER PO SCH ×2 (08:12→20:51)
[2018-05-28] MEDS: METOPROLOL TARTRATE 25 MG TAB PO SCH ×2 (08:13→20:52)
[2018-05-28] MEDS: SODIUM CHLORIDE 0.9% 1,000 ML IV SCH ×2 (08:14→14:48)
[2018-05-28] MEDS: HYDROcodone/APAP 5-325MG 1 EACH TAB PO PRN ×3 (08:25→20:53)
[2018-05-28] MEDS: VANCOMYCIN 1,750 MG in SODIUM CHLORIDE 0.9% 500 ML IVPB SCH ×2 (08:27→16:22)
--- NOTE | 2018-05-28 08:29 | XR ---
EXAMINATION TYPE: XR chest 1V portable DATE OF EXAM: 05/28/2018 COMPARISON: 05/24/2018 HISTORY: Abnormal x-ray, pneumonia TECHNIQUE: Single frontal view of the chest is obtained. FINDINGS: Tracheostomy tube seen and there is bilateral consolidation small effusion. No overt failu re. Some stable. Prominence the upper mediastinum may reflect patient positioning. Other etiologies n ot excluded. IMPRESSION: Stable bilateral consolidation and small effusion or pleural thickening unchanged from t he prior exam.
[2018-05-28 09:12] LABS: Anisocytosis Slight; Basophils % (A) 0 %; Eosinophils # (A) 0.2 k/uL (0-0.7); Eosinophils % (A) 2 %; HCT 40.8 % (39.0-53.0); HGB 12.4 gm/dL (13.0-17.5); Hypochromasia Marked; Lymphocytes # (A) 0.7 k/uL (1.0-4.8); Lymphocytes % (A) 7 %; MCH 27.4 pg (25.0-35.0); MCHC 30.4 g/dL (31.0-37.0); MCV 89.9 fL (80.0-100.0); Mean Platelet Volume 7.9; Monocytes # (A) 0.4 k/uL (0-1.0); Monocytes % (A) 4 %; Neutrophils # (A) 8.9 k/uL (1.3-7.7); Neutrophils % (A) 87 %; Platelet Count 303 k/uL (150-450); RBC 4.53 m/uL (4.30-5.90); WBC 10.2 k/uL (3.8-10.6)
[2018-05-28 09:35] LABS: Anion Gap 10 mmol/L; Blood Urea Nitrogen 17 mg/dL (9-20); Calcium 9.6 mg/dL (8.4-10.2); Carbon Dioxide 26 mmol/L (22-30); Chloride 104 mmol/L (98-107); Glucose 164 mg/dL (74-99); Potassium 4.9 mmol/L (3.5-5.1); Sodium 140 mmol/L (137-145)
[2018-05-28] MEDS: CEFEPIME 2 GM in SODIUM CHLORIDE 0.9% 100 ML IVPB SCH ×2 (11:52→20:52)
[2018-05-28] MEDS: ACETYLCYSTEINE 800 MG/4 ML VIAL INHALATION SCH ×2 (11:56→19:48)
--- NOTE | 2018-05-28 13:57 | P.PN ---
Subjective Progress Note Date: 05/28/18 Principal diagnosis: Acute right lower lobe pneumonia secondary to pseudomonas aeruginosa and MRSA This is a 33-year-old -[place]ub[place] male with history of Rosai Parker syndrome, mild intermittent asthma, chronic tracheostomy, cochlear implant, recurrent episodes of pneumonia secondary to pseudomonas or MRSA or both, severe tracheomalacia, previous endobronchial stent placement which was unsuccessful, multiple attempts in the past 2D cannulated the patient failed because the patient developed tracheal collapse. Patient was admitted this time mostly with a few days' history of cough which is productive with greenish phlegm, shortness of breath, wheezing, and some fever and chills. Chest x-ray questioned the right lower lobe pneumonia, however the findings seem to be in the right middle lobe and right lower lobe rather chronic. But considering his symptoms, it was felt that the patient may have pneumonia again, admitted, started on antibiotics as per infectious disease including vancomycin and cefepime. This consult was initiated. Presently the patient continues to cough , his cough is productive, greenish phlegm, again he has intermittent fever and chills, and shortness of breath. Denies any chest pain, denies any headache no blurred vision no dizziness, patient is deaf, and he has cochlear implants. Patient denies any nausea vomiting abdominal pain, no issues related to his tracheostomy. Denies any dysuria frequency or urgency. Labs on admission were noted to be basically normal including normal CBC, negative influenza screen, and a relatively normal electrolytes. Patient was reevaluated today on 05/25/2018, having more symptoms of cough wheezing shortness of breath, his sputum came back positive for Pseudomonas and MRSA. Patient is covered with cefepime and vancomycin. I added Solu-Medrol today, patient clearly has more wheezing today compared to yesterday. Remains on bronchodilators, and he has been producing phlegm, mostly greenish in color. No fever no chills no hemoptysis no chest pain. Labs including CBC and basic metabolic profile renal profile were noted normal Reevaluated today on 05/26/2018, patient continues to have intermittent episodes of cough wheezing shortness of breath.however no fever no chills, remains on trach collar, 28%, his O2 saturation is in the 98% range. Vital signs are relatively stable.CBC today was noted to be relatively normal, no leukocytosis. Basic metabolic profile is normal. Patient was reevaluated today on 05/27/2018, feeling better but intermittent episodes of cough and wheezing are present, but overall definite improvement compared to the last few days.patient remains on antibiotics for what seems to be a mixed polymicrobial infection including Pseudomonas, MRSA, streptococcus pneumonia. Vancomycin is clearly covering the MRSA and covering for Streptococcus pneumonia, and the cefepime is clearly covering the pseudomonas infection.these were noted in the sputum, blood cultures are negative.labs today were reviewed including CBC which was normal, and basic metabolic profile was also normal. On 05/28/2018 patient seen in follow-up on medical surgical floor. Lung sounds are diminished, with expiratory wheezes, and patient is bringing up meraz colored sputum, which is blood-tinged. Sat is 99% on 28% trach collar, no fever or chills. Hemodynamic patient is stable, today's labs have been reviewed, a white blood cell count is 10.2, hemoglobin is 12.4, electro lites and renal profile are within normal limits, patient is on a combination of cefepime and vancomycin, patient had asked for Mucomyst nebulized treatments in view of difficulty with mobilizing his secretions and expectoration. Sputum culture was positive for pseudomonas aeruginosa, MRSA, and Streptococcus pneumonia. ID service is following, patient may need the MediPort placed, he had previously had a PICC line put in which had subsequently became plugged, had been discontinued since. Objective - Vital Signs Vital signs: Vital Signs Temp 97.8 F 05/28/18 11:59 Pulse 73 05/28/18 12:14 Resp 18 05/28/18 11:59 BP 146/88 05/28/18 11:59 Pulse Ox 99 05/28/18 11:59 Intake & Output 05/27/18 05/28/18 05/28/18 18:59 06:59 18:59 Intake Total 1600 2770 Output Total 700 475 Balance 900 2295 Intake: Intake, IV Titration 1000 1100 Amount Cefepime 2 gm In Sodium 100 100 Chloride 0.9% 100 ml @ 200 mls/hr IVPB Q12H NIC Rx#:[id number] Sodium Chloride 0.9% 1, 400 500 000 ml @ 100 mls/hr IV . Q10H NIC Rx#:[id number] Vancomycin 1,750 mg In 500 500 Sodium Chloride 0.9% 500 ml @ 166.667 mls/hr IVPB Q8H NIC Rx#:[id number] Oral 600 1670 Output: Urine 700 475 Other: Voiding Method Urinal Urinal Urinal # Voids 2 2 - Exam GENERAL EXAM: Alert, present, 33-year-old of -[place]ub[place] male, with a tracheostomy in place, 28% trach collar comfortable in no apparent distress. Patient is deaf, he does not have his hearing aid on, has a history of cochlear implant HEAD: Normocephalic/atraumatic. EYES: Normal reaction of pupils, equal size. Conjunctiva pink, sclera white. NOSE: Clear with pink turbinates. THROAT: No erythema or exudates. NECK: No masses, no JVD, no thyroid enlargement, no adenopathy. CHEST: No chest wall deformity. Symmetrical expansion. LUNGS: Breath sounds, with end expiratory wheezes CVS: Regular rate and rhythm, normal S1 and S2, no gallops, no murmurs, no rubs ABDOMEN: Soft, nontender. No hepatosplenomegaly, normal bowel sounds, no guarding or rigidity. EXTREMITIES: No clubbing, no edema, no cyanosis, 2+ pulses and upper and lower extremities. MUSCULOSKELETAL: Muscle strength and tone normal. SPINE: No scoliosis or deformity SKIN: No rashes CENTRAL NERVOUS SYSTEM: Alert and oriented -3. No focal deficits, tone is normal in all 4 extremities. PSYCHIATRIC: Alert and oriented -3. Appropriate affect. Intact judgment and insight. - Labs CBC & Chem 7: 05/28/18 08:42 05/28/18 08:42 Labs: Abnormal Lab Results - Last 24 Hours (Table) 05/28/18 05/28/18 Range/Units 08:42 08:42 Hgb 12.4 L (13.0-17.5) gm/dL MCHC 30.4 L (31.0-37.0) g/dL RDW 17.0 H (11.5-15.5) % Neutrophils # 8.9 H (1.3-7.7) k/uL Lymphocytes # 0.7 L (1.0-4.8) k/uL Glucose 164 H (74-99) mg/dL Microbiology - Last 24 Hours (Table) 05/23/18 16:30 Gram Stain - Final Sputum Sputum Culture - Final Pseudomonas aeruginosa Pseudomonas aeruginosa#2 Methicillin resist S. aureus Streptococcus pneumoniae 05/23/18 15:10 Blood Culture - Preliminary Blood No Growth after 96 hours Assessment and Plan Plan: Assessment: 1 acute and recurrent right lower lobe pneumonia most likely secondary to pseudomonas aeruginosa a, MRSA.and Streptococcus pneumonia./polymicrobial pneumonia 2 severe tracheo- malacia and chronic tracheostomy. 3 mild intermittent asthma with acute exacerbation, hence Solu-Medrol was added. 4 history of Rosai Parker disease., Patient gets his follow-up at the [facility]. 5 severe deafness, previous cochlear implant. 6 benign essential hypertension 7 GERD without esophagitis. Plan: Continue with antibiotic coverage per ID service recommendation, we will add Mucomyst nebulized treatments to help the patient with the mobilization and expectoration of pulmonary secretions. Continue current dose of IV steroids, nebulized bronchodilators. We'll consult Dr. Thompson for placement of MediPort, patient had a previous PICC line day had become plugged, will need long-term IV access especially in view of recurrent hospitalizations. I performed a history & physical examination of the patient and discussed their management with my nurse practitioner, Trudy Jansen. I reviewed the nurse practitioner's note and agree with the documented findings and plan of care. Lung sounds are positive for expiratory wheezes. The findings and the impression was discussed with the patient. I attest to the documentation by the nurse practitioner. Time with Patient: Less than 30
--- NOTE | 2018-05-28 14:55 | P.GSCN ---
History of Present Illness Consult date: 05/28/18 Reason for Consult: mediport insertion Requesting physician: Earnest Mendoza History of present illness: CHIEF COMPLAINT: pneumonia, mediport insertion HISTORY OF PRESENT ILLNESS: 33-year-old -Lao male admitted hospital with pneumonia. Cultures positive for Pseudomonas aeruginosa, MRSA, and Streptococcus pneumoniae. General surgery was consulted for mediport placement. Patient has had PICC lines placed in the past. PAST MEDICAL HISTORY: See list. PAST SURGICAL HISTORY: See list. MEDICATIONS: See list. ALLERGIES: See list. SOCIAL HISTORY: No illicit drug use. REVIEW OF SYSTEMS: CONSTITUTIONAL: Denies fever or chills. HEENT: Denies blurred vision, vision changes, or eye pain. ENDOCRINE: Denies heat or cold intolerance. CARDIOVASCULAR: Denies chest pain or pressure. RESPIRATORY: No shortness of breath. GASTROINTESTINAL: Denies abdominal pain. Denies nausea or vomiting. NEURO: Denies history of seizures. PSYCH: No depression or suicidal ideation HEMATOLOGIC: Denies bleeding disorders. LYMPHATIC: The patient denies any lumps and bumps around the neck. GENITOURINARY: Denies any blood in urine or increased urinary frequency. MUSCULOSKELETAL: Denies myalgias. Denies joint swelling. Denies decreased range of motion beyond patients baseline. SKIN: Denies pruitis. Denies rash. PHYSICAL EXAM: VITAL SIGNS: Currently stable. GENERAL: Well-developed in no acute distress. HEENT: Trach intact. No sclera icterus. Extraocular movements grossly intact. Moist buccal mucosa. No nasal drainage. NECK: Supple without lymphadenopathy. CHEST: Non-labored respirations and equal bilateral excursions. CARDIOVASCULAR: Regular rate with regular rhythm. Palpable 2+ radial pulses. ABDOMEN: Soft. Nondistended. Tenderness upon palpation of all 4 quadrant, most severe in right lower quadrant MUSCULOSKELETAL: No clubbing, cyanosis or edema. NEUROLOGIC: No focal or lateralizing signs. Cranial nerves II through XII grossly intact. PSYCH: Appropriate affect. Alert and oriented to person, place and time. SKIN: Well perfused. Good skin turgor. ASSESSMENT: 1. Recurrent right lower lobe pneumonia, cultures positive for Pseudomonas aeruginosa, MRSA, and Streptococcus pneumoniae PLAN: 1. NPO after midnight 2. Patient will be evaluated this afternoon by Dr. Fuller who is covering for Dr. Thompson 2. Patient will be scheduled for mediport insertion tomorrow with Dr. Fuller ( or with Dr. Thompson if he is able to perform tomorrow) Nurse practitioner note has been reviewed by physician. Signing provider agrees with the documented findings, assessment, and plan of care. Past Medical History Past Medical History: Asthma, GERD/Reflux, Hearing Disorder / Deafness, Hypertension, Pneumonia, Sleep Apnea/CPAP/BIPAP Additional Past Medical History / Comment(s): Patient is deaf. He has had a cochlear implant using a bone anchored hearing aid and he has undergone previous mastoidectomy and tympanoplasty. 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 Patient has a permanent tracheostomy with a #6 Shiley, uses back brace for back pain History of Any Multi-Drug Resistant Organisms: MRSA Year Discovered:: 03/29/18 MDRO Source:: SPUTUM Past Surgical History: Ear Surgery, Tonsillectomy Additional Past Surgical History / Comment(s): Cochlear implant, PT STATED HE HAD THROAT TISSUE BIOPSIED AT [facility] pt stated it was normal . 09/19/14: Tracheostomy tube placement, sinus surgery Past Anesthesia/Blood Transfusion Reactions: Previous Problems w/ Anesthesia Additional Past Anesthesia/Blood Transfusion Reaction / Comm: PT STATED" WHILE UNDER AA HE BUT DID COME BACK" Smoking Status: Former smoker - Past Family History Son(s) Family Medical History: Asthma Father Family Medical History: Hypertension Mother Family Medical History: Hypertension Medications and Allergies Home Medications Medication Instructions Recorded Confirmed Type Metoprolol Tartrate [Lopressor] 25 mg PO BID #60 tab 04/04/18 05/23/18 Rx Allergies Allergy/AdvReac Type Severity Reaction Status Date / Time mold Allergy Unknown Verified 05/23/18 14:34 Penicillins Allergy Rash/Hives Verified 05/23/18 14:34 weed pollen Allergy Unknown Verified 05/23/18 14:34 Surgical - Exam Vital Signs Temp Pulse Resp BP Pulse Ox 98.0 F 102 H 20 162/97 92 L 05/23/18 14:32 05/23/18 14:32 05/23/18 14:32 05/23/18 14:32 05/23/18 14:32 Results - Labs 05/28/18 08:42 05/28/18 08:42 Abnormal Lab Results - Last 24 Hours (Table) 05/28/18 05/28/18 Range/Units 08:42 08:42 Hgb 12.4 L (13.0-17.5) gm/dL MCHC 30.4 L (31.0-37.0) g/dL RDW 17.0 H (11.5-15.5) % Neutrophils # 8.9 H (1.3-7.7) k/uL Lymphocytes # 0.7 L (1.0-4.8) k/uL Glucose 164 H (74-99) mg/dL Microbiology - Last 24 Hours (Table) 05/23/18 16:30 Gram Stain - Final Sputum Sputum Culture - Final Pseudomonas aeruginosa Pseudomonas aeruginosa#2 Methicillin resist S. aureus Streptococcus pneumoniae 05/23/18 15:10 Blood Culture - Preliminary Blood No Growth after 96 hours Diabetes panel 05/28/18 Range/Units 08:42 Sodium 140 (137-145) mmol/L Potassium 4.9 (3.5-5.1) mmol/L Chloride 104 (98-107) mmol/L Carbon Dioxide 26 (22-30) mmol/L BUN 17 (9-20) mg/dL Creatinine 0.68 (0.66-1.25) mg/dL Glucose 164 H (74-99) mg/dL Calcium 9.6 (8.4-10.2) mg/dL Calcium panel 05/28/18 Range/Units 08:42 Calcium 9.6 (8.4-10.2) mg/dL Pituitary panel 05/28/18 Range/Units 08:42 Sodium 140 (137-145) mmol/L Potassium 4.9 (3.5-5.1) mmol/L Chloride 104 (98-107) mmol/L Carbon Dioxide 26 (22-30) mmol/L BUN 17 (9-20) mg/dL Creatinine 0.68 (0.66-1.25) mg/dL Glucose 164 H (74-99) mg/dL Calcium 9.6 (8.4-10.2) mg/dL Adrenal panel 05/28/18 Range/Units 08:42 Sodium 140 (137-145) mmol/L Potassium 4.9 (3.5-5.1) mmol/L Chloride 104 (98-107) mmol/L Carbon Dioxide 26 (22-30) mmol/L BUN 17 (9-20) mg/dL Creatinine 0.68 (0.66-1.25) mg/dL Glucose 164 H (74-99) mg/dL Calcium 9.6 (8.4-10.2) mg/dL
--- NOTE | 2018-05-28 19:54 | PN ---
PROGRESS NOTE DATE OF SERVICE: 05/28/2018 This 33-year-old gentleman admitted with acute recurrent right lower pneumonia with possible aspiration pneumonia also had Pseudomonas 1 in 2, MRSA, Staph pneumonia grown from the culture. The patient is also being evaluated by Dr. Fuller for port placement per recommendation of Dr. Mendoza. No chest pain. No palpitations. No fever. Most recent chest x-ray done today which is personally reviewed by me showed stable bilateral consolidations also. EXAM: Alert and oriented x3. Pulse is 78, blood pressure 140/88, respiration 18, temperature 97.2, pulse ox 98% on trach collar. HEENT: Conjunctivae normal. NECK: Tracheostomy. CARDIOVASCULAR: S1, S2. RESPIRATORY: Breath sounds diminished in the bases. Bilateral scattered rhonchi and crackles. ABDOMEN: Soft. NERVOUS SYSTEM: No focal deficits. LABS: WBC 10.2, hemoglobin 12.4, sodium 140, potassium 4.9. ASSESSMENT: 1. Acute recurrent right lower lobe pneumonia with possible aspiration pneumonia. 2. Pseudomonas aeruginosa 1 in 2, MRSA and strep pneumonia from the cultures. 3. History of previous Pseudomonas and MRSA pneumonia. 4. History of tracheomalacia, status post permanent tracheostomy. 5. History of Rosai-Parker syndrome. 6. History of PICC line placement. 7. History of bronchial asthma. 8. History of atrial fibrillation. 9. History of chronic hypoxic respiratory failure. 10.Gastroesophageal reflux disease. 11.History of deafness, difficulty in hearing. 12.Hypertension. 13.History of pneumonia. 14.History of sleep apnea. 15.History of mastoidectomy. 16.History of anxiety. 17.History of nicotine dependence. RECOMMENDATIONS AND DISCUSSION: I recommend to continue current management, monitoring and symptomatic treatment. Otherwise at this time we will monitor the patient closely. Continue with current medications. Continue with bronchodilators. Closely follow with Dr. Mendoza. Otherwise I would also recommend port placement per Dr. Mendoza. Further recommendations to follow. MMODL / IJN: [id number] /
--- NOTE | 2018-05-28 20:26 | PN ---
PROGRESS NOTE DATE OF SERVICE: 05/28/2018. REASON FOR FOLLOWUP: Pneumonia. INTERVAL HISTORY: The patient is currently afebrile. He seemed to be breathing more comfortably. He did have some cough and bringing up some sputum. No chest pain. No abdominal pain and no diarrhea. PHYSICAL EXAMINATION: Blood pressure is 146/88 with a pulse of 78, temperature 97.8. She is 99% on trach collar. General description is a middle aged male up in the bed in no distress. RESPIRATORY SYSTEM: Unlabored breathing. Clear to auscultation anteriorly. HEART: S1, S2. Regular rate and rhythm. ABDOMEN: Soft, no tenderness. LABS: Hemoglobin 12.4, white count 10.2 with a BUN of 17, creatinine 0.68. The patient did have a chest x-ray, stable bilateral consolidation, small effusion, bilateral pleural thickening, unchanged from prior exam. DIAGNOSTIC IMPRESSION AND PLAN: Patient admitted to the hospital with pneumonia in this patient whose sputum did grow Pseudomonas, MRSA and Streptococcus pneumoniae. Will plan on getting oral Cipro and Zyvox for discharge to finish course of therapy. The patient is currently on cefepime and vancomycin. Will continue for now while watching his clinical course closely. Continue supportive care. MMODL / IJN: [id number] /
[2018-05-28] MEDS: diphenhydrAMINE 25 MG CAP PO SCH (20:51)
[2018-05-28] MEDS: MONTELUKAST 10 MG TAB PO SCH (20:51)
[2018-05-29] MEDS: VANCOMYCIN 1,750 MG in SODIUM CHLORIDE 0.9% 500 ML IVPB SCH ×3 (00:59→17:00)
[2018-05-29] MEDS: HYDROcodone/APAP 5-325MG 1 EACH TAB PO PRN ×3 (05:23→21:01)
[2018-05-29 05:53] LABS: Anisocytosis Slight; Basophils % (A) 0 %; Eosinophils # (A) 0.1 k/uL (0-0.7); Eosinophils % (A) 1 %; HCT 40.5 % (39.0-53.0); HGB 12.2 gm/dL (13.0-17.5); Hypochromasia Moderate; Lymphocytes # (A) 1.2 k/uL (1.0-4.8); Lymphocytes % (A) 12 %; MCH 27.2 pg (25.0-35.0); MCV 90.6 fL (80.0-100.0); Mean Platelet Volume 7.6; Monocytes # (A) 0.7 k/uL (0-1.0); Monocytes % (A) 7 %; Neutrophils # (A) 7.7 k/uL (1.3-7.7); Neutrophils % (A) 77 %; Platelet Count 279 k/uL (150-450); RBC 4.48 m/uL (4.30-5.90)
[2018-05-29] MEDS ORDERED: VANCOMYCIN TROUGH DUE 1 EACH MISC MISCELLANE ONE (06:00)
[2018-05-29 06:08] LABS: Anion Gap 7 mmol/L; Blood Urea Nitrogen 21 mg/dL (9-20); Carbon Dioxide 26 mmol/L (22-30); Chloride 107 mmol/L (98-107); Glucose 120 mg/dL (74-99); Potassium 4.3 mmol/L (3.5-5.1); Sodium 140 mmol/L (137-145)
[2018-05-29] MEDS: SODIUM CHLORIDE 0.9% 1,000 ML IV SCH ×2 (07:09→15:08)
[2018-05-29] MEDS: PANTOPRAZOLE 40 MG TABLET PO SCH (08:32)
[2018-05-29] MEDS: METOPROLOL TARTRATE 25 MG TAB PO SCH ×2 (08:32→20:57)
[2018-05-29] MEDS: guaiFENesin 600 MG TABLET.ER PO SCH ×2 (08:32→20:58)
[2018-05-29] MEDS: methylPREDNISolone SOD SUCCI 40 MG/ML 1 ML VIAL IV SCH ×3 (08:36→23:08)
[2018-05-29] MEDS: IPRATROPIUM-ALBUTEROL 3 ML NEB INHALATION SCH ×4 (08:59→20:50)
[2018-05-29] MEDS: ACETYLCYSTEINE 800 MG/4 ML VIAL INHALATION SCH ×3 (08:59→20:49)
[2018-05-29] MEDS: HEPARIN SODIUM,PORCINE 5,000 UNIT/ML 1 ML VIAL SQ SCH ×3 (09:59→23:05)
[2018-05-29] MEDS: CEFEPIME 2 GM in SODIUM CHLORIDE 0.9% 100 ML IVPB SCH ×2 (10:00→20:58)
--- NOTE | 2018-05-29 13:51 | PN ---
PROGRESS NOTE DATE OF SERVICE: 05/29/2018 REASON FOR FOLLOWUP: MRSA and Pseudomonas pneumonia. INTERVAL HISTORY: The patient is currently afebrile. He seemed to be breathing more comfortably. The patient's cough has decreased and bringing up some sputum. No hemoptysis. Still has some left lower chest pain, but no worsening. No nausea, vomiting and no diarrhea. PHYSICAL EXAMINATION: Blood pressure is 137/78 with a pulse of 77, temperature 97.8. He is 100% trach collar. General description is a middle-aged male, lying in bed in no distress. RESPIRATORY SYSTEM: Unlabored breathing with decreased breath sounds at the bases. HEART: S1, S2. Regular rate and rhythm. ABDOMEN: Soft, no tenderness. LABS: Hemoglobin 12.1 with white count 10, BUN of 21, creatinine 0.69. DIAGNOSTIC IMPRESSION AND PLAN: Patient with left lower lobe pneumonia, sputum has been MRSA and Pseudomonas aeruginosa. Will try to check for the oral Cipro and Zyvox for the patient for the 10 days to finish a course of therapy. If the oral Zyvox is refused by the insurance, he will need IV access for outpatient IV vancomycin and get oral Cipro. Continue supportive care. MMODL / IJN: [id number] /
--- NOTE | 2018-05-29 14:04 | P.PN ---
Subjective Progress Note Date: 05/29/18 Principal diagnosis: Acute right lower lobe pneumonia secondary to pseudomonas aeruginosa and MRSA This is a 33-year-old -[place] male with history of Rosai Parker syndrome, mild intermittent asthma, chronic tracheostomy, cochlear implant, recurrent episodes of pneumonia secondary to pseudomonas or MRSA or both, severe tracheomalacia, previous endobronchial stent placement which was unsuccessful, multiple attempts in the past 2D cannulated the patient failed because the patient developed tracheal collapse. Patient was admitted this time mostly with a few days' history of cough which is productive with greenish phlegm, shortness of breath, wheezing, and some fever and chills. Chest x-ray questioned the right lower lobe pneumonia, however the findings seem to be in the right middle lobe and right lower lobe rather chronic. But considering his symptoms, it was felt that the patient may have pneumonia again, admitted, started on antibiotics as per infectious disease including vancomycin and cefepime. This consult was initiated. Presently the patient continues to cough , his cough is productive, greenish phlegm, again he has intermittent fever and chills, and shortness of breath. Denies any chest pain, denies any headache no blurred vision no dizziness, patient is deaf, and he has cochlear implants. Patient denies any nausea vomiting abdominal pain, no issues related to his tracheostomy. Denies any dysuria frequency or urgency. Labs on admission were noted to be basically normal including normal CBC, negative influenza screen, and a relatively normal electrolytes. Patient was reevaluated today on 05/25/2018, having more symptoms of cough wheezing shortness of breath, his sputum came back positive for Pseudomonas and MRSA. Patient is covered with cefepime and vancomycin. I added Solu-Medrol today, patient clearly has more wheezing today compared to yesterday. Remains on bronchodilators, and he has been producing phlegm, mostly greenish in color. No fever no chills no hemoptysis no chest pain. Labs including CBC and basic metabolic profile renal profile were noted normal Reevaluated today on 05/26/2018, patient continues to have intermittent episodes of cough wheezing shortness of breath.however no fever no chills, remains on trach collar, 28%, his O2 saturation is in the 98% range. Vital signs are relatively stable.CBC today was noted to be relatively normal, no leukocytosis. Basic metabolic profile is normal. Patient was reevaluated today on 05/27/2018, feeling better but intermittent episodes of cough and wheezing are present, but overall definite improvement compared to the last few days.patient remains on antibiotics for what seems to be a mixed polymicrobial infection including Pseudomonas, MRSA, streptococcus pneumonia. Vancomycin is clearly covering the MRSA and covering for Streptococcus pneumonia, and the cefepime is clearly covering the pseudomonas infection.these were noted in the sputum, blood cultures are negative.labs today were reviewed including CBC which was normal, and basic metabolic profile was also normal. On 05/28/2018 patient seen in follow-up on medical surgical floor. Lung sounds are diminished, with expiratory wheezes, and patient is bringing up meraz colored sputum, which is blood-tinged. Sat is 99% on 28% trach collar, no fever or chills. Hemodynamic patient is stable, today's labs have been reviewed, a white blood cell count is 10.2, hemoglobin is 12.4, electro lites and renal profile are within normal limits, patient is on a combination of cefepime and vancomycin, patient had asked for Mucomyst nebulized treatments in view of difficulty with mobilizing his secretions and expectoration. Sputum culture was positive for pseudomonas aeruginosa, MRSA, and Streptococcus pneumonia. ID service is following, patient may need the MediPort placed, he had previously had a PICC line put in which had subsequently became plugged, had been discontinued since. On 2018 patient seen in follow-up on medical surgical floor. He is awake and alert, in no acute distress, lung sounds are positive for diffuse rhonchi, patient has been bringing up some phlegm. Vital signs are stable, no fever or chills, pulse ox on 20% trach collar is 95-100%. Sputum culture was positive for polymicrobial growth including pseudomonas aeruginosa, MRSA, and Streptococcus pneumonia. The patient is improving, no acute complaints, yesterday we have consulted surgery for placement of MediPort, however we were informed that infectious disease service is planning on sending patient home on oral antibiotics. We'll cancel the procedure, and patient is being discharged home today on oral antibiotics. Objective - Vital Signs Vital signs: Vital Signs Temp 97.8 F 05/29/18 05:00 Pulse 80 05/29/18 12:29 Resp 20 05/29/18 05:00 BP 137/78 05/29/18 05:00 Pulse Ox 100 05/29/18 05:00 Intake & Output 05/28/18 05/29/18 05/29/18 18:59 06:59 18:59 Intake Total 2780 1780 Output Total 475 Balance 2780 1305 Intake: Intake, IV Titration 1200 600 Amount Cefepime 2 gm In Sodium 100 100 Chloride 0.9% 100 ml @ 200 mls/hr IVPB Q12H NIC Rx#:[id number] Sodium Chloride 0.9% 1, 600 000 ml @ 100 mls/hr IV . Q10H NIC Rx#:[id number] Vancomycin 1,750 mg In 500 500 Sodium Chloride 0.9% 500 ml @ 166.667 mls/hr IVPB Q8H NIC Rx#:[id number] Oral 1580 1180 Output: Urine 475 Other: Voiding Method Urinal Urinal # Voids 4 2 - Exam GENERAL EXAM: Alert, present, 33-year-old of -[place] male, with a tracheostomy in place, 28% trach collar comfortable in no apparent distress. Patient is deaf, he does not have his hearing aid on, has a history of cochlear implant HEAD: Normocephalic/atraumatic. EYES: Normal reaction of pupils, equal size. Conjunctiva pink, sclera white. NOSE: Clear with pink turbinates. THROAT: No erythema or exudates. NECK: No masses, no JVD, no thyroid enlargement, no adenopathy. CHEST: No chest wall deformity. Symmetrical expansion. LUNGS: Diffuse rhonchi bilaterally CVS: Regular rate and rhythm, normal S1 and S2, no gallops, no murmurs, no rubs ABDOMEN: Soft, nontender. No hepatosplenomegaly, normal bowel sounds, no guarding or rigidity. EXTREMITIES: No clubbing, no edema, no cyanosis, 2+ pulses and upper and lower extremities. MUSCULOSKELETAL: Muscle strength and tone normal. SPINE: No scoliosis or deformity SKIN: No rashes CENTRAL NERVOUS SYSTEM: Alert and oriented -3. No focal deficits, tone is normal in all 4 extremities. PSYCHIATRIC: Alert and oriented -3. Appropriate affect. Intact judgment and insight. - Labs CBC & Chem 7: 05/29/18 05:36 05/29/18 05:36 Labs: Abnormal Lab Results - Last 24 Hours (Table) 05/29/18 05/29/18 Range/Units 05:36 05:36 Hgb 12.2 L (13.0-17.5) gm/dL MCHC 30.0 L (31.0-37.0) g/dL RDW 17.0 H (11.5-15.5) % BUN 21 H (9-20) mg/dL Glucose 120 H (74-99) mg/dL Microbiology - Last 24 Hours (Table) 05/23/18 15:10 Blood Culture - Preliminary Blood No Growth after 120 hours 05/23/18 16:30 Gram Stain - Final Sputum Sputum Culture - Final Pseudomonas aeruginosa Pseudomonas aeruginosa#2 Methicillin resist S. aureus Streptococcus pneumoniae Assessment and Plan Plan: Assessment: 1 acute and recurrent right lower lobe pneumonia most likely secondary to pseudomonas aeruginosa a, MRSA.and Streptococcus pneumonia./polymicrobial pneumonia 2 severe tracheo- malacia and chronic tracheostomy. 3 mild intermittent asthma with acute exacerbation, hence Solu-Medrol was added. 4 history of Rosai Parker disease., Patient gets his follow-up at the [facility]. 5 severe deafness, previous cochlear implant. 6 benign essential hypertension 7 GERD without esophagitis. Plan: ID service is following, and is planning on sending patient home on oral antibiotics, will cancel the procedure for placement of MediPort. Vital signs are stable, no fever or chills, from pulmonary perspective patient is stable for discharge home today. I performed a history & physical examination of the patient and discussed their management with my nurse practitioner, Trudy Jansen. I reviewed the nurse practitioner's note and agree with the documented findings and plan of care. Lung sounds are positive for diffuse rhonchi. The findings and the impression was discussed with the patient. I attest to the documentation by the nurse practitioner. Time with Patient: Less than 30
--- NOTE | 2018-05-29 20:18 | PN ---
PROGRESS NOTE DATE OF SERVICE: 05/29/2018 This 33-year-old gentleman who was admitted recurrent right lower pneumonia is being closely monitored. The patient is on broad-spectrum IV antibiotics. Pulmonary is following the patient closely. No chest pain. No palpitations. No fever. Infectious Disease is contemplating p.o. antibiotics at discharge. On exam, alert and oriented x3. Pulse 88, blood pressure 138/80, respirations 18, temperature 98 degrees, pulse ox 96% on room air. HEENT: Conjunctivae normal. NECK: Tracheostomy. CARDIOVASCULAR SYSTEM: S1, S2 muffled. RESPIRATORY SYSTEM: Breath sounds diminished at the bases. A few scattered rhonchi and crackles. ABDOMEN: Soft, non-tender. LEGS: No edema. No swelling. NERVOUS SYSTEM: No focal deficit. LABS: WBC 10, hemoglobin 12.2. ASSESSMENT: 1. Acute right lower lobe pneumonia with possible aspiration pneumonia. 2. Pseudomonas aeruginosa 1 in 2, methicillin-resistant Staphylococcus aeruginosa and Streptococcus pneumoniae from the cultures. 3. History of previous pseudomonas and methicillin-resistant Staphylococcus aeruginosa pneumonia. 4. History of tracheomalacia, status post permanent tracheostomy. 5. History of Rosai-Parker syndrome. 6. History of PICC line placement. 7. History of bronchial asthma. 8. History of atrial fibrillation. 9. History of chronic hypoxic respiratory failure. 10.History of gastroesophageal reflux disease. 11.History of deafness, difficulty hearing. 12.Hypertension. 13.History of pneumonia. 14.Sleep apnea. 15.History of mastoidectomy. 16.History of anxiety. RECOMMENDATIONS AND DISCUSSION: I recommend to continue current medications, continue with the monitoring, symptomatic treatment. We will monitor the patient closely. Otherwise, continue the antibiotics. Continue the bronchodilators. Taper steroids. Closely follow with Pulmonary. Guarded prognosis. Further recommendations to follow. MMODL / IJN: [id number] /
[2018-05-29] MEDS: diphenhydrAMINE 25 MG CAP PO SCH (20:58)
[2018-05-29] MEDS: MONTELUKAST 10 MG TAB PO SCH (20:58)
[2018-05-30] MEDS: VANCOMYCIN 1,750 MG in SODIUM CHLORIDE 0.9% 500 ML IVPB SCH ×2 (00:58→10:33)
[2018-05-30] MEDS: SODIUM CHLORIDE 0.9% 1,000 ML IV SCH ×2 (07:17→09:45)
[2018-05-30] MEDS: IPRATROPIUM-ALBUTEROL 3 ML NEB INHALATION SCH ×3 (08:37→16:34)
[2018-05-30] MEDS: ACETYLCYSTEINE 800 MG/4 ML VIAL INHALATION SCH ×2 (08:37→11:48)
[2018-05-30] MEDS: METOPROLOL TARTRATE 25 MG TAB PO SCH (09:45)
[2018-05-30] MEDS: guaiFENesin 600 MG TABLET.ER PO SCH (09:45)
[2018-05-30] MEDS: PANTOPRAZOLE 40 MG TABLET PO SCH (09:45)
[2018-05-30] MEDS: methylPREDNISolone SOD SUCCI 40 MG/ML 1 ML VIAL IV SCH (09:45)
[2018-05-30] MEDS: HEPARIN SODIUM,PORCINE 5,000 UNIT/ML 1 ML VIAL SQ SCH (09:45)
[2018-05-30] MEDS: CEFEPIME 2 GM in SODIUM CHLORIDE 0.9% 100 ML IVPB SCH (09:48)
[2018-05-30 11:39] VITALS: BMI 40.3
[2018-05-30 11:54] VITALS: PULSE 80
[2018-05-30 12:56] VITALS: BP 129/65; RESP 20; TEMP 98
--- NOTE | 2018-05-30 20:32 | PN ---
PROGRESS NOTE DATE OF SERVICE: 05/30/2018. REASON FOR FOLLOWUP: Pseudomonas and MRSA pneumonia. INTERVAL HISTORY: The patient is currently afebrile. He has been breathing comfortably. The patient continues to have a cough and did have some sputum production. No hemoptysis, though. Denies any worsening pain on the left side of the chest. No nausea, no vomiting and no diarrhea. PHYSICAL EXAMINATION: Blood pressure is 129/65 with a pulse of 80, temperature 98. He is 96% on trach collar. General description is a middle-aged male up in the bed in no distress. RESPIRATORY SYSTEM: Unlabored breathing with some coarse breath sounds in the bases. No wheeze. HEART: S1, S2. Regular rate and rhythm. ABDOMEN: Soft. No tenderness. LABS: Hemoglobin is 12.2, white count 10 with a BUN of 21, creatinine 0.69. DIAGNOSTIC IMPRESSION AND PLAN: Patient with left lower lobe pneumonia. Sputum has grown multiple pathogens. Patient is currently covered with cefepime and vancomycin with a plan to finish therapy with oral Levaquin and ciprofloxacin and close outpatient followup. Continue with supportive care. MMODL / IJN: [id number] /
--- NOTE | 2018-05-31 10:18 | DS ---
DISCHARGE SUMMARY DATE OF SERVICE: 05/30/2018 FINAL DIAGNOSES: 1. Acute right lower lobe pneumonia with possible aspiration pneumonia. 2. Pseudomonas aeruginosa 1 in 2, methicillin-resistant Staphylococcus aureus as well as Streptococcus pneumoniae in the cultures causing pneumonia. 3. History of previous Pseudomonas and methicillin-resistant Staphylococcus aureus pneumonia. 4. History of tracheomalacia, status post permanent tracheostomy. 5. History of Rosai-Parker syndrome. 6. History of PICC line placement. 7. History of bronchial asthma. 8. History of atrial fibrillation. 9. History of chronic hypoxic respiratory failure. 10.History gastroesophageal reflux disease. 11.History of deafness and difficulty hearing. 12.Hypertension. 13.History of pneumonia. 14.History of sleep apnea. 15.History of mastoidectomy. 16.History of anxiety. RECOMMENDATION: Recommend to continue current management and symptomatic treatment. DISCHARGE DISPOSITION: Patient will be discharged in a stable condition with guarded prognosis. HISTORY OF PRESENT ILLNESS: This is a 33-year-old gentleman with a past medical history of complex medical issues as mentioned earlier, admitted with pneumonia and multiple organisms grown. Patient is seen by Pulmonology. Patient is aggressively treated with bronchodilators, steroids, and antibiotics, Infectious Disease also. The patient improved significantly. Surgery also saw the patient. The patient followed with Dr. Valenzuela in the outpatient setting. On exam, vital signs are stable. CARDIOVASCULAR SYSTEM: S1, S2, muffled. RESPIRATION: A few scattered rhonchi, no crackles. ABDOMEN: Soft. NERVOUS SYSTEM: No focal deficits. DISCHARGE DIET: Cardiac diet. Activity limited until followup. Follow up with Dr. Valenzuela in 2-3 days. Follow up with Dr. Tariq as well as follow up with Dr. Rosa as advised. MEDICATIONS ARE: 1. Tylenol 650 q.6 p.r.n. 2. Cipro 750 mg p.o. daily for 10 days. 3. Mucinex 600 mg p.o. b.i.d. 4. DuoNeb q.i.d. and p.r.n. 5. Zyvox 600 mg p.o. b.i.d. 6. Lopressor 25 mg p.o. b.i.d. 7. Singular 10 mg q.h.s. 8. Protonix 40 mg daily. 9. Prednisone taper 40 mg daily for 3 days, 30 for 3 days, 20 for 3 days, 10 for 3 days. MMODL / IJN: [id number] /
== END 2018-05-30 16:10 | disposition home or self-care (01) | DRG 178 ==
LOC: EC 14:29 → 3NMEDONC 16:01
PROVIDERS: ADMIT Hospitalist; ATTEND Hospitalist
DX: J69.0 Pneumonitis due to inhalation of food and vomit (principal); J96.11 Chronic respiratory failure with hypoxia; J45.21 Mild intermittent asthma with (acute) exacerbation; E87.2 Acidosis; I48.91 Unspecified atrial fibrillation; E87.5 Hyperkalemia; J39.8 Other specified diseases of upper respiratory tract; Z93.0 Tracheostomy status; J15.1 Pneumonia due to Pseudomonas; K21.9 Gastro-esophageal reflux disease without esophagitis; I10 Essential (primary) hypertension; H91.90 Unspecified hearing loss, unspecified ear; G47.33 Obstructive sleep apnea (adult) (pediatric); F41.9 Anxiety disorder, unspecified; Y95 Nosocomial condition; J15.212 Pneumonia due to Methicillin resistant Staphylococcus aureus; M54.9 Dorsalgia, unspecified; R00.0 Tachycardia, unspecified; Z99.81 Dependence on supplemental oxygen; Z79.51 Long term (current) use of inhaled steroids; Z87.891 Personal history of nicotine dependence; Z82.5 Family history of asthma and other chronic lower respiratory diseases; Z82.49 Family history of ischemic heart disease and other diseases of the circulatory system; Z86.14 Personal history of Methicillin resistant Staphylococcus aureus infection; Z96.21 Cochlear implant status; Z79.899 Other long term (current) drug therapy; Z87.01 Personal history of pneumonia (recurrent)
CPT/HCPCS: 36415; 71045; 71046; 80048; 80053; 80202; 82550; 82553; 83605; 84484; 85025; 85610; 85730; 87040; 87070; 87077; 87186; 87205; 87502; 94640; 94760; 96365; 96367; 99285

== ENCOUNTER 2018-10-26 08:22 | Day surgery (SDC) | payer MEDICARE, OTHER ==
[2018-10-18 11:10] VITALS: BMI 44.2
--- NOTE | 2018-10-21 19:04 | HP ---
HISTORY AND PHYSICAL CHIEF COMPLAINT: Partially obstructed tracheostomy tube. HISTORY OF PRESENT ILLNESS: This patient is a 33-year-old male who is well known to both my office and [facility]. 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 The patient has been seen down at [facility] and at this point, there is a the question of whether not the patient had some type of rare genetic abnormality as a cause for his symptoms of laryngeal edema. Because of history of severe recurrent laryngeal edema, the patient underwent and maintains a tracheostomy tube. He was recently seen in my office. At that time, he was stating that he was having some slight difficulty with breathing, but was not in any acute respiratory distress. The patient has had been advised that periodically the tube would have to be changed. Therefore, it was recommend the patient undergo a change of tracheostomy tube under general anesthesia. PAST MEDICAL HISTORY: Reveals he has: ALLERGIES: TO PENICILLIN. MEDICATIONS: Current medications include Claritin, Flonase, and myelopathy, albuterol inhaler, Atrovent and Singulair. He has history of asthma and hypertension but no history of diabetes mellitus. REVIEW OF SYSTEMS: Cardiovascular is positive for hypertension. Respiratory is positive for asthma. Gastrointestinal and the remainder of the review of systems is unremarkable. PREVIOUS SURGERIES: Include multiple suspension microlaryngoscopy, emergency tracheostomy, examination of the nasopharynx, tympanoplasty with mastoidectomy of the right ear, bone anchored hearing aid in the left ear, and a previous change of his tracheostomy tube in 2018. PHYSICAL EXAMINATION: Patient is a pleasant 33-year-old male who was alert and cooperative. HEENT exam is patient is normocephalic. Tympanic membranes are normal. Middle ear spaces are free of any fluid or infection. Pupils equal, round, react to light and accommodation. Extraocular movements within normal limits. Intranasal examination reveals moderate to severe septal deviation with compensatory hypertrophy inferior turbinates. Mild amount of thick mucus on the mucous membranes draining down the posterior pharynx. Examination of the oropharynx unremarkable. Attention to the tracheostomy site reveals that it is noninfected with an intact tracheostomy tube. Cranial nerves 2-12 and remainder of the head and neck exam is unremarkable. Chest/cardiovascular: Both lung anderson are clear to percussion and auscultation. Patient is in regular sinus rhythm, S1, S2 present. No murmurs S3s or S4. Peripheral pulses are bilaterally symmetrical and within normal limits. ABDOMEN: There is no evidence of any masses, megaly or tenderness. ABDOMEN: Soft. SKIN is unremarkable. MUSCULOSKELETAL/NEUROLOGICAL: All within normal limits. RECTAL EXAMINATION: Exam is deferred at this time because the patient has this done on a regular basis at his family physician's office. The remainder of physical exam is unremarkable. IMPRESSION: Partially obstructed tracheostomy tube with satisfactory airway at the present time, no acute airway distress. PLAN: The patient is scheduled undergo a change of tracheostomy tube under general anesthesia in a.m. Attention RNs in the pre-surgical area, I have ordered for the patient received 600 mg of clindamycin IV, to be given once an intravenous line has been established. If the pharmacy department sends any other pre-surgical prophylactic antibiotics to the pre- surgical area other than clindamycin 600 mg, that medication should be returned to the pharmacy department and the order should be cancelled. Please make sure that the patient's account is credited appropriately I have discussed the risks, benefits and alternative therapies for the above-mentioned procedure and for both sedation/analgesia as well as necessary blood product administration, if indicated, as they pertain to this patient. The patient has indicated his or her understanding and acceptance of the risks and procedures discussed. MMODL / IJN: [id number] /
--- NOTE | 2018-10-25 23:05 | HP ---
HISTORY AND PHYSICAL HISTORY AND PHYSICAL ADDENDUM: CHIEF COMPLAINT: Partially obstructed tracheostomy tube. HISTORY OF PRESENT ILLNESS: Please note that this patient was originally scheduled to undergo a change of tracheostomy tube on 10/22/2018. However, because he could not obtain proper transportation to [facility], he called and cancelled and rescheduled the surgery. His history and physical, past medical history and review of systems have not changed since his last history and physical, and that will not be repeated here. Please refer to the history and physical that is dated 10/21/2018 for details of his illness. IMPRESSION: Partially obstructed tracheostomy tube. PLAN: The patient is scheduled to undergo replacement of a partially obstructed tracheostomy tube under general anesthesia in the morning. Attention RNs in the pre-surgical area: I have ordered for this patient to receive 600 mg of clindamycin IV, to be given once an intravenous line has been established. If the pharmacy department sends a different pre-surgical prophylactic antibiotic to the pre-surgical area for this patient, that order should be cancelled and the medication should be returned to the pharmacy department. Please make sure that the patient's account is credited appropriately. I have discussed the risks, benefits and alternative therapies for the above-mentioned procedure and for both sedation/analgesia as well as necessary blood product administration, if indicated, as they pertain to this patient. The patient has indicated his or her understanding and acceptance of the risks and procedures discussed. ART / YASN: [id number] /
[~2018-10-26 08:22] MED LIST: CLINDAMYCIN 600 MG in DEXTROSE 5% IN WATER 50 ML IVPB ONE; LACTATED RINGERS 1,000 ML IV SCH; LIDOCAINE 1% 20 ML VIAL (10MG/ML) FOR IV START INTRADERMA PRN; Pre Op ABX Message 1 EACH MISC MISCELLANE ONE
[2018-10-26] MEDS ORDERED: IPRATROPIUM-ALBUTEROL 3 ML NEB INHALATION STA (09:26)
[2018-10-26 09:30] VITALS: TEMP 97.6
[2018-10-26] MEDS ORDERED: ONDANSETRON 4 MG/2 ML VIAL IVP ONE (09:30)
[2018-10-26 09:33] LABS: Glucose,Whole Blood 98 mg/dL (75-99)
[2018-10-26] MEDS ORDERED: LIDOCAINE 1%-EPI 1:100,000 20 ML VIAL SQ ONE (09:53)
[2018-10-26] MEDS ORDERED: MIDAZOLAM 2 MG/2 ML VIAL ONE (10:21)
[2018-10-26] MEDS ORDERED: KETAMINE 10 MG/ML 20 ML VIAL ONE (10:21)
[2018-10-26 10:55] VITALS: RESP 16
[2018-10-26 11:21] VITALS: BP 116/79; PULSE 75
--- NOTE | 2018-10-27 17:37 | OP ---
OPERATIVE REPORT DATE OF SURGERY: 10/26/2018. PREOP DIAGNOSIS: Partially obstructed tracheostomy tube. POSTOPERATIVE DIAGNOSIS: Partially obstructed tracheostomy tube. ANESTHESIA: IV sedation with MAC. OPERATIVE PROCEDURE: Changing of a partially obstructed tracheostomy tube to a #6 fenestrated Shiley tracheostomy tube. OPERATING SURGEON: Dr. Carrillo. COMPLICATIONS: None. ESTIMATED BLOOD LOSS: Zero. OPERATIVE PROCEDURE: The patient is placed on operating table in supine position. After uneventful IV sedation, satisfactory sedation was obtained. Next the patient's tracheostomy site was draped in usual and customary fashion. The patient's current tracheostomy tube is cuffless. The new #6 fenestrated Shiley tracheostomy tube was prepared in usual customary fashion. The new tube will also be cuffless. Initially, the old tracheostomy tube, which was partially obstructed, was removed without incident and discarded. Next, using the tracheostomy hand i tube bender, the #6 fenestrated Shiley tracheostomy tube was inserted into the tracheostomy stoma in the usual and customary fashion and was attached to the patient's neck using a trach collar. The wash plant operator was then removed and the patient was ventilated in usual fashion and no obstruction was noted. At this point, the procedure was terminated. There were no intraoperative complications. The patient tolerated the procedure well and was returned to recovery room in satisfactory condition. MMODL / IJN: [id number] /
== END 2018-10-26 11:57 | disposition home or self-care (01) ==
LOC: OR 08:22
PROVIDERS: ATTEND Otolaryngology
DX: J95.03 Malfunction of tracheostomy stoma (principal); Z96.21 Cochlear implant status; J45.909 Unspecified asthma, uncomplicated; I10 Essential (primary) hypertension; G95.9 Disease of spinal cord, unspecified; I48.91 Unspecified atrial fibrillation; G47.33 Obstructive sleep apnea (adult) (pediatric); Z99.89 Dependence on other enabling machines and devices; Z87.01 Personal history of pneumonia (recurrent); K21.9 Gastro-esophageal reflux disease without esophagitis; Z88.0 Allergy status to penicillin; Z79.899 Other long term (current) drug therapy
CPT/HCPCS: 94640; 31502; J2250; J2405

== ENCOUNTER 2019-02-07 08:21 | Inpatient (IN) | payer MEDICARE, OTHER ==
[2019-02-07] MEDS ORDERED: IPRATROPIUM-ALBUTEROL 3 ML NEB INHALATION STA (08:42)
[2019-02-07] MEDS ORDERED: methylPREDNISolone SOD SUCCI 125 MG/2 ML VIAL IV STA (08:42)
[2019-02-07] MEDS ORDERED: SODIUM CHLORIDE 0.9% 1,000 ML IV STA (08:42)
--- NOTE | 2019-02-07 08:51 | ED ---
General Adult HPI - General Chief complaint: Shortness of Breath Stated complaint: SOB Time Seen by Provider: 02/07/19 08:25 Source: patient, RN notes reviewed, old records reviewed Mode of arrival: EMS Limitations: no limitations - History of Present Illness Initial comments: Diogenes is a 33-year-old male with a history of trach, who presents or his family today with left-sided chest pain, shortness of breath, fever and productive sputum from the tracheostomy site the past 2 days. He states having some left- sided chest pain and significant difficulty breathing. Patient reports that he's been suctioning purulent yellow drainage from his tracheostomy site. Asians tracheostomy has been managed with Dr. Carrillo in the past. - Related Data Home Medications Medication Instructions Recorded Confirmed Albuterol Sulfate [Ventolin HFA] 2 puff INHALATION RT-QID 02/07/19 02/07/19 Fluticasone/Salmeterol 2 puff INHALATION RT-BID 02/07/19 02/07/19 [Fluticasone-Salmeterol 113-14] Phentermine HCl [Adipex-P] 37.5 mg PO DAILY 02/07/19 02/07/19 Previous Rx's Medication Instructions Recorded Metoprolol Tartrate [Lopressor] 25 mg PO BID #60 tab 04/04/18 Montelukast [Singulair] 10 mg PO HS #30 tab 05/29/18 Allergies Allergy/AdvReac Type Severity Reaction Status Date / Time mold Allergy Unknown Verified 02/07/19 09:30 Penicillins Allergy Rash/Hives Verified 02/07/19 09:30 weed pollen Allergy Unknown Verified 02/07/19 09:30 Review of Systems ROS Statement: Those systems with pertinent positive or pertinent negative responses have been documented in the HPI. ROS Other: All systems not noted in ROS Statement are negative. Past Medical History Past Medical History: Asthma, GERD/Reflux, Hearing Disorder / Deafness, Hype rtension, Pneumonia, Sleep Apnea/CPAP/BIPAP Additional Past Medical History / Comment(s): He has had a cochlear implant using a bone anchored hearing aid and he has undergone previous mastoidectomy and tympanoplasty. 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 Patient has a permanent tracheostomy with a #6 Shiley, uses back brace for back pain History of Any Multi-Drug Resistant Organisms: MRSA Date of last positivie culture/infection: 05/23/18 MDRO Source:: Sputum Past Surgical History: Ear Surgery, Tonsillectomy Additional Past Surgical History / Comment(s): Cochlear implant, PT STATED HE HAD THROAT TISSUE BIOPSIED AT [facility] pt stated it was normal . 09/19/14: Tra cheostomy tube placement, sinus surgery Past Anesthesia/Blood Transfusion Reactions: Previous Problems w/ Anesthesia Additional Past Anesthesia/Blood Transfusion Reaction / Comment(s): States "stopped breathing during surgery at age 12". Past Psychological History: Anxiety Smoking Status: Former smoker - Past Family History Son(s) Family Medical History: Asthma Father Family Medical History: Hypertension Mother Family Medical History: Hypertension General Exam - General Exam Comments Initial Comments: 33-year-old male. Tripod position, Audible wheezing noted. Limitations: no limitations Head exam: Present: atraumatic, normocephalic, normal inspection Eye exam: Present: normal appearance ENT exam: Present: normal exam, mucous membranes moist Neck exam: Present: normal inspection, other (trachoestomy site has purulent drainage. Patient is suctioning. Patient has a canister from his suctioning tube full of green and yellow sputum.). Absent: tenderness, meningismus, lymphadenopathy Respiratory exam: Present: wheezes. Absent: normal lung sounds bilaterally, respiratory distress, rales, rhonchi, stridor Cardiovascular Exam: Present: regular rate, normal rhythm, normal heart sounds. Absent: systolic murmur, diastolic murmur, rubs, gallop, clicks Back exam: Present: normal inspection Neurological exam: Present: alert, oriented X3, CN II-XII intact Psychiatric exam: Present: normal affect, normal mood Skin exam: Present: warm, dry, intact, normal color. Absent: rash Course Vital Signs 02/07/19 02/07/19 02/07/19 08:22 09:03 09:11 Temperature 98.5 F Pulse Rate 114 H 120 H Respiratory 28 H 24 Rate Blood Pressure 163/104 O2 Sat by Pulse 95 Oximetry 02/07/19 02/07/19 02/07/19 09:25 10:28 12:11 Temperature Pulse Rate 112 H 99 96 Respiratory 24 18 Rate Blood Pressure 135/91 143/99 O2 Sat by Pulse 97 98 Oximetry - Reevaluation(s) Reevaluation #1: 02/07/19 12:20 Patient is placed on high flow oxygen and is having improvement of symptoms difficulty breathing is resting comfortably bed at this time. EKG Findings - EKG Comments: EKG Findings:: EKG shows sinus tachycardia, with right superior axis deviation. Pulmonary disease pattern. Abnormal EKG. Ventricular rate of 108 bpm. VA interval is 144 ms. QRS duration 78 ms. QT QTc is 354/474 ms. Medical Decision Making - Medical Decision Making This is a 33-year-old male presents with difficulty breathing, purulent drainage from tracheostomy site. Denies any significant difficulty swallowing. He perhaps has purulent green-yellow sputum from his tracheostomy site diffuse wheezing and coughing. Patient was given breathing treatments, placed on high flow oxygen his Patient. Be in moderate respirator distress with tripod position when he first arrived. The same Patient and tracheostomy care and respiratory removed multiple milliliters of purulent drainage from the tracheostomy site as well. Patient had sputum culture obtained. Blood work was reviewed multiple unremarkable. Chest x-ray was negative for pneumonia. Soft tissue neck x-ray shows evidence of tonsillar and epiglottis thickening however Patient does not have muffled voice or difficulty in swallowing. I discussed with the Patient on 2 g of Rocephin to cover for tracheal bronchitis at this time. Patient states case was discussed with Dr. Hong who also examined the Patient. Patient was admitted to this time with consult pulmonology. - Lab Data Result diagrams: 02/07/19 09:01 02/07/19 09:01 Lab Results 02/07/19 02/07/19 02/07/19 Range/Units 09:01 09:01 09:01 WBC 6.5 (3.8-10.6) k/uL RBC 4.57 (4.30-5.90) m/uL Hgb 12.3 L (13.0-17.5) gm/dL Hct 38.7 L (39.0-53.0) % MCV 84.8 (80.0-100.0) fL MCH 26.8 (25.0-35.0) pg MCHC 31.6 (31.0-37.0) g/dL RDW 17.4 H (11.5-15.5) % Plt Count 284 (150-450) k/uL Neutrophils % (Manual) 69 % Lymphocytes % (Manual) 24 % Monocytes % (Manual) 6 % Eosinophils % (Manual) 1 % Neutrophils # (Manual) 4.49 (1.3-7.7) k/uL Lymphocytes # (Manual) 1.56 (1.0-4.8) k/uL Monocytes # (Manual) 0.39 (0-1.0) k/uL Eosinophils # (Manual) 0.07 (0-0.7) k/uL Nucleated RBCs 0 (0-0) /100 WBC Manual Slide Review Performed Poikilocytosis (manual Present Anisocytosis Slight Stomatocytes Present PT 10.3 (9.0-12.0) sec INR 1.0 (<1.2) APTT 28.8 (22.0-30.0) sec Sodium 139 (137-145) mmol/L Potassium 4.2 (3.5-5.1) mmol/L Chloride 104 (98-107) mmol/L Carbon Dioxide 21 L (22-30) mmol/L Anion Gap 14 mmol/L BUN 8 L (9-20) mg/dL Creatinine 0.68 (0.66-1.25) mg/dL Est GFR (CKD-EPI)AfAm >90 (>60 ml/min/1.73 sqM) Est GFR (CKD-EPI)NonAf >90 (>60 ml/min/1.73 sqM) Glucose 119 H (74-99) mg/dL Plasma Lactic Acid Jimmy (0.7-2.0) mmol/L Calcium 9.5 (8.4-10.2) mg/dL Magnesium 1.5 L (1.6-2.3) mg/dL Total Bilirubin 0.5 (0.2-1.3) mg/dL AST 32 (17-59) U/L ALT 26 (21-72) U/L Alkaline Phosphatase 103 (38-126) U/L Troponin I (0.000-0.034) ng/mL Total Protein 9.0 H (6.3-8.2) g/dL Albumin 4.3 (3.5-5.0) g/dL 02/07/19 02/07/19 Range/Units 09:01 09:01 WBC (3.8-10.6) k/uL RBC (4.30-5.90) m/uL Hgb (13.0-17.5) gm/dL Hct (39.0-53.0) % MCV (80.0-100.0) fL MCH (25.0-35.0) pg MCHC (31.0-37.0) g/dL RDW (11.5-15.5) % Plt Count (150-450) k/uL Neutrophils % (Manual) % Lymphocytes % (Manual) % Monocytes % (Manual) % Eosinophils % (Manual) % Neutrophils # (Manual) (1.3-7.7) k/uL Lymphocytes # (Manual) (1.0-4.8) k/uL Monocytes # (Manual) (0-1.0) k/uL Eosinophils # (Manual) (0-0.7) k/uL Nucleated RBCs (0-0) /100 WBC Manual Slide Review Poikilocytosis (manual Anisocytosis Stomatocytes PT (9.0-12.0) sec INR (<1.2) APTT (22.0-30.0) sec Sodium (137-145) mmol/L Potassium (3.5-5.1) mmol/L Chloride (98-107) mmol/L Carbon Dioxide (22-30) mmol/L Anion Gap mmol/L BUN (9-20) mg/dL Creatinine (0.66-1.25) mg/dL Est GFR (CKD-EPI)AfAm (>60 ml/min/1.73 sqM) Est GFR (CKD-EPI)NonAf (>60 ml/min/1.73 sqM) Glucose (74-99) mg/dL Plasma Lactic Acid Jimmy 1.4 (0.7-2.0) mmol/L Calcium (8.4-10.2) mg/dL Magnesium (1.6-2.3) mg/dL Total Bilirubin (0.2-1.3) mg/dL AST (17-59) U/L ALT (21-72) U/L Alkaline Phosphatase (38-126) U/L Troponin I <0.012 (0.000-0.034) ng/mL Total Protein (6.3-8.2) g/dL Albumin (3.5-5.0) g/dL - Radiology Data Radiology results: report reviewed Soft tissue neck shows lingular tonsil prominence. Additionally thickening of the epiglottis. Probably for epiglottitis. Correlate with computed tomography scan if clinically warranted. Disposition Clinical Impression: Tonsillar hypertrophy, Bronchopneumonia, Tracheostomy in place Disposition: ADMITTED IP TO THIS HOSP Condition: Stable Is patient prescribed a controlled substance at d/c from ED?: No Referrals: Lacey Valenzuela MD [Primary Care Provider] - 1-2 days Time of Disposition: 12:23
[2019-02-07 09:14] LABS: Anisocytosis Slight; HCT 38.7 % (39.0-53.0); HGB 12.3 gm/dL (13.0-17.5); MCH 26.8 pg (25.0-35.0); MCHC 31.6 g/dL (31.0-37.0); MCV 84.8 fL (80.0-100.0); Mean Platelet Volume 8.1; Platelet Count 284 k/uL (150-450); RBC 4.57 m/uL (4.30-5.90); RDW 17.4 % (11.5-15.5); WBC 6.5 k/uL (3.8-10.6)
[2019-02-07 09:26] LABS: ALT 26 U/L (21-72); AST 32 U/L (17-59); African American GFR (CKD) >90 (>60 ml/min/1.73 sqM); Albumin 4.3 g/dL (3.5-5.0); Alkaline Phosphatase 103 U/L (38-126); Anion Gap 14 mmol/L; Blood Urea Nitrogen 8 mg/dL (9-20); Calcium 9.5 mg/dL (8.4-10.2); Carbon Dioxide 21 mmol/L (22-30); Chloride 104 mmol/L (98-107); Glucose 119 mg/dL (74-99); Magnesium 1.5 mg/dL (1.6-2.3); Potassium 4.2 mmol/L (3.5-5.1); Sodium 139 mmol/L (137-145); Total Bilirubin 0.5 mg/dL (0.2-1.3)
[2019-02-07 09:35] LABS: Partial Thromboplastin Time 28.8 sec (22.0-30.0); Prothrombin Time 10.3 sec (9.0-12.0)
[2019-02-07 09:37] LABS: Eosinophils # (M) 0.07 k/uL (0-0.7); Lymphocytes # (M) 1.56 k/uL (1.0-4.8); Monocytes # (M) 0.39 k/uL (0-1.0); Neutrophils % (M) 69 %; Nucleated Red Blood Cells 0 /100 WBC (0-0); Total Cells Counted 100
[2019-02-07 09:38] LABS: Stomatocytes Present
[2019-02-07 09:39] LABS: Poikilocytosis (M) Present
--- NOTE | 2019-02-07 10:49 | XR ---
EXAMINATION TYPE: XR soft tissue neck DATE OF EXAM: 02/07/2019 COMPARISON: NONE HISTORY: Pain and cough TECHNIQUE: 2 views submitted FINDINGS: Prevertebral soft tissue structures within normal limits however, lingular tonsils are prom inent and there is thickening of the epiglottis. Tracheostomy tube noted. Upper lung anderson are clear . Osseous structures intact. IMPRESSION: 1. There is prominence of the lingular tonsils, additionally, there is thickening of the epiglottis. Correlate for epiglottitis. Correlate with CT scan as clinically warranted.
--- NOTE | 2019-02-07 11:46 | XR ---
EXAMINATION TYPE: XR chest 2V DATE OF EXAM: 02/07/2019 COMPARISON: May 28, 2018 HISTORY: Chest pain TECHNIQUE: Frontal and lateral views of the chest are obtained. FINDINGS: There is no focal air space opacity. No evidence for pneumothorax. No pleural effusion. The cardiac silhouette size is within normal limits. The osseous structures are grossly intact. IMPRESSION: 1. No acute cardiopulmonary process.
[2019-02-07] MEDS ORDERED: NALOXONE 0.4 MG/ML 1 ML VIAL IV PRN (12:23)
[2019-02-07] MEDS ORDERED: IBUPROFEN 400 MG TAB PO PRN (12:23)
[2019-02-07] MEDS ORDERED: ONDANSETRON 4 MG/2 ML VIAL IVP PRN (12:23)
[2019-02-07] MEDS ORDERED: ACETAMINOPHEN TAB 325 MG TAB PO PRN (12:23)
[2019-02-07] MEDS ORDERED: MAGNESIUM SULFATE-D5W PMX 1 GM in DEXTROSE/WATER 1 100ML.BAG IVPB ONE (12:26)
[2019-02-07] MEDS ORDERED: IPRATROPIUM-ALBUTEROL 3 ML NEB INHALATION SCH (12:30)
[2019-02-07] MEDS: SODIUM CHLORIDE 0.9% 1,000 ML IV SCH (13:00)
[2019-02-07] MEDS ORDERED: VANCOMYCIN IV PER PHARMACY 1 EACH MISC MISCELLANE PRN (13:44)
--- NOTE | 2019-02-07 13:53 | P.HPIM ---
History of Present Illness 33-year-old pleasant gentleman came in with complaints of shortness of breath significant wheezing on admission which improved now and increase the thick secretions from the tracheostomy. 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 Patient is ALLERGIC to penicillins because of which I'll start him on meropenem infectious disease will be consulted patient had fevers at home although there he didn't have any documented fevers here patient has pseudomonas which is intermediate sensitivity to fluoroquinolones. Patient apparently was complaining of chest pain. Physician although he denied any chest pain to me. Patient EKG did not show acute ST T wave changes troponin is negative and some right axis deviation which is expected considering his lung disease does have sinus tachycardia Review of Systems REVIEW OF SYSTEMS: CONSTITUTIONAL: No fever, no malaise, no fatigue. HEENT: No recent visual problems or hearing problems. Denied any sore throat. CARDIOVASCULAR: No chest pain, orthopnea, PND, no palpitations, no syncope. PULMONARY: As mentioned in HPI GASTROINTESTINAL: No diarrhea, no nausea, no vomiting, no abdominal pain. NEUROLOGICAL: No headaches, no weakness, no numbness. HEMATOLOGICAL: Denies any bleeding or petechiae. GENITOURINARY: Denies any burning micturition, frequency, or urgency. MUSCULOSKELETAL/RHEUMATOLOGICAL: Denies any joint pain, swelling, or any muscle pain. ENDOCRINE: Denies any polyuria or polydipsia. The rest of the 14-point review of systems is negative. Past Medical History Past Medical History: Asthma, GERD/Reflux, Hearing Disorder / Deafness, Hypertension, Pneumonia, Sleep Apnea/CPAP/BIPAP Additional Past Medical History / Comment(s): He has had a cochlear implant using a bone anchored hearing aid and he has undergone previous mastoidectomy and tympanoplasty. 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 Patient has a permanent tracheostomy with a #6 Shiley, uses back brace for back pain History of Any Multi-Drug Resistant Organisms: MRSA Date of last positivie culture/infection: 05/23/18 MDRO Source:: Sputum Past Surgical History: Ear Surgery, Tonsillectomy Additional Past Surgical History / Comment(s): Cochlear implant, PT STATED HE HAD THROAT TISSUE BIOPSIED AT [facility] pt stated it was normal . 09/19/14: Tracheostomy tube placement, sinus surgery Past Anesthesia/Blood Transfusion Reactions: Previous Problems w/ Anesthesia Additional Past Anesthesia/Blood Transfusion Reaction / Comment(s): States "stopped breathing during surgery at age 12". Past Psychological History: Anxiety Smoking Status: Former smoker - Past Family History Son(s) Family Medical History: Asthma Father Family Medical History: Hypertension Mother Family Medical History: Hypertension Medications and Allergies Home Medications Medication Instructions Recorded Confirmed Type Metoprolol Tartrate [Lopressor] 25 mg PO BID #60 tab 04/04/18 02/07/19 Rx Montelukast [Singulair] 10 mg PO HS #30 tab 05/29/18 02/07/19 Rx Albuterol Sulfate [Ventolin HFA] 2 puff INHALATION RT-QID 02/07/19 02/07/19 History Fluticasone/Salmeterol 2 puff INHALATION RT-BID 02/07/19 02/07/19 History [Fluticasone-Salmeterol 113-14] Phentermine HCl [Adipex-P] 37.5 mg PO DAILY 02/07/19 02/07/19 History Allergies Allergy/AdvReac Type Severity Reaction Status Date / Time mold Allergy Unknown Verified 02/07/19 09:30 Penicillins Allergy Rash/Hives Verified 02/07/19 09:30 weed pollen Allergy Unknown Verified 02/07/19 09:30 Physical Exam Vitals: Vital Signs Temp Pulse Resp BP Pulse Ox 02/07/19 12:11 96 18 143/99 98 02/07/19 10:28 99 24 135/91 97 02/07/19 09:25 112 H 02/07/19 09:11 24 02/07/19 09:03 120 H 02/07/19 08:22 98.5 F 114 H 28 H 163/104 95 Intake and Output 02/06/19 02/07/19 02/07/19 22:59 06:59 14:59 Other: Weight 108.454 kg PHYSICAL EXAMINATION: GENERAL: The patient is alert and oriented x3, not in any acute distress. Well developed, well nourished. HEENT: Pupils are round and equally reacting to light. EOMI. No scleral icterus. No conjunctival pallor. Normocephalic, atraumatic. No pharyngeal erythema. No thyromegaly. Patient does have chronic hearing problems CARDIOVASCULAR: S1 and S2 present. No murmurs, rubs, or gallops. PULMONARY: has a tracheostomy in place very minimal expiratory wheezing good air entry into bilateral lung anderson patient was having thick secretions.. ABDOMEN: Soft, nontender, nondistended, normoactive bowel sounds. No palpable organomegaly. MUSCULOSKELETAL: No joint swelling or deformity. EXTREMITIES: No cyanosis, clubbing, or pedal edema. NEUROLOGICAL: Gross neurological examination did not reveal any focal deficits. SKIN: No rashes. Results CBC & Chem 7: 02/07/19 09:01 02/07/19 09:01 Labs: Abnormal Lab Results - Last 24 Hours (Table) 02/07/19 02/07/19 Range/Units 09: 09:01 Hgb 12.3 L (13.0-17.5) gm/dL Hct 38.7 L (39.0-53.0) % RDW 17.4 H (11.5-15.5) % Carbon Dioxide 21 L (22-30) mmol/L BUN 8 L (9-20) mg/dL Glucose 119 H (74-99) mg/dL Magnesium 1.5 L (1.6-2.3) mg/dL Total Protein 9.0 H (6.3-8.2) g/dL Assessment and Plan Plan: -Possible tracheobronchitis: Patient has Pseudomonas and MRSA in the past because of which I'll start him on meropenem and vancomycin and infectious disease will be consulted as I'm using very broad-spectrum antibiotics the a ppropriateness of usage of this medications. (Proper blood cultures were obtained. --Bronchial asthma with acute exacerbation: Patient sitting. Improved with IV steroids inhalational treatments patient was started on oral steroids inhalational treatments pulmonology was consulted. 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 fib patient is not on aspirin R any anticoagulation at this time will not be initiated on any of those patient is presently sinus tachycardias from hypoxemia Patient will need pharmacologicDVT as well as GI prophylaxis
[2019-02-07] MEDS: IPRATROPIUM-ALBUTEROL 3 ML NEB INHALATION PRN (13:56)
[2019-02-07 14:49] VITALS: BMI 41.0
[2019-02-07] MEDS: MAGNESIUM SULFATE-D5W PMX 1 GM in DEXTROSE/WATER 1 100ML.BAG IVPB SCH ×2 (14:57→15:59)
[2019-02-07] MEDS ORDERED: MEROPENEM 1 GM in SODIUM CHLORIDE 0.9% 100 ML IVPB SCH (16:00)
[2019-02-07] MEDS: PATIENT'S OWN MED (Phentermine Hcl [Adipex-P] 37.5 MG) PO SCH (16:03)
[2019-02-07] MEDS: HEPARIN SODIUM,PORCINE 5,000 UNIT/ML 1 ML VIAL SQ SCH (16:04)
[2019-02-07] MEDS: IPRATROPIUM-ALBUTEROL 3 ML NEB INHALATION SCH ×2 (16:23→21:33)
[2019-02-07 16:43] LABS: Glucose,Whole Blood 175 mg/dL (75-99)
[2019-02-07] MEDS: methylPREDNISolone SOD SUCCI 125 MG/2 ML VIAL IV SCH (17:21)
[2019-02-07] MEDS: VANCOMYCIN 1,750 MG in SODIUM CHLORIDE 0.9% 500 ML 500 ML IVPB SCH (17:22)
[2019-02-07] MEDS: INSULIN ASPART (NovoLOG) 100 UNIT/ML VIAL SQ SCH (17:22)
--- NOTE | 2019-02-07 19:46 | US ---
EXAMINATION TYPE: US venous doppler duplex LE BI DATE OF EXAM: 02/07/2019 4:54 PM COMPARISON: NONE CLINICAL HISTORY: sweling. Edema SIDE PERFORMED: Bilateral TECHNIQUE: The lower extremity deep venous system is examined utilizing real time linear array sonog kerri with graded compression, doppler sonography and color-flow sonography. VESSELS IMAGED: External Iliac Vein (EIV) Common Femoral Vein Deep Femoral Vein Greater Saphenous Vein * Femoral Vein Popliteal Vein Small Saphenous Vein * Proximal Calf Veins (* superficial vessels) Right Leg: Negative for DVT Left Leg: Negative for DVT IMPRESSION: No evidence of deep venous thrombosis in both legs.
--- NOTE | 2019-02-07 21:07 | CONS ---
CONSULTATION PULMONARY/CRITICAL CARE CONSULTATION: DATE OF CONSULTATION: 02/07/2019 REASON FOR CONSULTATION: Shortness of breath. This is a 33-year-old black male, well known to our group. He has a history of previous tracheostomy. The patient apparently presented to the emergency room with left-sided chest pain and shortness of breath. He thought he was maybe having a heart attack. In addition, he was coughing with chest congestion, productive phlegm production and fever. He has not been feeling well for the last couple of days. The patient states that he was told in the emergency room that it was not his heart but rather his lungs that was causing the problem. The patient does have a previous history of multiple admissions to this hospital. We have seen him many times in the past. Typically it is for a flare-up of his underlying asthma and also purulent tracheobronchitis and/or bronchopneumonia. Currently the patient is very short of breath. He is very congested. His cough is wet and congested. He is having a hard time getting up secretions. HOME MEDICATIONS: His home medications include: 1. Ventolin HFA. 2. A generic form of Advair. 3. Adipex-P. 4. He also has been on Lopressor and Singulair. ALLERGIES: ALLERGIES include: 1. MOLD. 2. PENICILLIN. 3. WEED POLLEN.. PAST MEDICAL HISTORY: His past medical history is positive for: 1. Asthma. 2. GERD. 3. Deafness, with a cochlear implant. 4. Hypertension. 5. Pneumonia. 6. Sleep apnea syndrome. 7. The patient does have a history of upper airway obstruction and has a permanent tracheostomy. 8. He uses a back brace for back pain. 9. He has also had previous mastoidectomy and tympanoplasty. 10.Other history includes the permanent tracheostomy tube placement back in September 2014. 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 He denies any alcohol use or illicit drug use. FAMILY HISTORY: Positive for son with asthma. Father and mother both had hypertension. REVIEW OF SYSTEMS: CONSTITUTIONAL: Negative. NEUROLOGIC: Negative. HEENT: Negative. CARDIOVASCULAR: Chest pain. PULMONARY: Shortness of breath, chest tightness, wheezing, cough, chest congestion and occasional phlegm production. GI: Negative. : Negative. RHEUMATOLOGIC: Negative. IMMUNOLOGIC: Negative. ENDOCRINOLOGIC: Negative. DERMATOLOGIC: Negative. PHYSICAL EXAMINATION: VITAL SIGNS: Current vital signs include a temperature which is 98.5, heart rate of 112, respiratory rate 28, blood pressure 163/104, and saturations are 95% on 10 L trach collar. GENERAL APPEARANCE: Appears in no acute distress. He does have a very harsh cough. This cough is wet and congested-sounding. HEENT: HEENT examination is grossly unremarkable. Mucous membranes are dry. NECK: Supple. There is a midline tracheostomy. No adenopathy or thyromegaly. CARDIOVASCULAR: Cardiovascular examination reveals regular rhythm and rate. S1, S2 normal. No S3, S4 or murmur. He is tachycardic. Heart rate 112. LUNGS: Lungs reveal diffuse coarse inspiratory and expiratory rhonchi and wheezes. There is prolongation. The patient coughs and wheezes on forced maneuver. Adventitious lung sounds are more prominent on forced maneuver. ABDOMEN: Soft. Bowel sounds are heard. EXTREMITIES: Intact. No cyanosis, clubbing or edema. SKIN: Without rash. NEUROLOGIC: Neurologic examination is brief but nonfocal. LAB DATA/IMAGING: Lab data include a white count of 6.5, hemoglobin 12.3, hematocrit 38.7, platelet count 284,000. PT and INR and PTT normal. Sodium 139, potassium 4.2, chloride 104, CO2 21. Anion gap is 14. BUN and creatinine were 8 and 0.68. The rest of the labs look okay. Magnesium 1.5. Total protein is 9. Chest x-ray is done. The chest x-ray is essentially unremarkable. There is a midline tracheostomy tube. There is also a trach collar in place. Soft tissue neck showed prominence of the lingular tonsils and thickening of the epiglottis. CURRENT MEDICATIONS: Current medications are reviewed. The patient is on: 1. Tylenol. 2. Motrin. 3. Updrafts. 4. Toradol. 5. Magnesium replacement. 6. Meropenem. 7. Narcan. 8. Zofran. 9. Prednisone. 10.Saline IV. ASSESSMENT: 1. Asthma exacerbation complicated by purulent tracheobronchitis, without bronchopneumonia. 2. Rule out epiglottitis. 3. History of permanent tracheostomy, September 2014. 4. History of gastroesophageal reflux disease. 5. History of deafness, status post cochlear implant. 6. Hypertension by history. 7. Sleep apnea syndrome. 8. History of pneumonia. 9. History of Rosai-Parker syndrome. 10.Chronic back pain. PLAN: The patient's medications will be adjusted accordingly. Will make sure he is on long- acting beta agonist inhaled corticosteroid. We will put him on systemic corticosteroids and antibiotics. Bronchoscopy tomorrow. Additional recommendations and suggestions are forthcoming. Prognosis is guarded. MMODL / IJN: [id number] / MTDD
[2019-02-07] MEDS: BUDESONIDE 1 MG/2 ML NEBU INHALATION SCH (21:33)
[2019-02-07] MEDS: FORMOTEROL FUMARATE 20 MCG/2 ML NEBU INHALATION SCH (21:33)
[2019-02-08 00:24] LABS: Glucose,Whole Blood 204 mg/dL (75-99)
[2019-02-08] MEDS: INSULIN ASPART (NovoLOG) 100 UNIT/ML VIAL SQ SCH ×5 (00:35→21:54)
[2019-02-08] MEDS: MONTELUKAST 10 MG TAB PO SCH ×2 (00:35→21:53)
[2019-02-08] MEDS: methylPREDNISolone SOD SUCCI 125 MG/2 ML VIAL IV SCH ×5 (00:35→23:50)
[2019-02-08] MEDS: METOPROLOL TARTRATE 25 MG TAB PO SCH ×3 (00:35→21:53)
[2019-02-08] MEDS: FAMOTIDINE 20 MG TAB PO SCH ×3 (00:36→21:53)
[2019-02-08] MEDS: CEFEPIME 2 GM in SODIUM CHLORIDE 0.9% 100 ML IVPB SCH ×3 (00:36→21:53)
[2019-02-08] MEDS: SODIUM CHLORIDE 0.9% 1,000 ML IV SCH ×3 (00:46→17:15)
[2019-02-08] MEDS: HEPARIN SODIUM,PORCINE 5,000 UNIT/ML 1 ML VIAL SQ SCH ×4 (00:46→23:51)
[2019-02-08] MEDS: VANCOMYCIN 1,750 MG in SODIUM CHLORIDE 0.9% 500 ML 500 ML IVPB SCH ×4 (01:19→23:51)
[2019-02-08] MEDS: MORPHINE SULFATE 4 MG/ML SYRINGE IV PRN ×3 (01:23→21:45)
[2019-02-08 07:14] LABS: Glucose,Whole Blood 143 mg/dL (75-99)
[2019-02-08] MEDS: FORMOTEROL FUMARATE 20 MCG/2 ML NEBU INHALATION SCH ×2 (07:19→19:47)
[2019-02-08] MEDS: BUDESONIDE 1 MG/2 ML NEBU INHALATION SCH ×2 (07:19→19:47)
[2019-02-08] MEDS: IPRATROPIUM-ALBUTEROL 3 ML NEB INHALATION SCH ×4 (07:19→19:47)
[2019-02-08 07:48] LABS: African American GFR (CKD) >90 (>60 ml/min/1.73 sqM); Anion Gap 7 mmol/L; Blood Urea Nitrogen 11 mg/dL (9-20); Calcium 9.2 mg/dL (8.4-10.2); Carbon Dioxide 26 mmol/L (22-30); Chloride 106 mmol/L (98-107); Glucose 154 mg/dL (74-99); Magnesium 2.3 mg/dL (1.6-2.3); Potassium 5.4 mmol/L (3.5-5.1); Sodium 139 mmol/L (137-145)
[2019-02-08] MEDS: PATIENT'S OWN MED (Phentermine Hcl [Adipex-P] 37.5 MG) PO SCH (07:49)
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
[2019-02-08] MEDS ORDERED: predniSONE 20 MG TAB PO SCH (09:00)
[2019-02-08] MEDS ORDERED: IV FLUID CONTINUATION 1,000 ML IV ONE (11:32)
[2019-02-08] MEDS ORDERED: LIDOCAINE 2% INJ 20 MG/ML INTRATRACH ONE ×2 (11:33→11:40)
[2019-02-08] MEDS ORDERED: PROPOFOL 10 MG/ML 20 ML VIAL IV ONE (11:35)
[2019-02-08] MEDS ORDERED: LIDOCAINE 1% INJ 10MG/ML (20 ML MDV) ONE (11:35)
[2019-02-08 12:12] LABS: Glucose,Whole Blood 139 mg/dL (75-99)
--- NOTE | 2019-02-08 13:27 | P.PN ---
Subjective Progress Note Date: 02/08/19 Principal diagnosis: Acute exacerbation of moderate persistent chronic bronchial asthma The patient is seen today 02/08/2019 in follow-up on the regular medical floor. He is currently resting comfortably in bed. Awake and alert in no acute distress. He continues to be short of breath with cough congestion wheezing. Sputum culture is showing presumptive staph aureus, Pseudomonas species. Blood cultures no growth. Sodium 139. Potassium 4.4. Creatinine 0.70. He is curr ently on cefepime and vancomycin. He is continued on bronchodilators and steroids. Objective - Vital Signs Vital signs: Vital Signs Temp 98.2 F 02/08/19 12:00 Pulse 90 02/08/19 12:15 Resp 14 02/08/19 12:00 BP 145/96 02/08/19 12:15 Pulse Ox 100 02/08/19 07:00 Intake & Output 02/07/19 02/08/19 02/08/19 18:59 06:59 18:59 Intake Total 300 Output Total 425 Balance -425 300 Weight 108.454 kg Intake: IV 300 Output: Urine 425 Other: Voiding Method Toilet Toilet Urinal Urinal # Voids 0 - Exam GENERAL EXAM: Alert, pleasant 33-year-old gentleman, on 35% FiO2 via trach collar, comfortable in no apparent distress. HEAD: Normocephalic. EYES: Normal reaction of pupils, equal size. NOSE: Clear with pink turbinates. THROAT: No erythema or exudates. NECK: Tracheostomy tube secured in place. No masses, no JVD. CHEST: No chest wall deformity. LUNGS: Equal air entry with bilateral scattered rhonchi, end expiratory wheeze. CVS: S1 and S2 normal with no audible murmur, regular rhythm. ABDOMEN: No hepatosplenomegaly, normal bowel sounds, no guarding or rigidity. SPINE: No scoliosis or deformity SKIN: No rashes CENTRAL NERVOUS SYSTEM: No focal deficits, tone is normal in all 4 extremities. EXTREMITIES: There is no peripheral edema. No clubbing, no cyanosis. Peripheral pulses are intact. - Labs CBC & Chem 7: 02/07/19 09:01 02/08/19 07:16 Labs: Abnormal Lab Results - Last 24 Hours (Table) 02/07/19 02/08/19 02/08/19 Range/Units 16:41 00:23 07:11 Potassium (3.5-5.1) mmol/L Glucose (74-99) mg/dL POC Glucose (mg/dL) 175 H 204 H 143 H (75-99) mg/dL 02/08/19 02/08/19 Range/Units 07:16 12:10 Potassium 5.4 H (3.5-5.1) mmol/L Glucose 154 H (74-99) mg/dL POC Glucose (mg/dL) 139 H (75-99) mg/dL Microbiology - Last 24 Hours (Table) 02/07/19 10:48 Blood Culture - Preliminary Blood No Growth after 24 hours 02/07/19 09:00 Gram Stain - Preliminary Sputum Sputum Culture - Preliminary Presumptive Staph aureus Pseudomonas spec Assessment and Plan Assessment: Impression: #1 Acute exacerbation of moderate persistent chronic bronchial asthma, complicated by purulent tracheobronchitis. Initial sputum culture revealing staph aureus and a Pseudomonas species. Final ID is pending. Currently on cefepime and vancomycin. #2 History of permanent tracheostomy in September 2014. #3 History of deafness, status post cochlear implant. #4 Gastroesophageal reflux disease. #5 Hypertension. #6 Obstructive sleep apnea. #7 History of Rosai-Parker syndrome. #8 Chronic back pain. Plan: The patient was seen and evaluated by Dr. Mendoza. He did go ahead and perform a bronchoscopy with BAL today. Cultures are pending. Initial sputum culture showing staph aureus and Pseudomonas species. He is continued on cefepime and vancomycin. Continue bronchodilators and steroids. Increase his activity as tolerated. We'll continue to follow make further recommendations based on his clinical status. I, the cosigning physician, performed a history & physical examination of the patient. Lungs sounds with bilateral end expiratory wheeze, few scattered rhonchi. Maintaining good O2 saturations in the 90s on 35% FiO2 via trach collar. I discussed the assessment and plan of care with my nurse practitioner, Melissa Ward. I attest to the above note as dictated by her.
--- NOTE | 2019-02-08 15:02 | PCN ---
PROCEDURE NOTE PROCEDURE: Bronchoscopy, airway examination, therapeutic lavage, bronchoalveolar lavage, right middle lobe. PREOPERATIVE DIAGNOSIS: Tracheobronchitis, retained secretions. POSTOPERATIVE DIAGNOSIS: Tracheobronchitis, retained secretions. OPERATORS: 1. Dr. Mendoza. 2. Dr. Ward. PROCEDURE DESCRIPTION: There was informed consent and universal timeout. The patient's procedure took place in room #1. Anesthesia provided general anesthesia and unconscious sedation. After the patient was adequately sedated and being fully monitored, the bronchoscope was inserted through the patient's tracheostomy tube. The tracheostomy tube was patent. The airways were noted. The airways showed them to be significant for tracheomalacia and tracheobronchomalacia. In addition, the airways were narrowed, primarily from extrinsic compression. There were thick secretions noted throughout the airways. The right upper lobe and its 3 segments, the right middle lobe and its 2 segments, the right lower lobe and its 5 segments, the left upper lobe proper and its 2 segments, the lingula and its 2 segments, and the left lower lobe and its 4 segments all had similar findings of diffuse airway erythema and hyperemia. There were thick, purulent-looking secretions noted throughout. The airways were narrowed and showed significant malacia. There was no dominant mass or tumor. There was no bleeding. The bronchoscope was wedged into the right middle lobe. The BAL took place. The patient tolerated the procedure well. There was no immediate complication. The bronchoscope was withdrawn. Additional saline was used to cleanse the airways. There was no immediate complication. The patient tolerated the procedure well. The bronchoscope was withdrawn. MMODL / IJN: [id number] /
[2019-02-08 16:47] LABS: Glucose,Whole Blood 131 mg/dL (75-99)
--- NOTE | 2019-02-08 17:16 | P.PN ---
Subjective Progress Note Date: 02/08/19 02/08/2019 in follow-up on the regular medical floor. He is currently resting comfortably in bed. Awake and alert in no acute distress. He continues to be short of breath with cough congestion wheezing. Sputum culture is showing presumptive staph aureus, Pseudomonas species. Blood cultures no growth. Sodium 139. Potassium 4.4. Creatinine 0.70. He is currently on cefepime and vancomycin. He is continued on bronchodilators and steroids. pulmonary did go ahead and perform a bronchoscopy with BAL today. Cultures are pending. Initial sputum culture showing staph aureus and Pseudomonas species. He is continued on cefepime and vancomycin. Continue bronchodilators and steroids. Increase his activity as tolerated. We'll continue to follow make further recommendations based on his clinical status. Objective - Vital Signs Vital signs: Vital Signs Temp 98.4 F 02/08/19 09:55 Pulse 96 02/08/19 10:55 Resp 20 02/08/19 09:55 BP 148/90 02/08/19 09:55 Pulse Ox 100 02/08/19 07:00 Intake & Output 02/07/19 02/08/19 02/08/19 18:59 06:59 18:59 Intake Total 300 Output Total 425 Balance -425 300 Weight 108.454 kg Intake: IV 300 Output: Urine 425 Other: Voiding Method Toilet Toilet Urinal Urinal # Voids 0 - Exam HEAD: Normocephalic. EYES: Normal reaction of pupils, equal size. NOSE: Clear with pink turbinates. THROAT: No erythema or exudates. NECK: Tracheostomy tube secured in place. No masses, no JVD. CHEST: No chest wall deformity. LUNGS: Equal air entry with bilateral scattered rhonchi, end expiratory wheeze. CVS: S1 and S2 normal with no audible murmur, regular rhythm. ABDOMEN: No hepatosplenomegaly, normal bowel sounds, no guarding or rigidity. - Labs CBC & Chem 7: 02/07/19 09:01 02/08/19 07:16 Labs: Abnormal Lab Results - Last 24 Hours (Table) 02/07/19 02/08/19 02/08/19 Range/Units 16:41 00:23 07:11 Potassium (3.5-5.1) mmol/L Glucose (74-99) mg/dL POC Glucose (mg/dL) 175 H 204 H 143 H (75-99) mg/dL 02/08/19 Range/Units 07:16 Potassium 5.4 H (3.5-5.1) mmol/L Glucose 154 H (74-99) mg/dL POC Glucose (mg/dL) (75-99) mg/dL Microbiology - Last 24 Hours (Table) 02/07/19 09:00 Gram Stain - Preliminary Sputum Sputum Culture - Preliminary Presumptive Staph aureus Pseudomonas spec Assessment and Plan Assessment: Plan: -Possible tracheobronchitis: Patient has Pseudomonas and MRSA in the past because of which I'll start him on meropenem and vancomycin and infectious disease will be consulted as I'm using very broad-spectrum antibiotics the appropriateness of usage of this medications. (Proper blood cultures were obtained. --Bronchial asthma with acute exacerbation: Patient sitting. Improved with IV steroids inhalational treatments patient was started on oral steroids inhalational treatments pulmonology was consulted. 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 fib patient is not on aspirin R any anticoagulation at this time will not be initiated on any of those patient is presently sinus tachycardias from hypoxemia Patient will need pharmacologicDVT as well as GI prophylaxis Time with Patient: Greater than 30
--- NOTE | 2019-02-08 19:28 | PN ---
PROGRESS NOTE DATE OF SERVICE: 02/08/2019 REASON FOR FOLLOWUP: Tracheobronchitis, purulent. INTERVAL HISTORY: The patient is currently afebrile. The patient is status post bronchoscopy. The patient tolerated the procedure. Still is complaining of shortness of breath and cough. No chest pain. No nausea, vomiting. No abdominal pain or diarrhea. PHYSICAL EXAMINATION: Blood pressure 127/86 with a pulse of 90, temperature 97.8. He is 95% on trach collar. General description is a middle-aged male up in the bed in no distress. RESPIRATORY: Unlabored breathing. Coarse breath sounds bilaterally. HEART: S1, S2. Regular rate and rhythm. ABDOMEN: Soft. No tenderness. LABS: BUN of 11, creatinine 0.70. Sputum is presumptive Staphylococcus aureus and pseudomonas. DIAGNOSTIC IMPRESSION AND PLAN: Patient admitted to hospital with acute asthma in a patient with purulent tracheobronchitis and a question of pneumonia. Initial x-ray has been negative. The patient is currently covered with cefepime and vancomycin; to continue while monitoring his clinical course closely. Continue with supportive care. MMODL / IJN: [id number] /
[2019-02-08 20:28] LABS: Glucose,Whole Blood 163 mg/dL (75-99)
[2019-02-08 20:30] LABS: Appearance,BF Hazy; Color,BF Colorless; Nucleated Cells, Body Fluid 1078 /uL; RBC, Body Fluid 50 /uL
[2019-02-08 20:33] LABS: Mononuclear WBC,Body Fluid 6 %; Polynuclear WBC,Body Fluid 94 %; Total Cells Counted,Body Fluid 100
[2019-02-09] MEDS: methylPREDNISolone SOD SUCCI 125 MG/2 ML VIAL IV SCH ×3 (05:48→17:59)
[2019-02-09] MEDS: KETOROLAC 30 MG/ML 1 ML VIAL IVP PRN ×3 (05:48→23:22)
[2019-02-09] MEDS: SODIUM CHLORIDE 0.9% 1,000 ML IV SCH ×2 (05:55→08:18)
[2019-02-09] MEDS ORDERED: VANCOMYCIN TROUGH DUE 1 EACH MISC MISCELLANE ONE (07:00)
[2019-02-09 07:15] LABS: Glucose,Whole Blood 132 mg/dL (75-99)
[2019-02-09] MEDS: INSULIN ASPART (NovoLOG) 100 UNIT/ML VIAL SQ SCH ×4 (08:19→19:55)
[2019-02-09] MEDS: MORPHINE SULFATE 4 MG/ML SYRINGE IV PRN ×2 (08:19→19:44)
[2019-02-09] MEDS: IPRATROPIUM-ALBUTEROL 3 ML NEB INHALATION SCH ×4 (09:21→20:39)
[2019-02-09] MEDS: FORMOTEROL FUMARATE 20 MCG/2 ML NEBU INHALATION SCH ×2 (09:21→20:39)
[2019-02-09] MEDS: BUDESONIDE 1 MG/2 ML NEBU INHALATION SCH ×2 (09:21→20:39)
[2019-02-09] MEDS: CEFEPIME 2 GM in SODIUM CHLORIDE 0.9% 100 ML IVPB SCH ×2 (10:34→19:56)
[2019-02-09] MEDS: FAMOTIDINE 20 MG TAB PO SCH ×2 (10:35→19:56)
[2019-02-09] MEDS: HEPARIN SODIUM,PORCINE 5,000 UNIT/ML 1 ML VIAL SQ SCH ×2 (10:35→17:58)
[2019-02-09] MEDS: METOPROLOL TARTRATE 25 MG TAB PO SCH ×2 (10:35→19:56)
[2019-02-09] MEDS: PATIENT'S OWN MED (Phentermine Hcl [Adipex-P] 37.5 MG) PO SCH (10:36)
[2019-02-09] MEDS: VANCOMYCIN 1,750 MG in SODIUM CHLORIDE 0.9% 500 ML 500 ML IVPB SCH ×2 (11:47→17:58)
[2019-02-09 12:27] LABS: Glucose,Whole Blood 122 mg/dL (75-99)
[2019-02-09] MEDS ORDERED: hydrALAZINE HCL 20 MG/ML 1 ML VIAL IVP PRN (14:27)
--- NOTE | 2019-02-09 15:20 | PN ---
PROGRESS NOTE This is a 33-year-old black male, well known to our service. The patient is doing reasonably well. He had bronchoscopy yesterday. His initial sputum sample showed evidence of presumptive Staph and Pseudomonas. He states he is feeling better. We were able to suction quite a bit of phlegm from his airways. He had very collapsible airways and lots of extrinsic compression of his airways presumably from lymphadenopathy. Anyway, the patient remains on antibiotics in form of cefepime and vancomycin. Again, his breathing is much improved and he is resting comfortably. PHYSICAL EXAMINATION: VITAL SIGNS: Current vital signs are reviewed. His temperature is 98. Heart rate 88, respiratory rate 17, blood pressure 162/105, mean 124, and saturations are 99% on 40% trach collar. GENERAL: Appears in no acute distress. No respiratory distress. No audible wheezing. No use of accessory muscles. HEENT examination is grossly unremarkable. Mucous membranes are moist. He does have a cochlear implant. NECK: Supple. Full range of motion. There is a midline tracheostomy. CARDIOVASCULAR examination reveals regular rhythm and rate. Heart rate about 80 beats per minute. S1, S2 normal. No murmur. LUNGS: Reveal coarse rhonchi bilaterally. No wheezes or crackles. Breath sounds are improved. Slight prolongation on forced maneuver. ABDOMEN: Soft. Bowel sounds are heard. EXTREMITIES are intact. No cyanosis, clubbing, or edema. SKIN: Without rash. NEUROLOGIC: Examination is brief but nonfocal. A sputum sample from February 07 showed presumptive Staph aureus and Pseudomonas species. Bronch results are mostly pending. LABS: Reviewed. No new lab work from today. Medications are reviewed. No recent chest x-ray to report. ASSESSMENT: 1. Acute exacerbation of moderate persistent chronic bronchial asthma, complicated by purulent tracheobronchitis. 2. Sputum sampling from February 07 reveals Pseudomonas and presumptive Staph. 3. Status post bronchoscopy, postop day #1 with significant secretions, tracheobronchomalacia and extrinsic compression of the airways. 4. Status post permanent tracheostomy, September 2014. 5. History of deafness, status post cochlear implant. 6. Gastroesophageal reflux disease. 7. Hypertension. 8. Sleep apnea syndrome. 9. History of Rosai-Parker syndrome. 10.Chronic back pain. PLAN: The patient appears to be relatively stable. He is resting comfortably. No additional recommendations are made. We will continue to follow. He continues on antibiotics and breathing treatments. We will await bronch specimens. Sputum samples from February 07 are reviewed. MMODL / IJN: [id number] /
[2019-02-09 17:29] LABS: Glucose,Whole Blood 156 mg/dL (75-99)
[2019-02-09] MEDS: MONTELUKAST 10 MG TAB PO SCH (19:56)
[2019-02-09 20:02] LABS: Glucose,Whole Blood 182 mg/dL (75-99)
[2019-02-09] MEDS: ALPRAZolam 0.5 MG TAB PO PRN (23:23)
[2019-02-10] MEDS: methylPREDNISolone SOD SUCCI 125 MG/2 ML VIAL IV SCH ×4 (00:40→17:51)
[2019-02-10] MEDS: HEPARIN SODIUM,PORCINE 5,000 UNIT/ML 1 ML VIAL SQ SCH ×3 (00:40→17:16)
[2019-02-10] MEDS: MORPHINE SULFATE 4 MG/ML SYRINGE IV PRN ×4 (00:51→22:16)
[2019-02-10] MEDS: VANCOMYCIN 1,750 MG in SODIUM CHLORIDE 0.9% 500 ML 500 ML IVPB SCH ×3 (01:27→17:17)
[2019-02-10] MEDS: SODIUM CHLORIDE 0.9% 1,000 ML IV SCH ×3 (01:28→21:26)
[2019-02-10 07:32] LABS: Glucose,Whole Blood 172 mg/dL (75-99)
[2019-02-10 07:33] LABS: African American GFR (CKD) >90 (>60 ml/min/1.73 sqM)
[2019-02-10] MEDS: FORMOTEROL FUMARATE 20 MCG/2 ML NEBU INHALATION SCH ×2 (08:33→20:10)
[2019-02-10] MEDS: METOPROLOL TARTRATE 25 MG TAB PO SCH ×2 (08:33→21:24)
[2019-02-10] MEDS: IPRATROPIUM-ALBUTEROL 3 ML NEB INHALATION SCH ×4 (08:33→20:10)
[2019-02-10] MEDS: FAMOTIDINE 20 MG TAB PO SCH ×2 (08:33→21:24)
[2019-02-10] MEDS: BUDESONIDE 1 MG/2 ML NEBU INHALATION SCH ×2 (08:34→20:10)
[2019-02-10] MEDS: CEFEPIME 2 GM in SODIUM CHLORIDE 0.9% 100 ML IVPB SCH ×2 (08:34→21:26)
[2019-02-10] MEDS: INSULIN ASPART (NovoLOG) 100 UNIT/ML VIAL SQ SCH ×4 (08:35→21:22)
[2019-02-10] MEDS: PATIENT'S OWN MED (Phentermine Hcl [Adipex-P] 37.5 MG) PO SCH (10:06)
--- NOTE | 2019-02-10 11:55 | PN ---
PROGRESS NOTE DATE OF SERVICE: February 10, 2019 33-year-old Black male, well known to our service. The patient is status post bronchoscopy 2 days ago. He initially provided a sputum sample which showed evidence of presumptive Staph and Pseudomonas. In addition, there is some gram-negative bacilli in the bronch washings from Monday. Currently, the patient is feeling better. He is suctioning thick secretions from his tracheostomy tube. His breathing is improved. Anyway, the patient does seem to be showing improvement. I did tell him that we would continue with current therapy including breathing treatments, steroids and antibiotics. He has no new complaints today. He is lying flat in bed. Does not appear to have any significant respiratory distress. PHYSICAL EXAMINATION: VITAL SIGNS: His current vital signs are reviewed. Temperature 98.1. Heart rate 80, respiratory rate 16, blood pressure 180/89 mean 119, saturations are 98% on 35 percent trach collar. GENERAL: Appears in no acute distress. No respiratory distress. HEENT examination is grossly unremarkable. NECK: Supple. Full range of motion. No adenopathy. There is a midline tracheostomy tube. Trach collar in place. CARDIOVASCULAR examination reveals regular rhythm and rate. Heart rate about 84 beats per minute. Heart sounds are distant. LUNGS: Reveal diffuse coarse rhonchi. He has a very harsh wet congested-sounding cough. No crackles. ABDOMEN: Obese. Bowel sounds are heard. EXTREMITIES are intact. No significant edema. SKIN: Without rash. NEUROLOGIC: Examination is brief but nonfocal. LABS: Reviewed. Nothing new from today. Microbiologic studies show Staph aureus and Pseudomonas aeruginosa in the sputum that was provided on February 07. On February 08, the bronch washings show only evidence of gram-negative bacilli. The Staph aureus is an oxacillin sensitive Staph aureus. No recent chest x-ray to report. The other medications are reviewed. ASSESSMENT: 1. Acute exacerbation of moderate persistent chronic bronchial asthma, complicated by purulent tracheobronchitis with evidence of both oxacillin sensitive Staph aureus and Pseudomonas aeruginosa. 2. Status post bronchoscopy, postop day number two with noted significant secretions, tracheobronchomalacia and extrinsic compression of the airways. 3. Status post permanent tracheostomy, September 2014. 4. History of deafness, status post cochlear implant. 5. Gastroesophageal reflux disease. 6. Hypertension. 7. Sleep apnea syndrome. 8. History of Rosai-Parker syndrome (sinus histiocytosis). 9. Chronic back pain. PLAN: We will await the rest of the bronch results. There appears to be a gram-negative bacilli in the bronch washings. It may be Pseudomonas again. Currently, the patient is on appropriate medications including cefepime and vancomycin. The vancomycin could be switched to something else given the fact that it is a methicillin sensitive Staph aureus. Infectious Disease is on the case. Additional recommendations and suggestions are forthcoming. Prognosis is guarded. I did explain to the patient that in the future, he may need bronchoscopy once or twice a year. We will continue to follow. MMODL / IJN: [id number] /
[2019-02-10 12:39] LABS: Glucose,Whole Blood 118 mg/dL (75-99)
[2019-02-10] MEDS: KETOROLAC 30 MG/ML 1 ML VIAL IVP PRN ×2 (12:54→21:23)
--- NOTE | 2019-02-10 13:56 | P.PN ---
Subjective Progress Note Date: 02/09/19 Principal diagnosis: Acute exacerbation of moderate persistent chronic bronchial asthma complicated by purulent tracheobronchitis Status post permanent tracheostomy 02/08/2019 in follow-up on the regular medical floor. He is currently resting comfortably in bed. Awake and alert in no acute distress. He continues to be short of breath with cough congestion wheezing. Sputum culture is showing presumptive staph aureus, Pseudomonas species. Blood cultures no growth. Sodium 139. Potassium 4.4. Creatinine 0.70. He is currently on cefepime and vancomycin. He is continued on bronchodilators and steroids. pulmonary did go ahead and perform a bronchoscopy with BAL today. Cultures are pending. Initial sputum culture showing staph aureus and Pseudomonas species. He is continued on cefepime and vancomycin. Continue bronchodilators and ster oids. Increase his activity as tolerated. We'll continue to follow make further recommendations based on his clinical status. 02/09/2019 Patient is seen and evaluated in room at bedside; patient is resting comfortably and has no specific complaints at this time; patient is status post bronchoscopy, POD #1; initial sputum specimen from bronchoscopy could be showed evidence of staph and Pseudomonas; large amount of secretions were suctioned from his airways which were very collapsible and showed a lot of extrinsic compression presumably from lymphadenopathy; patient does report improvement in symptoms since bronchoscopy Patient remains on IV cefepime and vancomycin; pulmonary is following and recommending to continue current treatment at this time Objective - Vital Signs Vital signs: Vital Signs Temp 98 F 02/09/19 07:00 Pulse 90 02/09/19 09:44 Resp 17 02/09/19 07:00 BP 162/105 02/09/19 07:00 Pulse Ox 99 02/09/19 07:00 Intake & Output 02/08/19 02/09/19 02/09/19 18:59 06:59 18:59 Intake Total 300 Output Total 400 Balance 300 -400 Intake: IV 300 Output: Urine 400 Other: Voiding Method Toilet Toilet Urinal Urinal # Voids 2 1 - Exam HEAD: Normocephalic. EYES: Normal reaction of pupils, equal size. NOSE: Clear with pink turbinates. THROAT: No erythema or exudates. NECK: Tracheostomy tube secured in place. No masses, no JVD. CHEST: No chest wall deformity. LUNGS: Equal air entry with bilateral scattered rhonchi, end expiratory wheeze. CVS: S1 and S2 normal with no audible murmur, regular rhythm. ABDOMEN: No hepatosplenomegaly, normal bowel sounds, no guarding or rigidity. - Labs CBC & Chem 7: 02/07/19 09:01 02/10/19 06:33 Labs: Abnormal Lab Results - Last 24 Hours (Table) 02/08/19 02/08/19 02/08/19 Range/Units 12:10 16:36 20:26 POC Glucose (mg/dL) 139 H 131 H 163 H (75-99) mg/dL 02/09/19 Range/Units 07:01 POC Glucose (mg/dL) 132 H (75-99) mg/dL Microbiology - Last 24 Hours (Table) 02/08/19 11:40 Acid Fast Bacilli Smear - Final Bronchial Washings - Right Acid Fast Bacilli Culture - Preliminary 02/08/19 11:40 Gram Stain - Preliminary Bronchial Washings - Right Bronchial Washings Culture - Preliminary 02/08/19 11:40 Fungal Culture - Preliminary Bronchial Washings - Right 02/07/19 10:48 Blood Culture - Preliminary Blood No Growth after 24 hours 02/07/19 09:00 Gram Stain - Preliminary Sputum Sputum Culture - Preliminary Presumptive Staph aureus Pseudomonas spec Assessment and Plan Assessment: Plan: -Possible tracheobronchitis: Patient has Pseudomonas and MRSA in the past because of which I'll start him on meropenem and vancomycin and infectious disease will be consulted as I'm using very broad-spectrum antibiotics the appropriateness of usage of this medications. (Proper blood cultures were obtained. --Bronchial asthma with acute exacerbation: Patient sitting. Improved with IV steroids inhalational treatments patient was started on oral steroids inhalational treatments pulmonology was consulted. 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 fib patient is not on aspirin R any anticoagulation at this time will not be initiated on any of those patient is presently sinus tachycardias from hypoxemia Patient will need pharmacologicDVT as well as GI prophylaxis Time with Patient: Greater than 30
--- NOTE | 2019-02-10 15:18 | P.PN ---
Subjective Progress Note Date: 02/10/19 Principal diagnosis: Acute exacerbation of moderate persistent chronic bronchial asthma complicated by purulent tracheobronchitis Status post permanent tracheostomy 02/08/2019 in follow-up on the regular medical floor. He is currently resting comfortably in bed. Awake and alert in no acute distress. He continues to be short of breath with cough congestion wheezing. Sputum culture is showing presumptive staph aureus, Pseudomonas species. Blood cultures no growth. Sodium 139. Potassium 4.4. Creatinine 0.70. He is currently on cefepime and vancomycin. He is continued on bronchodilators and steroids. pulmonary did go ahead and perform a bronchoscopy with BAL today. Cultures are pending. Initial sputum culture showing staph aureus and Pseudomonas species. He is continued on cefepime and vancomycin. Continue bronchodilators and ster oids. Increase his activity as tolerated. We'll continue to follow make further recommendations based on his clinical status. 02/09/2019 Patient is seen and evaluated in room at bedside; patient is resting comfortably and has no specific complaints at this time; patient is status post bronchoscopy, POD #1; initial sputum specimen from bronchoscopy could be showed evidence of staph and Pseudomonas; large amount of secretions were suctioned from his airways which were very collapsible and showed a lot of extrinsic compression presumably from lymphadenopathy; patient does report improvement in symptoms since bronchoscopy Patient remains on IV cefepime and vancomycin; pulmonary is following and recommending to continue current treatment at this time 02/10/2019 Patient is seen and evaluated in room at bedside; patient does report some hemo ptysis after he tried to suction; it stopped spontaneously; no further episodes since then; he continues to report improvement in breathing Vital signs remained stable with temperature of 98.1, pulse 88, respirations 16 and blood pressure of 180/89 Pulmonary is following and recommending to continue with IV steroids and antibiotics in form of IV vancomycin and cefepime to final culture reports are available from bronchial washings; per pulmonary some evidence of gram-negative bacilli and presumptive staph and Pseudomonas in brown washings from Monday Blood pressure remains elevated; patient takes metoprolol 25 mg twice a day along with hydralazine 10 mg IV every 6 hours when necessary; we will add Norvasc 5 mg daily and continue to monitor blood pressure closely Objective - Vital Signs Vital signs: Vital Signs Temp 98.1 F 02/10/19 07:00 Pulse 88 02/10/19 12:06 Resp 16 02/10/19 08:00 BP 180/89 02/10/19 07:00 Pulse Ox 98 02/10/19 07:00 Intake & Output 02/09/19 02/10/19 02/10/19 19:59 06:59 18:59 Output Total 500 Balance -500 Output: Urine 500 Other: Voiding Method Toilet Urinal # Voids 2 - Exam HEAD: Normocephalic. EYES: Normal reaction of pupils, equal size. NOSE: Clear with pink turbinates. THROAT: No erythema or exudates. NECK: Tracheostomy tube secured in place. No masses, no JVD. CHEST: No chest wall deformity. LUNGS: Equal air entry with bilateral scattered rhonchi, end expiratory wheeze. CVS: S1 and S2 normal with no audible murmur, regular rhythm. ABDOMEN: No hepatosplenomegaly, normal bowel sounds, no guarding or rigidity. - Labs CBC & Chem 7: 02/07/19 09:01 02/10/19 06:33 Labs: Abnormal Lab Results - Last 24 Hours (Table) 02/09/19 02/09/19 02/10/19 Range/Units 17:16 19:50 07:20 POC Glucose (mg/dL) 156 H 182 H 172 H (75-99) mg/dL 02/10/19 Range/Units 12:27 POC Glucose (mg/dL) 118 H (75-99) mg/dL Microbiology - Last 24 Hours (Table) 02/07/19 10:48 Blood Culture - Preliminary Blood No Growth after 72 hours 02/08/19 11:40 Gram Stain - Final Bronchial Washings - Right Bronchial Washings Culture - Final Pseudomonas aeruginosa 02/07/19 09:00 Gram Stain - Final Sputum Sputum Culture - Final Staphylococcus aureus Pseudomonas aeruginosa Assessment and Plan Assessment: Plan: -Possible tracheobronchitis: Patient has Pseudomonas and MRSA in the past because of which I'll start him on meropenem and vancomycin and infectious disease will be consulted as I'm using very broad-spectrum antibiotics the appropriateness of usage of this medications. (Proper blood cultures were obtained. --Bronchial asthma with acute exacerbation: Patient sitting. Improved with IV steroids inhalational treatments patient was started on oral steroids inhalational treatments pulmonology was consulted. 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 fib patient is not on aspirin R any anticoagulation at this time will not be initiated on any of those patient is presently sinus tachycardias from hypoxemia Patient will need pharmacologicDVT as well as GI prophylaxis Time with Patient: Greater than 30
[2019-02-10 17:38] LABS: Glucose,Whole Blood 167 mg/dL (75-99)
[2019-02-10 20:42] LABS: Glucose,Whole Blood 149 mg/dL (75-99)
[2019-02-10] MEDS: ALPRAZolam 0.5 MG TAB PO PRN (21:24)
[2019-02-10] MEDS: MONTELUKAST 10 MG TAB PO SCH (21:24)
--- NOTE | 2019-02-10 23:26 | PN ---
PROGRESS NOTE DATE OF SERVICE: 02/10/2019. REASON FOR FOLLOWUP: Pseudomonas and MSSA tracheobronchitis and a question of pneumonia. INTERVAL HISTORY: The patient is currently afebrile. Patient has been breathing comfortably. The patient did have a cough and is bringing up some blood-stained sputum. No nausea, vomiting. No abdominal pain. No diarrhea. EXAMINATION: Blood pressure is 154/91 with a pulse of 83, temperature 98.2 he is 99% on trach collar. General description is a middle-aged male up in the chair in no distress respiratory system: Unlabored breathing with decreased breath sounds. Occasional wheeze. HEART: S1, S2. Regular rate and rhythm. Abdomen soft. No tenderness. Extremities no edema of the feet. LABS: No new labs have been obtained today. Sputum has been finalized with Pseudomonas aeruginosa and MSSA. DIAGNOSTIC IMPRESSION AND PLAN: Patient admitted to hospital with tracheobronchitis as in his x-ray did not show any evidence of consolidation. The patient is status post bronch with cultures showing Pseudomonas aeruginosa, previous sputum culture positive for MSSA and Pseudomonas aeruginosa. At this time the patient continue with cefepime to cover both pathogens. Discontinue the vancomycin. Repeat a chest x-ray tomorrow. Follow up on pneumonia and continue supportive care. MMODL / IJN: [id number] /
[2019-02-11] MEDS: HEPARIN SODIUM,PORCINE 5,000 UNIT/ML 1 ML VIAL SQ SCH ×3 (00:10→16:02)
[2019-02-11] MEDS: methylPREDNISolone SOD SUCCI 125 MG/2 ML VIAL IV SCH ×4 (00:11→17:40)
[2019-02-11] MEDS: MORPHINE SULFATE 4 MG/ML SYRINGE IV PRN ×4 (03:30→21:31)
[2019-02-11 07:12] LABS: Glucose,Whole Blood 133 mg/dL (75-99)
[2019-02-11] MEDS: FORMOTEROL FUMARATE 20 MCG/2 ML NEBU INHALATION SCH ×2 (07:27→20:02)
[2019-02-11] MEDS: BUDESONIDE 1 MG/2 ML NEBU INHALATION SCH ×2 (07:27→20:02)
[2019-02-11] MEDS: IPRATROPIUM-ALBUTEROL 3 ML NEB INHALATION SCH ×4 (07:27→20:02)
[2019-02-11 07:33] LABS: African American GFR (CKD) >90 (>60 ml/min/1.73 sqM); Anion Gap 6 mmol/L; Blood Urea Nitrogen 20 mg/dL (9-20); Calcium 8.8 mg/dL (8.4-10.2); Carbon Dioxide 26 mmol/L (22-30); Chloride 105 mmol/L (98-107); Glucose 147 mg/dL (74-99); Potassium 4.8 mmol/L (3.5-5.1); Sodium 137 mmol/L (137-145)
[2019-02-11] MEDS: INSULIN ASPART (NovoLOG) 100 UNIT/ML VIAL SQ SCH ×4 (07:39→21:31)
[2019-02-11] MEDS: METOPROLOL TARTRATE 25 MG TAB PO SCH ×2 (07:50→21:31)
[2019-02-11] MEDS: FAMOTIDINE 20 MG TAB PO SCH ×2 (07:50→21:31)
[2019-02-11 08:00] LABS: Anisocytosis Slight; HCT 35.2 % (39.0-53.0); Hypochromasia Marked; MCH 27.5 pg (25.0-35.0); MCHC 31.2 g/dL (31.0-37.0); Mean Platelet Volume 8.7; Platelet Count 262 k/uL (150-450); RBC 4.01 m/uL (4.30-5.90); RDW 16.9 % (11.5-15.5); WBC 9.5 k/uL (3.8-10.6)
[2019-02-11 08:34] LABS: Lymphocytes # (M) 0.29 k/uL (1.0-4.8); Monocytes # (M) 0.19 k/uL (0-1.0); Myelocytes % 1 %; Neutrophils % (M) 95 %; Nucleated Red Blood Cells 0 /100 WBC (0-0); Total Cells Counted 200
[2019-02-11 08:35] LABS: Poikilocytosis (M) Present; Target Cells Present
--- NOTE | 2019-02-11 09:19 | P.PN ---
Subjective This is a pleasant 33 years old -[place] male with past medical history of asthma, hypertension, GERD, sleep apnea on CPAP/BiPAP, Langerhans' cell histiocytosis, patient is status post permanent tracheostomy since 2014 on room air at home as per patient. Patient presents with dyspnea and his been treated for acute asthma exacerbation, he underwent bronchoscopy on 02/08/2019. Secretion showing Pseudomonas. Patient is already on cefepime, ID team on the case. Also patient on Solu-Medrol 60 mg and normal saline at 100 mL/h. He juliane ins on 8 L oxygen via trach collar. WBC normal at 9.5K, hemoglobin 11.0. Sodium 137, potassium normal at 4.8. Blood pressure still elevated at 181/101. We will add Norvasc 10 mg Objective - Vital Signs Vital signs: Vital Signs Temp 98 F 02/11/19 07:00 Pulse 80 02/11/19 07:50 Resp 16 02/11/19 07:00 BP 181/101 02/11/19 07:00 Pulse Ox 97 02/11/19 07:00 Intake & Output 02/10/19 02/11/19 02/11/19 18:59 06:59 18:59 Intake Total 1500 Output Total 500 1700 Balance 1000 -1700 Intake: Intake, IV Titration 1050 Amount Cefepime 2 gm In Sodium 100 Chloride 0.9% 100 ml @ 200 mls/hr IVPB Q12HR NIC Rx#:[id number] Sodium Chloride 0.9% 1, 450 000 ml @ 100 mls/hr IV . Q10H NIC Rx#:[id number] Vancomycin 1,750 mg In 500 Sodium Chloride 0.9% 500 ml 500 ml @ 167 mls/hr IVPB Q8HR NIC Rx#: [id number] Oral 450 Output: Urine 500 1700 Other: Voiding Method Toilet Toilet Urinal Urinal # Voids 3 2 - Exam -GENERAL: The patient is alert and oriented x3, not in any acute distress, obese HEENT: Pupils are round and equally reacting to light. EOMI. No scleral icterus. No conjunctival pallor. Normocephalic, atraumatic. No pharyngeal erythema. No thyromegaly. CARDIOVASCULAR: S1 and S2 present. No murmurs, rubs, or gallops. -PULMONARY: Chest is clear to auscultation, bilateral expiratory wheezing ABDOMEN: Soft, nontender, nondistended, normoactive bowel sounds. No palpable organomegaly. MUSCULOSKELETAL: No joint swelling or deformity. EXTREMITIES: No cyanosis, clubbing, or pedal edema. NEUROLOGICAL: Gross neurological examination did not reveal any focal deficits. SKIN: No rashes. no petechiae. - Labs CBC & Chem 7: 02/11/19 06:45 02/11/19 06:45 Labs: Abnormal Lab Results - Last 24 Hours (Table) 02/10/19 02/10/19 02/10/19 Range/Units 12:27 17:25 20:41 RBC (4.30-5.90) m/uL Hgb (13.0-17.5) gm/dL Hct (39.0-53.0) % RDW (11.5-15.5) % Neutrophils # (Manual) (1.3-7.7) k/uL Lymphocytes # (Manual) (1.0-4.8) k/uL Myelocytes # (Manual) (0) k/uL Glucose (74-99) mg/dL POC Glucose (mg/dL) 118 H 167 H 149 H (75-99) mg/dL 02/11/19 02/11/19 02/11/19 Range/Units 06:45 06:45 06:55 RBC 4.01 L (4.30-5.90) m/uL Hgb 11.0 L (13.0-17.5) gm/dL Hct 35.2 L (39.0-53.0) % RDW 16.9 H (11.5-15.5) % Neutrophils # (Manual) 9.03 H (1.3-7.7) k/uL Lymphocytes # (Manual) 0.29 L (1.0-4.8) k/uL Myelocytes # (Manual) 0.10 H (0) k/uL Glucose 147 H (74-99) mg/dL POC Glucose (mg/dL) 133 H (75-99) mg/dL Microbiology - Last 24 Hours (Table) 02/07/19 10:48 Blood Culture - Preliminary Blood No Growth after 72 hours 02/08/19 11:40 Gram Stain - Final Bronchial Washings - Right Bronchial Washings Culture - Final Pseudomonas aeruginosa 02/07/19 09:00 Gram Stain - Final Sputum Sputum Culture - Final Staphylococcus aureus Pseudomonas aeruginosa Assessment and Plan Assessment: -Acute tracheobronchitis: Patient has Pseudomonas: Continue with cefepime. ID team on the case. Status post bronchoscopy on 02/08/2019 -Acute Bronchial asthma : Continue with Solu-Medrol 60 mg, continue with inhalation steroids and bronchodilators. 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
[2019-02-11] MEDS: PATIENT'S OWN MED (Phentermine Hcl [Adipex-P] 37.5 MG) PO SCH (10:09)
--- NOTE | 2019-02-11 10:17 | XR ---
EXAMINATION TYPE: XR chest 2V DATE OF EXAM: 02/11/2019 COMPARISON: 02/07/2019 TECHNIQUE: PA and lateral views submitted. HISTORY: Shortness of breath FINDINGS: Tracheostomy tube stable. Patchy bilateral areas of infiltrate persists. Suspect tiny bilateral pleur al effusions. Degenerative change of the spine and cardiomegaly noted. No sizable pneumothorax. IMPRESSION: 1. Bilateral infiltrate and small effusion correlate for pneumonia versus mild CHF
[2019-02-11] MEDS: amLODIPine 10 MG TAB PO SCH (10:22)
[2019-02-11] MEDS: CEFEPIME 2 GM in SODIUM CHLORIDE 0.9% 100 ML IVPB SCH ×2 (10:23→21:30)
[2019-02-11] MEDS: KETOROLAC 30 MG/ML 1 ML VIAL IVP PRN (10:25)
[2019-02-11 11:39] LABS: Glucose,Whole Blood 178 mg/dL (75-99)
[2019-02-11] MEDS: SODIUM CHLORIDE 0.9% 1,000 ML IV SCH ×2 (12:02→17:43)
[2019-02-11] MEDS: ACETYLCYSTEINE 800 MG/4 ML VIAL INHALATION SCH ×2 (15:47→20:02)
--- NOTE | 2019-02-11 16:08 | P.PN ---
Subjective Progress Note Date: 02/11/19 On 02/11/2099 seeing this patient for a follow-up. The patient is still 35% trach collar with a pulse is a 93%. The patient is doing well. The patient is afebrile. He is still having some sick and copious respiratory secretions and he is requesting for something to break down the mucous. I suggested Mucomyst nebulized treatments. Note that the patient's cultures indicating Pseudomonas and the patient is currently on IV cefepime. The most recent chest x-ray from yesterday showed some worsening of the bilateral pulmonary infiltrates and this is to be followed up very closely. No fever. No chills. No leukocytosis. The white cell count of 9.5. The rest of the blood work and electrodes are all within normal limits. The patient remains on DuoNeb nebulized treatments around the clock, Pulmicort Respules, IV Solu Medrol still being used at 60 mg IV push every 6 hours. Respiratory medications are all unchanged. Objective - Vital Signs Vital signs: Vital Signs Temp 98.1 F 02/11/19 15:30 Pulse 80 02/11/19 15:59 Resp 16 02/11/19 15:30 BP 146/81 02/11/19 15:30 Pulse Ox 93 L 02/11/19 15:30 Intake & Output 02/10/19 02/11/19 02/11/19 18:59 06:59 18:59 Intake Total 1500 Output Total 500 1700 Balance 1000 -1700 Intake: Intake, IV Titration 1050 Amount Cefepime 2 gm In Sodium 100 Chloride 0.9% 100 ml @ 200 mls/hr IVPB Q12HR NIC Rx#:[id number] Sodium Chloride 0.9% 1, 450 000 ml @ 100 mls/hr IV . Q10H NIC Rx#:[id number] Vancomycin 1,750 mg In 500 Sodium Chloride 0.9% 500 ml 500 ml @ 167 mls/hr IVPB Q8HR NIC Rx#: [id number] Oral 450 Output: Urine 500 1700 Other: Voiding Method Toilet Toilet Toilet Urinal Urinal Urinal # Voids 3 2 - Exam GENERAL EXAM: Alert, pleasant 33-year-old gentleman, on 35% FiO2 via trach collar, comfortable in no apparent distress. HEAD: Normocephalic. EYES: Normal reaction of pupils, equal size. NOSE: Clear with pink turbinates. THROAT: No erythema or exudates. NECK: Tracheostomy tube secured in place. No masses, no JVD. CHEST: No chest wall deformity. LUNGS: Equal air entry with bilateral scattered rhonchi, end expiratory wheeze. CVS: S1 and S2 normal with no audible murmur, regular rhythm. ABDOMEN: No hepatosplenomegaly, normal bowel sounds, no guarding or rigidity. SPINE: No scoliosis or deformity SKIN: No rashes CENTRAL NERVOUS SYSTEM: No focal deficits, tone is normal in all 4 extremities. EXTREMITIES: There is no peripheral edema. No clubbing, no cyanosis. Peripheral pulses are intact. - Labs CBC & Chem 7: 02/11/19 06:45 02/11/19 06:45 Labs: Abnormal Lab Results - Last 24 Hours (Table) 02/10/19 02/10/19 02/11/19 Range/Units 17:25 20:41 06:45 RBC 4.01 L (4.30-5.90) m/uL Hgb 11.0 L (13.0-17.5) gm/dL Hct 35.2 L (39.0-53.0) % RDW 16.9 H (11.5-15.5) % Neutrophils # (Manual) 9.03 H (1.3-7.7) k/uL Lymphocytes # (Manual) 0.29 L (1.0-4.8) k/uL Myelocytes # (Manual) 0.10 H (0) k/uL Glucose (74-99) mg/dL POC Glucose (mg/dL) 167 H 149 H (75-99) mg/dL 02/11/19 02/11/19 02/11/19 Range/Units 06:45 06:55 11:22 RBC (4.30-5.90) m/uL Hgb (13.0-17.5) gm/dL Hct (39.0-53.0) % RDW (11.5-15.5) % Neutrophils # (Manual) (1.3-7.7) k/uL Lymphocytes # (Manual) (1.0-4.8) k/uL Myelocytes # (Manual) (0) k/uL Glucose 147 H (74-99) mg/dL POC Glucose (mg/dL) 133 H 178 H (75-99) mg/dL Microbiology - Last 24 Hours (Table) 02/07/19 10:48 Blood Culture - Preliminary Blood No Growth after 96 hours 02/08/19 11:40 Gram Stain - Final Bronchial Washings - Right Bronchial Washings Culture - Final Pseudomonas aeruginosa Assessment and Plan Plan: #1 Acute exacerbation of moderate persistent chronic bronchial asthma, complicated by purulent tracheobronchitis. Initial sputum culture revealing staph aureus MSSA and pseudomonas aeruginosa and the patient is on IV cefepime and vancomycin has been discontinued. The patient remains bronchospastic short of breath and he is complaining of excessive mucus production and plugging. He remains on 35% trach collar. #2 History of permanent tracheostomy in September 2014. #3 History of deafness, status post cochlear implant. #4 Gastroesophageal reflux disease. #5 Hypertension. #6 Obstructive sleep apnea. #7 History of Rosai-Parker syndrome. #8 Chronic back pain. Plan On today's chest x-ray there is some increased interstitial markings bilaterally. Kept on IV fluids to KVO. Give the patient Lasix 40 mg IV push. Continued IV cefepime. Continue the bronchodilators. Add Mucomyst nebulized treatment twice a day. Aggressive pulmonary toileting. We'll continue to follow.
[2019-02-11] MEDS ORDERED: FUROSEMIDE 10 MG/ML 4 ML VIAL IV STA (16:09)
[2019-02-11 17:04] LABS: Glucose,Whole Blood 136 mg/dL (75-99)
[2019-02-11 20:28] LABS: Glucose,Whole Blood 185 mg/dL (75-99)
[2019-02-11] MEDS: MONTELUKAST 10 MG TAB PO SCH (21:31)
--- NOTE | 2019-02-11 23:38 | PN ---
PROGRESS NOTE DATE OF SERVICE: 02/11/2019. REASON FOR FOLLOWUP: Pneumonia. INTERVAL HISTORY: The patient is currently afebrile. The patient has been breathing comfortably. Still having some cough but no further hemoptysis. No chest pain. No nausea, vomiting, abdominal pain. No diarrhea. PHYSICAL EXAMINATION: Blood pressure is 147/91 with a pulse of 87, temperature 98.3. He is 98% on trach collar. General description is a middle-aged male lying in bed in no distress. Respiratory system: Unlabored breathing. Decreased breath sounds in the bases. No wheeze. Heart S1, S2. Regular rate and rhythm. Abdomen soft. No tenderness. Extremities: No edema of the feet. LABS: Hemoglobin is 11.1, white count 9.5 with a BUN of 20, creatinine 0.67. DIAGNOSTIC IMPRESSION AND PLAN: Patient admitted to the hospital with difficulty in breathing, x-ray now showing bibasilar infiltrate with concern for possible pneumonia. Bronch and sputum has been showing Pseudomonas the patient is currently covered with cefepime to continue while monitoring clinical course closely. Continue supportive care. MMODL / IJN: [id number] /
[2019-02-11] MEDS: ALPRAZolam 0.5 MG TAB PO PRN (23:56)
[2019-02-12] MEDS: HEPARIN SODIUM,PORCINE 5,000 UNIT/ML 1 ML VIAL SQ SCH ×4 (01:03→23:14)
[2019-02-12] MEDS: methylPREDNISolone SOD SUCCI 125 MG/2 ML VIAL IV SCH ×5 (01:04→23:13)
[2019-02-12] MEDS: BUDESONIDE 1 MG/2 ML NEBU INHALATION SCH ×2 (07:07→20:22)
[2019-02-12] MEDS: IPRATROPIUM-ALBUTEROL 3 ML NEB INHALATION SCH ×4 (07:07→20:22)
[2019-02-12] MEDS: ACETYLCYSTEINE 800 MG/4 ML VIAL INHALATION SCH ×2 (07:07→20:22)
[2019-02-12] MEDS: FORMOTEROL FUMARATE 20 MCG/2 ML NEBU INHALATION SCH ×2 (07:07→20:22)
[2019-02-12] MEDS: FAMOTIDINE 20 MG TAB PO SCH ×2 (07:35→20:23)
[2019-02-12] MEDS: METOPROLOL TARTRATE 25 MG TAB PO SCH ×2 (07:35→20:23)
[2019-02-12] MEDS: amLODIPine 10 MG TAB PO SCH (07:35)
[2019-02-12] MEDS: CEFEPIME 2 GM in SODIUM CHLORIDE 0.9% 100 ML IVPB SCH ×2 (07:36→20:23)
[2019-02-12] MEDS: INSULIN ASPART (NovoLOG) 100 UNIT/ML VIAL SQ SCH ×4 (07:36→20:23)
[2019-02-12 07:41] LABS: Glucose,Whole Blood 150 mg/dL (75-99)
[2019-02-12] MEDS: MORPHINE SULFATE 4 MG/ML SYRINGE IV PRN ×4 (07:50→23:36)
--- NOTE | 2019-02-12 08:27 | XR ---
EXAMINATION TYPE: XR chest 1V DATE OF EXAM: 02/12/2019 COMPARISON: Prior chest x-ray 02/11/2019 HISTORY: Pneumonia TECHNIQUE: Single frontal view of the chest is obtained. FINDINGS: There is a tracheostomy tube overlying the tracheal air column. There is blunting of the le ft costophrenic angle and right costophrenic angle as on prior, suspect right middle lobe atelectasis , right heart border is obscured. There is improved aeration within the lungs. No evident pneumothora x. Patient is rotated. The cardiac silhouette size is stable. The osseous structures are intact. IMPRESSION: Pleural effusions, cardiomegaly, right middle lobe atelectasis versus pneumonia, probabl e basilar atelectasis. There is improvement in aeration.
--- NOTE | 2019-02-12 08:56 | P.PN ---
Subjective This is a pleasant 33 years old -[place] male with past medical history of asthma, hypertension, GERD, sleep apnea on CPAP/BiPAP, Langerhans' cell histiocytosis, patient is status post permanent tracheostomy since 2014 on room air at home as per patient. Patient presents with dyspnea and his been treated for acute asthma exacerbation, he underwent bronchoscopy on 02/08/2019. Secretion showing Pseudomonas. Patient is already on cefepime, ID team on the case. Also patient on Solu-Medrol 60 mg and normal saline at 100 mL/h. He juliane ins on 8 L oxygen via trach collar. WBC normal at 9.5K, hemoglobin 11.0. Sodium 137, potassium normal at 4.8. Blood pressure still elevated at 181/101. We will add Norvasc 10 mg 02/12/2019 Patient is fully awake and oriented. His dyspnea, exertional dyspnea and coughing are improving. He still on 8 L oxygen. Color and he is keeping his saturating well above 90%. There is some Vitas looks stable. His sugar is controlled.repeat chest x-ray: Showing pleural effusions, right middle lobe at electasis versus pneumonia. Encourage incentive spirometry. Cytology from bronchial washing: no cytology of the malignant cells identified. Patient currently remains on cefepime for his Pseudomonas sputum culture on Solu-Medrol 60 mg Objective - Vital Signs Vital signs: Vital Signs Temp 98.2 F 02/12/19 07:00 Pulse 84 02/12/19 07:44 Resp 16 02/12/19 07:00 BP 155/90 02/12/19 07:00 Pulse Ox 100 02/12/19 07:00 Intake & Output 02/11/19 02/12/19 02/12/19 18:59 06:59 18:59 Output Total 750 Balance -750 Output: Urine 750 Other: Voiding Method Toilet Toilet Urinal Urinal # Voids 3 - Exam -GENERAL: The patient is alert and oriented x3, not in any acute distress, obese HEENT: Pupils are round and equally reacting to light. EOMI. No scleral icterus. No conjunctival pallor. Normocephalic, atraumatic. No pharyngeal erythema. No thyromegaly. CARDIOVASCULAR: S1 and S2 present. No murmurs, rubs, or gallops. -PULMONARY: Chest is clear to auscultation, bilateral expiratory wheezing ABDOMEN: Soft, nontender, nondistended, normoactive bowel sounds. No palpable organomegaly. MUSCULOSKELETAL: No joint swelling or deformity. EXTREMITIES: No cyanosis, clubbing, or pedal edema. NEUROLOGICAL: Gross neurological examination did not reveal any focal deficits. SKIN: No rashes. no petechiae. - Labs CBC & Chem 7: 02/11/19 06:45 02/11/19 06:45 Labs: Abnormal Lab Results - Last 24 Hours (Table) 02/11/19 02/11/19 02/11/19 Range/Units 11:22 16:52 20:16 POC Glucose (mg/dL) 178 H 136 H 185 H (75-99) mg/dL 02/12/19 Range/Units 07:22 POC Glucose (mg/dL) 150 H (75-99) mg/dL Microbiology - Last 24 Hours (Table) 02/07/19 10:48 Blood Culture - Preliminary Blood No Growth after 96 hours Assessment and Plan Assessment: -Acute tracheobronchitis: Patient has Pseudomonas: Continue with cefepime. ID team on the case. Status post bronchoscopy on 02/08/2019 -Acute Bronchial asthma : Continue with Solu-Medrol 60 mg, continue with inhalation steroids and bronchodilators. 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
[2019-02-12] MEDS: PATIENT'S OWN MED (Phentermine Hcl [Adipex-P] 37.5 MG) PO SCH (11:09)
[2019-02-12] MEDS: KETOROLAC 30 MG/ML 1 ML VIAL IVP PRN (11:10)
[2019-02-12 12:13] LABS: Glucose,Whole Blood 179 mg/dL (75-99)
--- NOTE | 2019-02-12 15:51 | P.PN ---
Subjective Progress Note Date: 02/12/19 Principal diagnosis: Acute exacerbation of moderate persistent chronic bronchial asthma The patient is seen today 02/12/2019 in follow-up on the regular medical floor. He is currently resting comfortably in bed. Awake and alert in no acute distress. He is maintaining good O2 saturations in the 90s on 35% trach collar. Sputum culture is showing presumptive staph aureus, Pseudomonas species. Blood cultures no growth. He is currently on cefepime and vancomycin. He is cont inued on bronchodilators and steroids. Objective - Vital Signs Vital signs: Vital Signs Temp 98.2 F 02/12/19 07:00 Pulse 84 02/12/19 11:23 Resp 16 02/12/19 08:00 BP 155/90 02/12/19 07:00 Pulse Ox 100 02/12/19 07:00 Intake & Output 02/11/19 02/12/19 02/12/19 18:59 06:59 18:59 Output Total 750 800 Balance -750 -800 Output: Urine 750 800 Other: Voiding Method Toilet Toilet Toilet Urinal Urinal Urinal # Voids 3 - Exam GENERAL EXAM: Alert, pleasant 33-year-old gentleman, on 35% FiO2 via trach collar, comfortable in no apparent distress. HEAD: Normocephalic. EYES: Normal reaction of pupils, equal size. NOSE: Clear with pink turbinates. THROAT: No erythema or exudates. NECK: Tracheostomy tube secured in place. No masses, no JVD. CHEST: No chest wall deformity. LUNGS: Equal air entry with bilateral scattered rhonchi, end expiratory wheeze. CVS: S1 and S2 normal with no audible murmur, regular rhythm. ABDOMEN: No hepatosplenomegaly, normal bowel sounds, no guarding or rigidity. SPINE: No scoliosis or deformity SKIN: No rashes CENTRAL NERVOUS SYSTEM: No focal deficits, tone is normal in all 4 extremities. EXTREMITIES: There is no peripheral edema. No clubbing, no cyanosis. Peripheral pulses are intact. - Labs CBC & Chem 7: 02/11/19 06:45 02/11/19 06:45 Labs: Abnormal Lab Results - Last 24 Hours (Table) 02/11/19 02/11/19 02/12/19 Range/Units 16:52 20:16 07:22 POC Glucose (mg/dL) 136 H 185 H 150 H (75-99) mg/dL 02/12/19 Range/Units 12:02 POC Glucose (mg/dL) 179 H (75-99) mg/dL Microbiology - Last 24 Hours (Table) 02/07/19 10:48 Blood Culture - Preliminary Blood No Growth after 120 hours Assessment and Plan Assessment: Impression: #1 Acute exacerbation of moderate persistent chronic bronchial asthma, complicated by purulent tracheobronchitis. Positive for pseudomonas and MSSA. Currently on cefepime and vancomycin. #2 History of permanent tracheostomy in September 2014. #3 History of deafness, status post cochlear implant. #4 Gastroesophageal reflux disease. #5 Hypertension. #6 Obstructive sleep apnea. #7 History of Rosai-Parker syndrome. #8 Chronic back pain. Plan: The patient was seen and evaluated by Dr. Barnard. He is continued on cefepime and vancomycin. Continue bronchodilators and steroids. Increase his activity as tolerated. We'll continue to follow make further recommendations based on his clinical status. I, the cosigning physician, performed a history & physical examination of the patient. Lungs sounds with bilateral end expiratory wheeze, few scattered rhonchi. Maintaining good O2 saturations in the 90s on 35% FiO2 via trach collar. I discussed the assessment and plan of care with my nurse practitioner, Melissa Ward. I attest to the above note as dictated by her.
[2019-02-12 17:01] LABS: Glucose,Whole Blood 153 mg/dL (75-99)
[2019-02-12] MEDS: MONTELUKAST 10 MG TAB PO SCH (20:23)
[2019-02-12 20:24] LABS: Glucose,Whole Blood 205 mg/dL (75-99)
[2019-02-12] MEDS: SODIUM CHLORIDE 0.9% 1,000 ML IV SCH (22:33)
--- NOTE | 2019-02-12 23:16 | PN ---
PROGRESS NOTE DATE OF SERVICE: 02/12/2019. REASON FOR FOLLOWUP: Pneumonia. INTERVAL HISTORY: The patient is currently afebrile. He is breathing more comfortably. Patient denies having any chest pain. He did have a cough but less productive. No hemoptysis. No nausea, vomiting. No abdominal pain. No diarrhea. PHYSICAL EXAMINATION: Blood pressure 155/90 with a pulse of 74, temperature 98.2. He is 100% on trach collar. General description is a middle-aged male lying in bed in no distress. Respiratory system: Unlabored breathing. Decreased breath sounds at the bases. No wheeze. Heart S1, S2. Regular rate and rhythm. Abdomen soft, no tenderness. LABS: No new labs have been obtained today. Bronch culture has been Pseudomonas aeruginosa. Fungal culture has been negative. DIAGNOSTIC IMPRESSION AND PLAN: Patient with Pseudomonas and MSSA tracheobronchitis and concern for pneumonia. The patient at this time covered with Cefepime to continue and continue to monitor his clinical course closely. Continue supportive care. MMODL / IJN: [id number] /
[2019-02-12] MEDS: ALPRAZolam 0.5 MG TAB PO PRN (23:37)
[2019-02-13] MEDS: methylPREDNISolone SOD SUCCI 125 MG/2 ML VIAL IV SCH ×3 (05:06→17:35)
[2019-02-13 07:26] LABS: Glucose,Whole Blood 223 mg/dL (75-99)
[2019-02-13] MEDS: HEPARIN SODIUM,PORCINE 5,000 UNIT/ML 1 ML VIAL SQ SCH ×3 (08:37→23:02)
[2019-02-13] MEDS: INSULIN ASPART (NovoLOG) 100 UNIT/ML VIAL SQ SCH ×4 (08:38→22:13)
[2019-02-13] MEDS: FAMOTIDINE 20 MG TAB PO SCH ×2 (08:38→22:20)
[2019-02-13] MEDS: CEFEPIME 2 GM in SODIUM CHLORIDE 0.9% 100 ML IVPB SCH ×2 (08:38→22:19)
[2019-02-13] MEDS: METOPROLOL TARTRATE 25 MG TAB PO SCH ×2 (08:38→22:20)
[2019-02-13] MEDS: amLODIPine 10 MG TAB PO SCH (08:38)
[2019-02-13] MEDS: FORMOTEROL FUMARATE 20 MCG/2 ML NEBU INHALATION SCH ×2 (08:56→20:40)
[2019-02-13] MEDS: IPRATROPIUM-ALBUTEROL 3 ML NEB INHALATION SCH ×4 (08:56→20:24)
[2019-02-13] MEDS: BUDESONIDE 1 MG/2 ML NEBU INHALATION SCH ×2 (08:56→20:24)
[2019-02-13] MEDS: ACETYLCYSTEINE 800 MG/4 ML VIAL INHALATION SCH ×2 (08:56→20:27)
[2019-02-13] MEDS: PATIENT'S OWN MED (Phentermine Hcl [Adipex-P] 37.5 MG) PO SCH (10:16)
[2019-02-13 11:38] LABS: Glucose,Whole Blood 205 mg/dL (75-99)
--- NOTE | 2019-02-13 13:04 | XR ---
EXAMINATION TYPE: XR chest 1V portable DATE OF EXAM: 02/13/2019 COMPARISON: Prior chest x-ray 02/12/2019 HISTORY: Cough TECHNIQUE: Single frontal view of the chest is obtained. FINDINGS: Similar findings to prior exam. Tracheostomy tube is overlying the tracheal air column. He art size is stable. Bibasilar increased density, blunting the costophrenic angles again noted. No enrrique dent pneumothorax. Patient is rotated. IMPRESSION: Basilar effusions and associated atelectasis. Cardiomegaly. Probable right middle lobe a telectasis, correlate to exclude pneumonia, edema.
[2019-02-13] MEDS: MORPHINE SULFATE 4 MG/ML SYRINGE IV PRN ×3 (14:10→22:24)
--- NOTE | 2019-02-13 14:12 | P.PN ---
Subjective Progress Note Date: 02/13/19 Principal diagnosis: Acute exacerbation of moderate persistent chronic bronchial asthma The patient is seen today 02/13/2019 in follow-up on the regular medical floor. He is currently sitting up at the bedside. Awake and alert in no acute distress. His cough has subsided. He is maintaining good O2 saturations in the 90s on 32% trach collar. Cultures revealed Pseudomonas and MSSA. Chest x-ray with basilar atelectasis. He remains on cefepime. Continued on DuoNeb inhala tions, Mucomyst inhalations, Pulmicort and Perforomist inhalations, IV Solu- Medrol. Objective - Vital Signs Vital signs: Vital Signs Temp 97.6 F 02/13/19 07:00 Pulse 88 02/13/19 12:52 Resp 16 02/13/19 08:00 BP 147/92 02/13/19 07:00 Pulse Ox 99 02/13/19 07:00 Intake & Output 02/12/19 02/13/19 02/13/19 18:59 06:59 18:59 Intake Total 205 Output Total 800 550 Balance -800 205 -550 Intake: Intake, IV Titration 205 Amount Cefepime 2 gm In Sodium 100 Chloride 0.9% 100 ml @ 200 mls/hr IVPB Q12HR [facility] Rx#:[id number] Sodium Chloride 0.9% 1, 105 000 ml @ 10 mls/hr IV . Q24H [facility] Rx#:[id number] Output: Urine 800 550 Other: Voiding Method Toilet Toilet Toilet Urinal Urinal Urinal # Voids 3 - Exam GENERAL EXAM: Alert, pleasant 33-year-old male patient, on 32% FiO2 via trach collar, comfortable in no apparent distress. HEAD: Normocephalic. History of cochlear implant. EYES: Normal reaction of pupils, equal size. NOSE: Clear with pink turbinates. THROAT: No erythema or exudates. NECK: Tracheostomy tube secured in place. No masses, no JVD. CHEST: No chest wall deformity. LUNGS: Equal air entry with bilateral scattered rhonchi, end expiratory wheeze. CVS: S1 and S2 normal with no audible murmur, regular rhythm. ABDOMEN: No hepatosplenomegaly, normal bowel sounds, no guarding or rigidity. SPINE: No scoliosis or deformity SKIN: No rashes CENTRAL NERVOUS SYSTEM: No focal deficits, tone is normal in all 4 extremities. EXTREMITIES: There is no peripheral edema. No clubbing, no cyanosis. Peripheral pulses are intact. - Labs CBC & Chem 7: 02/11/19 06:45 02/11/19 06:45 Labs: Abnormal Lab Results - Last 24 Hours (Table) 02/12/19 02/12/19 02/13/19 Range/Units 16:39 20:12 07:14 POC Glucose (mg/dL) 153 H 205 H 223 H (75-99) mg/dL 02/13/19 Range/Units 11:26 POC Glucose (mg/dL) 205 H (75-99) mg/dL Microbiology - Last 24 Hours (Table) 02/07/19 10:48 Blood Culture - Final Blood No Growth after 144 hours Assessment and Plan Assessment: #1 Acute exacerbation of moderate persistent chronic bronchial asthma, complicated by purulent tracheobronchitis. Positive for pseudomonas and MSSA. Currently on cefepime. #2 History of permanent tracheostomy in September 2014. #3 History of deafness, status post cochlear implant. #4 Gastroesophageal reflux disease. #5 Hypertension. #6 Obstructive sleep apnea. #7 History of Rosai-Parker syndrome. #8 Chronic back pain. Plan: The patient was seen and evaluated by Dr. Barnard. Chest x-ray reviewed. He is continued on cefepime. Continued on bronchodilators, Mucomyst and steroids. Increase his activity as tolerated. Probable discharge in the a.m. I, the cosigning physician, performed a history & physical examination of the patient. Lungs sounds with bilateral end expiratory wheeze, few scattered rho nchi. Maintaining good O2 saturations in the 90s on 33% FiO2 via trach collar. I discussed the assessment and plan of care with my nurse practitioner, Melissa Ward. I attest to the above note as dictated by her.
--- NOTE | 2019-02-13 16:11 | PN ---
PROGRESS NOTE DATE OF SERVICE: 02/13/2019 REASON FOR FOLLOWUP: Pneumonia. INTERVAL HISTORY: The patient is currently afebrile. The patient is breathing comfortably. The patient has been complaining of pain to the left lower chest area with some popping sensation last night. No worsening cough or sputum production. No nausea, no vomiting, no diarrhea. PHYSICAL EXAMINATION: Blood pressure 147/92 with a pulse of 73, temperature 97.6. He is 99% on trach collar. General description is a middle-aged male lying in bed in no distress. RESPIRATORY SYSTEM: Unlabored breathing with coarse breath sounds bilaterally. Occasional wheeze. HEART: S1, S2. Regular rate and rhythm. A ABDOMEN: Soft. No tenderness. T EXTREMITIES: No edema of the feet. LABS: No new labs have been obtained today. DIAGNOSTIC IMPRESSION AND PLAN: Patient admitted to hospital with acute respiratory distress with underlying and tracheobronchitis, subsequently pneumonia. Patient this time is covered with cefepime to cover for the MSSA and pseudomonas that has grown. May benefit from IV antibiotic on discharge. Will be trying to arrange for it. Continue with supportive care. MMODL / IJN: [id number] /
[2019-02-13 16:39] LABS: Glucose,Whole Blood 168 mg/dL (75-99)
[2019-02-13] MEDS: SODIUM CHLORIDE 0.9% 1,000 ML IV SCH (19:08)
[2019-02-13 21:52] LABS: Glucose,Whole Blood 378 mg/dL (75-99)
--- NOTE | 2019-02-13 21:56 | P.PN ---
Subjective Progress Note Date: 02/13/19 Principal diagnosis: Acute tracheobronchitis Acute asthma exacerbation This is a pleasant 33 years old -[place] male with past medical history of asthma, hypertension, GERD, sleep apnea on CPAP/BiPAP, Langerhans' cell histiocytosis, patient is status post permanent tracheostomy since 2014 on room air at home as per patient. Patient presents with dyspnea and his been treated for acute asthma exacerbation, he underwent bronchoscopy on 02/08/2019. Secretion showing Pseudomonas. Patient is already on cefepime, ID team on the case. Also patient on Solu-Medrol 60 mg and normal saline at 100 mL/h. He remains on 8 L oxygen via trach collar. WBC normal at 9.5K, hemoglobin 11.0. Sodium 137, potassium normal at 4.8. Blood pressure still elevated at 181/101. We will add Norvasc 10 mg 02/12/2019 Patient is fully awake and oriented. His dyspnea, exertional dyspnea and coughing are improving. He still on 8 L oxygen. Color and he is keeping his saturating well above 90%. There is some Vitas looks stable. His sugar is controlled.repeat chest x-ray: Showing pleural effusions, right middle lobe atelectasis versus pneumonia. Encourage incentive spirometry. Cytology from bronchial washing: no cytology of the malignant cells identified. Patient currently remains on cefepime for his Pseudomonas sputum culture on Solu-Medrol 60 mg 02/13/2019 Patient is currently sitting on the side of the bed. Still having exertional shortness of breath but improving. Currently on antibiotics in the form of cefepime with BAL cultures showing Pseudomonas. ID is following. Patient is being continued on IV steroids, and DuoNeb's and oxygen therapy as needed. Patient has been afebrile. No complaints of chest pain. No nausea vomiting or abdominal pain or diarrhea. No headache or dizziness or lightheadedness. Current medications reviewed Active Medications Acetaminophen (Tylenol Tab) 650 mg PO Q6HR PRN PRN Reason: Mild Pain or Fever > 100.5 Last Admin: 02/07/19 15:00 Dose: 650 mg Documented by: Acetylcysteine (Mucomyst) 200 mg INHALATION Q12HR [facility] Last Admin: 02/13/19 20:27 Dose: 200 mg Documented by: Albuterol/Ipratropium (Duoneb 0.5 Mg-3 Mg/3 Ml Soln) 3 ml INHALATION RT-QID PRN PRN Reason: Shortness Of Breath Or Wheezing Last Admin: 02/07/19 13:56 Dose: 3 ml Documented by: Albuterol/Ipratropium (Duoneb 0.5 Mg-3 Mg/3 Ml Soln) 3 ml INHALATION RT-QID [facility] Last Admin: 02/13/19 20:24 Dose: 3 ml Documented by: Alprazolam (Xanax) 0.5 mg PO HS PRN PRN Reason: Anxiety Last Admin: 02/12/19 23:37 Dose: 0.5 mg Documented by: Amlodipine Besylate (Norvasc) 10 mg PO DAILY [facility] Last Admin: 02/13/19 08:38 Dose: 10 mg Documented by: Budesonide (Pulmicort) 1 mg INHALATION RT-BID [facility] Last Admin: 02/13/19 20:24 Dose: 1 mg Documented by: Famotidine (Pepcid) 20 mg PO BID [facility] Last Admin: 02/13/19 08:38 Dose: 20 mg Documented by: Formoterol Fumarate (Perforomist) 20 mcg INHALATION RT-BID [facility] Last Admin: 02/13/19 20:40 Dose: 20 mcg Documented by: Heparin Sodium (Porcine) (Heparin) 5,000 unit SQ Q8HR [facility] Last Admin: 02/13/19 17:35 Dose: 5,000 unit Documented by: Hydralazine HCl (Apresoline) 10 mg IVP Q6HR PRN PRN Reason: Blood Pressure - High Last Admin: 02/09/19 15:54 Dose: 10 mg Documented by: Sodium Chloride (Saline 0.9%) 1,000 mls @ 10 mls/hr IV .Q24H [facility] Last Admin: 02/13/19 19:08 Dose: Not Given Documented by: Cefepime HCl 2 gm/ Sodium (Chloride) 100 mls @ 200 mls/hr IVPB Q12HR [facility] Last Admin: 02/13/19 08:38 Dose: 200 mls/hr Documented by: Insulin Aspart (Novolog) 0 unit SQ ACHS [facility]; Protocol Last Admin: 02/13/19 17:36 Dose: 3 unit Documented by: Methylprednisolone Sodium Succinate (Solu-Medrol) 60 mg IV Q6HR [facility] Last Admin: 02/13/19 17:35 Dose: 60 mg Documented by: Metoprolol Tartrate (Lopressor) 25 mg PO BID [facility] Last Admin: 02/13/19 08:38 Dose: 25 mg Documented by: Montelukast Sodium (Singulair) 10 mg PO HS [facility] Last Admin: 02/12/19 20:23 Dose: 10 mg Documented by: Morphine Sulfate (Morphine Sulfate (Inj)) 4 mg IV Q4HR PRN PRN Reason: Severe Pain Last Admin: 02/13/19 18:27 Dose: 4 mg Documented by: Naloxone HCl (Narcan) 0.2 mg IV Q2M PRN PRN Reason: Opioid Reversal Patient's Own Med ( Phentermine Hcl [ Adipex-P] 37.5 Mg) 37.5 mg PO DAILY [facility] Last Admin: 02/13/19 10:16 Dose: Not Given Documented by: Ondansetron HCl (Zofran) 4 mg IVP Q8HR PRN PRN Reason: Nausea And Vomiting Objective - Vital Signs Vital signs: Vital Signs Temp 97.6 F 02/13/19 07:00 Pulse 88 02/13/19 12:52 Resp 16 02/13/19 08:00 BP 147/92 02/13/19 07:00 Pulse Ox 99 02/13/19 07:00 Intake & Output 02/12/19 02/13/19 02/13/19 18:59 06:59 18:59 Intake Total 205 Output Total 800 550 Balance -800 205 -550 Intake: Intake, IV Titration 205 Amount Cefepime 2 gm In Sodium 100 Chloride 0.9% 100 ml @ 200 mls/hr IVPB Q12HR [facility] Rx#:[id number] Sodium Chloride 0.9% 1, 105 000 ml @ 10 mls/hr IV . Q24H [facility] Rx#:[id number] Output: Urine 800 550 Other: Voiding Method Toilet Toilet Toilet Urinal Urinal Urinal # Voids 3 - Exam -GENERAL: The patient is alert and oriented x3, not in any acute distress, obese HEENT: Pupils are round and equally reacting to light. EOMI. No scleral icterus. No conjunctival pallor. Normocephalic, atraumatic. No pharyngeal erythema. No thyromegaly. CARDIOVASCULAR: S1 and S2 present. No murmurs, rubs, or gallops. -PULMONARY: Chest is clear to auscultation, bilateral expiratory wheezing. Scattered rhonchi ABDOMEN: Soft, nontender, nondistended, normoactive bowel sounds. No palpable organomegaly. MUSCULOSKELETAL: No joint swelling or deformity. EXTREMITIES: No cyanosis, clubbing, or pedal edema. NEUROLOGICAL: Gross neurological examination did not reveal any focal deficits. SKIN: No rashes. no petechiae. - Labs CBC & Chem 7: 02/11/19 06:45 02/11/19 06:45 Labs: Abnormal Lab Results - Last 24 Hours (Table) 02/12/19 02/12/19 02/13/19 Range/Units 16:39 20:12 07:14 POC Glucose (mg/dL) 153 H 205 H 223 H (75-99) mg/dL 02/13/19 Range/Units 11:26 POC Glucose (mg/dL) 205 H (75-99) mg/dL Microbiology - Last 24 Hours (Table) 02/07/19 10:48 Blood Culture - Final Blood No Growth after 144 hours Assessment and Plan Assessment: -Acute tracheobronchitis: Patient has Pseudomonas in the BAL cx.: Continue with cefepime. ID team on the case. Status post bronchoscopy on 02/08/2019 -Acute exacerbation of moderate persistent asthma : Continue with Solu-Medrol 60 mg, continue with inhalation steroids and bronchodilators. 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
[2019-02-13] MEDS ORDERED: INSULIN ASPART (NovoLOG) 100 UNIT/ML VIAL SQ ONE (22:12)
[2019-02-13] MEDS: MONTELUKAST 10 MG TAB PO SCH (22:21)
[2019-02-13] MEDS: ALPRAZolam 0.5 MG TAB PO PRN (22:24)
[2019-02-14] MEDS: methylPREDNISolone SOD SUCCI 125 MG/2 ML VIAL IV SCH ×4 (01:09→18:32)
[2019-02-14] MEDS: IPRATROPIUM-ALBUTEROL 3 ML NEB INHALATION PRN (02:09)
[2019-02-14] MEDS: MORPHINE SULFATE 4 MG/ML SYRINGE IV PRN ×4 (02:49→20:08)
[2019-02-14 06:54] LABS: Glucose,Whole Blood 217 mg/dL (75-99)
[2019-02-14] MEDS: CEFEPIME 2 GM in SODIUM CHLORIDE 0.9% 100 ML IVPB SCH ×2 (08:17→20:07)
[2019-02-14] MEDS: HEPARIN SODIUM,PORCINE 5,000 UNIT/ML 1 ML VIAL SQ SCH ×3 (08:18→23:25)
[2019-02-14] MEDS: BUDESONIDE 1 MG/2 ML NEBU INHALATION SCH ×2 (08:19→20:17)
[2019-02-14] MEDS: IPRATROPIUM-ALBUTEROL 3 ML NEB INHALATION SCH ×4 (08:19→20:17)
[2019-02-14] MEDS: amLODIPine 10 MG TAB PO SCH (08:19)
[2019-02-14] MEDS: INSULIN ASPART (NovoLOG) 100 UNIT/ML VIAL SQ SCH ×4 (08:19→20:07)
[2019-02-14] MEDS: FORMOTEROL FUMARATE 20 MCG/2 ML NEBU INHALATION SCH ×2 (08:19→20:17)
[2019-02-14] MEDS: ACETYLCYSTEINE 800 MG/4 ML VIAL INHALATION SCH ×2 (08:19→20:17)
[2019-02-14] MEDS: FAMOTIDINE 20 MG TAB PO SCH ×2 (08:19→20:07)
[2019-02-14] MEDS: METOPROLOL TARTRATE 25 MG TAB PO SCH ×2 (08:19→20:07)
[2019-02-14] MEDS: PATIENT'S OWN MED (Phentermine Hcl [Adipex-P] 37.5 MG) PO SCH (12:17)
[2019-02-14 12:29] LABS: Glucose,Whole Blood 201 mg/dL (75-99)
--- NOTE | 2019-02-14 13:58 | P.PN ---
Subjective Progress Note Date: 02/14/19 Principal diagnosis: Acute exacerbation of moderate persistent chronic bronchial asthma The patient is seen today 02/14/2019 in follow-up on the regular medical floor. He is awake and alert in no acute distress. He's been up in the shower. He's been up ambulating in the hallway. His breathing is back to his baseline. He is maintaining good O2 saturations up to 100% on 32% trach collar. He remains on bronchodilators, IV Solu-Medrol, antibiotics. Objective - Vital Signs Vital signs: Vital Signs Temp 97.9 F 02/14/19 07:00 Pulse 94 02/14/19 11:19 Resp 16 02/14/19 07:00 BP 155/90 02/14/19 07:00 Pulse Ox 100 02/14/19 07:00 Intake & Output 02/13/19 02/14/19 02/14/19 18:59 06:59 18:59 Intake Total 100 480 Output Total 550 700 Balance -450 -220 Intake: Intake, IV Titration 100 Amount Cefepime 2 gm In Sodium 100 Chloride 0.9% 100 ml @ 200 mls/hr IVPB Q12HR [facility] Rx#:[id number] Oral 480 Output: Urine 550 700 Other: Voiding Method Toilet Toilet Urinal Urinal # Voids 1 - Exam GENERAL EXAM: Alert, pleasant 33-year-old male patient, on 32% FiO2 via trach collar, comfortable in no apparent distress. HEAD: Normocephalic. History of cochlear implant. EYES: Normal reaction of pupils, equal size. NOSE: Clear with pink turbinates. THROAT: No erythema or exudates. NECK: Tracheostomy tube secured in place. No masses, no JVD. CHEST: No chest wall deformity. LUNGS: Equal air entry with few scattered rhonchi. CVS: S1 and S2 normal with no audible murmur, regular rhythm. ABDOMEN: No hepatosplenomegaly, normal bowel sounds, no guarding or rigidity. SPINE: No scoliosis or deformity SKIN: No rashes CENTRAL NERVOUS SYSTEM: No focal deficits, tone is normal in all 4 extremities. EXTREMITIES: There is no peripheral edema. No clubbing, no cyanosis. P eripheral pulses are intact. - Labs CBC & Chem 7: 02/11/19 06:45 02/11/19 06:45 Labs: Abnormal Lab Results - Last 24 Hours (Table) 02/13/19 02/13/19 02/14/19 Range/Units 16:26 21:37 06:41 POC Glucose (mg/dL) 168 H 378 H 217 H (75-99) mg/dL 02/14/19 Range/Units 12:17 POC Glucose (mg/dL) 201 H (75-99) mg/dL Microbiology - Last 24 Hours (Table) 02/07/19 10:48 Blood Culture - Final Blood No Growth after 144 hours Assessment and Plan Assessment: #1 Acute exacerbation of moderate persistent chronic bronchial asthma, complicated by purulent tracheobronchitis. Positive for pseudomonas and MSSA. Currently on cefepime. #2 History of permanent tracheostomy in September 2014. #3 History of deafness, status post cochlear implant. #4 Gastroesophageal reflux disease. #5 Hypertension. #6 Obstructive sleep apnea. #7 History of Rosai-Parker syndrome. #8 Chronic back pain. Plan: The patient was seen and evaluated by Dr. Barnard. He is cleared for discharge from the pulmonary standpoint. Complete prednisone taper. Complete course of antibiotics. Follow up with Dr. Mendoza in 1-2 weeks' time. He is encouraged to call sooner with any recurrence of symptoms or other questions or concerns. I, the cosigning physician, performed a history & physical examination of the patient. Lungs sounds with few scattered rhonchi. Maintaining good O2 saturations in the 90s on 32% FiO2 via trach collar. I discussed the assessment and plan of care with my nurse practitioner, Melissa Ward. I attest to the above note as dictated by her.
[2019-02-14 17:09] LABS: Glucose,Whole Blood 234 mg/dL (75-99)
[2019-02-14] MEDS: SODIUM CHLORIDE 0.9% 1,000 ML IV SCH (18:53)
--- NOTE | 2019-02-14 19:11 | PN ---
PROGRESS NOTE DATE OF SERVICE: 02/14/2019. REASON FOR FOLLOW UP: Pneumonia. INTERVAL HISTORY: The patient is currently afebrile. The patient is breathing slightly comfortably and denies having any chest pain. Cough has decreased. Still has significant amount of but no hemoptysis. No nausea, no vomiting. No abdominal pain. No diarrhea. PHYSICAL EXAMINATION: Blood pressure 136/80 with a pulse of 84. Temperature is 97.5, temperature 97.5, 95% on trach collar. General description is a middle-aged male up in the bed in no distress. Respiratory system: Unlabored breathing. Coarse breath sounds bilaterally. No wheeze. Heart S1, S2. Regular rate and rhythm. Abdomen soft, no tenderness. LABS: No new labs have been obtained today. DIAGNOSTIC IMPRESSION AND PLAN: Patient with pneumonia. Sputum has been positive for MSSA and Pseudomonas aeruginosa. Patient is currently covered with cefepime 2 g q.12h to continue while monitoring his clinical course closely. Continue supportive care. MMODL / IJN: [id number] /
[2019-02-14 20:05] LABS: Glucose,Whole Blood 224 mg/dL (75-99)
[2019-02-14] MEDS: MONTELUKAST 10 MG TAB PO SCH (20:07)
--- NOTE | 2019-02-14 22:41 | P.PN ---
Subjective Progress Note Date: 02/14/19 Principal diagnosis: Acute tracheobronchitis Acute asthma exacerbation This is a pleasant 33 years old -[place] male with past medical history of asthma, hypertension, GERD, sleep apnea on CPAP/BiPAP, Langerhans' cell histiocytosis, patient is status post permanent tracheostomy since 2014 on room air at home as per patient. Patient presents with dyspnea and his been treated for acute asthma exacerbation, he underwent bronchoscopy on 02/08/2019. Secretion showing Pseudomonas. Patient is already on cefepime, ID team on the case. Also patient on Solu-Medrol 60 mg and normal saline at 100 mL/h. He remains on 8 L oxygen via trach collar. WBC normal at 9.5K, hemoglobin 11.0. Sodium 137, potassium normal at 4.8. Blood pressure still elevated at 181/101. We will add Norvasc 10 mg 02/12/2019 Patient is fully awake and oriented. His dyspnea, exertional dyspnea and coughing are improving. He still on 8 L oxygen. Color and he is keeping his saturating well above 90%. There is some Vitas looks stable. His sugar is controlled.repeat chest x-ray: Showing pleural effusions, right middle lobe atelectasis versus pneumonia. Encourage incentive spirometry. Cytology from bronchial washing: no cytology of the malignant cells identified. Patient currently remains on cefepime for his Pseudomonas sputum culture on Solu-Medrol 60 mg 02/13/2019 Patient is currently sitting on the side of the bed. Still having exertional shortness of breath but improving. Currently on antibiotics in the form of cefepime with BAL cultures showing Pseudomonas. ID is following. Patient is being continued on IV steroids, and DuoNeb's and oxygen therapy as needed. Patient has been afebrile. No complaints of chest pain. No nausea vomiting or abdominal pain or diarrhea. No headache or dizziness or lightheadedness. 02/14/2019 Patient is currently lying in the bed comfortably. Able to ambulating in the hallway. Currently on chronic trach collar. Minimal scattered rhonchi otherwise wheezing is almost resolved. Patient is being continued on IV antibiotics with cefepime. Continued on IV steroids and breathing treatments. Anticipate discharged tomorrow with final antibiotic recommendations and further clinical improvement. Current medications reviewed Active Medications Acetaminophen (Tylenol Tab) 650 mg PO Q6HR PRN PRN Reason: Mild Pain or Fever > 100.5 Last Admin: 02/07/19 15:00 Dose: 650 mg Documented by: Acetylcysteine (Mucomyst) 200 mg INHALATION Q12HR [facility] Last Admin: 02/13/19 20:27 Dose: 200 mg Documented by: Albuterol/Ipratropium (Duoneb 0.5 Mg-3 Mg/3 Ml Soln) 3 ml INHALATION RT-QID PRN PRN Reason: Shortness Of Breath Or Wheezing Last Admin: 02/07/19 13:56 Dose: 3 ml Documented by: Albuterol/Ipratropium (Duoneb 0.5 Mg-3 Mg/3 Ml Soln) 3 ml INHALATION RT-QID [facility] Last Admin: 02/13/19 20:24 Dose: 3 ml Documented by: Alprazolam (Xanax) 0.5 mg PO HS PRN PRN Reason: Anxiety Last Admin: 02/12/19 23:37 Dose: 0.5 mg Documented by: Amlodipine Besylate (Norvasc) 10 mg PO DAILY [facility] Last Admin: 02/13/19 08:38 Dose: 10 mg Documented by: Budesonide (Pulmicort) 1 mg INHALATION RT-BID [facility] Last Admin: 02/13/19 20:24 Dose: 1 mg Documented by: Famotidine (Pepcid) 20 mg PO BID [facility] Last Admin: 02/13/19 08:38 Dose: 20 mg Documented by: Formoterol Fumarate (Perforomist) 20 mcg INHALATION RT-BID [facility] Last Admin: 02/13/19 20:40 Dose: 20 mcg Documented by: Heparin Sodium (Porcine) (Heparin) 5,000 unit SQ Q8HR [facility] Last Admin: 02/13/19 17:35 Dose: 5,000 unit Documented by: Hydralazine HCl (Apresoline) 10 mg IVP Q6HR PRN PRN Reason: Blood Pressure - High Last Admin: 02/09/19 15:54 Dose: 10 mg Documented by: Sodium Chloride (Saline 0.9%) 1,000 mls @ 10 mls/hr IV .Q24H [facility] Last Admin: 02/13/19 19:08 Dose: Not Given Documented by: Cefepime HCl 2 gm/ Sodium (Chloride) 100 mls @ 200 mls/hr IVPB Q12HR [facility] Last Admin: 02/13/19 08:38 Dose: 200 mls/hr Documented by: Insulin Aspart (Novolog) 0 unit SQ ACHS [facility]; Protocol Last Admin: 02/13/19 17:36 Dose: 3 unit Documented by: Methylprednisolone Sodium Succinate (Solu-Medrol) 60 mg IV Q6HR [facility] Last Admin: 02/13/19 17:35 Dose: 60 mg Documented by: Metoprolol Tartrate (Lopressor) 25 mg PO BID [facility] Last Admin: 02/13/19 08:38 Dose: 25 mg Documented by: Montelukast Sodium (Singulair) 10 mg PO HS [facility] Last Admin: 02/12/19 20:23 Dose: 10 mg Documented by: Morphine Sulfate (Morphine Sulfate (Inj)) 4 mg IV Q4HR PRN PRN Reason: Severe Pain Last Admin: 02/13/19 18:27 Dose: 4 mg Documented by: Naloxone HCl (Narcan) 0.2 mg IV Q2M PRN PRN Reason: Opioid Reversal Patient's Own Med ( Phentermine Hcl [ Adipex-P] 37.5 Mg) 37.5 mg PO DAILY [facility] Last Admin: 02/13/19 10:16 Dose: Not Given Documented by: Ondansetron HCl (Zofran) 4 mg IVP Q8HR PRN PRN Reason: Nausea And Vomiting Objective - Vital Signs Vital signs: Vital Signs Temp 97.9 F 02/14/19 07:00 Pulse 94 02/14/19 11:19 Resp 16 02/14/19 07:00 BP 155/90 02/14/19 07:00 Pulse Ox 100 02/14/19 07:00 Intake & Output 02/13/19 02/14/19 02/14/19 18:59 06:59 18:59 Intake Total 100 480 Output Total 550 700 Balance -450 -220 Intake: Intake, IV Titration 100 Amount Cefepime 2 gm In Sodium 100 Chloride 0.9% 100 ml @ 200 mls/hr IVPB Q12HR [facility] Rx#:[id number] Oral 480 Output: Urine 550 700 Other: Voiding Method Toilet Toilet Urinal Urinal # Voids 1 - Exam -GENERAL: The patient is alert and oriented x3, not in any acute distress, obese HEENT: Pupils are round and equally reacting to light. EOMI. No scleral icterus. No conjunctival pallor. Normocephalic, atraumatic. No pharyngeal erythema. No thyromegaly. CARDIOVASCULAR: S1 and S2 present. No murmurs, rubs, or gallops. -PULMONARY: Chest is clear to auscultation, minimal expiratory wheezing. Scattered rhonchi ABDOMEN: Soft, nontender, nondistended, normoactive bowel sounds. No palpable organomegaly. MUSCULOSKELETAL: No joint swelling or deformity. EXTREMITIES: No cyanosis, clubbing, or pedal edema. NEUROLOGICAL: Gross neurological examination did not reveal any focal deficits. SKIN: No rashes. no petechiae. - Labs CBC & Chem 7: 02/11/19 06:45 02/11/19 06:45 Labs: Abnormal Lab Results - Last 24 Hours (Table) 02/13/19 02/13/19 02/14/19 Range/Units 16:26 21:37 06:41 POC Glucose (mg/dL) 168 H 378 H 217 H (75-99) mg/dL 02/14/19 Range/Units 12:17 POC Glucose (mg/dL) 201 H (75-99) mg/dL Microbiology - Last 24 Hours (Table) 02/07/19 10:48 Blood Culture - Final Blood No Growth after 144 hours Assessment and Plan Assessment: -Acute tracheobronchitis: Patient has Pseudomonas in the BAL cx.: Continue with cefepime. ID team on the case. Status post bronchoscopy on 02/08/2019 -Acute exacerbation of moderate persistent asthma : Continue with Solu-Medrol 60 mg, continue with inhalation steroids and bronchodilators. 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
[2019-02-14] MEDS: ALPRAZolam 0.5 MG TAB PO PRN (23:28)
[2019-02-15] MEDS: MORPHINE SULFATE 4 MG/ML SYRINGE IV PRN ×3 (00:11→10:24)
[2019-02-15] MEDS: methylPREDNISolone SOD SUCCI 125 MG/2 ML VIAL IV SCH ×2 (01:09→05:48)
[2019-02-15 07:13] LABS: Glucose,Whole Blood 221 mg/dL (75-99)
[2019-02-15 08:00] VITALS: BP 168/93; RESP 17; TEMP 96.4
[2019-02-15] MEDS: FAMOTIDINE 20 MG TAB PO SCH (08:05)
[2019-02-15] MEDS: CEFEPIME 2 GM in SODIUM CHLORIDE 0.9% 100 ML IVPB SCH (08:05)
[2019-02-15] MEDS: METOPROLOL TARTRATE 25 MG TAB PO SCH (08:05)
[2019-02-15] MEDS: amLODIPine 10 MG TAB PO SCH (08:05)
[2019-02-15] MEDS: INSULIN ASPART (NovoLOG) 100 UNIT/ML VIAL SQ SCH ×2 (08:05→12:21)
[2019-02-15] MEDS: HEPARIN SODIUM,PORCINE 5,000 UNIT/ML 1 ML VIAL SQ SCH (08:06)
[2019-02-15] MEDS: FORMOTEROL FUMARATE 20 MCG/2 ML NEBU INHALATION SCH (08:54)
[2019-02-15] MEDS: BUDESONIDE 1 MG/2 ML NEBU INHALATION SCH (08:54)
[2019-02-15] MEDS: IPRATROPIUM-ALBUTEROL 3 ML NEB INHALATION SCH ×2 (08:54→12:40)
[2019-02-15] MEDS: ACETYLCYSTEINE 800 MG/4 ML VIAL INHALATION SCH (08:54)
[2019-02-15 12:00] LABS: Glucose,Whole Blood 250 mg/dL (75-99)
[2019-02-15] MEDS ORDERED: predniSONE 50 MG TAB PO SCH (12:15)
[2019-02-15 12:47] VITALS: PULSE 88
--- NOTE | 2019-02-15 13:57 | PN ---
PROGRESS NOTE DATE OF SERVICE: 02/15/2019 REASON FOR FOLLOWUP: Pneumonia. INTERVAL HISTORY: The patient is currently afebrile. The patient is breathing comfortably. The patient's cough has decreased in intensity. Less productive. No nausea, no vomiting. No abdominal pain, no diarrhea. PHYSICAL EXAMINATION: Blood pressure is 168/93 with a pulse of 82, temperature 96.4. He is 97% on 2 L nasal cannula. General description is a middle-aged male, up in the room in no distress. RESPIRATORY SYSTEM: Unlabored breathing, decreased breath sounds at the base, no wheeze. HEART: S1, S2. Regular rate and rhythm. ABDOMEN: Soft, no tenderness. LABS: No new labs have been obtained today. DIAGNOSTIC IMPRESSION AND PLAN: Patient with pneumonia. Sputum is positive for Pseudomonas and MSSA. The patient received about 9 days of IV antibiotic therapy. Will give him a short course of oral Cipro and Keflex for about a week and a close outpatient followup. MMODL / IJN: [id number] /
--- NOTE | 2019-02-15 14:06 | P.PN ---
Subjective Progress Note Date: 02/15/19 Principal diagnosis: Acute exacerbation of moderate persistent chronic bronchial asthma The patient is seen today 02/15/2019 in follow-up on the regular medical floor. He is awake and alert in no acute distress. He is feeling back to his baseline as far as his breathing is concerned. He's been up ambulating in the hallway. He is maintaining good O2 saturations up to 100% on 32% trach collar. He remains on bronchodilators, prednisone, antibiotics. Objective - Vital Signs Vital signs: Vital Signs Temp 96.4 F L 02/15/19 07:00 Pulse 88 02/15/19 12:55 Resp 17 02/15/19 08:40 BP 168/93 02/15/19 07:00 Pulse Ox 97 02/15/19 07:00 Intake & Output 02/14/19 02/15/19 02/15/19 18:59 06:59 18:59 Output Total 1200 Balance -1200 Weight 108.454 kg Output: Urine 1200 Other: Voiding Method Toilet Toilet Toilet Urinal Urinal Urinal # Voids 2 2 - Exam GENERAL EXAM: Alert, pleasant 33-year-old male patient, on 32% FiO2 via trach collar, comfortable in no apparent distress. HEAD: Normocephalic. History of cochlear implant. EYES: Normal reaction of pupils, equal size. NOSE: Clear with pink turbinates. THROAT: No erythema or exudates. NECK: Tracheostomy tube secured in place. No masses, no JVD. CHEST: No chest wall deformity. LUNGS: Equal air entry with few scattered rhonchi. CVS: S1 and S2 normal with no audible murmur, regular rhythm. ABDOMEN: No hepatosplenomegaly, normal bowel sounds, no guarding or rigidity. SPINE: No scoliosis or deformity SKIN: No rashes CENTRAL NERVOUS SYSTEM: No focal deficits, tone is normal in all 4 extremities. EXTREMITIES: There is no peripheral edema. No clubbing, no cyanosis. Peripheral pulses are intact. - Labs CBC & Chem 7: 02/11/19 06:45 02/11/19 06:45 Labs: Abnormal Lab Results - Last 24 Hours (Table) 02/14/19 02/14/19 02/15/19 Range/Units 16:57 19:52 07:00 POC Glucose (mg/dL) 234 H 224 H 221 H (75-99) mg/dL 02/15/19 Range/Units 11:46 POC Glucose (mg/dL) 250 H (75-99) mg/dL Assessment and Plan Assessment: #1 Acute exacerbation of moderate persistent chronic bronchial asthma, complicated by purulent tracheobronchitis. Positive for pseudomonas and MSSA. Currently on cefepime. #2 History of permanent tracheostomy in September 2014. #3 History of deafness, status post cochlear implant. #4 Gastroesophageal reflux disease. #5 Hypertension. #6 Obstructive sleep apnea. #7 History of Rosai-Parker syndrome. #8 Chronic back pain. Plan: The patient was seen and evaluated by Dr. Barnard. He is cleared for discharge from the pulmonary standpoint. Complete a prednisone taper. Complete course of antibiotics per ID recommendations. Follow up with Dr. Mendoza in 1-2 weeks' time. He is encouraged to call sooner with any recurrence of symptoms or other questions or concerns. I, the cosigning physician, performed a history & physical examination of the patient. Lungs sounds with few scattered rhonchi. Maintaining good O2 saturations in the 90s on 32% FiO2 via trach collar. I discussed the assessment and plan of care with my nurse practitioner, Melissa Ward. I attest to the above note as dictated by her.
== END 2019-02-15 14:36 | disposition home or self-care (01) | DRG 202 ==
LOC: EC 08:21 → 4SSUR 12:47
PROVIDERS: ADMIT Hospitalist; ATTEND Hospitalist
PROC: 0B9D8ZX Drainage of Right Middle Lung Lobe, Via Natural or Artificial Opening Endoscopic, Diagnostic (ICD-10-PCS; principal; 2019-02-08 11:25)
DX: J45.901 Unspecified asthma with (acute) exacerbation (principal); J18.9 Pneumonia, unspecified organism; Z68.41 Body mass index [BMI] 40.0-44.9, adult; Z16.24 Resistance to multiple antibiotics; J20.9 Acute bronchitis, unspecified; B95.61 Methicillin susceptible Staphylococcus aureus infection as the cause of diseases classified elsewhere; B96.5 Pseudomonas (aeruginosa) (mallei) (pseudomallei) as the cause of diseases classified elsewhere; E66.01 Morbid (severe) obesity due to excess calories; F41.9 Anxiety disorder, unspecified; G47.33 Obstructive sleep apnea (adult) (pediatric); G89.29 Other chronic pain; H91.90 Unspecified hearing loss, unspecified ear; Z96.21 Cochlear implant status; I10 Essential (primary) hypertension; I48.0 Paroxysmal atrial fibrillation; J35.1 Hypertrophy of tonsils; J39.8 Other specified diseases of upper respiratory tract; K21.9 Gastro-esophageal reflux disease without esophagitis; R09.02 Hypoxemia; Z79.899 Other long term (current) drug therapy; Z82.49 Family history of ischemic heart disease and other diseases of the circulatory system; Z82.5 Family history of asthma and other chronic lower respiratory diseases; Z86.14 Personal history of Methicillin resistant Staphylococcus aureus infection; Z87.891 Personal history of nicotine dependence; Z87.01 Personal history of pneumonia (recurrent); Z88.0 Allergy status to penicillin; Z93.0 Tracheostomy status; M54.9 Dorsalgia, unspecified; Z99.89 Dependence on other enabling machines and devices; Z91.048 Other nonmedicinal substance allergy status
CPT/HCPCS: 31624; 36415; 70360; 71045; 71046; 80048; 80053; 80202; 82565; 83605; 83735; 84484; 85025; 85610; 85730; 87040; 87070; 87077; 87102; 87116; 87186; 87205; 87206; 87252; 87496; 87498; 87502; 87529; 87634; 87798; 88108; 88305; 89050; 93005; 93970; 94640; 94760; 96361; 96365; 96375; 99285

== ENCOUNTER 2019-05-15 10:30 | Inpatient (IN) | payer MEDICARE, OTHER ==
[2019-05-15] MEDS ORDERED: IPRATROPIUM-ALBUTEROL 3 ML NEB INHALATION STA (10:58)
[2019-05-15] MEDS ORDERED: methylPREDNISolone SOD SUCCI 125 MG/2 ML VIAL IV STA (10:58)
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
[2019-05-15 11:25] LABS: Anisocytosis Slight; HCT 46.8 % (39.0-53.0); Hypochromasia Marked; MCH 26.4 pg (25.0-35.0); MCHC 29.9 g/dL (31.0-37.0); MCV 88.5 fL (80.0-100.0); Mean Platelet Volume 8.6; Platelet Count 524 k/uL (150-450); RBC 5.29 m/uL (4.30-5.90); RDW 16.1 % (11.5-15.5); WBC 10.9 k/uL (3.8-10.6)
[2019-05-15 11:31] LABS: ALT 35 U/L (4-49); AST 56 U/L (17-59); African American GFR (CKD) >90 (>60 ml/min/1.73 sqM); Albumin 4.7 g/dL (3.5-5.0); Alkaline Phosphatase 110 U/L (38-126); Anion Gap 18 mmol/L; Blood Urea Nitrogen 8 mg/dL (9-20); Calcium 9.3 mg/dL (8.4-10.2); Carbon Dioxide 22 mmol/L (22-30); Chloride 106 mmol/L (98-107); Glucose 180 mg/dL (74-99); Non-African American GFR(CKD) >90 (>60 ml/min/1.73 sqM); Sodium 146 mmol/L (137-145); Total Bilirubin 0.6 mg/dL (0.2-1.3); Total Protein 9.2 g/dL (6.3-8.2)
--- NOTE | 2019-05-15 11:38 | XR ---
EXAMINATION TYPE: XR chest 1V portable DATE OF EXAM: 05/15/2019 COMPARISON: Prior chest x-ray 02/13/2019, CT 08/02/2014 HISTORY: Cough, difficulty breathing TECHNIQUE: Single frontal view of the chest is obtained. FINDINGS: Tracheostomy tube is overlying the tracheal air column. Heart size appears enlarged. Subse gmental basilar atelectatic changes are suspected. No evident pneumothorax. There are overlying cardi ac leads. There is motion on the exam, overlying artifact. Aortic aneurysm suspected. IMPRESSION: Chronic right middle lobe atelectasis, subsegmental basilar atelectasis. Difficult to ex clude pneumonia. Aortic aneurysm.
[2019-05-15] MEDS ORDERED: SODIUM CHLORIDE 0.9% 2,000 ML IV ONE (11:39)
[2019-05-15] MEDS ORDERED: MORPHINE SULFATE 4 MG/ML SYRINGE IVP STA (11:40)
[2019-05-15 11:41] LABS: Potassium 5.5 mmol/L (3.5-5.1)
[2019-05-15 11:52] LABS: Prothrombin Time 10.4 sec (9.0-12.0)
[2019-05-15 12:04] LABS: Lymphocytes # (M) 3.38 k/uL (1.0-4.8); Monocytes # (M) 1.31 k/uL (0-1.0); Neutrophils # (M) 6.21 k/uL (1.3-7.7); Neutrophils % (M) 57 %; Nucleated Red Blood Cells 0 /100 WBC (0-0); Total Cells Counted 100
[2019-05-15 12:05] LABS: Poikilocytosis (M) Present; Target Cells Present
[2019-05-15] MEDS ORDERED: AZITHROMYCIN 500 MG in SODIUM CHLORIDE 0.9% 250 ML IVPB STA (12:27)
[2019-05-15] MEDS ORDERED: CEFEPIME 2 GM in SODIUM CHLORIDE 0.9% 100 ML IVPB STA (12:30)
[2019-05-15] MEDS ORDERED: ACETYLCYSTEINE 800 MG/4 ML VIAL INHALATION STA (12:32)
[2019-05-15] MEDS ORDERED: NALOXONE 0.4 MG/ML 1 ML VIAL IV PRN (12:34)
[2019-05-15] MEDS ORDERED: ALBUTEROL NEBULIZED 2.5 MG/3 ML INHALATION STA (13:18)
--- NOTE | 2019-05-15 14:37 | HP ---
HISTORY AND PHYSICAL DATE OF SERVICE: 05/15/2019 CHIEF COMPLAINT: Shortness of breath and cough and sputum. HISTORY OF PRESENT ILLNESS: A 34-year-old gentleman with a past medical history of multiple medical problems including history of bronchial asthma, history of GERD, history of hypertension, history of tracheomalacia, history of recurrent severe laryngeal edema, history of Rosai-Parker syndrome, history of chronic tracheostomy, multiple hospital admissions, was being followed by Dr. Valenzuela in the outpatient setting. The tracheostomy was last changed on 10/2018 and the patient is currently complaining increased shortness of breath with cough and as well as thick greenish yellow secretions also. The patient came to [facility] and foul-smelling discharge was noted. The patient admitted for further evaluation with bilateral pneumonia suspected. Previously, patient had episode of Pseudomonas and aeruginosa as well as a MRSA grown from the cultures. PAST MEDICAL HISTORY: Asthma, GERD, history of hearing defects, history of hypertension, pneumonia, sleep apnea, history of MRSA, history of tonsillectomy. MEDICATIONS: Prior to admission including home medications are: 1. Prednisone taper. 2. Benadryl 50 mg q.h.s. p.r.n. 3. Norvasc 10 mg p.o. daily.. 4. Adipex 37.5 mg p.o. daily. 5. Singulair 10 mg p.o. at bedtime. 6. Lopressor 25 mg p.o. b.i.d. 7. Claritin 10 mg p.o. daily. 8. Mckinney 5 mg q.6h p.r.n. 9. Fluticasone 2 puffs b.i.d. 10.Flonase nasal spray. 11.Cipro 750 mg p.o. b.i.d. 12.Keflex 500 mg q.h.s. 13.Albuterol 2 puffs q.i.d. ALLERGIES: WHEAT POLLEN. FAMILY HISTORY: History of asthma in the family. SOCIAL HISTORY: No history of alcohol and history of smoking. REVIEW OF SYSTEMS: ENT: As mentioned earlier. CARDIOVASCULAR: No angina or palpitations. GI: No nausea, vomiting. : No dysuria or hematuria. NERVOUS SYSTEM: No numbness or weakness. ALLERGY/IMMUNOLOGY: No asthma or hayfever. MUSCULOSKELETAL As mentioned earlier. HEMATOLOGY: No history of anemia. ENDOCRINE: No history of diabetes or hypothyroid DERMATOLOGY: Negative. RHEUMATOLOGY: Negative. PSYCHIATRY: As mentioned earlier. PHYSICAL EXAMINATION: Alert oriented x3. Pulse is 118, blood pressure 130/70, respiration 18, temperature 98.7, pulse ox 98% on trach collar. CARDIAC: S1, S2. RESPIRATION: Breath sounds diminished at the bases, bilateral scattered rhonchi, no crackles. Expiratory wheezing also present. ABDOMEN: Soft, obese, nontender. NECK: Tracheostomy. LEGS: No edema, no swelling. NERVOUS SYSTEM: Higher functions as mentioned earlier. Moves all 4 limbs, no focal motor-sensory deficits. LYMPHATICS: No lymph node enlargement. SKIN: No ulcer. No joints, no active arthropathy. LABS: At this time shows WBC 10.2, hemoglobin is 14, INR is 1. PT is 10.4, sodium 140, potassium 5.5 otherwise, lactic acid 2.7. ASSESSMENT: 1. Possible sepsis. 2. Acute bronchial asthma, acute exacerbation with acute bilateral pneumonia, possibly gram-negative. 3. History of Pseudomonas and MRSA pneumonia previously. 4. Hyponatremia. 5. Hyperkalemia. 6. Elevated lactic acid possibly, secondary to sepsis. 7. Increased WBC. 8. History of gastroesophageal reflux disease. 9. Hypertension. 10.History of pneumonia. 11.History of chronic tracheostomy. 12.History of sleep apnea. 13.History of laryngectomy. 14.History of Rosai Parker syndrome. 15.History of right cochlear implant. 16.Chronic hypoxic respiratory failure. 17.History of anxiety. 18.Remote history of nicotine dependence. 19.Obesity with body mass index 43.8. RECOMMENDATION: In this 34-year-old gentleman was presented with multiple medical problems, will monitor the patient closely. Continue with the current management, bronchodilators, empiric antibiotics and IV steroids. Infectious Disease evaluation. Guarded prognosis because of multiple complex medical issues. Further recommendations to follow. A copy of this will be forwarded to Dr. Valenzuela who is the primary physician. [email or web address] / IJN: [id number] / TONEY
[2019-05-15] MEDS ORDERED: BUTALB PO PRN (14:46)
[2019-05-15] MEDS ORDERED: CAFF PO PRN (14:46)
[2019-05-15] MEDS ORDERED: ASPRIN PO PRN (14:46)
[2019-05-15] MEDS: HYDROcodone/APAP 5-325MG 1 EACH TAB PO PRN ×2 (15:08→19:55)
[2019-05-15] MEDS: METOPROLOL TARTRATE 25 MG TAB PO SCH (19:56)
[2019-05-15] MEDS: MONTELUKAST 10 MG TAB PO SCH (19:57)
[2019-05-16] MEDS: ALBUTEROL NEBULIZED 2.5 MG/3 ML INHALATION PRN ×6 (01:08→20:45)
[2019-05-16] MEDS: HYDROcodone/APAP 5-325MG 1 EACH TAB PO PRN ×3 (05:01→20:00)
[2019-05-16] MEDS: METOPROLOL TARTRATE 25 MG TAB PO SCH ×2 (08:11→20:00)
[2019-05-16] MEDS: LORATADINE 10 MG TAB PO SCH (08:11)
[2019-05-16] MEDS: MULTIVITAMINS, THERA 1 EACH TAB PO SCH (08:11)
[2019-05-16 10:52] VITALS: BMI 45.7
[2019-05-16] MEDS ORDERED: VANCOMYCIN IV PER PHARMACY 1 EACH MISC MISCELLANE PRN (14:28)
--- NOTE | 2019-05-16 14:46 | P.PN ---
Subjective Progress Note Date: 05/16/19 Principal diagnosis: This is a 34-year-old male who was recently admitted increased shortness of breath with cough as well as thick green yellow secretions with a history of chronic tracheostomy and is being closely monitored. Patient had previous episode of Pseudomonas aeruginosa as well as MRSA growing the cultures and infectious disease has been consulted. Patient continues to have shortness of breath and a cough and continues to have thick greenish yellow copious amounts of secretions from his tracheostomy. Patient is also having extremely sore throat and states it feels raw due to the cough. Review of systems: ENT: Reports copious amounts of secretions from tracheostomy and reports sore throat Cardiovascular: No reports of chest pain or palpitations Respiratory: Reports shortness of breath and cough GI: No reports of nausea, vomiting, or diarrhea : No reports of dysuria or retention Active Medications Hydrocodone Bitart/Acetaminophen (Clyde 5-325) 1 each PO Q6HR PRN PRN Reason: Pain Last Admin: 05/16/19 10:41 Dose: 1 each Documented by: Albuterol Sulfate (Ventolin Nebulized) 2.5 mg INHALATION RT-QID PRN PRN Reason: Shortness Of Breath Or Wheezing Last Admin: 05/16/19 11:41 Dose: 2.5 mg Documented by: Cefepime HCl 2 gm/ Sodium (Chloride) 100 mls @ 200 mls/hr IVPB Q8HR ON LICENSE OF [facility] Loratadine (Claritin) 10 mg PO DAILY ON LICENSE OF [facility] Last Admin: 05/16/19 08:11 Dose: 10 mg Documented by: Metoprolol Tartrate (Lopressor) 25 mg PO BID ON LICENSE OF [facility] Last Admin: 05/16/19 08:11 Dose: 25 mg Documented by: Miscellaneous Information (Pharmacy To Dose Iv Vancomycin) 1 each MISCELLANE DIRECTED PRN; Protocol PRN Reason: Per Protocol Montelukast Sodium (Singulair) 10 mg PO HS ON LICENSE OF [facility] Last Admin: 05/15/19 19:57 Dose: 10 mg Documented by: Multivitamins (Theragran) 1 each PO DAILY ON LICENSE OF [facility] Last Admin: 05/16/19 08:11 Dose: 1 each Documented by: Naloxone HCl (Narcan) 0.2 mg IV Q2M PRN PRN Reason: Opioid Reversal Promethazine HCl (Phenergan Syrup) 6.25 mg PO QID PRN PRN Reason: Cough Objective - Vital Signs Vital signs: Vital Signs Temp 98.0 F 05/16/19 11:35 Pulse 86 05/16/19 11:53 Resp 18 05/16/19 11:38 BP 149/80 05/16/19 11:35 Pulse Ox 100 05/16/19 11:35 Intake & Output 05/15/19 05/16/19 05/16/19 18:59 06:59 18:59 Intake Total 480 1020 Output Total 750 Balance 480 -750 1020 Weight 115.666 kg 120.8 kg 120.8 kg Intake: Oral 480 1020 Output: Urine 750 Other: Voiding Method Toilet # Voids 1 2 - Exam Gen: This is a 34-year-old male sitting up in bed, awake, alert and oriented 3, well-developed, well-nourished. HEENT: Head is atraumatic, normocephalic. Pupils equal, round. Sclerae is anicteric. NECK: Supple. No JVD. No lymphadenopathy. No thyromegaly. Tracheostomy noted with trach collar LUNGS: Diminished breath sounds at the bases with coarse bilateral rhonchi and crackles noted. Mild expiratory wheezing also noted on exam. No intercostal retractions. HEART: S1, S2 muffled ABDOMEN: Soft. Obese. Bowel sounds are present. No masses. No tenderness. EXTREMITIES: No pedal edema. No calf tenderness. NEUROLOGICAL: Patient is awake, alert and oriented x3. Cranial nerves 2 through 12 are grossly intact. - Labs CBC & Chem 7: 05/15/19 11:01 05/15/19 11:01 Labs: Abnormal Lab Results - Last 24 Hours (Table) 05/15/19 Range/Units 15:00 Plasma Lactic Acid Jimmy 2.2 H* (0.7-2.0) mmol/L Assessment and Plan Assessment: Possible sepsis Acute bronchial asthma, acute exacerbation with acute bilateral pneumonia, possibly gram-negative History of Pseudomonas and MRSA pneumonia previously Hyponatremia Hyperkalemia Elevated lactic acid possibly, secondary to sepsis Increased WBC History of gastroesophageal reflux disease Hypertension History of pneumonia History of chronic tracheostomy history of sleep apnea History of laryngectomy history of Rosai Parker syndrome History of right cochlear implant Chronic hypoxic respiratory failure History of anxiety Remote history of nicotine dependence Obesity with body mass index of 43.8 Recommendations and discussion: Recommend to continue current medications, management, and symptomatic treatment. Due to multiple medical problems and previous history of Pseudomonas and MRSA pneumonia infectious disease was consulted and appreciate antibiotic recommendations. Discussed with nursing staff about obtaining a sp utum culture. Patient will be continued on bronchodilators, IV antibiotics in the form of cefepime and Vancomycin, along with IV steroids at this time. Due to multiple complex medical issues prognosis is guarded. Further recommendations to follow.
[2019-05-16] MEDS: CEFEPIME 2 GM in SODIUM CHLORIDE 0.9% 100 ML IVPB SCH ×2 (16:53→23:33)
[2019-05-16] MEDS: VANCOMYCIN 1,750 MG in SODIUM CHLORIDE 0.9% 500 ML 500 ML IVPB SCH ×2 (17:58→23:31)
[2019-05-16] MEDS: MONTELUKAST 10 MG TAB PO SCH (20:00)
[2019-05-17] MEDS: HYDROcodone/APAP 5-325MG 1 EACH TAB PO PRN ×3 (06:10→19:04)
[2019-05-17 07:22] LABS: Anisocytosis Slight; Basophils # (A) 0.1 k/uL (0-0.2); Basophils % (A) 1 %; Eosinophils % (A) 1 %; HCT 40.3 % (39.0-53.0); HGB 12.1 gm/dL (13.0-17.5); Hypochromasia Moderate; Lymphocytes % (A) 20 %; MCH 26.8 pg (25.0-35.0); MCHC 29.9 g/dL (31.0-37.0); MCV 89.5 fL (80.0-100.0); Mean Platelet Volume 8.8; Monocytes # (A) 0.3 k/uL (0-1.0); Monocytes % (A) 7 %; Neutrophils # (A) 3.4 k/uL (1.3-7.7); Neutrophils % (A) 69 %; Platelet Count 309 k/uL (150-450); RBC 4.51 m/uL (4.30-5.90); RDW 16.2 % (11.5-15.5); WBC 4.9 k/uL (3.8-10.6)
[2019-05-17 07:35] LABS: African American GFR (CKD) >90 (>60 ml/min/1.73 sqM); Non-African American GFR(CKD) >90 (>60 ml/min/1.73 sqM)
[2019-05-17] MEDS: CEFEPIME 2 GM in SODIUM CHLORIDE 0.9% 100 ML IVPB SCH ×2 (07:43→16:34)
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
[2019-05-17] MEDS: LORATADINE 10 MG TAB PO SCH (08:06)
[2019-05-17] MEDS: METOPROLOL TARTRATE 25 MG TAB PO SCH ×2 (08:06→21:35)
[2019-05-17] MEDS: MULTIVITAMINS, THERA 1 EACH TAB PO SCH (08:07)
[2019-05-17] MEDS: VANCOMYCIN 1,750 MG in SODIUM CHLORIDE 0.9% 500 ML 500 ML IVPB SCH ×2 (09:06→17:16)
[2019-05-17] MEDS: BENZOCAINE/MENTHOL LOZENG 1 EACH LOZENGE MUCOUS MEM PRN ×3 (11:58→21:36)
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
[2019-05-17] MEDS: IPRATROPIUM-ALBUTEROL 3 ML NEB INHALATION SCH ×3 (12:40→20:58)
--- NOTE | 2019-05-17 14:50 | P.PN ---
Subjective Progress Note Date: 05/17/19 Principal diagnosis: This is a 34-year-old male who was recently admitted increased shortness of breath with cough as well as thick green yellow secretions with a history of chronic tracheostomy and is being closely monitored. Patient had previous episode of Pseudomonas aeruginosa as well as MRSA growing the cultures and infectious disease has been consulted. Patient continues to have shortness of breath and a cough and continues to have thick greenish yellow copious amounts of secretions from his tracheostomy. Patient is also having extremely sore throat and states it feels raw due to the cough. 05/17/2019 In follow-up today patient continues on IV antibiotics in the form of cefepime and vancomycin and is being closely monitored. Patient does have a history of Pseudomonas aeruginosa and MRSA infections and awaiting sputum culture. Discussed with nursing staff about obtaining a sputum culture. Patient continues to have a cough with some mild yellowish green thick sputum and secretions from tracheostomy. Patient states his coughing has slightly improved but continues to have a cough. Pulmonary evaluated the patient and are following. Patient is having some wheezing and steroids will be added. Will continue to monitor closely. Objective - Vital Signs Vital signs: Vital Signs Temp 98.1 F 05/17/19 12:07 Pulse 87 05/17/19 12:07 Resp 22 05/17/19 12:07 BP 143/93 05/17/19 12:07 Pulse Ox 96 05/17/19 04:00 Intake & Output 05/16/19 05/17/19 05/17/19 18:59 06:59 18:59 Intake Total 1860 720 320 Output Total 450 Balance 1860 270 320 Weight 120.8 kg 123.6 kg Intake: Intake, IV Titration 600 Amount Cefepime 2 gm In Sodium 100 Chloride 0.9% 100 ml @ 200 mls/hr IVPB Q8HR [facility] Rx#:[id number] Vancomycin 1,750 mg In 500 Sodium Chloride 0.9% 500 ml 500 ml @ 167 mls/hr IVPB Q8HR [facility] Rx#: [id number] Oral 1860 120 320 Output: Urine 450 Other: Voiding Method Toilet # Voids 2 2 - Exam Gen: This is a 34-year-old male sitting up in bed, awake, alert and oriented 3, well-developed, well-nourished. Temp is 98.1F, pulse is 87, respirations are 22, blood pressure is 143/93, oxygen saturation is in the 6% on 5 L via trach collar with FiO2 of 28. HEENT: Head is atraumatic, normocephalic. Pupils equal, round. Sclerae is anicteric. NECK: Supple. No JVD. No lymphadenopathy. No thyromegaly. Tracheostomy noted with trach collar LUNGS: Diminished breath sounds at the bases with coarse bilateral rhonchi and crackles noted. Mild expiratory wheezing also noted on exam. No intercostal retractions. HEART: S1, S2 muffled ABDOMEN: Soft. Obese. Bowel sounds are present. No masses. No tenderness. EXTREMITIES: No pedal edema. No calf tenderness. NEUROLOGICAL: Patient is awake, alert and oriented x3. Cranial nerves 2 through 12 are grossly intact. - Labs CBC & Chem 7: 05/17/19 06:20 05/17/19 06:20 Labs: Abnormal Lab Results - Last 24 Hours (Table) 05/17/19 05/17/19 Range/Units 06:20 06:20 Hgb 12.1 L (13.0-17.5) gm/dL MCHC 29.9 L (31.0-37.0) g/dL RDW 16.2 H (11.5-15.5) % Creatinine 0.65 L (0.66-1.25) mg/dL Microbiology - Last 24 Hours (Table) 05/15/19 11:17 Blood Culture - Preliminary Blood No Growth after 24 hours Assessment and Plan Assessment: Possible sepsis Acute bronchial asthma, acute exacerbation with acute bilateral pneumonia, possibly gram-negative History of Pseudomonas and MRSA pneumonia previously Hyponatremia Hyperkalemia Elevated lactic acid possibly, secondary to sepsis Increased WBC History of gastroesophageal reflux disease Hypertension History of pneumonia History of chronic tracheostomy history of sleep apnea History of laryngectomy history of Rosai Parker syndrome History of right cochlear implant Chronic hypoxic respiratory failure History of anxiety Remote history of nicotine dependence Obesity with body mass index of 43.8 Recommendations and discussion: Recommend to continue current medications, management, and symptomatic t reatment. Due to multiple medical problems and previous history of Pseudomonas and MRSA pneumonia we will continue to monitor closely. Pulmonary is following. Sputum culture was sent and is currently pending. Patient will be continued on bronchodilators, IV antibiotics in the form of cefepime and Vancomycin, along with IV steroids at this time. Due to multiple complex medical issues prognosis is guarded. Further recommendations to follow.
[2019-05-17] MEDS: methylPREDNISolone SOD SUCCI 40 MG/ML 1 ML VIAL IV SCH (16:34)
[2019-05-17] MEDS: FORMOTEROL FUMARATE 20 MCG/2 ML NEBU INHALATION SCH (20:58)
[2019-05-17] MEDS: BUDESONIDE 1 MG/2 ML NEBU INHALATION SCH (20:58)
[2019-05-17] MEDS: MONTELUKAST 10 MG TAB PO SCH (21:36)
--- NOTE | 2019-05-17 22:34 | PN ---
PROGRESS NOTE DATE OF SERVICE: 05/17/2019. REASON FOR FOLLOWUP: Pneumonia/bronchitis. INTERVAL HISTORY: The patient is currently afebrile, has been breathing comfortably. Still complaining of pain to the left side of the chest area. No nausea, vomiting. Still has cough and bringing up a significant amount of purulent secretions. No nausea, vomiting. No abdominal pain or diarrhea. PHYSICAL EXAMINATION: Blood pressure 132/83 with a pulse of 90, temperature 98.2. He is 98% on trach collar. General description is a middle-aged male lying in bed in no distress. RESPIRATORY SYSTEM: Unlabored breathing with decreased breath sounds at the base. No wheeze. HEART: S1, S2. Regular rate and rhythm. ABDOMEN: Soft. No tenderness. LABS: Hemoglobin is 12.1, white count 4.9, creatinine 0.65. Blood culture so far negative. Sputum cultures are currently pending. DIAGNOSTIC IMPRESSION AND PLAN: Patient admitted to hospital with increasing shortness of breath. He did have a cough and purulent secretions, likely tracheobronchitis, possible pneumonia. Sputum cultures are currently pending. Patient is covered with cefepime and vancomycin; to continue while monitoring clinical course closely. MMODL / IJN: [id number] /
[2019-05-18] MEDS: methylPREDNISolone SOD SUCCI 40 MG/ML 1 ML VIAL IV SCH ×4 (00:11→23:44)
[2019-05-18] MEDS: CEFEPIME 2 GM in SODIUM CHLORIDE 0.9% 100 ML IVPB SCH ×4 (00:12→23:45)
[2019-05-18] MEDS: PROMETHAZINE HCL 6.25 MG/5 ML CUP PO PRN (00:50)
[2019-05-18] MEDS: VANCOMYCIN 1,750 MG in SODIUM CHLORIDE 0.9% 500 ML 500 ML IVPB SCH (03:49)
[2019-05-18] MEDS: BENZOCAINE/MENTHOL LOZENG 1 EACH LOZENGE MUCOUS MEM PRN ×4 (04:21→20:26)
[2019-05-18] MEDS ORDERED: VANCOMYCIN TROUGH DUE 1 EACH MISC MISCELLANE ONE (07:00)
--- NOTE | 2019-05-18 07:03 | XR ---
EXAMINATION TYPE: XR chest 2V DATE OF EXAM: 05/18/2019 HISTORY: shortness of breath. REFERENCE: Previous study dated 05/15/2019. FINDINGS: There is a tracheostomy tube in place. Its tip overlies the tracheal air column in this sin gle frontal projection. Heart size upper limits of normal. There is volume loss in the right middle lobe. There is some left basilar airspace disease may represent atelectasis or pneumonia. I cannot exclude small effusions. IMPRESSION: NO SIGNIFICANT INTERVAL CHANGE IN APPEARANCE OF THE CHEST.
[2019-05-18 07:14] LABS: African American GFR (CKD) >90 (>60 ml/min/1.73 sqM); Non-African American GFR(CKD) >90 (>60 ml/min/1.73 sqM)
[2019-05-18] MEDS: MULTIVITAMINS, THERA 1 EACH TAB PO SCH (08:18)
[2019-05-18] MEDS: LORATADINE 10 MG TAB PO SCH (08:18)
[2019-05-18] MEDS: METOPROLOL TARTRATE 25 MG TAB PO SCH ×2 (08:19→20:14)
[2019-05-18] MEDS: HYDROcodone/APAP 5-325MG 1 EACH TAB PO PRN ×2 (08:20→20:26)
[2019-05-18] MEDS: BUDESONIDE 1 MG/2 ML NEBU INHALATION SCH ×2 (09:00→20:48)
[2019-05-18] MEDS: IPRATROPIUM-ALBUTEROL 3 ML NEB INHALATION SCH ×4 (09:00→20:49)
[2019-05-18] MEDS: FORMOTEROL FUMARATE 20 MCG/2 ML NEBU INHALATION SCH ×2 (09:01→20:49)
[2019-05-18] MEDS ORDERED: VANCOMYCIN 1,750 MG in SODIUM CHLORIDE 0.9% 500 ML 500 ML IVPB SCH (12:00)
--- NOTE | 2019-05-18 12:33 | P.PN ---
Subjective Progress Note Date: 05/18/19 Principal diagnosis: Acute tracheobronchitis The patient is seen today 05/18/2019 in follow-up on the selective care unit. He is awake and alert in no acute distress. He is maintaining good O2 saturations in the 90s on 28% trach collar. He still has ongoing secretions. He has some sore throat. Blood and sputum cultures are pending. He is currently on vancomycin and cefepime. He remains on DuoNeb inhalations, Pulmicort and Perforomist inhalations, IV Solu-Medrol, Singulair. Phenergan cough syrup. Cepacol lozenges. Objective - Vital Signs Vital signs: Vital Signs Temp 98.4 F 05/18/19 08:00 Pulse 92 05/18/19 11:55 Resp 20 05/18/19 08:00 BP 141/82 05/18/19 08:00 Pulse Ox 100 05/18/19 08:00 Intake & Output 05/17/19 05/18/19 05/18/19 18:59 06:59 18:59 Intake Total 1160 710 240 Output Total 1200 300 Balance 1160 -490 -60 Weight 123.4 kg Intake: IV 10 Invasive Line 2 10 Intake, IV Titration 700 Amount Cefepime 2 gm In Sodium 200 Chloride 0.9% 100 ml @ 200 mls/hr IVPB Q8HR NIC Rx#:[id number] Vancomycin 1,750 mg In 500 Sodium Chloride 0.9% 500 ml 500 ml @ 167 mls/hr IVPB Q8HR N[facility] Rx#: [id number] Oral 1160 240 Output: Urine 1200 300 Other: # Voids 1 - Exam GENERAL EXAM: Alert, pleasant, 34-year-old gentleman, with a tracheostomy in place, 28% trach collar comfortable in no apparent distress. Patient is deaf, he does not have his hearing aid on, has a history of cochlear implant. Patient has a cough, and his been deep suctioning himself, with production of large amount of yellow colored sputum HEAD: Normocephalic/atraumatic. EYES: Normal reaction of pupils, equal size. Conjunctiva pink, sclera white. NOSE: Clear with pink turbinates. THROAT: No erythema or exudates. NECK: Tracheostomy tube secured in place. No masses, no JVD, no adenopathy. CHEST: No chest wall deformity. Symmetrical expansion. LUNGS: Diffuse rhonchi and wheezes bilaterally CVS: Regular rate and rhythm, normal S1 and S2, no gallops, no murmurs, no rubs ABDOMEN: Soft, nontender. No hepatosplenomegaly, normal bowel sounds, no guarding or rigidity. EXTREMITIES: No clubbing, no edema, no cyanosis, 2+ pulses and upper and lower extremities. MUSCULOSKELETAL: Muscle strength and tone normal. SPINE: No scoliosis or deformity SKIN: No rashes CENTRAL NERVOUS SYSTEM: No focal deficits, tone is normal in all 4 extremities. PSYCHIATRIC: Alert and oriented -3. Appropriate affect. Intact judgment and insight. - Labs CBC & Chem 7: 05/17/19 06:20 05/18/19 05:59 Labs: Abnormal Lab Results - Last 24 Hours (Table) 05/18/19 Range/Units 05:59 Creatinine 0.53 L (0.66-1.25) mg/dL Microbiology - Last 24 Hours (Table) 05/17/19 13:30 Gram Stain - Preliminary Sputum Sputum Culture - Preliminary 05/15/19 11:17 Blood Culture - Preliminary Blood No Growth after 48 hours Assessment and Plan Assessment: #1. Acute tracheobronchitis, rule out MRSA or pseudomonal infection, and the patient with previous MRSA and pseudomonal pulmonary infections. Chest x-ray showed chronic right middle lobe atelectasis, and subsegmental basilar atelectasis, underlying pneumonia is difficult to exclude this will be followed #2. Acute exacerbation of mild persistent bronchial asthma #3. Chronic tracheostomy #4. Previous episodes of pneumonia #5. Hearing impairment patient has a cochlear implant #6. 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 GERD/reflux #8. Hypertension #9. Sleep apnea on CPAP #10. Former smoker, currently in remission Plan: The patient was seen and evaluated by Dr. Tariq. Still not quite back to his baseline. We'll continue with the current treatment plan. Await final culture results. We'll continue to follow. I, the cosigning physician, performed a history & physical examination of the patient. Lungs sounds with bilateral scattered rhonchi, end expiratory wheeze. Maintaining good O2 saturations in the 90s on 28% trach collar. I discussed the assessment and plan of care with my nurse practitioner, Melissa Ward. I attest to the above note as dictated by her.
--- NOTE | 2019-05-18 13:28 | PN ---
PROGRESS NOTE DATE OF SERVICE: 05/18/2019 REASON FOR FOLLOWUP: Tracheobronchitis and a question of pneumonia. INTERVAL HISTORY: The patient is currently afebrile. Patient has been breathing comfortably compared to yesterday. The patient denies having any chest pain. He did have some cough, though decreased in intensity. Still bringing up some purulent sputum. No nausea, no vomiting. No abdominal pain and no diarrhea. PHYSICAL EXAMINATION: Blood pressure is 141/82 with a pulse of 88, temperature 98.4. He is 100% on trach collar. General description is a middle-aged male up in the bed in no distress. RESPIRATORY SYSTEM: Unlabored breathing, decreased intensity of breath sounds. No wheeze. HEART: S1, S2. Regular rate and rhythm. ABDOMEN: Soft, no tenderness. LABS: Hemoglobin is 12.1, white count 4.9. DIAGNOSTIC IMPRESSION AND PLAN: Patient presented to hospital with increased shortness of breath and a cough, likely tracheobronchitis, possible component of pneumonia. The patient is currently covered with cefepime and vancomycin, to continue. Will wait for the cultures to finalize and monitor clinical course closely. Continue supportive care. MMODL / IJN: [id number] /
--- NOTE | 2019-05-18 19:35 | PN ---
PROGRESS NOTE DATE OF SERVICE: 05/18/2019 This 34-year-old gentleman admitted with bronchial asthma acute exacerbation with bilateral pneumonia is on IV antibiotics. The patient has gram-negative bacilli and presumptive Staph was grown from the cultures. No chest pain. No palpitation. PHYSICAL EXAMINATION: Pulse 66, blood pressure 130/70. Respiration 22, temperature 97.7, pulse ox 100 percent on HEENT is conjunctivae normal. NECK is tracheostomy. CARDIOVASCULAR: S1, S2. No S3, no S4. RESPIRATORY: Bilateral scattered rhonchi and expiratory wheezing and crackles. ABDOMEN is soft, nontender. LEGS are no edema. No swelling. CENTRAL NERVOUS SYSTEM: No focal deficits. LABS: WBC 4.9, hemoglobin 12.1. Sodium was 147, potassium 5.5 on admission. ASSESSMENT: 1. Bronchial asthma acute exacerbation with acute bilateral pneumonia possibly gram- negative with possible sepsis. 2. presumptive Staph from the cultures. 3. History of previous Pseudomonas and MRSA pneumonia previously. 4. Hyponatremia. 5. Hyperkalemia. 6. Elevated lactic acid possibly secondary to sepsis. 7. Increased WBC. 8. History of gastroesophageal reflux disease. 9. Hypertension. 10.History of pneumonia. 11.History of chronic tracheostomy. 12.History of obstructive sleep apnea. 13.History of laryngectomy. 14.History of Rosai Parker syndrome. 15.History of right cochlea implant. 16.History of chronic hypoxic respiratory failure on home O2 nasal cannula. 17.History of anxiety. 18.Remote history of nicotine dependence and obesity with body mass index of 43.8. RECOMMENDATIONS AND DISCUSSION: Recommend to continue current management. Continue with monitoring and symptomatic treatment. Continue with bronchodilators. Continue the empiric antibiotics. Follow the cultures. Final cultures. Await final ID. Closely follow with Infectious Disease and Pulmonary. Prognosis guarded because of multiple complex medical issues. Further recommendations to follow. MMODL / IJN: [id number] / TONEY
[2019-05-18] MEDS: MONTELUKAST 10 MG TAB PO SCH (20:14)
[2019-05-18] MEDS: VANCOMYCIN 2,000 MG in SODIUM CHLORIDE 0.9% 500 ML 500 ML IVPB SCH (20:15)
[2019-05-19] MEDS: PROMETHAZINE HCL 6.25 MG/5 ML CUP PO PRN ×2 (01:34→23:55)
[2019-05-19] MEDS: BENZOCAINE/MENTHOL LOZENG 1 EACH LOZENGE MUCOUS MEM PRN ×3 (03:43→16:37)
[2019-05-19] MEDS: VANCOMYCIN 2,000 MG in SODIUM CHLORIDE 0.9% 500 ML 500 ML IVPB SCH ×3 (03:44→20:33)
[2019-05-19 06:51] LABS: Basophils # (A) 0.1 k/uL (0-0.2); Basophils % (A) 1 %; Eosinophils % (A) 0 %; HCT 38.6 % (39.0-53.0); HGB 11.7 gm/dL (13.0-17.5); Hypochromasia Slight; Lymphocytes # (A) 0.8 k/uL (1.0-4.8); Lymphocytes % (A) 7 %; MCH 26.6 pg (25.0-35.0); MCHC 30.4 g/dL (31.0-37.0); MCV 87.6 fL (80.0-100.0); Mean Platelet Volume 9.2; Monocytes # (A) 0.4 k/uL (0-1.0); Monocytes % (A) 4 %; Neutrophils # (A) 10.1 k/uL (1.3-7.7); Neutrophils % (A) 88 %; Platelet Count 309 k/uL (150-450); WBC 11.5 k/uL (3.8-10.6)
[2019-05-19 07:05] LABS: African American GFR (CKD) >90 (>60 ml/min/1.73 sqM); Anion Gap 6 mmol/L; Blood Urea Nitrogen 17 mg/dL (9-20); Calcium 9.6 mg/dL (8.4-10.2); Carbon Dioxide 29 mmol/L (22-30); Chloride 100 mmol/L (98-107); Glucose 154 mg/dL (74-99); Non-African American GFR(CKD) >90 (>60 ml/min/1.73 sqM); Potassium 4.9 mmol/L (3.5-5.1); Sodium 135 mmol/L (137-145)
[2019-05-19] MEDS: FORMOTEROL FUMARATE 20 MCG/2 ML NEBU INHALATION SCH ×2 (07:24→20:30)
[2019-05-19] MEDS: BUDESONIDE 1 MG/2 ML NEBU INHALATION SCH ×2 (07:24→20:30)
[2019-05-19] MEDS: IPRATROPIUM-ALBUTEROL 3 ML NEB INHALATION SCH ×4 (07:24→20:30)
[2019-05-19] MEDS: LORATADINE 10 MG TAB PO SCH (10:11)
[2019-05-19] MEDS: METOPROLOL TARTRATE 25 MG TAB PO SCH ×2 (10:11→23:39)
[2019-05-19] MEDS: CEFEPIME 2 GM in SODIUM CHLORIDE 0.9% 100 ML IVPB SCH ×3 (10:11→23:56)
[2019-05-19] MEDS: methylPREDNISolone SOD SUCCI 40 MG/ML 1 ML VIAL IV SCH ×3 (10:11→23:56)
[2019-05-19] MEDS: MULTIVITAMINS, THERA 1 EACH TAB PO SCH (10:11)
[2019-05-19] MEDS: HYDROcodone/APAP 5-325MG 1 EACH TAB PO PRN ×3 (12:02→23:39)
--- NOTE | 2019-05-19 15:15 | P.PN ---
Subjective Progress Note Date: 05/19/19 Principal diagnosis: Acute tracheobronchitis secondary to pseudomonas aeruginosa and MRSA. Patient was reevaluated today on 05/29/2019, patient is now on antibiotics in the form of cefepime and vancomycin for Pseudomonas and MRSA tracheobronchitis. He is also on bronchodilators, and feeling better, less cough, less wheezing, less shortness of breath. Remains on 28% trach collar. Objective - Vital Signs Vital signs: Vital Signs Temp 97.8 F 05/19/19 04:00 Pulse 71 05/19/19 11:55 Resp 20 05/19/19 12:00 BP 156/91 05/19/19 11:55 Pulse Ox 99 05/19/19 11:55 Intake & Output 05/18/19 05/19/19 05/19/19 18:59 06:59 18:59 Intake Total 910 620 450 Output Total 300 1125 425 Balance 610 -505 25 Weight 112 kg Intake: Intake, IV Titration 500 Amount Vancomycin 2,000 mg In 500 Sodium Chloride 0.9% 500 ml 500 ml @ 167 mls/hr IVPB Q8H [facility] Rx#: [id number] Oral 910 120 450 Output: Urine 300 1125 425 Other: Voiding Method Toilet # Voids 1 - Exam GENERAL EXAM: Alert, pleasant, 34-year-old gentleman, with a tracheostomy in place, 28% trach collar comfortable in no apparent distress. HEENT: PERRLA, EOMI, no icterus, hard of hearing, patient has a cochlear i mplant. Tracheostomy is intact. CHEST: No chest wall deformity. Symmetrical expansion. LUNGS: Rhonchi on forced expiratory maneuver bilaterally. Symmetrical chest expansion. CVS: Regular rate and rhythm, normal S1 and S2, no gallops, no murmurs, no rubs ABDOMEN: Soft, nontender. No hepatosplenomegaly, normal bowel sounds, no guarding or rigidity. EXTREMITIES: No clubbing, no edema, no cyanosis, 2+ pulses and upper and lower extremities. MUSCULOSKELETAL: Muscle strength and tone normal. SPINE: No scoliosis or deformity SKIN: No rashes CENTRAL NERVOUS SYSTEM: No focal deficits, tone is normal in all 4 extremities. PSYCHIATRIC: Alert oriented 3 hard of hearing normal mood affect and normal mental status examination. - Labs CBC & Chem 7: 05/19/19 06:21 05/19/19 06:21 Labs: Abnormal Lab Results - Last 24 Hours (Table) 05/19/19 05/19/19 Range/Units 06:21 06:21 WBC 11.5 H (3.8-10.6) k/uL Hgb 11.7 L (13.0-17.5) gm/dL Hct 38.6 L (39.0-53.0) % MCHC 30.4 L (31.0-37.0) g/dL RDW 16.0 H (11.5-15.5) % Neutrophils # 10.1 H (1.3-7.7) k/uL Lymphocytes # 0.8 L (1.0-4.8) k/uL Sodium 135 L (137-145) mmol/L Creatinine 0.56 L (0.66-1.25) mg/dL Glucose 154 H (74-99) mg/dL Microbiology - Last 24 Hours (Table) 05/15/19 11:17 Blood Culture - Preliminary Blood No Growth after 96 hours 05/17/19 13:30 Gram Stain - Final Sputum Sputum Culture - Final Pseudomonas aeruginosa Methicillin resist S. aureus Assessment and Plan Assessment: #1. Acute tracheobronchitis, secondary to Pseudomonas and MRSA infection. Remains on cefepime and vancomycin. #2. Acute exacerbation of mild persistent bronchial asthma #3. Chronic tracheostomy #4. Previous episodes of pneumonia #5. Hearing impairment patient has a cochlear implant #6. 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 GERD/reflux #8. Hypertension #9. Sleep apnea on CPAP #10. Former smoker, currently in remission Recommendation: Continue present treatment plan including antibiotics, bronchodilators, steroids, patient is being followed by infectious disease, I am not certain whether the patient will be on IV antibiotics long-term for his MRSA and pseudomonal infection, will leave the decision for infectious disease on the case Time with Patient: Less than 30
--- NOTE | 2019-05-19 20:55 | PN ---
PROGRESS NOTE DATE OF SERVICE: 05/19/2019 This 34-year-old gentleman who was admitted with bronchial asthma, acute exacerbation, tracheobronchitis, also has multiple organisms grown from the culture in the form of Pseudomonas aeruginosa and MRSA. The Pseudomonas is actually multiresistant. No chest pain. No palpitations. No fever. EXAM: Alert and oriented x3. Pulse 71, blood pressure 140/1, respirations 20, temperature normal, pulse ox 98 percent on trach collar. HEENT: Conjunctivae normal. NECK: No JVD. CARDIOVASCULAR: S1, S2 muffled. RESPIRATORY: Breath sounds diminished in the bases. Bilateral scattered rhonchi and crackles. ABDOMEN soft, nontender. LEGS are no edema. No swelling. CENTRAL NERVOUS SYSTEM: No focal deficits. LABS: WBC 11.2, hemoglobin 11.7, sodium 135. ASSESSMENT: 1. Bronchial asthma acute exacerbation with bilateral pneumonia possibly gram-negative with possible sepsis. 2. MRSA and resistant Pseudomonas from the present cultures. 3. History of previous Pseudomonas and MRSA pneumonia. 4. Hyponatremia. 5. Hyperkalemia. 6. Elevated lactic acid possibly secondary to sepsis. 7. Increased WBC. 8. History of gastroesophageal reflux disease. 9. Hypertension. 10.History of pneumonia. 11.History of chronic tracheostomy. 12.History of obstructive sleep apnea. 13.History of laryngectomy. 14.History of Rosai Parker syndrome. 15.History of right cochlear implant. 16.Chronic hypoxic respiratory on home O2 nasal cannula. 17.Gastroesophageal reflux disease. 18.History of anxiety. 19.Remote history of nicotine dependence. 20.Obesity with body mass index of 43.8. RECOMMENDATIONS AND DISCUSSION: I recommend to continue current medications, management and symptomatic treatment. Continue bronchodilators. Continue with empiric antibiotics. Closely follow with multiple consultants including Infectious Disease and Pulmonary. Guarded prognosis because of multiple complex medical issues. Further recommendations to follow. The patient still has significant wheezing bilaterally. The patient is currently on a combination of cefepime and vancomycin. We will continue to monitor. Further recommendations to follow. MMODL / IJN: [id number] /
--- NOTE | 2019-05-19 23:10 | PN ---
PROGRESS NOTE DATE OF SERVICE: 05/19/2019 REASON FOR FOLLOWUP: Tracheobronchitis/pneumonia. INTERVAL HISTORY: The patient is currently afebrile. Patient is breathing slightly comfortably. The patient denies having any worsening chest pain. The pain to the left side of the chest has decreased. No nausea, no vomiting. No abdominal pain, no diarrhea. PHYSICAL EXAMINATION: Blood pressure 149/80 with a pulse of 80, temperature of 98. He is 99% on trach collar. General description is a middle-aged male up in the bed in no distress. Respiratory system: Unlabored breathing. Decreased breath sounds in the bases. No wheeze. Heart S1, S2. Regular rate and rhythm. Abdomen soft, no tenderness. LABS: Hemoglobin is 11.7, white count 11.5, BUN of 17, creatinine 0.56. Sputum has been MRSA and Pseudomonas aeruginosa. DIAGNOSTIC IMPRESSION AND PLAN: Patient admitted to hospital with difficulty breathing ( ) did have a component of Pseudomonas and MRSA tracheobronchitis. The patient is covered with cefepime and vancomycin to continue, hopefully finishing therapy with oral on discharge and monitor clinical course closely. Continue supportive care. MMODL / IJN: [id number] /
[2019-05-19] MEDS: MONTELUKAST 10 MG TAB PO SCH (23:39)
[2019-05-20] MEDS: VANCOMYCIN 2,000 MG in SODIUM CHLORIDE 0.9% 500 ML 500 ML IVPB SCH ×2 (05:34→15:45)
[2019-05-20] MEDS: BENZOCAINE/MENTHOL LOZENG 1 EACH LOZENGE MUCOUS MEM PRN ×3 (05:45→20:37)
[2019-05-20 06:58] LABS: Basophils # (A) 0.1 k/uL (0-0.2); Basophils % (A) 1 %; Eosinophils # (A) 0.1 k/uL (0-0.7); Eosinophils % (A) 1 %; HCT 39.5 % (39.0-53.0); HGB 12.1 gm/dL (13.0-17.5); Hypochromasia Marked; Lymphocytes # (A) 0.5 k/uL (1.0-4.8); Lymphocytes % (A) 5 %; MCH 27.1 pg (25.0-35.0); MCHC 30.7 g/dL (31.0-37.0); MCV 88.3 fL (80.0-100.0); Mean Platelet Volume 9.6; Monocytes # (A) 0.3 k/uL (0-1.0); Monocytes % (A) 3 %; Neutrophils # (A) 10.4 k/uL (1.3-7.7); Neutrophils % (A) 88 %; Platelet Count 327 k/uL (150-450); RBC 4.48 m/uL (4.30-5.90); RDW 15.6 % (11.5-15.5); WBC 11.8 k/uL (3.8-10.6)
[2019-05-20 07:11] LABS: African American GFR (CKD) >90 (>60 ml/min/1.73 sqM); Anion Gap 10 mmol/L; Blood Urea Nitrogen 17 mg/dL (9-20); Calcium 9.7 mg/dL (8.4-10.2); Carbon Dioxide 28 mmol/L (22-30); Chloride 97 mmol/L (98-107); Glucose 199 mg/dL (74-99); Non-African American GFR(CKD) >90 (>60 ml/min/1.73 sqM); Potassium 4.9 mmol/L (3.5-5.1); Sodium 135 mmol/L (137-145)
[2019-05-20] MEDS: BUDESONIDE 1 MG/2 ML NEBU INHALATION SCH ×2 (07:43→20:25)
[2019-05-20] MEDS: IPRATROPIUM-ALBUTEROL 3 ML NEB INHALATION SCH ×4 (07:43→20:25)
[2019-05-20] MEDS: FORMOTEROL FUMARATE 20 MCG/2 ML NEBU INHALATION SCH ×2 (07:43→20:47)
[2019-05-20] MEDS: MULTIVITAMINS, THERA 1 EACH TAB PO SCH (08:26)
[2019-05-20] MEDS: METOPROLOL TARTRATE 25 MG TAB PO SCH ×2 (08:26→20:37)
[2019-05-20] MEDS: LORATADINE 10 MG TAB PO SCH (08:26)
[2019-05-20] MEDS: CEFEPIME 2 GM in SODIUM CHLORIDE 0.9% 100 ML IVPB SCH ×3 (08:26→23:37)
[2019-05-20] MEDS: methylPREDNISolone SOD SUCCI 40 MG/ML 1 ML VIAL IV SCH ×3 (08:50→23:37)
[2019-05-20] MEDS: HYDROcodone/APAP 5-325MG 1 EACH TAB PO PRN ×2 (09:08→18:51)
[2019-05-20] MEDS ORDERED: VANCOMYCIN TROUGH DUE 1 EACH MISC MISCELLANE ONE (11:00)
--- NOTE | 2019-05-20 14:02 | P.PN ---
Subjective Progress Note Date: 05/20/19 Principal diagnosis: Acute tracheobronchitis 34-year-old -[place] male with history of chronic tracheostomy for Rosai-Parker syndrome, mild intermittent asthma, deafness and call clear implant, recurrent episodes of pneumonia secondary to Pseudomonas or MRSA or both, severe tracheal malacia, previous endobronchial stent placement that was unsuccessful, who presents to the hospital on 05/15/2011 with complaints of worsening shortness of breath, cough, congestion, and a copious amount of yellow and green colored sputum. His chest x-ray on admission showed chronic right middle lobe atelectasis, subsegmental basilar atelectasis and aortic aneurysm. In view of patient's past pulmonary infections with MRSA and Pseudomonas patient was empirically placed on combination of vancomycin and cefepime, and we were consulted in regards to shortness of breath related to tracheal bronchitis. On 05/20/2019 patient seen in follow-up on selective care unit, he remains on co mbination of cefepime and vancomycin, he is on a 28% trach collar, his been afebrile. His sputum culture did come back positive for pseudomonas and MRSA, culture has shown no growth, he is still suctioning himself and still has a large amount of yellowish greenish colored sputum. Overall feeling better, still complains of some soreness in his throat Objective - Vital Signs Vital signs: Vital Signs Temp 98.3 F 05/20/19 08:00 Pulse 88 05/20/19 11:59 Resp 20 05/20/19 08:00 BP 148/75 05/20/19 08:00 Pulse Ox 98 05/20/19 08:00 Intake & Output 05/19/19 05/20/19 05/20/19 18:59 06:59 18:59 Intake Total 450 120 240 Output Total 1025 1500 300 Balance -575 -1380 -60 Weight 111.8 kg Intake: Oral 450 120 240 Output: Urine 1025 1500 300 Other: Voiding Method Toilet # Voids 2 1 - Exam GENERAL EXAM: Alert, present, 34-year-old of -[place] male, with a tracheostomy in place, 28% trach collar comfortable in no apparent distress. Patient is deaf, he does not have his hearing aid on, has a history of cochlear implant. Patient has a cough, and his been deep suctioning himself, with production of large amount of yellow colored sputum HEAD: Normocephalic/atraumatic. EYES: Normal reaction of pupils, equal size. Conjunctiva pink, sclera white. NOSE: Clear with pink turbinates. THROAT: No erythema or exudates. NECK: No masses, no JVD, no thyroid enlargement, no adenopathy. CHEST: No chest wall deformity. Symmetrical expansion. LUNGS: Diffuse rhonchi and wheezes bilaterally CVS: Regular rate and rhythm, normal S1 and S2, no gallops, no murmurs, no rubs ABDOMEN: Soft, nontender. No hepatosplenomegaly, normal bowel sounds, no guarding or rigidity. EXTREMITIES: No clubbing, no edema, no cyanosis, 2+ pulses and upper and lower extremities. MUSCULOSKELETAL: Muscle strength and tone normal. SPINE: No scoliosis or deformity SKIN: No rashes CENTRAL NERVOUS SYSTEM: Alert and oriented -3. No focal deficits, tone is normal in all 4 extremities. PSYCHIATRIC: Alert and oriented -3. Appropriate affect. Intact judgment and insight. - Labs CBC & Chem 7: 05/20/19 06:13 05/20/19 06:13 Labs: Abnormal Lab Results - Last 24 Hours (Table) 05/20/19 05/20/19 Range/Units 06:13 06:13 WBC 11.8 H (3.8-10.6) k/uL Hgb 12.1 L (13.0-17.5) gm/dL MCHC 30.7 L (31.0-37.0) g/dL RDW 15.6 H (11.5-15.5) % Neutrophils # 10.4 H (1.3-7.7) k/uL Lymphocytes # 0.5 L (1.0-4.8) k/uL Sodium 135 L (137-145) mmol/L Chloride 97 L (98-107) mmol/L Creatinine 0.59 L (0.66-1.25) mg/dL Glucose 199 H (74-99) mg/dL Microbiology - Last 24 Hours (Table) 05/15/19 11:17 Blood Culture - Preliminary Blood No Growth after 120 hours 05/17/19 13:30 Gram Stain - Final Sputum Sputum Culture - Final Pseudomonas aeruginosa Methicillin resist S. aureus Assessment and Plan Plan: Assessment: #1. Acute tracheobronchitis, related to MRSA or pseudomonal infection, and the patient with previous MRSA and pseudomonal pulmonary infections. Chest x-ray showed chronic right middle lobe atelectasis, and subsegmental basilar atelectasis, underlying pneumonia is difficult to exclude this will be followed #2. Acute exacerbation of mild persistent bronchial asthma #3. Chronic tracheostomy #4. Previous episodes of pneumonia #5. Hearing impairment patient has a cochlear implant #6. 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 GERD/reflux #8. Hypertension #9. Sleep apnea on CPAP #10. Former smoker, currently in remission Plan: Continue current antibiotics, continue breathing treatments, steroids, bronchodilators, no fever or chills. Overall clinically stable, complaining of some throat soreness, but no worsening left-sided chest pain. His last chest x- ray from Monday05/18/2019 has been reviewed showing no significant interval change in the appearance of the chest. We will continue to follow. I performed a history & physical examination of the patient and discussed their management with my nurse practitioner, Trudy Jansen. I reviewed the nurse practitioner's note and agree with the documented findings and plan of care. Lung sounds are positive for diffuse wheezes throughout the lung anderson. The findings and the impression was discussed with the patient. I attest to the documentation by the nurse practitioner. Time with Patient: Less than 30
--- NOTE | 2019-05-20 16:36 | P.PN ---
Subjective Progress Note Date: 05/20/19 Principal diagnosis: This is a 34-year-old male who was recently admitted increased shortness of breath with cough as well as thick green yellow secretions with a history of chronic tracheostomy and is being closely monitored. Patient had previous episode of Pseudomonas aeruginosa as well as MRSA growing the cultures and infectious disease has been consulted. Patient continues to have shortness of breath and a cough and continues to have thick greenish yellow copious amounts of secretions from his tracheostomy. Patient is also having extremely sore throat and states it feels raw due to the cough. 05/17/2019 In follow-up today patient continues on IV antibiotics in the form of cefepime and vancomycin and is being closely monitored. Patient does have a history of Pseudomonas aeruginosa and MRSA infections and awaiting sputum culture. Discussed with nursing staff about obtaining a sputum culture. Patient continues to have a cough with some mild yellowish green thick sputum and secretions from tracheostomy. Patient states his coughing has slightly improved but continues to have a cough. Pulmonary evaluated the patient and are following. Patient is having some wheezing and steroids will be added. Will continue to monitor closely. 05/20/2019 This is a 34-year-old male who was recently admitted with bronchial asthma, acute exacerbation, tracheal bronchitis and is being closely monitored. Cultures are finalized showing Pseudomonas aeruginosa and MRSA and is currently on IV antibiotics in the form of cefepime and Vanco. Infectious disease is following. Patient may possibly need IV antibiotic therapy upon discharge as there is [id number] noted on the culture sensitivities. Patient states his breathing has slightly improved although continues to have some crackles noted on exam. Patient currently denies any chest pain or palpitati ons. Patient is afebrile. Patient denies any nausea or vomiting and is tolerating diet. Objective - Vital Signs Vital signs: Vital Signs Temp 98.3 F 05/20/19 15:54 Pulse 79 05/20/19 16:18 Resp 20 05/20/19 15:54 BP 149/91 05/20/19 15:54 Pulse Ox 99 05/20/19 16:18 Intake & Output 05/19/19 05/20/19 05/20/19 18:59 06:59 18:59 Intake Total 450 120 240 Output Total 1025 1500 600 Balance -920 -6438 -360 Weight 111.8 kg Intake: Oral 450 120 240 Output: Urine 1025 1500 600 Other: Voiding Method Toilet # Voids 2 1 - Exam Gen: This is a 34-year-old male lying in bed, awake, alert and oriented 3, well-developed, well-nourished. Temp is 98.3F, pulse is 81, respirations are 20, blood pressure is 149/91, oxygen saturation is 95 % on 5 L via trach collar with FiO2 of 28. HEENT: Head is atraumatic, normocephalic. Pupils equal, round. Sclerae is anicteric. NECK: Supple. No JVD. No lymphadenopathy. No thyromegaly. Tracheostomy noted with trach collar LUNGS: Diminished breath sounds at the bases with coarse bilateral rhonchi and crackles noted. Expiratory wheezing noted on exam. No intercostal retractions. HEART: S1, S2 muffled ABDOMEN: Soft. Obese. Bowel sounds are present. No masses. No tenderness. EXTREMITIES: No pedal edema. No calf tenderness. NEUROLOGICAL: Patient is awake, alert and oriented x3. Cranial nerves 2 through 12 are grossly intact. - Labs CBC & Chem 7: 05/20/19 06:13 05/20/19 06:13 Labs: Abnormal Lab Results - Last 24 Hours (Table) 05/20/19 05/20/19 Range/Units 06:13 06:13 WBC 11.8 H (3.8-10.6) k/uL Hgb 12.1 L (13.0-17.5) gm/dL MCHC 30.7 L (31.0-37.0) g/dL RDW 15.6 H (11.5-15.5) % Neutrophils # 10.4 H (1.3-7.7) k/uL Lymphocytes # 0.5 L (1.0-4.8) k/uL Sodium 135 L (137-145) mmol/L Chloride 97 L (98-107) mmol/L Creatinine 0.59 L (0.66-1.25) mg/dL Glucose 199 H (74-99) mg/dL Microbiology - Last 24 Hours (Table) 05/15/19 11:17 Blood Culture - Preliminary Blood No Growth after 120 hours Assessment and Plan Assessment: Possible sepsis Acute bronchial asthma, acute exacerbation with acute bilateral pneumonia, possibly gram-negative with possible sepsis MRSA and resistant Pseudomonas from present cultures History of Pseudomonas and MRSA pneumonia previously Hyponatremia Hyperkalemia Elevated lactic acid possibly, secondary to sepsis Increased WBC History of gastroesophageal reflux disease Hypertension History of pneumonia History of chronic tracheostomy history of sleep apnea History of laryngectomy history of Rosai Parker syndrome History of right cochlear implant Chronic hypoxic respiratory failure History of anxiety Remote history of nicotine dependence Obesity with body mass index of 43.8 Recommendations and discussion: Recommend to continue current medications, management, and symptomatic treatment. Patient will be continued on bronchodilators, IV antibiotics in the form of cefepime and Vancomycin, along with IV steroids at this time. Sputum cultures are showing multi-drug resistance Pseudomonas along with MRSA and may require IV antibiotics therapy in the outpatient setting. Infectious disease is following. Due to multiple complex medical issues prognosis is guarded. Further recommendations to follow.
[2019-05-20] MEDS: MONTELUKAST 10 MG TAB PO SCH (20:36)
[2019-05-21] MEDS: VANCOMYCIN 2,000 MG in SODIUM CHLORIDE 0.9% 500 ML 500 ML IVPB SCH ×3 (00:32→09:28)
[2019-05-21] MEDS: PROMETHAZINE HCL 6.25 MG/5 ML CUP PO PRN (02:24)
[2019-05-21] MEDS: HYDROcodone/APAP 5-325MG 1 EACH TAB PO PRN ×2 (02:24→09:38)
--- NOTE | 2019-05-21 06:31 | PN ---
PROGRESS NOTE DATE OF SERVICE: 05/20/2019 REASON FOR FOLLOWUP: Tracheobronchitis/pneumonia. INTERVAL HISTORY: The patient is currently afebrile, has been breathing more comfortably. The patient denies having any chest pain. Cough has decreased in intensity as well as left side chest pain. No nausea, no vomiting. No abdominal pain. No diarrhea. PHYSICAL EXAMINATION: Blood pressure 140/75 with a pulse of 91, temperature 98.3. General description is a middle-aged male up in the bed in no distress. RESPIRATORY SYSTEM: Unlabored breathing. Coarse breath sounds at the bases. No wheeze. HEART: S1, S2. Regular rate and rhythm. ABDOMEN: Soft, no tenderness. LABS: Vanco trough has been very low. BUN of 17, creatinine 0.59. White count of 11.8. DIAGNOSTIC IMPRESSION AND PLAN: Patient admitted to the hospital with patient did have evidence of tracheobronchitis. Cultures with Pseudomonas and MRSA. The patient is covered with cefepime and vancomycin. Dose needs to be adjusted to keep trough around 15. Hopefully finish therapy with oral antibiotics. Continue supportive care. MMODL / IJN: [id number] /
[2019-05-21] MEDS ORDERED: VANCOMYCIN TROUGH DUE 1 EACH MISC MISCELLANE ONE (07:00)
[2019-05-21] MEDS: IPRATROPIUM-ALBUTEROL 3 ML NEB INHALATION SCH ×2 (07:19→11:13)
[2019-05-21] MEDS: FORMOTEROL FUMARATE 20 MCG/2 ML NEBU INHALATION SCH (07:19)
[2019-05-21] MEDS: BUDESONIDE 1 MG/2 ML NEBU INHALATION SCH (07:19)
[2019-05-21 07:48] LABS: Anisocytosis Slight; Basophils # (A) 0.2 k/uL (0-0.2); Basophils % (A) 2 %; Eosinophils # (A) 0.2 k/uL (0-0.7); Eosinophils % (A) 2 %; HCT 39.4 % (39.0-53.0); HGB 11.7 gm/dL (13.0-17.5); Hypochromasia Moderate; Lymphocytes # (A) 0.6 k/uL (1.0-4.8); Lymphocytes % (A) 5 %; MCH 26.3 pg (25.0-35.0); MCHC 29.8 g/dL (31.0-37.0); MCV 88.1 fL (80.0-100.0); Mean Platelet Volume 10.1; Monocytes # (A) 0.5 k/uL (0-1.0); Monocytes % (A) 4 %; Neutrophils # (A) 10.3 k/uL (1.3-7.7); Neutrophils % (A) 85 %; Platelet Count 321 k/uL (150-450); RBC 4.47 m/uL (4.30-5.90); RDW 16.1 % (11.5-15.5); WBC 12.2 k/uL (3.8-10.6)
[2019-05-21 07:54] LABS: African American GFR (CKD) >90 (>60 ml/min/1.73 sqM); Anion Gap 8 mmol/L; Blood Urea Nitrogen 20 mg/dL (9-20); Calcium 9.7 mg/dL (8.4-10.2); Carbon Dioxide 28 mmol/L (22-30); Chloride 98 mmol/L (98-107); Glucose 198 mg/dL (74-99); Non-African American GFR(CKD) >90 (>60 ml/min/1.73 sqM); Sodium 134 mmol/L (137-145)
[2019-05-21 07:58] VITALS: BP 143/87; RESP 20; TEMP 97.8
[2019-05-21] MEDS: methylPREDNISolone SOD SUCCI 40 MG/ML 1 ML VIAL IV SCH (09:29)
[2019-05-21] MEDS: CEFEPIME 2 GM in SODIUM CHLORIDE 0.9% 100 ML IVPB SCH (09:29)
[2019-05-21] MEDS: MULTIVITAMINS, THERA 1 EACH TAB PO SCH (09:29)
[2019-05-21] MEDS: LORATADINE 10 MG TAB PO SCH (09:29)
[2019-05-21] MEDS: METOPROLOL TARTRATE 25 MG TAB PO SCH (09:30)
[2019-05-21 11:34] VITALS: PULSE 80
--- NOTE | 2019-05-21 12:05 | PN ---
PROGRESS NOTE PULMONARY/CRITICAL CARE PROGRESS NOTE: DATE OF SERVICE: May 21, 2019 This is a 34-year-old black male, well known to our service. He was admitted with a diagnosis of acute tracheobronchitis secondary to both MRSA and Pseudomonas. The patient is doing much better. He is feeling much better. The patient's breathing is improved. He is coughing much less. Not producing much or any phlegm through his tracheostomy tube. The patient has a history of asthma, previous chronic tracheostomy, multiple episodes of pneumonia and pulmonary infections, deafness, status post cochlear implant, Rosai-Parker syndrome, GERD, hypertension, sleep apnea syndrome, and previous tobacco use. Again, the patient is feeling much better. He does not have batteries for his hearing aid and for that reason, he is having a hard time hearing. Clinically, he is feeling much better. Awaiting for Dr. Rosa to decide on outpatient antibiotic therapy. PHYSICAL EXAMINATION: VITAL SIGNS: Current vital signs are reviewed. He is afebrile. Temperature 97.8, heart rate 78, respiratory rate 20, blood pressure 143/87, mean 105, saturations are 96% on 40% trach collar. GENERAL: He appears in no acute distress. No respiratory distress. HEENT: Examination is grossly unremarkable. NECK: Supple. Full range of motion. He has got a midline tracheostomy. Trach collar in place. CARDIOVASCULAR: Examination reveals regular rhythm and rate. Heart rate 70 beats per minute. S1, S2 normal. There is no murmur. LUNGS: Reveal coarse rhonchi. Breath sounds equal. No crackles. ABDOMEN: Soft. Bowel sounds are heard. EXTREMITIES: Are intact. No cyanosis, clubbing, or edema. SKIN: Without rash. NEUROLOGIC: Examination is nonfocal. LABS: Labs are reviewed. White count 12.2, hemoglobin 11.7, hematocrit 39.4, platelet count 321,000. Sodium 134, potassium 5, chloride 98, CO2 of 28. Anion gap is 8. BUN and creatinine were 20 and 0.62. His most recent x-ray was done back on May 18 and showed a bibasilar atelectasis. MEDICATIONS: Medications are reviewed. Currently, he is on Pulmicort, formoterol, Maxipime, DuoNeb, Solu-Medrol, and vancomycin. ASSESSMENT: 1. Acute tracheobronchitis secondary to both MRSA and Pseudomonas, in a patient with multiple previous pulmonary infections and pneumonia. 2. Acute exacerbation of mild persistent chronic bronchial asthma. 3. Status post chronic tracheostomy secondary to Rosai-Parker syndrome. 4. Previous episodes of pneumonia. 5. Hearing impairment. 6. Gastroesophageal reflux disease. 7. Hypertension. 8. History of sleep apnea syndrome, maintained on CPAP. 9. Prior history of tobacco use. PLAN: The patient is doing well. Possible discharge in next 24 to 48 hours. We are waiting for Dr. Rosa to come up with appropriate antibiotics as an outpatient. Will discontinue his Solu-Medrol and switch him to prednisone. Additional recommendations and suggestions are forthcoming. Prognosis is guarded. MMODL / IJN: [id number] /
--- NOTE | 2019-05-21 14:25 | PN ---
PROGRESS NOTE DATE OF SERVICE: 05/21/2019 REASON FOR FOLLOWUP VISIT: Pneumonia, tracheobronchitis and question of pneumonia. INTERVAL HISTORY: The patient is currently afebrile. The patient has been breathing more comfortably. Cough has decreased in intensity. Denies having any chest pain. No nausea. No vomiting, no abdominal pain, no diarrhea. PHYSICAL EXAMINATION: Blood pressure 143/87 with a pulse of 78, temperature 97.8. General description is a middle-aged male up in the bed, in no distress. RESPIRATORY SYSTEM: Unlabored breathing, decreased breath wounds at the base, no wheeze. HEART: S1, S2. Regular rate and rhythm. ABDOMEN: Soft, no tenderness. DIAGNOSTIC IMPRESSION AND PLAN: Patient with Pseudomonas and methicillin-resistant Staphylococcus aureus tracheobronchitis, clinical suspicion for pneumonia. Patient to finish therapy with oral Cipro and doxycycline and close outpatient followup. Continue supportive care. MMODL / IJN: [id number] /
--- NOTE | 2019-05-21 14:40 | P.DS ---
Providers Date of admission: 05/15/19 12:34 Expected date of discharge: 05/21/19 Attending physician: Adalberto Sauceda Consults: 05/16/19 13:11 Consult Physician Stat Consulting Provider: Prateek Rosa Consult Reason/Comments: pneumonia Do you want consulting provider notified?: Yes 05/17/19 10:35 Consult Physician Routine Consulting Provider: Monica Tariq Consult Reason/Comments: pneumonia/trach mngmt Do you want consulting provider notified?: Yes Primary care physician: Nicolas Gordon [facility] Course: Final diagnosis Possible sepsis Acute bronchial asthma, acute exacerbation with acute bilateral pneumonia, possibly gram-negative with possible sepsis MRSA and resistant Pseudomonas from present cultures History of Pseudomonas and MRSA pneumonia previously Hyponatremia Hyperkalemia Elevated lactic acid possibly, secondary to sepsis Increased WBC History of gastroesophageal reflux disease Hypertension History of pneumonia History of chronic tracheostomy history of sleep apnea History of laryngectomy history of Rosai Parker syndrome History of right cochlear implant Chronic hypoxic respiratory failure History of anxiety Remote history of nicotine dependence Obesity with body mass index of 43.8 Discharge disposition Patient is being discharged in a stable condition with guarded prognosis to home and will follow-up with primary care provider Dr. Valenzuela in the outpatient setting upon discharge. Patient will also follow-up with pulmonary in the outpatient setting as well. Patient will continue on a short course of oral antibiotics in the form of Cipro along with doxycycline for the next one week. Patient will continue on a prednisone taper as well. Total time taken is 35 minutes. History of present illness This is a 34-year-old male who was recently admitted increased shortness of breath with cough as well as thick green yellow secretions with a history of chronic tracheostomy and is being closely monitored. Patient had previous episode of Pseudomonas aeruginosa as well as MRSA growing the cultures and infectious disease has been consulted. Patient continues to have shortness of breath and a cough and continues to have thick greenish yellow copious amounts of secretions from his tracheostomy. Patient is also having extremely sore throat and states it feels raw due to the cough. 05/21/2019 Patient is currently on IV antibiotics in the form of cefepime and vancomycin and due to the MRSA and Pseudomonas aeruginosa on cultures patient will transition to oral antibiotics in the form of Cipro along with doxycycline for the next week. Patient will also continue on a prednisone taper. Patient will follow-up with primary care provider Dr. Valenzuela in the outpatient setting upon discharge. Patient will also follow-up with pulmonary in 1-2 weeks. Patient has a history of noncompliance and discussed with the patient at length about continuing antibiotics until finished and ensuring that he keeps his follow-up appointments. Patient verbalized understanding and agrees with this treatment plan. Patient requesting saline flushes upon discharge to flushes tracheostomy frequently due to thick secretions. A prescription was provided. Currently patient's condition is stable and is ready for discharge today. Currently patient denies any chest pain or palpitations. Patient is afebrile. Patient denies any nausea or vomiting and is tolerating diet. On exam vital signs are stable. Temp is 97.8F, pulse is 78, respirations are 20, blood pressure is 143/87, oxygen saturation is 99% via 7L on the trach collar with 28% FiO2. Cardio S1, S2 are muffled. Respiratory system shows diminished breath sounds at the bases with coarse rhonchi and some mild expiratory wheezing noted. Abdomen is soft, obese, nontender. Nervous system shows no focal deficits. Please refer to medication reconciliation sheet for a list of medications. Patient Condition at Discharge: Stable Plan - Discharge Summary Discharge Rx Participant: No New Discharge Prescriptions: New Benzocaine/Menthol Lozeng [Cepacol lozenge] 1 each MUCOUS MEM Q4HR PRN #12 lo zenge PRN Reason: Sore Throat Ciprofloxacin HCl [Cipro] 750 mg PO BID 7 Days #14 tablet HYDROcodone/APAP 5-325MG [[place] 5-325] 1 each PO Q6HR PRN #12 tab PRN Reason: Pain 0.9 % Sodium Chloride [Sodium Chloride Flush] 0 ml IV BID 30 Days #60 syr Doxycycline [Vibramycin] 100 mg PO BID 7 Days #14 cap predniSONE 10 mg PO DIRECTED #30 tab Continue Metoprolol Tartrate [Lopressor] 25 mg PO BID #60 tab Montelukast [Singulair] 10 mg PO HS #30 tab Loratadine [Claritin] 10 mg PO DAILY Butalb/Asprin/Caff 50-325-40Mg [Fiorinal 50-325-40 MG] 1 - 2 cap PO BID PRN PRN Reason: Migraine Headache Multivitamins, Thera [Multivitamin (formulary)] 1 tab PO DAILY Albuterol Inhaler [Ventolin Hfa Inhaler] 1 - 2 puff INHALATION RT-Q6H PRN PRN Reason: Shortness Of Breath Albuterol Nebulized [Ventolin Nebulized] 2.5 mg INHALATION RT-Q6H PRN PRN Reason: Shortness Of Breath Promethazine 6.25MG/5Ml [Phenergan Syrup] 5 - 10 ml PO QID Discontinued methylPREDNISolone Dose Pack [Medrol Dose Pack] See Taper PO DAILY Sulfamethox-Tmp 800-160Mg [Bactrim DS 800-160 mg] 1 tab PO Q12H Discharge Medication List Metoprolol Tartrate [Lopressor] 25 mg PO BID #60 tab 04/04/18 [Rx] Montelukast [Singulair] 10 mg PO HS #30 tab 05/29/18 [Rx] Loratadine [Claritin] 10 mg PO DAILY 02/12/19 [History] Albuterol Inhaler [Ventolin Hfa Inhaler] 1 - 2 puff INHALATION RT-Q6H PRN 05/15/19 [History] Albuterol Nebulized [Ventolin Nebulized] 2.5 mg INHALATION RT-Q6H PRN 05/15/19 [History] Butalb/Asprin/Caff 50-325-40Mg [Fiorinal 50-325-40 MG] 1 - 2 cap PO BID PRN 05/15/19 [History] Multivitamins, Thera [Multivitamin (formulary)] 1 tab PO DAILY 05/15/19 [History] Promethazine 6.25MG/5Ml [Phenergan Syrup] 5 - 10 ml PO QID 05/15/19 [History] 0.9 % Sodium Chloride [Sodium Chloride Flush] 0 ml IV BID 30 Days #60 syr 05/21/19 [Rx] Benzocaine/Menthol Lozeng [Cepacol lozenge] 1 each MUCOUS MEM Q4HR PRN #12 lozenge 05/21/19 [Rx] Ciprofloxacin HCl [Cipro] 750 mg PO BID 7 Days #14 tablet 05/21/19 [Rx] Doxycycline [Vibramycin] 100 mg PO BID 7 Days #14 cap 05/21/19 [Rx] HYDROcodone/APAP 5-325MG [Salem 5-325] 1 each PO Q6HR PRN #12 tab 05/21/19 [Rx] predniSONE 10 mg PO DIRECTED #30 tab 05/21/19 [Rx] Follow up Appointment(s)/Referral(s): Lacey Valenzuela MD [Primary Care Provider] - 05/23/19 1:30 pm Earnest Mendoza DO [Doctor of Osteopathic Medicine] - 06/04/19 1:15 pm Patient Instructions/Handouts: Pneumonia (DC) Activity/Diet/Wound Care/Special Instructions: Activity Limited until follow-up Follow-up with primary care provider upon discharge Continue antibiotics until finished continue with a prednisone taper Follow-up with pulmonary in 1-2 weeks Continue current diet Discharge Disposition: HOME SELF-CARE
[2019-05-22] MEDS ORDERED: predniSONE 20 MG TAB PO SCH (09:00)
== END 2019-05-21 15:09 | disposition home or self-care (01) | DRG 871 ==
LOC: EC 10:30 → 3SCARD 12:34 → 4SSUR 05-20 18:25
PROVIDERS: ADMIT Hospitalist; ATTEND Hospitalist
DX: A41.50 Gram-negative sepsis, unspecified (principal); J15.6 Pneumonia due to other Gram-negative bacteria; E87.1 Hypo-osmolality and hyponatremia; Z68.41 Body mass index [BMI] 40.0-44.9, adult; J45.21 Mild intermittent asthma with (acute) exacerbation; D76.3 Other histiocytosis syndromes; J96.11 Chronic respiratory failure with hypoxia; K21.9 Gastro-esophageal reflux disease without esophagitis; I10 Essential (primary) hypertension; F41.9 Anxiety disorder, unspecified; E87.5 Hyperkalemia; E66.9 Obesity, unspecified; H91.90 Unspecified hearing loss, unspecified ear; G47.33 Obstructive sleep apnea (adult) (pediatric); J20.8 Acute bronchitis due to other specified organisms; I71.9 Aortic aneurysm of unspecified site, without rupture; B96.5 Pseudomonas (aeruginosa) (mallei) (pseudomallei) as the cause of diseases classified elsewhere; B95.62 Methicillin resistant Staphylococcus aureus infection as the cause of diseases classified elsewhere; Z79.899 Other long term (current) drug therapy; Z88.0 Allergy status to penicillin; Z91.048 Other nonmedicinal substance allergy status; Z91.19 Patient's noncompliance with other medical treatment and regimen; Z99.81 Dependence on supplemental oxygen; Z91.09 Other allergy status, other than to drugs and biological substances; Z99.89 Dependence on other enabling machines and devices; Z87.01 Personal history of pneumonia (recurrent); Z86.14 Personal history of Methicillin resistant Staphylococcus aureus infection; Z90.89 Acquired absence of other organs; Z98.890 Other specified postprocedural states; Z93.0 Tracheostomy status; Z87.891 Personal history of nicotine dependence; Z82.5 Family history of asthma and other chronic lower respiratory diseases; Z82.49 Family history of ischemic heart disease and other diseases of the circulatory system
CPT/HCPCS: 36415; 71045; 71046; 80048; 80053; 80202; 82565; 83605; 85025; 85610; 85730; 87040; 87070; 87077; 87186; 87205; 87502; 93005; 94640; 94760; 96361; 96365; 96367; 96375; 99285

== ENCOUNTER 2019-08-01 12:52 | Emergency (ER) | payer MEDICARE, OTHER ==
[2019-08-01] MEDS ORDERED: ALBUTEROL NEBULIZED 2.5 MG/3 ML INHALATION STA (13:22)
[2019-08-01] MEDS ORDERED: IPRATROPIUM 0.5 MG/2.5 ML NEBU INHALATION STA (13:22)
[2019-08-01] MEDS ORDERED: DEXAMETHASONE SOD PHOSPHATE 10 MG/ML 1 ML VIAL IV STA (13:23)
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
--- NOTE | 2019-08-01 13:47 | XR ---
EXAMINATION TYPE: XR chest 2V DATE OF EXAM: 08/01/2019 COMPARISON: 05/18/2019 HISTORY: 34 year-old male shortness of breath TECHNIQUE: PA and lateral views FINDINGS: Tracheostomy cannula redemonstrated. Heart upper limits of normal in size. Aorta and pulmonary vascul ature within normal limits. Large patient body habitus casts hazy densities over the thorax. Improvin g aeration of the left base with residual patchy opacity. Continued patchy medial right basilar opaci ty as well. IMPRESSION: Patchy bibasilar opacities could represent areas of atelectasis or infiltrates. Correlate for any inf ectious respiratory signs/symptoms.
[2019-08-01] MEDS ORDERED: AZITHROMYCIN 500 MG TAB PO STA (14:00)
[2019-08-01 14:13] LABS: Anisocytosis Slight; Basophils % (A) 1 %; Eosinophils # (A) 0.1 k/uL (0-0.7); Eosinophils % (A) 2 %; HCT 43.4 % (39.0-53.0); HGB 13.2 gm/dL (13.0-17.5); Hypochromasia Moderate; Lymphocytes # (A) 0.8 k/uL (1.0-4.8); Lymphocytes % (A) 18 %; MCH 26.5 pg (25.0-35.0); MCHC 30.5 g/dL (31.0-37.0); MCV 86.9 fL (80.0-100.0); Mean Platelet Volume 8.7; Monocytes # (A) 0.3 k/uL (0-1.0); Monocytes % (A) 7 %; Neutrophils # (A) 3.2 k/uL (1.3-7.7); Neutrophils % (A) 69 %; Platelet Count 295 k/uL (150-450); RDW 17.1 % (11.5-15.5); WBC 4.7 k/uL (3.8-10.6)
[2019-08-01 14:23] LABS: African American GFR (CKD) >90 (>60 ml/min/1.73 sqM); Anion Gap 10 mmol/L; Blood Urea Nitrogen 10 mg/dL (9-20); Calcium 9.7 mg/dL (8.4-10.2); Carbon Dioxide 27 mmol/L (22-30); Chloride 102 mmol/L (98-107); Glucose 100 mg/dL (74-99); Non-African American GFR(CKD) >90 (>60 ml/min/1.73 sqM); Potassium 4.4 mmol/L (3.5-5.1); Sodium 139 mmol/L (137-145)
[2019-08-01 15:55] VITALS: BP 169/105; PULSE 92; RESP 20; TEMP 98
== END 2019-08-01 15:54 | disposition home or self-care (01) ==
LOC: EC 12:52
DX: J18.9 Pneumonia, unspecified organism (principal); I10 Essential (primary) hypertension; G47.33 Obstructive sleep apnea (adult) (pediatric); J45.909 Unspecified asthma, uncomplicated; Z79.899 Other long term (current) drug therapy; Z88.0 Allergy status to penicillin; Z91.048 Other nonmedicinal substance allergy status; Z87.891 Personal history of nicotine dependence
CPT/HCPCS: 36415; 94640; 80048; 85025; 87635; 71046; 99285; 96374; J1100

== ENCOUNTER 2019-09-24 13:55 | Emergency (ER) | payer MEDICARE, OTHER ==
[2019-09-24 14:04] VITALS: TEMP 97.8
[2019-09-24] MEDS ORDERED: diphenhydrAMINE 50 MG/ML 1 ML VIAL IVP STA (14:17)
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
[2019-09-24 15:00] LABS: Appearance,Urine Clear (Clear); Bilirubin,Urine Negative (Negative); Blood,Urine Negative (Negative); Color,Urine Yellow; Glucose,Urine (UA) Negative (Negative); Ketones,Urine Negative (Negative); Leukocyte Esterase,Urine Small (Negative); Mucus,Urine Rare /hpf; Nitrite,Urine Negative (Negative); PH, Urine 5.5 (5.0-8.0); Protein,Urine Trace (Negative); RBC,Urine <1 /hpf (0-5); Specific Gravity,Urine 1.027 (1.001-1.035); Squamous Epithelial Cell,Urine <1 /hpf (0-4); WBC,Urine 4 /hpf (0-5)
[2019-09-24 15:03] LABS: Anisocytosis Slight; HCT 42.4 % (39.0-53.0); HGB 13.5 gm/dL (13.0-17.5); Hypochromasia Slight; MCH 28.2 pg (25.0-35.0); MCHC 31.9 g/dL (31.0-37.0); MCV 88.6 fL (80.0-100.0); Mean Platelet Volume 9.4; Platelet Count 247 k/uL (150-450); RBC 4.78 m/uL (4.30-5.90); RDW 17.2 % (11.5-15.5)
[2019-09-24 15:05] LABS: WBC 5.5 k/uL (3.8-10.6)
[2019-09-24 15:14] LABS: African American GFR (CKD) >90 (>60 ml/min/1.73 sqM); Anion Gap 8 mmol/L; Bilirubin, Delta 0.1 mg/dL (0.0-0.2); Bilirubin,Unconjugated 0.4 mg/dL (0.0-1.1); Blood Urea Nitrogen 15 mg/dL (9-20); Calcium 9.9 mg/dL (8.4-10.2); Carbon Dioxide 25 mmol/L (22-30); Chloride 106 mmol/L (98-107); Glucose 113 mg/dL (74-99); Non-African American GFR(CKD) >90 (>60 ml/min/1.73 sqM); Potassium 4.6 mmol/L (3.5-5.1); Sodium 139 mmol/L (137-145); Total Bilirubin 0.5 mg/dL (0.2-1.3)
--- NOTE | 2019-09-24 15:32 | XR ---
EXAMINATION TYPE: XR chest 1V portable DATE OF EXAM: 09/24/2019 COMPARISON: Prior chest x-ray 08/01/2019, 03/29/2018, 05/23/2018, CT dated 09/22/2014 HISTORY: Flank pain, chest pain TECHNIQUE: Single frontal view of the chest is obtained. FINDINGS: Tracheostomy tube is in place overlying the tracheal air column. Prominent epicardial fat p ads are again seen. There is blunting the left costophrenic angle. Heart size is likely stable. Promi nence right paratracheal region is noted, technique is somewhat apical lordotic. No evident pneumotho rax. There are prominent lung volumes, there may be underlying COPD. IMPRESSION: Difficult to exclude left pleural effusion although findings may be related to chronic p leural reaction, subsegmental basilar atelectatic changes. Prominence of the paratracheal region is a chronic finding.
[2019-09-24 15:49] LABS: Eosinophils # (M) 0.11 k/uL (0-0.7); Nucleated Red Blood Cells 0 /100 WBC (0-0)
[2019-09-24 15:52] LABS: Lymphocytes # (M) 1.05 k/uL (1.0-4.8); Metamyelocytes # (M) 0.17 k/uL (0); Metamyelocytes % 3 %; Monocytes # (M) 0.39 k/uL (0-1.0); Neutrophils # (M) 3.91 k/uL (1.3-7.7); Neutrophils % (M) 71 %; Polychromasia Present; Total Cells Counted 200
[2019-09-24 15:55] VITALS: RESP 20
[2019-09-24 16:02] VITALS: BP 144/93; PULSE 91
== END 2019-09-24 16:20 | disposition home or self-care (01) ==
LOC: EC 13:55
DX: L29.9 Pruritus, unspecified (principal); J90 Pleural effusion, not elsewhere classified; J45.909 Unspecified asthma, uncomplicated; I10 Essential (primary) hypertension; G47.33 Obstructive sleep apnea (adult) (pediatric); H91.90 Unspecified hearing loss, unspecified ear; Z99.89 Dependence on other enabling machines and devices; Z99.81 Dependence on supplemental oxygen; Z79.51 Long term (current) use of inhaled steroids; Z79.899 Other long term (current) drug therapy; Z87.891 Personal history of nicotine dependence; Z91.048 Other nonmedicinal substance allergy status; Z88.8 Allergy status to other drugs, medicaments and biological substances; Z86.14 Personal history of Methicillin resistant Staphylococcus aureus infection; Z96.21 Cochlear implant status; Z97.4 Presence of external hearing-aid; Z90.89 Acquired absence of other organs; Z98.890 Other specified postprocedural states
CPT/HCPCS: 99284; 96374; 36415; 80048; 82248; 84443; 85025; 81001; 71045; J1200

== ENCOUNTER → 2019-10-31 | Outpatient (CLI) | payer MEDICARE, OTHER ==
--- NOTE | 2019-10-31 15:22 | CT ---
EXAMINATION TYPE: CT abdomen pelvis w con DATE OF EXAM: 10/31/2019 COMPARISON: CT abdomen and pelvis June 01, 2013 HISTORY: Left lower quadrant abdominal pain. CT DLP: 2288.8 mGycm, Automated Exposure Control for Dose Reduction was Utilized. CONTRAST: CT scan of the abdomen and pelvis is performed with oral and with IV Contrast, patient injected with 100ml mL of Isovue 300. FINDINGS: LUNG BASES: Right greater than left bibasilar scarring and/or atelectasis. LIVER/GB: Liver low dense relative to spleen consistent with diffuse fatty infiltration. PANCREAS: No significant abnormality is seen. SPLEEN: No significant abnormality is seen. ADRENALS: No significant abnormality is seen. KIDNEYS: Asymmetric slight increased size to left kidney redemonstrated. Symmetrical medullary uptake and excretion without hydronephrosis is noted. BOWEL: Oral contrast reaches level of the splenic flexure. No suspicious small or large bowel dilatat ion. PROSTATE/SEMINAL VESICLES: No gross abnormality seen. LYMPH NODES: No greater than 1cm abdominal or pelvic lymph nodes are appreciated. OSSEOUS STRUCTURES: No significant abnormality is seen. OTHER: Overlying vertical midline scar with small fat-containing incisional hernias along its course new from 2014 CT. IMPRESSION: No new or acute finding is seen to account for patient's clinical symptoms of left lower quadrant pain. Interval intra-abdominal surgery with new overlying vertical midline scar and new Fat-containing incisional hernias noted.
== END | disposition home or self-care (01) ==
LOC: RADCTMAIN 12:39
PROVIDERS: ATTEND Internal Medicine
DX: K43.2 Incisional hernia without obstruction or gangrene (principal); L90.5 Scar conditions and fibrosis of skin; Z98.890 Other specified postprocedural states; Z88.0 Allergy status to penicillin
CPT/HCPCS: 74177; Q9967